=== PATIENT | female | born 1945 | race Caucasian/White ===

== ENCOUNTER 2020-06-12 10:27 | Outpatient (CLI) | payer MEDICARE, SELFPAY ==
--- NOTE | ~2020-06-12 | MM_ITS ---
EXAMINATION: MM screening [facility] w [facility] HISTORY: Screening TECHNIQUE: Craniocaudal and mediolateral oblique 3-D tomosynthesis images were obtained and synthetic 2-D images were generated. CAD analysis was submitted and interpreted. COMPARISON: Comparison to multiple prior studies sequentially, with oldest reviewed study dated 12/18/2014. BREAST PARENCHYMAL COMPOSITION: There are scattered areas of fibroglandular density. FINDINGS: There is no evidence of suspicious mass, calcification, or architectural distortion to sugg est malignancy in either breast. There has been no suspicious interval change. IMPRESSION: 1. No mammographic evidence of malignancy. 2. Recommend routine screening mammography in one year. BI-RADS Category 1: Negative Reviewed, dictated and finalized at location A. [facility]
== END 2020-06-12 10:28 | disposition home or self-care (01) ==
PROVIDERS: PCP Internal Medicine; Visit Provider Obstetrics & Gynecology Gynecology
DX: Z12.31 Encounter for screening mammogram for malignant neoplasm of breast (principal)
CPT/HCPCS: 77063; 77067

== ENCOUNTER → 2020-07-12 05:25 | Outpatient (CLI) | payer MEDICARE, SELFPAY ==
[2020-07-12 19:34] LABS: SARS-CoV-2 RNA PCR Negative
== END ==
PROVIDERS: PCP Internal Medicine; Visit Provider Internal Medicine Gastroenterology
DX: Z01.812 Encounter for preprocedural laboratory examination (principal); Z20.822 Contact with and (suspected) exposure to COVID-19
CPT/HCPCS: C9803; U0003; U0005

== ENCOUNTER 2020-07-15 01:14 | Day surgery (SDC) | payer MEDICARE, SELFPAY ==
[2020-07-01 15:25] VITALS: BMI 24.9
[2020-07-15 09:35] VITALS: BP 138/97; PULSE 84; RESP 16; TEMP 36.7; O2SAT 99; BMI 23.8
[2020-07-15] MEDS: LACTATED RINGERS 1,000 ML 150 ML IV CONT (09:47)
--- NOTE | 2020-07-15 10:26 | WPDANESEPPF ---
Anes - Initial Pre Proc Eval Procedure: Operation Date: 07/15/20 10:45 Proposed Procedures p Screening Colonoscopy - Arturo Morocho MD Date/Time: 07/15/20 10:26 Surgeon: Arturo Morocho MD Pre Op Diagnosis: neoplasm screening Patient Data Age: 75 Gender: F Height: 5 ft 6 in Weight: 66.8 kg Last Vital Signs Temp 98.1 F 07/15/20 09:35 Pulse 84 07/15/20 09:35 Resp 16 07/15/20 09:35 BP 138/97 H 07/15/20 09:35 Pulse Ox 99 07/15/20 09:35 Allergies Allergy/AdvReac Type Severity Reaction Status Date / Time No Known Allergies Allergy Verified 07/15/20 09:34 Home Medications Medication Instructions Recorded Confirmed Type sodium,potassium,mag sulfates 17.5 See Rx Instructions PO .COMPLEX 06/12/20 Rx gram-3.13 gram-1.6 gram oral soln #354 ml amlodipine 5 mg PO DAILY 07/01/20 07/01/20 History hydrochlorothiazide 25 mg PO DAILY 07/01/20 07/01/20 History simvastatin 20 mg PO DAILY 07/01/20 07/01/20 History solifenacin 5 mg PO DAILY 07/01/20 07/01/20 History Patient hx anesthesia problems: none Family hx anesthesia problems: none PMFSH Past Medical History Medical History (Updated 07/15/20 @ 10:18 by Cipriano Gusman MD) Hyperlipidemia Hypertension Family History Family History (Updated 10/31/18 @ 11:06 by DOCTOR UNKNOWN) Other Family history of cardiovascular disease Hypertension Social History Social History Smoking packs per day: 1.5 Smoking cigarettes per day: 30.0 Years smoked: 15 Smoking pack-years: 22.50 Smoking status: Former smoker Tobacco type: cigarettes Alcohol intake: current Drinks per week: 5 Substance use type: does not use Living arrangements: with family Spiritual care concerns: No Anes - Eval Final PreProcedure Day of Procedure 07/15/20 10:26 Patient weight: normal Heart: regular rate and rhythm Lungs: clear to auscultation Airway: Mallampati scale class II Neurological: alert and oriented Last oral intake: >/= 8 hours ASA classification: II Emergent: no Anesthetic plan: proceed Anesthesia type and monitoring: general GIVS and standard monitoring Informed Consent: The patient's anesthetic plan and its attendant risks and benefits were discussed with the patient/family/POA. Questions were solicited and answers provided to the satisfaction of the patient/family/POA.
--- NOTE | 2020-07-15 11:23 | PM.HPGS ---
History of Present Illness History of Present Illness Consent: Risks, benefits, and alternatives have been discussed and questions answered. Patient agrees to proceed with procedure. Chief complaint: neoplasm screening Narrative: Olivia Mo is a 75 year old female here for screening colonoscopy, last one about 5 years ago Review of Systems Constitutional: Constitutional: Denies headache(s) and Denies weakness Eyes: Eyes: Denies blurry vision ENT: Reports Normal hearing present, Denies headache(s) and Denies neck pain Cardiovascular: Cardiovascular: Denies chest pain and Denies dyspnea Respiratory: Respiratory: Denies dyspnea Gastrointestinal: Gastrointestinal: Reports no additional gastrointestinal complaints Genitourinary: Genitourinary: Denies dysuria Musculoskeletal: Musculoskeletal: Denies neck pain Integumentary/Breasts: Skin/Breast: Denies dry skin Neurologic: Reports Normal hearing present, Denies headache(s) and Denies weakness Psychiatric: Psychiatric: Denies anxiety Endocrine: Endocrine: Denies change in body appearance Hematologic/Lymphatic: Hematologic/Lymphatic: Denies easy bleeding Allergic/Immunologic: Allergic/Immunologic: Denies urticaria PMFSH Past Medical History Medical History (Updated 07/15/20 @ 11:24 by Arturo Morocho MD) Colon cancer screening Hyperlipidemia Hypertension Family History Family History (Updated 10/31/18 @ 11:06 by DOCTOR UNKNOWN) Other Family history of cardiovascular disease Hypertension Social History Social History Smoking packs per day: 1.5 Smoking cigarettes per day: 30.0 Years smoked: 15 Smoking pack-years: 22.50 Smoking status: Former smoker Tobacco type: cigarettes Alcohol intake: current Drinks per week: 5 Substance use type: does not use Living arrangements: with family Spiritual care concerns: No Meds Home Medications and Allergies Home Medications Medication Instructions Recorded Confirmed Type sodium,potassium,mag sulfates 17.5 See Rx Instructions PO .COMPLEX 06/12/20 Rx gram-3.13 gram-1.6 gram oral soln #354 ml amlodipine 5 mg PO DAILY 07/01/20 07/01/20 History hydrochlorothiazide 25 mg PO DAILY 07/01/20 07/01/20 History simvastatin 20 mg PO DAILY 07/01/20 07/01/20 History solifenacin 5 mg PO DAILY 07/01/20 07/01/20 History Allergies Allergy/AdvReac Type Severity Reaction Status Date / Time No Known Allergies Allergy Verified 07/15/20 09:34 Vital Signs Vital Signs - 24 hr 07/15/20 09:35 Temperature 98.1 F Pulse Rate 84 Respiratory Rate 16 Blood Pressure 138/97 H Pulse Oximetry 99 Exam Const: General: comfortable and no acute distress HENMT: General nose exam: Normal nares present Eyes: General: appearance normal, both eyes and all related structures Neck: Neck: no JVD Resp: Auscultation: clear to auscultation bilaterally Cardio: Rate: regular rate Rhythm: regular rhythm GI: Inspection: non-distended GI Palp: Yes Soft to palpation Skin: General skin exam: normal color Neuro: General: gait normal Speech: normal speech Extrem: General: normal to inspection Psych: Mental Status: mental status grossly normal Assessment and Plan Assessment and plan (1) Colon cancer screening: Code(s): Z12.11 - Encounter for screening for malignant neoplasm of colon Status: Acute Assessment and Plan: proceed with colonoscopy
[2020-07-15 12:15] VITALS: BP 98/67; PULSE 71; RESP 15; O2SAT 95
[2020-07-15 12:25] VITALS: BP 107/69; PULSE 61; RESP 18; O2SAT 98
[2020-07-15 12:35] VITALS: BP 116/75; PULSE 60; RESP 18; O2SAT 97
== END 2020-07-15 12:46 | disposition home or self-care (01) ==
PROVIDERS: PCP Internal Medicine; Visit Provider Internal Medicine Gastroenterology
PROC: 0DJD8ZZ Inspection of Lower Intestinal Tract, Via Natural or Artificial Opening Endoscopic (ICD-10-PCS; CPT 45378; principal; 2020-07-15 10:45)
DX: Z12.11 Encounter for screening for malignant neoplasm of colon (principal); K63.5 Polyp of colon; K57.30 Diverticulosis of large intestine without perforation or abscess without bleeding; I10 Essential (primary) hypertension; E78.5 Hyperlipidemia, unspecified; Z87.891 Personal history of nicotine dependence
CPT/HCPCS: 45381; 45385; 88305; J2704; J7120

== ENCOUNTER 2021-06-27 04:29 | Emergency (ER) | payer MEDICARE, SELFPAY ==
--- NOTE | ~2021-06-27 | CT_ITS ---
EXAMINATION: CT orbit BI wo con DATE: 06/27/2021 05:15 INDICATION: Right eye injury. Hyphema. TECHNIQUE: Computed tomography (CT) of the orbits was performed without intravenous contrast. The dos e-length product was 165.48 mGy-cm. Automated exposure control and iterative reconstruction technique were employed. COMPARISON: None FINDINGS: There is asymmetrically decreased size of the right globe. The lens appears irregular, poss ibly dislocated. There is multiple foci of increased attenuation in the globe which may represent int raocular hemorrhage. Small periarticular hemorrhage is possible anteriorly, suspicious for rupture. R ecommend ophthalmological examination. No evidence for surrounding orbital fracture. There is minimal mucosal thickening of the left maxillary sinus. IMPRESSION: 1. Atypical appearance to the right globe with possible ocular rupture with intra-articular and extra -articular hemorrhage. Correlation with ophthalmic examination recommended. Reviewed, dictated and finalized at location A. IMPRESSION: 1. Atypical appearance to the right globe with possible ocular rupture with int ra-articular and extra-articular hemorrhage. Correlation with ophthalmic examin ation recommended.
[2021-06-27 04:32] VITALS: BP 146/82; PULSE 71; RESP 16; TEMP 36.4; O2SAT 100
[2021-06-27] MEDS: HYDROcodone/acetaminophen (*CRX) 5-325 MG TABLET 1 TAB PO (04:46)
--- NOTE | 2021-06-27 05:26 | ED.FALL ---
HPI - Fall General Chief Complaint: Fall Stated Complaint: Fall, head injury Time Seen by Provider: 06/27/21 04:30 Source: patient History of Present Illness HPI Narrative: 76-year-old female presented [facility] department for evaluation of an injury to her right eye. Patient states she was getting out of a bed that she was not familiar with and she struck the corner of a nightstand injuring her eye. Patient states that she has significant visual deficit in that eye to begin with. Patient has had mild corneal issues and does follow-up with the retina [facility]. 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 Patient states she can still see light and denies any significant change in her vision to the right eye. Related Data Home Medications Medication Instructions Recorded Confirmed amlodipine 5 mg PO DAILY 07/01/20 05/27/21 hydrochlorothiazide 25 mg PO DAILY 07/01/20 05/27/21 simvastatin 20 mg PO DAILY 07/01/20 05/27/21 oxybutynin chloride 15 mg 15 mg PO DAILY 05/27/21 05/27/21 tablet,extended release 24 hr Allergies Allergy/AdvReac Type Severity Reaction Status Date / Time No Known Allergies Allergy Verified 05/27/21 10:26 Review of Systems Review of Systems: CONSTITUTIONAL: Denies fever, chills, or sweats. EYES: pain and injury to the right eye. some visual change to eey ENT: Denies rhinorrhea, congestion, sore throat, or otalgia. CARDIOVASCULAR: Denies chest pain, palpitations, or edema. RESPIRATORY: Denies cough or dyspnea. GASTROINTESTINAL: Denies abdominal pain, nausea, vomiting, or diarrhea. GENITOURINARY: Denies dysuria or hematuria. SKIN: Denies rash or itching. MUSCULOSKELETAL: Denies back pain, joint pain, or myalgia. NEUROLOGIC: Denies headache, numbness, or weakness. PSYCHIATRIC: Denies anxiety or depression. [facility] Past Medical History Medical History Colon cancer screening Hyperlipidemia Hypertension Family History Family History Grandparent Cervical cancer Mother Hypertension Heart disease Grandparent Cerebrovascular accident Other Family history of cardiovascular disease Social History Social History Smoking packs per day: 1.5 Smoking cigarettes per day: 30.0 Years smoked: 15 Smoking pack-years: 22.50 Smoking status: Former smoker Tobacco type: cigarettes Alcohol intake: current Drinks per week: 5 Substance use type: does not use Spiritual care concerns: No Exam Narrative: APPEARANCE: Well appearing, no pain, no distress, well-nourished. HEAD: normocephalic, atraumatic. EYES: For the right eye patient does have lateral subconjunctival hemorrhage with some hematoma/edema. Patient also has hyphema of 100%. Patient is sensitive to light in that eye. Patient states this is her baseline vision in that eye. NOSE: Normal no drainage EARS:TMS clear with good light reflex. THROAT: Pharynx clear, no exudate. NECK: Supple. No adenopathy, no masses. RESPIRATORY: Airway patent, respirations nonlabored. Clear to auscultation bilaterally, no rales, rhonchi, wheezing. CARDIOVASCULAR: Regular rate and rhythm without murmurs rubs or gallops. ABDOMINAL: Soft, nontender, nondistended, normal bowel sounds MUSCULOSKELETAL: Moves all extremities. Strength/ROM intact, No edema, No calf tenderness. SKIN: Warm, dry. Normal Color Course Course Emergency Course: Case was discussed with [facility]mology at [facility]. Patient was asked for transfer to the emergency department. Patient was updated on the plan for transfer to [facility]. All questions concerns were addressed. Patient was stable at time of transfer. Vital Signs Vital signs: Vital Signs Temperature 97.5 F L 06/27/21 04:32 Pulse Rate 71 06/27/21 04:32 Respiratory Rate 16 06/27/21 04:32 Blood Pressure 146/82 H 06/27/21
[2021-06-27 06:50] VITALS: BP 129/69; PULSE 69; RESP 16; O2SAT 100
[2021-06-27] MEDS: MORPHINE SULFATE (*CRX) 2 MG/ML INJ IV PUSH (07:43)
== END 2021-06-27 08:05 | disposition short-term general hospital (02) ==
PROVIDERS: Emergency Provider Emergency Medicine; PCP Internal Medicine
DX: S05.11XA Contusion of eyeball and orbital tissues, right eye, initial encounter (principal); E78.5 Hyperlipidemia, unspecified; I10 Essential (primary) hypertension; Z87.891 Personal history of nicotine dependence; W22.03XA Walked into furniture, initial encounter
CPT/HCPCS: 70480; 96374; 99285; A9270; J2270

== ENCOUNTER 2021-07-06 08:17 | Outpatient (CLI) | payer MEDICARE, SELFPAY ==
--- NOTE | ~2021-07-06 | MM_ITS ---
EXAMINATION: MM screening [facility] BI w parker HISTORY: Screening mammogram TECHNIQUE: Craniocaudal and mediolateral oblique 3-D tomosynthesis images were obtained and synthetic 2-D images were generated. CAD analysis was submitted and interpreted. COMPARISON: 06/12/2020, 04/09/2019 BREAST PARENCHYMAL COMPOSITION: The breasts are almost entirely fatty. FINDINGS: Again noted is stable architectural distortion in the right breast at the site of prior exc isional biopsy. There is no suspicious mass, calcification, or architectural distortion to suggest ma lignancy in either breast. There has been no suspicious interval change. IMPRESSION: 1. No mammographic evidence of malignancy. 2. Recommend routine screening mammography in one year. BI-RADS Category 2: Benign finding(s). Reviewed, dictated and finalized at location A.
== END 2021-07-06 08:18 | disposition home or self-care (01) ==
LOC: ANHIMG 08:18
PROVIDERS: PCP Internal Medicine; Visit Provider Obstetrics & Gynecology Gynecology
DX: Z12.31 Encounter for screening mammogram for malignant neoplasm of breast (principal)
CPT/HCPCS: 77063; 77067

== ENCOUNTER 2021-09-23 08:37 | Outpatient (CLI) | payer MEDICARE, SELFPAY ==
--- NOTE | ~2021-09-23 | DEXA_ITS ---
Bone Density Report Name: LESLI SHARP Age: 76 Sex: Female Ethnicity: White Date of : 1945 Indication: osteopenia; monitoring treatment; height loss; hysterectomy; Referring Provider: JACKI GARCIA Study: Bone densitometry was performed. Exam Date: September 23, 2021 Accession number: [id number] Bone Density: Region BMD T-score Z-score Classification AP Spine(L1, L2) 0.931 -0.4 2.0 Normal Femoral Neck (Left) 0.702 -1.3 0.9 Osteopenia Total Hip (Left) 0.776 -1.4 0.6 Osteopenia Femoral Neck (Right) 0.650 -1.8 0.4 Osteopenia Total Hip (Right) 0.758 -1.5 0.5 Osteopenia Total Hip Mean 0.767 -1.5 0.6 Osteopenia World Health Organization criteria for BMD impression classify patients as: Normal (T-score at or above -1.0), Osteopenia (T-score between -1.0 and -2.5), or Osteoporosis (T-score at or below -2.5). 10-year Fracture Risk: FRAX not reported because: Treated for osteoporosis Previous Exams: Region Exam Age BMD T-score BMD Change BMD Change Date g/cm2 vs Baseline vs Previous AP Spine (L1-L2) 09/23/2021 76 0.931 -0.4 -0.039 (-4.0%) -0.044 (-4.5%) 02/24/2018 72 0.975 0.0 0.005 (0.5%)# 0.025 (2.7%)* 12/26/2015 70 0.950 -0.3 -0.020 (-2.1%) -0.020 (-2.1%) 11/14/2013 68 0.970 -0.1 Total Hip(Left) 09/23/2021 76 0.776 -1.4 -0.093 (-10.7% -0.131 (-14.4% 02/24/2018 72 0.907 -0.3 0.038 (4.3%)# 0.004 (0.4%) 12/26/2015 70 0.903 -0.3 0.034 (3.9%)# 0.034 (3.9%)# 11/14/2013 68 0.869 -0.6 Total Hip(Right) 09/23/2021 76 0.758 -1.5 -0.036 (-4.5%) -0.036 (-4.5%) 02/24/2018 72 0.794 -1.2 0.000 (0.0%)# 0.008 (1.1%) 12/26/2015 70 0.786 -1.3 -0.008 (-1.0%) -0.008 (-1.0%) 11/14/2013 68 0.794 -1.2 *Denotes significance at 95% confidence level, LSC for AP Spine = 0.022 g/cm2, LSC for Total Hip = 0.027 g/cm2 # Denotes dissimilar scan types or analysis methods Clinical Information Provided by Patient: Is being treated for osteoporosis Has used the following medications: Calcium Has the following medical conditions: Hysterectomy Patient maximum height was 66 Menopause Age: 49 Does not regularly consume dairy products Drinks caffeinated beverages Onset of menses at age 11 Number of children 1 Impression: The patient has low bone mass, based on the Right Femoral Neck T-score. The BMD for the AP Spine (L1-L2) decreased, changing by -4.5% since the last DXA exam. The BMD
== END 2021-09-23 08:38 | disposition home or self-care (01) ==
LOC: ANHIMG 08:38
PROVIDERS: PCP Internal Medicine; Visit Provider Obstetrics & Gynecology Gynecology
DX: Z78.0 Asymptomatic menopausal state (principal); M85.852 Other specified disorders of bone density and structure, left thigh; M85.851 Other specified disorders of bone density and structure, right thigh
CPT/HCPCS: 77080

== ENCOUNTER 2022-10-06 08:50 | Outpatient (CLI) | payer MEDICARE, SELFPAY ==
--- NOTE | ~2022-10-06 | MM_ITS ---
EXAMINATION: MM screening [facility] BI w [facility] HISTORY: Screening mammogram TECHNIQUE: Craniocaudal and mediolateral oblique 3-D tomosynthesis images were obtained and synthetic 2-D images were generated. CAD analysis was submitted and interpreted. COMPARISON: No prior mammogram is available for comparison at this institution. BREAST PARENCHYMAL COMPOSITION: The breasts are almost entirely fatty. FINDINGS: There is no evidence of suspicious mass, calcification, or architectural distortion to sugg est malignancy in either breast. There has been no suspicious interval change. IMPRESSION: 1. No mammographic evidence of malignancy. 2. Recommend routine screening mammography in one year. BI-RADS Category 1: Negative Reviewed, dictated and finalized at location A.
== END 2022-10-06 08:51 | disposition home or self-care (01) ==
LOC: ANHIMG 08:52
PROVIDERS: PCP Internal Medicine; Visit Provider Obstetrics & Gynecology Gynecology
DX: Z12.31 Encounter for screening mammogram for malignant neoplasm of breast (principal)
CPT/HCPCS: 77063; 77067

== ENCOUNTER 2023-10-10 08:55 | Outpatient (CLI) | payer MEDICARE, SELFPAY ==
--- NOTE | ~2023-10-10 | MM_ITS ---
EXAMINATION: MM screening [facility] BI w parker HISTORY: Screening mammogram TECHNIQUE: Craniocaudal and mediolateral oblique 3-D tomosynthesis images were obtained and synthetic 2-D images were generated. CAD analysis was submitted and interpreted. COMPARISON: 10/06/2022, 07/06/2021, 06/12/2020 BREAST PARENCHYMAL COMPOSITION:Not Dense. The breasts are almost entirely fatty FINDINGS: No suspicious mass, calcification, or architectural distortion are identified in either brandon ast to suggest malignancy. There has been no suspicious interval change. IMPRESSION: No mammographic evidence of malignancy. Recommend routine screening mammography in one year. BI-RADS Category 1: Negative Reviewed, dictated and finalized at location .
--- NOTE | ~2023-10-10 | DEXA_ITS ---
Bone Density Report Name: LESLI SHARP Age: 78 Sex: Female Ethnicity: White Date of : 1945 Indication: osteopenia; hysterectomy; Referring Provider: JACKI GARCIA Study: Bone densitometry was performed. Exam Date: October 10, 2023 Accession number: [id number] Bone Density: Region BMD T-score Z-score Classification AP Spine(L1-L4) 1.061 0.1 2.8 Normal Femoral Neck (Left) 0.704 -1.3 1.0 Osteopenia Total Hip (Left) 0.793 -1.2 0.9 Osteopenia Femoral Neck (Right) 0.651 -1.8 0.5 Osteopenia Total Hip (Right) 0.742 -1.6 0.4 Osteopenia Total Hip Mean 0.768 -1.4 0.7 Osteopenia World Health Organization criteria for BMD impression classify patients as: Normal (T-score at or above -1.0), Osteopenia (T-score between -1.0 and -2.5), or Osteoporosis (T-score at or below -2.5). 10-year Fracture Risk(1): Major Osteoporotic Fracture 15% Hip Fracture 3.9% Reported Risk Factors: [place] (), Neck BMD=0.651, BMI=25.0 (1) FRAX(R) Version 3.08. Fracture probability calculated for an untreated patient. Fracture probability may be lower if the patient has received treatment. Previous Exams: Region Exam Age BMD T-score BMD Change BMD Change Date g/cm2 vs Baseline vs Previous AP Spine (L1-L4) 10/10/2023 78 1.061 0.1 0.019 (1.8%)# -0.025 (-2.3%) 02/24/2018 72 1.085 0.3 0.043 (4.2%)# 0.040 (3.8%)* 12/26/2015 70 1.045 0.0 0.003 (0.3%)# 0.003 (0.3%)# 11/14/2013 68 1.042 0.0 Total Hip(Left) 10/10/2023 78 0.793 -1.2 -0.076 (-8.8%) 0.017 (2.2%) 09/23/2021 76 0.776 -1.4 -0.093 (-10.7% -0.131 (-14.4% 02/24/2018 72 0.907 -0.3 0.038 (4.3%)# 0.004 (0.4%) 12/26/2015 70 0.903 -0.3 0.034 (3.9%)# 0.034 (3.9%)# 11/14/2013 68 0.869 -0.6 Total Hip(Right) 10/10/2023 78 0.742 -1.6 -0.051 (-6.5%) -0.016 (-2.1%) 09/23/2021 76 0.758 -1.5 -0.036 (-4.5%) -0.036 (-4.5%) 02/24/2018 72 0.794 -1.2 0.000 (0.0%)# 0.008 (1.1%) 12/26/2015 70 0.786 -1.3 -0.008 (-1.0%) -0.008 (-1.0%) 11/14/2013 68 0.794 -1.2 *Denotes significance at 95% confidence level, LSC for AP Spine = 0.022 g/cm2, LSC for Total Hip = 0.027 g/cm2 # Denotes dissimilar scan types or analysis methods Clinical Information Provided by Patient: Has used the following medications: Vitamin D, Calcium Has the following medical conditions: Hysterectomy Patient maximum height was 65.5 Menopause Age: 49 Drinks caffeinated beverages Onset of menses at
== END 2023-10-10 08:56 | disposition home or self-care (01) ==
LOC: ANHIMG 08:56
PROVIDERS: PCP Internal Medicine; Visit Provider Obstetrics & Gynecology Gynecology
DX: Z12.31 Encounter for screening mammogram for malignant neoplasm of breast (principal); M85.89 Other specified disorders of bone density and structure, multiple sites; Z78.0 Asymptomatic menopausal state
CPT/HCPCS: 77063; 77067; 77080

== ENCOUNTER 2023-11-16 00:10 | Day surgery (SDC) | payer MEDICARE, SELFPAY ==
[2023-10-25 15:34] VITALS: BMI 24.7
[2023-11-16 07:27] VITALS: BP 127/87; PULSE 63; RESP 18; TEMP 36.3; O2SAT 97
[2023-11-16] MEDS: LACTATED RINGERS 1,000 ML 150 ML IV CONT (07:40)
--- NOTE | 2023-11-16 08:12 | WPDANESEPPF ---
Anes - Initial Pre Proc Eval Procedure: Operation Date: 11/16/23 08:30 Proposed Procedures p Colonoscopy - Arturo Morocho MD Date/Time: 11/16/23 08:12 Surgeon: Arturo Morocho MD Pre Op Diagnosis: Personal hx. colon polyps Patient Data Age: 78 Gender: F Height: 1.65 m Weight: 67.1 kg Last Vital Signs Temp 36.3 C L 11/16/23 07:27 Pulse 63 11/16/23 07:27 Resp 18 11/16/23 07:27 BP 127/87 11/16/23 07:27 Pulse Ox 97 11/16/23 07:27 O2 Del Method Room Air 11/16/23 07:27 Allergies Allergy/AdvReac Type Severity Reaction Status Date / Time No Known Allergies Allergy Verified 07/25/23 07:57 Home Medications Medication Instructions Recorded Confirmed Type amlodipine 5 mg tablet 5 mg PO DAILY 07/01/20 10/25/23 History hydrochlorothiazide 25 mg tablet 25 mg PO DAILY 07/01/20 10/25/23 History simvastatin 20 mg tablet 20 mg PO DAILY 07/01/20 10/25/23 History oxybutynin chloride 15 mg 10 mg PO DAILY 05/27/21 10/25/23 History tablet,extended release 24 hr fluticasone propionate 50 2 spray intranasal DAILY #18 mL 06/22/22 10/25/23 Rx mcg/actuation nasal spray,suspension (Flonase Allergy Relief) fluoxetine 10 mg capsule 10 mg PO DAILY 07/25/23 10/25/23 History omeprazole 40 mg capsule,delayed 40 mg PO DAILY #90 caps 07/25/23 10/25/23 Rx release Patient hx anesthesia problems: none Family hx anesthesia problems: none Results Review: All pre-operative results and documents have been reviewed as part of the pre-operative evaluation. [facility] Past Medical History Medical History Colon cancer screening Hyperlipidemia Hypertension Family History Family History Grandparent Cervical cancer Mother Hypertension Heart disease Grandparent Cerebrovascular accident Other Family history of cardiovascular disease Social History Social History Social History: Caffeine-very little Smoking packs per day: 1 Smoking cigarettes per day: 20.0 Years smoked: 15 Smoking pack-years: 15.00 Smoking status: Former smoker Tobacco type: cigarettes Smoking end date: 04/11/79 Alcohol intake: current Drinks per week: 5 Substance use: never Substance use type: does not use Lack of Transportation: No Lack of Food: Never True Current Housing: I Have Housing Concerned About Future Housing: No Difficulty Paying Gas/Electric Bills: No Difficulty Paying for Meds: No Currently Unemployed: No Education: Associate Degree Difficulty w/ Childcare or Family Care: No Living arrangements: with family Spiritual care concerns: No Anes - Eval Final PreProcedure Day of Procedure 11/16/23 08:12 Patient weight: normal Heart: regular rate and rhythm Lungs: clear to auscultation Airway: Mallampati scale class II Neurological: alert and oriented Last oral intake: >/= 8 hours ASA classification: III Emergent: no Anesthetic plan: proceed Anesthesia type and monitoring: general GIVS and standard monitoring Results Review: All pre-operative results and documents have been reviewed as part of the pre-operative evaluation. Informed Consent: The patient's anesthetic plan and its attendant risks and benefits were discussed with the patient/family/POA. Questions were solicited and answers provided to the satisfaction of the patient/family/POA.
--- NOTE | 2023-11-16 08:13 | PM.HPGS ---
History of Present Illness History of Present Illness Consent: Risks, benefits, and alternatives have been discussed and questions answered. Patient agrees to proceed with procedure. Chief complaint: Personal hx. colon polyps Narrative: Olivia Mo is a 78 year old female with colon polyp in 2020 Review of Systems Review of Systems: All systems reviewed & are unremarkable except as noted in HPI and below PMFSH Past Medical History Medical History (Updated 11/16/23 @ 08:13 by Arturo Morocho MD) Adenomatous colon polyp Colon cancer screening Hyperlipidemia Hypertension Family History Family History Grandparent Cervical cancer Mother Hypertension Heart disease Grandparent Cerebrovascular accident Other Family history of cardiovascular disease Social History Social History Social History: Caffeine-very little Smoking packs per day: 1 Smoking cigarettes per day: 20.0 Years smoked: 15 Smoking pack-years: 15.00 Smoking status: Former smoker Tobacco type: cigarettes Smoking end date: 04/11/79 Alcohol intake: current Drinks per week: 5 Substance use: never Substance use type: does not use Lack of Transportation: No Lack of Food: Never True Current Housing: I Have Housing Concerned About Future Housing: No Difficulty Paying Gas/Electric Bills: No Difficulty Paying for Meds: No Currently Unemployed: No Education: Associate Degree Difficulty w/ Childcare or Family Care: No Living arrangements: with family Spiritual care concerns: No Meds Home Medications and Allergies Home Medications Medication Instructions Recorded Confirmed Type amlodipine 5 mg tablet 5 mg PO DAILY 07/01/20 10/25/23 History hydrochlorothiazide 25 mg tablet 25 mg PO DAILY 07/01/20 10/25/23 History simvastatin 20 mg tablet 20 mg PO DAILY 07/01/20 10/25/23 History oxybutynin chloride 15 mg 10 mg PO DAILY 05/27/21 10/25/23 History tablet,extended release 24 hr fluticasone propionate 50 2 spray intranasal DAILY #18 mL 06/22/22 10/25/23 Rx mcg/actuation nasal spray,suspension (Flonase Allergy Relief) fluoxetine 10 mg capsule 10 mg PO DAILY 07/25/23 10/25/23 History omeprazole 40 mg capsule,delayed 40 mg PO DAILY #90 caps 07/25/23 10/25/23 Rx release Allergies Allergy/AdvReac Type Severity Reaction Status Date / Time No Known Allergies Allergy Verified 07/25/23 07:57 Vital Signs Vital Signs - 24 hr 11/16/23 07:27 Temperature 97.4 F L Pulse Rate 63 Respiratory Rate 18 Blood Pressure 127/87 Pulse Oximetry 97 Oxygen Delivery Room Air Exam Const: General: comfortable and no acute distress HENMT: Face/Nose/Sinus: Normal nares present Eyes: General: appearance normal, both eyes and all related structures Neck: Neck: no JVD Resp: Auscultation: clear to auscultation bilaterally Cardio: Rate: regular rate Rhythm: regular rhythm GI: Inspection: non-distended GI Palp: Yes Soft to palpation Skin: General skin exam: normal color Neuro: General: gait normal Speech: normal speech Extrem: General: normal to inspection Psych: Mental Status: mental status grossly normal Assessment and Plan Assessment and plan (1) Adenomatous colon polyp: Code(s): D12.6 - Benign neoplasm of colon, unspecified Status: Acute Assessment and Plan: colonoscopy
[2023-11-16 08:39] VITALS: BP 105/60; PULSE 59; RESP 17; O2SAT 97
[2023-11-16 08:49] VITALS: BP 110/86; PULSE 60; RESP 20; O2SAT 99
[2023-11-16 08:59] VITALS: BP 112/55; PULSE 54; RESP 20; O2SAT 98
== END 2023-11-16 09:13 | disposition home or self-care (01) ==
PROVIDERS: PCP Internal Medicine; Visit Provider Internal Medicine Gastroenterology
PROC: 0DJD8ZZ Inspection of Lower Intestinal Tract, Via Natural or Artificial Opening Endoscopic (ICD-10-PCS; CPT 45378; principal; 2023-11-16 08:30)
DX: Z12.11 Encounter for screening for malignant neoplasm of colon (principal); D12.2 Benign neoplasm of ascending colon; D12.4 Benign neoplasm of descending colon; K57.30 Diverticulosis of large intestine without perforation or abscess without bleeding; K64.8 Other hemorrhoids; I10 Essential (primary) hypertension; E78.5 Hyperlipidemia, unspecified; Z87.891 Personal history of nicotine dependence
CPT/HCPCS: 45385; 88305; J2001; J2704; J7120

== ENCOUNTER 2024-04-27 17:08 | Inpatient (IN) | payer MEDICARE, SELFPAY ==
--- NOTE | ~2024-04-27 | CT_ITS ---
EXAMINATION: CT thoracic lumbar wo con DATE: 04/27/2024 18:34 INDICATION: fall, mid back pain . TECHNIQUE: Computed tomography (CT) of the thoracic and lumbar spine was performed without intravenou s contrast. Automated exposure control and iterative reconstruction technique were employed. The dose -length product was 570.99 mGy-cm. COMPARISON: None FINDINGS: THORACIC SPINE: Ectasia of the ascending aorta measuring up to 4.0 cm. Moderate coronary artery calcifications. Mild scoliosis. Exaggerated kyphosis. Bone island in T2-3. Vertebral body alignment intact. Moderate burst fracture at T12 with 4 mm retropulsion. Multilevel mild degenerative disc disease. Multilevel mild f acet arthropathy. Dependent atelectasis. LUMBAR SPINE: 5 nonrib-bearing lumbar-type vertebral bodies. Pedicles intact. 5 mm anterolisthesis at L4-5. Vertebr al body heights preserved. Multilevel degenerative disc disease, severe at L3-4. Multilevel moderate facet arthropathy with interspinous narrowing. No fracture or dislocation. IMPRESSION: Mild ascending aortic ectasia. Moderate burst fracture at T12 with 4 mm retropulsion. 5 mm anterolisthesis at L4-5, presumably secondary to degenerative changes. No severe central canal or neural foraminal narrowing. Reviewed, dictated and finalized at location [facility]
[2024-04-27 17:09] VITALS: BP 127/75; PULSE 66; RESP 16; TEMP 36.4; O2SAT 100
--- NOTE | 2024-04-27 17:23 | ED.FALL ---
HPI - Fall General Chief Complaint: Fall <Florencio Stokes PA-C - Last Filed: 04/27/24 17:28> Stated Complaint: denny closet fell down 2 step step-stool <Florencio Stokes PA-C - Last Filed: 04/27/24 17:28> Time Seen by Provider: 04/27/24 19:21 <Florencio Stokes PA-C - Last Filed: 04/27/24 17:28> Focused HPI: This is an 78-year-old female who presents to the ED for chief complaint of bilateral lower back pain after a fall today. Patient states that she was on the 2nd step of stepstool when she accidentally fell down to the ground inside. Reports pain across the lower back. Difficulty with getting up after the fall so EMS was called. GENERAL: Well-appearing, well-nourished, and in no acute distress. HEAD: Normocephalic, atraumatic. CHEST: Clear to auscultation. No respiratory distress. HEART: Regular rate and rhythm. NEURO: Alert and oriented x3. Patient screened in triage and initial orders placed. Additional care and disposition to be based upon diagnostic testing and treatment. <TRAV Porter Last Filed: 04/27/24 17:28> Source: patient <Florencio Stokes PA-C - Last Filed: 04/27/24 17:28> Mode of arrival: EMS <TRAV Porter Last Filed: 04/27/24 17:28> Limitations: no limitations <TRAV Porter Last Filed: 04/27/24 17:28> History of Present Illness HPI Narrative: Agree with above HPI. Denies head injury or LOC. Denies numbness or tingling, weakness, saddle anesthesia, bowel or bladder incontinence. <TRAV Connors Last Filed: 04/27/24 23:31> Related Data Home Medications: Home Medications ?Medication ?Instructions ?Recorded ?Confirmed ?Last Taken ?Type amlodipine 5 mg tablet 5 mg PO DAILY 07/01/20 04/27/24 04/27/24 History hydrochlorothiazide 25 mg tablet 25 mg PO DAILY 07/01/20 04/27/2425 History simvastatin 20 mg tablet 20 mg PO DAILY 07/01/20 04/27/24 04/26/24 History oxybutynin chloride 15 mg 10 mg PO DAILY 05/27/21 04/27/24 04/27/24 History tablet,extended release 24 hr fluoxetine 10 mg capsule 10 mg PO DAILY 07/25/23 04/27/24 04/27/24 History <Florencio Stokes PA-C - Last Filed: 04/27/24 17:28> Allergies/Adverse Reactions: Allergies Allergy/AdvReac Type Severity Reaction Status Date / Time No Known Allergies Allergy Verified 04/27/24 17:56 <Florencio Stokes PA-C - Last Filed: 04/27/24 17:28> Review of Systems Review of Systems: All systems reviewed & are unremarkable except as noted in HPI. <Susan Maddox PA-C - Last Filed: 04/27/24 23:31> All systems reviewed & are unremarkable except as noted in HPI and below <Susan Maddox PA-C - Last Filed: 04/27/24 23:31> [facility] Past Medical History Medical History: Medical History (Updated 04/27/24 @ 23:15 by Nimisha Ricci APRN) Anxiety Cataract GERD (gastroesophageal reflux disease) TIA (transient ischemic attack) Chronic nonallergic rhinitis Osteoporosis Adenomatous colon polyp Hyperlipidemia Hypertension <Florencio Stokes PA-C - Last Filed: 04/27/24 17:28> Surgical History Surgical History: Surgical History History of hysterectomy <Florencio Stokes PA-C - Last Filed: 04/27/24 17:28> Family History Family History: Family History Grandparent Cervical cancer Mother Hypertension Heart disease Grandparent Cerebrovascular accident Other Family history of cardiovascular disease <Florencio Stokes PA-C - Last Filed: 04/27/24 17:28> Social History Social History: Social History Social History: Caffeine-very little Smoking packs per day: 1 Smoking cigarettes per day: 20.0 Years smoked: 15 Smoking pack-years: 15.00 Smoking status: Former smoker Tobacco type: cigarettes Smoking end date: 04/11/79 Alcohol intake: current Drinks per week: 5 Substance use: never Substance use type: does not use Lack of Transportation: No Lack of Food: Never True Current Housing: I Have Housing Concerned About Future Housing: No Difficulty Paying Gas/Electric Bills: No Difficulty Paying for Meds: No Currently Unemployed: No Education: Associate Degree Difficulty w/ Childcare or Family Care: No Living arrangements: with family Spiritual care concerns: No <Florencio Stokes PA-C - Last Filed: 04/27/24 17:28> Exam Narrative: GENERAL: Elderly but well appearing, well-nourished, in mild acute distress d/t pain. HEAD: Normocephalic, atraumatic. RESPIRATORY: Airway patent, respirations nonlabored. Clear to auscultation bilaterally, no rales, rhonchi, wheezing. CARDIOVASCULAR: Regular rate and rhythm without murmurs, rubs, or gallops. MUSCULOSKELETAL: No gross deformities. Mild TTP along lower thoracic/upper lumbar midline spine extending into bilateral lumbar paraspinal musculature, most notably in R lumbosacral/SI region. No palpable bony deformities or step offs. Sensation intact. SKIN: Warm, dry, normal color. NEURO: A&O X3. Speech clear. Cranial nerves II-XII grossly intact. No ataxic movements. PSYCHIATRIC: Appropriate mood and affect. Normal interaction. <Susan Maddox PA-C - Last Filed: 04/27/24 23:31> Course Vital Signs Vital signs: Vital Signs Temperature 97.6 F 04/27/24 17:09 Pulse Rate 66 04/27/24 17:09 Respiratory Rate 16 04/27/24 17:09 Blood Pressure 127/75 04/27/24 17:09 Pulse Oximetry 100 04/27/24 17:09 Temperature 98.1 F 04/27/24 17:58 Pulse Rate 70 04/27/24 17:58 Respiratory Rate 18 04/27/24 17:58 Blood Pressure 129/76 04/27/24 17:58 Pulse Oximetry 99 04/27/24 17:58 <Florencio Stokes PA-C - Last Filed: 04/27/24 17:28> Vital Signs Temperature 97.6 F 04/27/24 17:09 Pulse Rate 66 04/27/24 17:09 Respiratory Rate 16 04/27/24 17:09 Blood Pressure 127/75 04/27/24 17:09 Pulse Oximetry 100 04/27/24 17:09 Temperature 98.1 F 04/27/24 17:58 Pulse Rate 70 04/27/24 17:58 Respiratory Rate 18 04/27/24 17:58 Blood Pressure 129/76 04/27/24 17:58 Pulse Oximetry 99 04/27/24 17:58 <Susan Maddox PA-C - Last Filed: 04/27/24 23:31> MDM - Fall MDM Narrative Medical decision making narrative: Patient presented to ED status post fall off ladder, complaining of pain to her mid to lower back. Vital signs are stable upon arrival. Patient is neurovascularly intact. No evidence of cord compression or cauda equina. No red flag symptoms. CT scan of thoracic and lumbar spine showing moderate T12 burst fracture with 4 mm retropulsion. No central canal narrowing. Consistent with exam and injury. Patient feeling slightly improved after [place] given in triage, but still with moderate pain with movement. Discussed case with Dr. Vides, neurosurgery, agreed with plan for TLSO brace, will call [facility]. Pain control, follow-up as outpatient in clinic in the next few weeks. Dr. Vides called back to inform me that [facility] will not be able to fit patient for brace tonight. Can be out to hospital to fit patient first thing in the morning. Can admit to have patient fitted in the morning. Otherwise will have to wait until Tuesday to set up appointment. I did call [facility] myself to confirm this information. Discussed plan/disposition with patient. She was able to ambulate with assistance of her a short distance to the bathroom, but is now having fairly severe pain again. Does not feel comfortable going home without brace. Did confirm with [facility] they will be here tomorrow morning. Will discuss with hospitalist team. Discussed case with Dr. Pruett, hospitalist, accepted patient for admission. Patient in agreement with plan and admission. PRN pain meds ordered. <TRAV Connors Last Filed: 04/27/24 23:31> Medical Records Attestation: I reviewed the patient's medical records. <Susan Maddox PA-C - Last Filed: 04/27/24 23:31> Lab Data Attestation: I reviewed the patient's lab results. <Susan Maddox PA-C - Last Filed: 04/27/24 23:31> Result diagrams: 04/27/24 21:47 04/27/24 21:47 <TRAV Porter Last Filed: 04/27/24 17:28> Labs: Lab Results 04/27/24 Range/Units 21:47 WBC 9.9 (4.5-10.0) K/mm3 RBC 4.23 (4.2-5.4) M/mm3 Hgb 13.4 (12.0-15.0) g/dL Hct 39.8 (37.0-47.0) % MCV 94.1 (80-100) fl MCH 31.7 (26-34) pg MCHC 33.7 (32-36) g/dl RDW 13.6 (11.5-14.5) % Plt Count 167 (150-375) k/mm3 MPV 11.4 H (7.4-10.4) fl Immature Gran % (Auto) 0.4 (0-0.5) % Neut % (Auto) 90.7 H (45.5-73.1) % Lymph % (Auto) 5.1 L (18.3-44.2) % [place] % (Auto) 3.6 (2.6-8.5) % Eos % (Auto) 0.0 (0-4.4) % Baso % (Auto) 0.2 (0.2-1.2) % Lymph # (Auto) 0.51 L (0.9-3.2) K/mm3 [place] # (Auto) 0.4 (0.1-0.6) K/mm3 Eos # (Auto) 0.0 (0-0.3) K/mm3 Baso # (Auto) 0.0 (0.0-0.1) K/mm3 Abs Immat Gran (auto) 0.04 H (0.00-0.031) K/mm3 Absolute Neuts (auto) 9.0 H (1.3-6.7) K/mm3 Absolute Nucleated RBC 0.000 (0.0-0.012) K/mm3 Nucleated RBC % 0.0 (0.0-0.2) % Sodium 134 L (137-145) mmol/L Potassium 3.5 (3.4-5.0) mmol/L Chloride 99 (98-107) mmol/L Carbon Dioxide 25 (22-30) mmol/L Anion Gap 10 (4-12) mmol/L BUN 28 H (7-17) mg/dL Creatinine 0.48 L (0.7-1.0) mg/dL Estim Creat Clear Calc 70 ml/min Estimated GFR > 60 (59 - ) Glucose 123 H (65-110) mg/dL Calcium 9.6 (8.4-10.2) mg/dL Total Bilirubin 0.5 (0.2-1.3) mg/dL AST 38 H (14-36) U/L ALT 29 (6-35) U/L Alkaline Phosphatase 59 (38-126) U/L Total Protein 7.0 (6.3-8.2) g/dL Albumin 4.3 (3.5-5.1) g/dL <Florencio Stokes PA-C - Last Filed: 04/27/24 17:28> Lab Results 04/27/24 Range/Units 21:47 WBC 9.9 (4.5-10.0) K/mm3 RBC 4.23 (4.2-5.4) M/mm3 Hgb 13.4 (12.0-15.0) g/dL Hct 39.8 (37.0-47.0) % MCV 94.1 (80-100) fl MCH 31.7 (26-34) pg MCHC 33.7 (32-36) g/dl RDW 13.6 (11.5-14.5) % Plt Count 167 (150-375) k/mm3 MPV 11.4 H (7.4-10.4) fl Immature Gran % (Auto) 0.4 (0-0.5) % Neut % (Auto) 90.7 H (45.5-73.1) % Lymph % (Auto) 5.1 L (18.3-44.2) % [place] % (Auto) 3.6 (2.6-8.5) % Eos % (Auto) 0.0 (0-4.4) % Baso % (Auto) 0.2 (0.2-1.2) % Lymph # (Auto) 0.51 L (0.9-3.2) K/mm3 [place] # (Auto) 0.4 (0.1-0.6) K/mm3 Eos # (Auto) 0.0 (0-0.3) K/mm3 Baso # (Auto) 0.0 (0.0-0.1) K/mm3 Abs Immat Gran (auto) 0.04 H (0.00-0.031) K/mm3 Absolute Neuts (auto) 9.0 H (1.3-6.7) K/mm3 Absolute Nucleated RBC 0.000 (0.0-0.012) K/mm3 Nucleated RBC % 0.0 (0.0-0.2) % Sodium 134 L (137-145) mmol/L Potassium 3.5 (3.4-5.0) mmol/L Chloride 99 (98-107) mmol/L Carbon Dioxide 25 (22-30) mmol/L Anion Gap 10 (4-12) mmol/L BUN 28 H (7-17) mg/dL Creatinine 0.48 L (0.7-1.0) mg/dL Estim Creat Clear Calc 70 ml/min Estimated GFR > 60 (59 - ) Glucose 123 H (65-110) mg/dL Calcium 9.6 (8.4-10.2) mg/dL Total Bilirubin 0.5 (0.2-1.3) mg/dL AST 38 H (14-36) U/L ALT 29 (6-35) U/L Alkaline Phosphatase 59 (38-126) U/L Total Protein 7.0 (6.3-8.2) g/dL Albumin 4.3 (3.5-5.1) g/dL <Susan Maddox PA-C - Last Filed: 04/27/24 23:31> Imaging Data Attestation: I personally reviewed and interpreted this imaging study as follows: <Susan Maddox PA-C - Last Filed: 04/27/24 23:31> Radiologist's impression: ITS Impressions Thoracic/Lumbar Spine CT 04/27/24 18:40 IMPRESSION: Mild ascending aortic ectasia. Moderate burst fracture at T12 with 4 mm retropulsion. 5 mm anterolisthesis at L4-5, presumably secondary to degenerative changes. No severe central canal or neural foraminal narrowing. <Susan Maddox PA-C - Last Filed: 04/27/24 23:31> Discharge Plan Discharge Clinical Impression: Burst fracture of T12 vertebra Fall from ladder Qualifiers: Encounter type: initial encounter Qualified Code(s): W11.XXXA - Fall on and from ladder, initial encounter <TRAV Porter Last Filed: 04/27/24 17:28> Patient Disposition: Still a Patient <TRAV Porter Last Filed: 04/27/24 17:28> Condition: Stable <TRAV Porter Last Filed: 04/27/24 17:28> Patient Language: Syriac <TRAV Porter Last Filed: 04/27/24 17:28> Prescriptions: No Action oxybutynin chloride 15 mg tablet extended release 24 hr 10 mg PO DAILY fluoxetine 10 mg capsule 10 mg PO DAILY omeprazole 40 mg capsule,delayed release(DR/EC) 40 mg PO DAILY Qty: 90 3RF fluticasone propionate [Flonase Allergy Relief] 50 mcg/actuation spray,suspension 2 spray intranasal DAILY Qty: 18 3RF Rx Instructions: administer into each nostril amlodipine 5 mg tablet 5 mg PO DAILY simvastatin 20 mg tablet 20 mg PO DAILY hydrochlorothiazide 25 mg tablet 25 mg PO DAILY <TRAV Porter Last Filed: 04/27/24 17:28> Follow-up/Referrals: Gabriel,MD Ney [Primary Care Provider] - Antonette Vides MD [Physician] - (NEUROSURGERY) <TRAV Porter Last Filed: 04/27/24 17:28>
[2024-04-27] MEDS: HYDROcodone/acetaminophen (*CRX) 5-325 MG TABLET 1 TAB PO (17:55)
[2024-04-27 17:58] VITALS: BP 129/76; PULSE 70; RESP 18; TEMP 36.7; O2SAT 99
--- NOTE | 2024-04-27 19:11 | PC.NURSE ---
Report received from ZACHERY Melvin. Assumed care of patient at this time.
[2024-04-27] MEDS: LIDOCAINE 5% PATCH 1 PATCH TRANSDERM (21:43)
[2024-04-27] MEDS: KETOROLAC 15 MG/ML VIAL (*BKC) IV PUSH (21:43)
[2024-04-27] MEDS: CYCLOBENZAPRINE HCL 5 MG TABLET PO (21:43)
[2024-04-27 21:52] LABS: Basophils Percent Auto 0.2 % (0.2-1.2); Hematocrit 39.8 % (37.0-47.0); Hemoglobin 13.4 g/dL (12.0-15.0); Immature Granulocyte Absolute 0.04 K/mm3 (0.00-0.031); Immature Granulocyte Percent A 0.4 % (0-0.5); Lymphocytes Absolute Auto 0.51 K/mm3 (0.9-3.2); Lymphocytes Percent Auto 5.1 % (18.3-44.2); Mean Corpuscular HGB Conc 33.7 g/dl (32-36); Mean Corpuscular Hemoglobin 31.7 pg (26-34); Mean Corpuscular Volume 94.1 fl (80-100); Mean Platelet Volume 11.4 fl (7.4-10.4); Monocytes Absolute Auto 0.4 K/mm3 (0.1-0.6); Monocytes Percent Auto 3.6 % (2.6-8.5); Neutrophils Percent Auto 90.7 % (45.5-73.1); Platelet Count Result 167 k/mm3 (150-375); Red Blood Count 4.23 M/mm3 (4.2-5.4); Red Cell Distribution Width 13.6 % (11.5-14.5); White Blood Count 9.9 K/mm3 (4.5-10.0)
[2024-04-27 22:01] LABS: Alanine Aminotransferase 29 U/L (6-35); Albumin Level 4.3 g/dL (3.5-5.1); Alkaline Phosphatase 59 U/L (38-126); Anion Gap 10 mmol/L (4-12); Aspartate Amino Transferase 38 U/L (14-36); Bilirubin,Total 0.5 mg/dL (0.2-1.3); Blood Urea Nitrogen 28 mg/dL (7-17); Calcium 9.6 mg/dL (8.4-10.2); Carbon Dioxide 25 mmol/L (22-30); Chloride 99 mmol/L (98-107); Estimated CRCL calculation 70 ml/min; Estimated Glomerular Filt Rate > 60; Glucose 123 mg/dL (65-110); Potassium 3.5 mmol/L (3.4-5.0); Sodium 134 mmol/L (137-145)
--- NOTE | 2024-04-27 22:46 | PM.IMHP ---
H&P: HPI History of Present Illness Date/Time: 04/27/24 22:46 Chief Complaint: Low Back Pain, Fall Narrative: 78 y/o F presents here with low back pain s/p fall with PMH of hyperlipidemia, anxiety, and hypertension. The patient presents here from home for further evaluation of low back pain s/p fall. She reports she was on a step stool, approximately 2 steps, when she lost her balance and fell straight back. She denies head strike or loss of consciousness. Patient had difficulty getting up post fall which prompted her to call 911. Denies numbness or weakness in her lower extremities. Pain in her low back pain is bilateral, sharp, 9/10, constant, and nonradiating. While in the emergency department, the patient attempted to ambulate to the restroom. However this caused a significant amount of pain. No other complaints at this time. Denies headache, dizziness, nausea, or vomiting. Initial VS at presentation: 97.6? F, HR 66, R 16, 127/75, and 100% on RA. ED workup showed: No leukocytosis, no anemia, sodium 134, creatinine 0.48 and GFR >60, glucose 123. CT lumbar/thoracic spine showed mild ascending aortic ectasia, moderate burst fracture at T12 with 4 mm of retropulsion, 5 mm of anterolisthesis at L4-5 (presumably secondary to degenerative changes), and no severe central canal or neural foraminal narrowing. Review of Systems Review of Systems: All systems reviewed & are unremarkable except as noted in HPI and below PMFSH Past Medical History Medical History (Updated 04/27/24 @ 23:15 by Nimisha Ricci APRN) Anxiety Cataract GERD (gastroesophageal reflux disease) TIA (transient ischemic attack) Chronic nonallergic rhinitis Osteoporosis Adenomatous colon polyp Hyperlipidemia Hypertension Surgical History Surgical History History of hysterectomy Family History Family History Grandparent Cervical cancer Mother Hypertension Heart disease Grandparent Cerebrovascular accident Other Family history of cardiovascular disease Social History Social History Social History: Caffeine-very little Smoking packs per day: 1 Smoking cigarettes per day: 20.0 Years smoked: 15 Smoking pack-years: 15.00 Smoking status: Former smoker Tobacco type: cigarettes Smoking end date: 04/11/79 Alcohol intake: current Drinks per week: 5 Substance use: never Substance use type: does not use Lack of Transportation: No Lack of Food: Never True Current Housing: I Have Housing Concerned About Future Housing: No Difficulty Paying Gas/Electric Bills: No Difficulty Paying for Meds: No Currently Unemployed: No Education: Associate Degree Difficulty w/ Childcare or Family Care: No Living arrangements: with family Spiritual care concerns: No Meds Home Medications and Allergies Home Medications ?Medication ?Instructions ?Recorded ?Confirmed ?Type amlodipine 5 mg tablet 5 mg PO DAILY 07/01/20 04/27/24 History hydrochlorothiazide 25 mg tablet 25 mg PO DAILY 07/01/20 04/27/24 History simvastatin 20 mg tablet 20 mg PO DAILY 07/01/20 04/27/24 History oxybutynin chloride 15 mg 10 mg PO DAILY 05/27/21 04/27/24 History tablet,extended release 24 hr fluticasone propionate 50 2 spray intranasal DAILY #18 mL 06/22/22 04/27/24 Rx mcg/actuation nasal spray,suspension (Flonase Allergy Relief) fluoxetine 10 mg capsule 10 mg PO DAILY 07/25/23 04/27/24 History omeprazole 40 mg capsule,delayed 40 mg PO DAILY #90 caps 07/25/23 04/27/24 Rx release Allergies Allergy/AdvReac Type Severity Reaction Status Date / Time No Known Allergies Allergy Verified 04/27/24 17:56 Vital Signs Vital Signs - 24 hr 04/27/24 17:09 04/27/24 17:58 Temperature 97.6 F 98.1 F Pulse Rate 66 70 Respiratory Rate 16 18 Blood Pressure 127/75 129/76 Pulse Oximetry 100 99 Exam Const: General: no acute distress and uncomfortable Other: , female, nontoxic appearance HENMT: Face/Nose/Sinus: Normal nares present Mouth: Yes moist mucous membranes Eyes: General: appearance normal, both eyes and all related structures Sclera: sclerae normal Pupils: Equal, round and reactive pupils present EOM: EOMs intact bilaterally Resp: Effort & Inspection: normal respiratory effort Auscultation: clear to auscultation bilaterally Cardio: Rate: regular rate Rhythm: regular rhythm Other: S1-S2 present without murmur, rub, ectopy Back/Spine/Pelvis: Thoracic/Lumbar Spine: pain with thoraco-lumbar ROM Skin: General skin exam: normal color and no rashes or lesions noted Wounds: no wounds Neuro: Speech: normal speech Motor exam (neuro): 5/5 motor strength present throughout Sensory Exam: normal sensation Other: A&O x4 Extrem: General: normal to inspection Psych: Mental Status: mental status grossly normal Affect: normal affect Other: Good insight and judgment, pleasant H&P: Results Labs Labs: Short CBC 04/27/24 Range/Units 21:47 WBC 9.9 (4.5-10.0) K/mm3 Hgb 13.4 (12.0-15.0) g/dL Hct 39.8 (37.0-47.0) % Plt Count 167 (150-375) k/mm3 BMP 04/27/24 21:47 Sodium 134 L Potassium 3.5 Chloride 99 Carbon Dioxide 25 BUN 28 H Creatinine 0.48 L Glucose 123 H Calcium 9.6 Liver Function 04/27/24 Range/Units 21:47 Total Bilirubin 0.5 (0.2-1.3) mg/dL AST 38 H (14-36) U/L ALT 29 (6-35) U/L Alkaline Phosphatase 59 (38-126) U/L Albumin 4.3 (3.5-5.1) g/dL Assessment and Plan Assessment and plan (1) Burst fracture of T12 vertebra: Code(s): S22.081A - Stable burst fracture of T11-T12 vertebra, initial encounter for closed fracture Status: Acute Assessment and Plan: - CT thoracic/lumbar spine: Mild ascending aortic ectasia. Moderate burst fracture at T12 with 4 mm retropulsion. 5 mm anterolisthesis at L4-5, presumably secondary to degenerative changes. No severe central canal or neural foraminal narrowing. - plan for LSO placement, call has been made to [facility] - analgesics p.r.n. - PT/OT eval and treat post LSO placement (2) Hypertension: Qualifiers: Hypertension type: primary hypertension Qualified Code(s): I10 - Essential (primary) hypertension Code(s): I10 - Essential (primary) hypertension Status: Acute Assessment and Plan: - chronic, currently 129/76 - continue home medications: Amlodipine 5 mg daily, HCTZ 25 mg daily - monitor Plan Diet: regular GI Prophylaxis: Not currently indicated DVT Prophylaxis: SCDs Lines: Peripheral Code Status: Full code Quality VTE Prophylaxis VTE prophylaxis: mechanical ordered Hospitalist [facility] Advance Care Plan I have confirmed that the patient's Advanced Care Plan is present, code status is documented, or surrogate decision maker is listed in patient medical record.: Yes Medication Reconciliation I have utilized all available resources to obtain, update and review the patients current medications (includes all prescriptions, OTC, herbals, cannabis, and nutritional supplements).: Yes
[2024-04-27 23:46] VITALS: BMI 24.0
[2024-04-28 00:15] VITALS: BP 124/77; PULSE 79; RESP 18; TEMP 36.5; O2SAT 97
--- NOTE | 2024-04-28 00:23 | ADMGEN ---
This patient, Olivia Mo, was admitted to Medical Room 241-01. Patient/family oriented to hospital policies and general routines including ID bracelet, bed and alarms, visiting hours, pain management, procedures, bathroom and other care routines, personal items, smoking policy, room service/diet, and visiting hours. Information on how to activate the Rapid Response Team has been discussed. Patient/Family are encouraged to report perceived risks to care and to ask questions if they do not understand what they are told or what they should do.
[2024-04-28] MEDS: MORPHINE SULFATE (*CRX) 2 MG/ML INJ IV PUSH (01:09)
[2024-04-28 06:00] VITALS: BP 116/69; PULSE 71; RESP 18; TEMP 36.6; O2SAT 95
[2024-04-28] MEDS: HYDROcodone/acetaminophen (*CRX) 5-325 MG TABLET 1 TAB PO ×4 (06:53→22:04)
[2024-04-28] MEDS: hydroCHLOROthiazide 25 MG TABLET PO (08:21)
[2024-04-28] MEDS: FLUoxetine HCL 10 MG CAPSULE PO (08:21)
[2024-04-28] MEDS: oxyBUTYnin CHLORIDE XL 5 MG TAB.ER.24 10 MG PO (08:21)
[2024-04-28] MEDS: PANTOPRAZOLE 40 MG TABLET PO ×2 (08:21→20:12)
[2024-04-28] MEDS: FLUTICASONE PROPIONATE 0.05% NA SPR 16 GM BTL (*BKC) 2 SPRAY NASAL (08:21)
[2024-04-28] MEDS: amLODIPine BESYLATE 5 MG TABLET PO (08:21)
--- NOTE | 2024-04-28 08:42 | PM.IMPN ---
Progress Note: A&P Assessment and Plan (1) Burst fracture of T12 vertebra: Code(s): S22.081A - Stable burst fracture of T11-T12 vertebra, initial encounter for closed fracture Status: Acute Assessment and Plan: CT of the thoracic/lumbar spine showed moderate burst fracture at T12 with 4 mm retropulsion, no severe central canal or neural foraminal narrowing. TLSO brace ordered PT and OT ordered (2) Hypertension: Qualifiers: Hypertension type: primary hypertension Qualified Code(s): I10 - Essential (primary) hypertension Code(s): I10 - Essential (primary) hypertension Status: Acute Assessment and Plan: blood pressure ranging 116/69 to 124/77 continue amlodipine and hydrochlorothiazide Time Spent With Patient Time with patient: 25 - 35 minutes Subjective Date/time seen: 04/28/24 08:42 Interval history: interval history: This is an 78 year old female who presented to the hospital with low back pain after sustaining a fall off a step stool. workup in the hospital included a thoracic/lumbar spine CT which showed moderate burst fracture at T12 with 4 mm retropulsion, 5 mm anterolisthesis at L4-5, no severe central canal or neural foraminal narrowing, mild ascending aortic ectasia. initial labs showed a sodium level 134 otherwise unremarkable. Patient was given a dose of Flexeril, Toradol, [place], and lidocaine patch while in the ED. subjective: Patient denies any new complaints today. Labs reviewed. Review of Systems Review of Systems: All systems reviewed & are unremarkable except as noted in HPI and below Constitutional: Constitutional: Reports as per HPI and Reports no additional constitutional complaints Eyes: Eyes: Reports as per HPI and Reports no additional eye complaints ENT: Reports system reviewed and no additional complaints, except as documented and Reports as per HPI Cardiovascular: Cardiovascular: Reports as per HPI and Reports no additional cardiovascular complaints Respiratory: Respiratory: Reports as per HPI and Reports no additional respiratory complaints Gastrointestinal: Gastrointestinal: Reports as per HPI and Reports no additional gastrointestinal complaints Genitourinary: Genitourinary: Reports no additional female genitourinary complaints and Reports as per HPI Musculoskeletal: Musculoskeletal: Reports no additional musculoskeletal complaints and Reports as per HPI Integumentary/Breasts: Skin/Breast: Reports system reviewed and no additional complaints, except as docu and Reports as per HPI Neurologic: Reports system reviewed and no additional complaints, except as documented and Reports as per HPI Psychiatric: Psychiatric: Reports no additional psychiatric complaints and Reports as per HPI Exam Narrative: General: In no acute distress, well nourished Head: atraumatic, no encephalopathy Eyes: PERRLA, sclera clear ENT: moist mucous membranes, nasal passages clear Neck: supple, no JVD, no adenopathy, trachea midline Cardiac: Normal S1 and S2. No murmur, gallops or friction rubs, peripheral pulses intact. Respiratory: Lungs clear to auscultation, no adventitious lung sounds, currently on room air Gastrointestinal: soft, non-distended, non-tender, normoactive bowel sounds. : voiding without difficulty. Extremities: moves all extremities well, no edema Skin: clean, dry, intact. No wounds or lesions. Neuro: Alert and oriented x4, cranial nerves intact, no neuro deficits. Psych: normal mood, normal affect, interactive Objective Data Vital Signs Vital Signs: Vital Signs - 24 hr 04/27/24 17:09 04/27/24 17:58 04/28/24 00:15 Temperature 97.6 F 98.1 F 97.7 F Pulse Rate 66 70 79 Respiratory Rate 16 18 18 Blood Pressure 127/75 129/76 124/77 Pulse Oximetry 100 99 97 Oxygen Delivery 04/28/24 01:13 04/28/24 06:00 Temperature 97.8 F Pulse Rate 71 Respiratory Rate 18 Blood Pressure 116/69 Pulse Oximetry 95 Oxygen Delivery Room Air Intake/Output Intake/Output: Intake & Output 04/25/24 04/26/24 04/27/24 04/28/24 23:59 23:59 23:59 23:59 Intake Total 50 Output Total 200 Balance -150 Meds/Results Medications: Active Medications Generic Name Dose Route Start Last Admin Trade Name Freq PRN Reason Stop Dose Admin Acetaminophen 650 mg 04/27/24 22:57 Acetaminophen 325 Mg Tablet PO Q6H PRN Mild Pain (1-3) or Fever Hydrocodone Bitart/Acetaminophen 1 tab 04/27/24 22:37 04/28/24 06:53 Hydrocodone/Acetaminophen (*Crx) 5-325 Mg Tablet PO 1 tab Q4H PRN Administration Pain Rated 7-10 Amlodipine Besylate 5 mg 04/28/24 09:00 04/28/24 08:21 Amlodipine Besylate 5 Mg Tablet PO 5 mg DAILY LIUDMILA Administration Cyclobenzaprine HCl 5 mg 04/27/24 22:37 Cyclobenzaprine Hcl 5 Mg Tablet PO Q8H PRN Muscle Spasm Fluoxetine HCl 10 mg 04/28/24 09:00 04/28/24 08:21 Fluoxetine Hcl 10 Mg Capsule PO 10 mg DAILY LIUDMILA Administration Fluticasone Propionate 2 spray 04/28/24 09:00 04/28/24 08:21 Fluticasone Propionate 0.05% Na Spr 16 Gm Btl (*Bkc) NASAL 2 spray DAILY LIUDMILA Administration Hydrochlorothiazide 25 mg 04/28/24 09:00 04/28/24 08:21 Hydrochlorothiazide 25 Mg Tablet PO 25 mg DAILY LIUDMILA Administration Ketorolac Tromethamine 15 mg 04/27/24 22:37 Ketorolac 30 Mg/Ml Vial (*Bkc) IV PUSH 05/02/24 22:36 Q6H PRN Pain Rated 4-6 Morphine Sulfate 2 mg 04/27/24 23:14 04/28/24 01:09 Morphine Sulfate (*Crx) 2 Mg/Ml Inj IV PUSH 2 mg ONCE PRN Administration Pain Oxybutynin Chloride 10 mg 04/28/24 09:00 04/28/24 08:21 Oxybutynin Chloride Xl 5 Mg Tab.Er.24 PO 10 mg DAILY [facility] Administration Pantoprazole Sodium 40 mg 04/28/24 09:00 04/28/24 08:21 Pantoprazole 40 Mg Tablet PO 40 mg Q12HR LIUDMILA Administration Simvastatin 20 mg 04/28/24 09:00 Simvastatin 20 Mg Tablet PO DAILY [facility] Radiology Results: ITS Impressions Thoracic/Lumbar Spine CT 04/27/24 18:40 IMPRESSION: Mild ascending aortic ectasia. Moderate burst fracture at T12 with 4 mm retropulsion. 5 mm anterolisthesis at L4-5, presumably secondary to degenerative changes. No severe central canal or neural foraminal narrowing. Labs Labs: Laboratory Results - last 24 hr 04/27/24 21:47 WBC 9.9 RBC 4.23 Hgb 13.4 Hct 39.8 MCV 94.1 MCH 31.7 MCHC 33.7 RDW 13.6 Plt Count 167 MPV 11.4 H Immature Gran % (Auto) 0.4 Neut % (Auto) 90.7 H Lymph % (Auto) 5.1 L [place] % (Auto) 3.6 Eos % (Auto) 0.0 Baso % (Auto) 0.2 Lymph # (Auto) 0.51 L [place] # (Auto) 0.4 Eos # (Auto) 0.0 Baso # (Auto) 0.0 Abs Immat Gran (auto) 0.04 H Absolute Neuts (auto) 9.0 H Absolute Nucleated RBC 0.000 Nucleated RBC % 0.0 Sodium 134 L Potassium 3.5 Chloride 99 Carbon Dioxide 25 Anion Gap 10 BUN 28 H Creatinine 0.48 L Estim Creat Clear Calc 70 Estimated GFR > 60 Glucose 123 H Calcium 9.6 Total Bilirubin 0.5 AST 38 H ALT 29 Alkaline Phosphatase 59 Total Protein 7.0 Albumin 4.3 Quality VTE Prophylaxis VTE prophylaxis: mechanical ordered
--- NOTE | 2024-04-28 09:16 | PCOTNOTE ---
Attempted to see for OT evaluation. Patient's LSO brace is not here yet. Will continue to attempt.
--- NOTE | 2024-04-28 09:20 | PCPTNOTE ---
attempted PT eval, waiting for LSO brace to arrive before evaluation, will follow
[2024-04-28 14:00] VITALS: BP 102/61; PULSE 72; RESP 16; TEMP 36.7; O2SAT 95
[2024-04-28 20:00] VITALS: PULSE 62; RESP 18; O2SAT 95
[2024-04-28] MEDS: SIMVASTATIN 20 MG TABLET BY MOUTH (20:12)
[2024-04-28 20:48] VITALS: BP 107/68; PULSE 62; RESP 18; TEMP 36.9; O2SAT 95
[2024-04-28] MEDS: CYCLOBENZAPRINE HCL 5 MG TABLET PO (22:04)
[2024-04-29 06:00] VITALS: BP 120/70; PULSE 70; RESP 18; TEMP 36.6; O2SAT 95
[2024-04-29] MEDS: CYCLOBENZAPRINE HCL 5 MG TABLET PO (06:28)
[2024-04-29] MEDS: PANTOPRAZOLE 40 MG TABLET PO (08:08)
[2024-04-29] MEDS: hydroCHLOROthiazide 25 MG TABLET PO (08:08)
[2024-04-29] MEDS: oxyBUTYnin CHLORIDE XL 5 MG TAB.ER.24 10 MG PO (08:08)
[2024-04-29] MEDS: FLUTICASONE PROPIONATE 0.05% NA SPR 16 GM BTL (*BKC) 2 SPRAY NASAL (08:09)
[2024-04-29] MEDS: amLODIPine BESYLATE 5 MG TABLET PO (08:09)
[2024-04-29] MEDS: FLUoxetine HCL 10 MG CAPSULE PO (08:09)
[2024-04-29] MEDS: HYDROcodone/acetaminophen (*CRX) 5-325 MG TABLET 1 TAB PO ×2 (08:13→13:13)
[2024-04-29 09:13] VITALS: TEMP 36.6
--- NOTE | 2024-04-29 10:56 | P.DS_ITS ---
DS: Admitting Diagnosis Discharge Date 04/29/24 Admitting Diagnosis Burst fracture of T12 vertebrae hypertension DS: Discharge Diagnosis Discharge Diagnosis (1) Burst fracture of T12 vertebra: Code(s): S22.081A - Stable burst fracture of T11-T12 vertebra, initial encounter for closed fracture Status: Acute (2) Hypertension: Qualifiers: Hypertension type: primary hypertension Qualified Code(s): I10 - Essential (primary) hypertension Code(s): I10 - Essential (primary) hypertension Status: Acute DS: Summary Hospital Course Reason for hospitalization: burst fracture of T12 vertebrae hypertension Hospital Course: This is an 78 year old female who presented to the hospital with low back pain after sustaining a fall off a step stool. workup in the hospital included a thoracic/lumbar spine CT which showed moderate burst fracture at T12 with 4 mm retropulsion, 5 mm anterolisthesis at L4-5, no severe central canal or neural foraminal narrowing, mild ascending aortic ectasia. initial labs showed a sodium level 134 otherwise unremarkable. Patient was given a dose of Flexeril, Toradol, [place], and lidocaine patch while in the ED. patient was fitted for a TLSO brace and PT and OT seen and evaluated her. Patient was able to get around pretty well on her own and PT and OT signed off. is a [employer] and she feels that she has adequate help at home to get around and to go to follow-up appointments. She is stable for discharge at this time. She will follow up with her primary care doctor in 1 week. Primary care doctor can send her to neurosurgeon as needed for follow-up of her burst fracture. final diagnosis: burst fracture of T12 vertebrae Status at Discharge Cognitive/behavioral status at discharge: alert oriented x4 Functional status at discharge: independent ambulation Overall status at discharge: patient is progressing back to baseline Time Spent with Patient Time attestation: Total time spent providing and/or coordinating discharge services: Time spent: Greater than 30 minutes Exam Narrative: General: In no acute distress, well nourished Cardiac: Normal S1 and S2. No murmur, gallops or friction rubs, peripheral pulses intact. Respiratory: Lungs clear to auscultation, no adventitious lung sounds, currently on room air Gastrointestinal: soft, non-distended, non-tender, normoactive bowel sounds. : voiding without difficulty. Neuro: Alert and oriented x4 DS: Data Data Completed and Pending Completed studies during hospitalization: thoracic/lumbar spine CT Pending studies at discharge: none Procedures/Treatments: none Discharge Plan Discharge Attending physician on discharge: Kiet Ferrer Discharging Clinician: Christa Chavarria Anticipated Discharge Date/Time: 04/29/24 10:51 Patient Disposition: Home, Self-Care Activity: as tolerated Diet: as tolerated Discharge Instructions: * Wear TLSO brace when out of bed. You may take it off to shower Patient Instructions: Vertebral Compression Fracture (DC) Patient Language: Macedonian Stand Alone Forms: General Discharge Information Follow-up/Referrals: Ezequiel,MD Ney [Primary Care Provider] - 1 Week Discharge Medications: New hydrocodone-acetaminophen 5-325 mg Tablet 1 tablet PO Q4H PRN (Reason: Pain Rated 7-10) Qty: 20 0RF cyclobenzaprine 5 mg tablet 5 mg PO TID PRN (Reason: muscle spasm) Qty: 20 0RF Continued oxybutynin chloride 15 mg tablet extended release 24 hr 10 mg PO DAILY fluoxetine 10 mg capsule 10 mg PO DAILY omeprazole 40 mg capsule,delayed release(DR/EC) 40 mg PO DAILY Qty: 90 3RF fluticasone propionate [Flonase Allergy Relief] 50 mcg/actuation spray,suspension 2 spray intranasal DAILY Qty: 18 3RF Rx Instructions: administer into each nostril amlodipine 5 mg tablet 5 mg PO DAILY simvastatin 20 mg tablet 20 mg PO DAILY hydrochlorothiazide 25 mg tablet 25 mg PO DAILY Date of admission: 04/28/24 13:09 Primary Care Provider: EzequielNey Admitting Provider: Indy Pruett Attending physician on admission: Christa Chavarria Condition: Improved Quality VTE Prophylaxis VTE prophylaxis: mechanical ordered Hospitalist MIPS Heart Failure (Exclusion) Patient has history of Heart Transplant or Left Ventricular Assistive Device?: No IF YES, STOP HERE Heart Failure (Qualifier) Patient has current or prior documentation of LVEF less than or equal to 40%, or mod/servere depressed LVSF?: No IF NO, STOP HERE
--- OUTSIDE RECORDS SUMMARY | 2024-05-03 07:23 | XMS_ITS | Data Portability ---
Author Organization [place] - [facility] OFFICE Address [address] [place] [id number] Care Team Providers Care Pulmonary Physical Therapist Name Role Phone JADEN NARANJO Primary Care Provider Assessment No assessment recorded. Plan of Treatment Reminders Order Date Submit Date Provider Last Modified By Organization Details Last Modified Time Details Appointments None recorded. Lab None recorded. Referral None recorded. Procedures None recorded. Surgeries None recorded. Imaging electrocar diogram 2018 019 JEANETTE Not available 9 16:25:33 Medication Orders amlodipine 5 mg tablet 2018 019 INTERFACE [facility] [address] [place], [address], 9 15:46:06 simvastati n 20 mg tablet 2018 019 INTERFACE [facility] [address] [place], [address], 9 15:46:05 Patient TargetsNo targets recorded. Patient Instructions Encounter Date Encounter Id Patient Instructions Last Modified By Organization Details Last Modified Time 09/28/2018 [id number] chest pain: care instructions Not available 09/28/2018 15:45:59 transient ischem ic attack: care instructions Not available 09/28/2018 15:45:59 high blood pressure: care instructions Not available 09/28/2018 15:45:59 learning about high blood pressure Not available 09/28/2018 15:45:59 high cholesterol : care instructions Not available 09/28/2018 15:45:59 Exercise advised Low cholesterol diet advised Low sodium diet advised. Not available 09/28/2018 15:44:43 Patient was seen and evaluated by {{Guillaume Hansen REGIONAL ENGAGEMENT CONSULTANT-C*}}. Plan of care was discussed with collaborating physician. Note cosigned by {{Guillaume Marsh MD*}}. Not available 09/28/2018 15:44:28 Reason for Referral None Reported. Results Created Date Observation Date Name Description Value Unit Range Abnormal Flag Note LastModifiedBy Organization Detail LastModifiedTime 09/19/19 19 09/18/2018 NM, myoca rdial perfu dina scan No observ ation record ed. [facility] [address], [place], [address], 09/19/2018 07:57:00 09/22/19 19 09/18/2018 NM, myoca rdial perfu dina scan, w/ stres s No observ ation record ed. [facility] Not Available 2018 04:26:34 09/22/19 19 09/18/2018 myoca rdial perfu dina study w/ eject ion fract ion (PROC ) No observ ation record ed. [facility] Not Available 2018 05:10:11 09/22/19 19 09/18/2018 XR, chest No observ ation record ed. [email or web address] Not Available 2018 17:08:18 09/29/19 19 09/28/2018 raul short am No observ ation record ed. Not Available 2018 11:55:22 10/18/19 19 09/18/2018 alek can cardi olite stres s test (PROC ) No observ ation record ed. [email or web address] Not Available 2018 10:10:41 10/18/1909/18/2018 alek can cardi olite stres s test (PROC ) No observ ation record ed. Not Available 2018 10:11:49 11/15/19 19 11/14/2018 US, echoc ardio gram No observ ation record ed. [facility] [address], [place], [address], 03/12/2019 12:04:37 11/17/19 19 11/14/2018 , echo ardio gram No observ ation record ed. [email or web address] Not Available 11/16 17:04:55 Result Notes None recorded. Problems Name Problem SNOMED Code Status Onset Date Resolution Date Notes Provider Name and Address Organization Details Recorded Time Hyperlipidemia 00824696 Active 2018 Haleusebia Saenz null, [place] - [facility] 9 14:37:28 Anxiety 74851122 Active 2018 Hala Letty null, [place] - [facility] 9 14:37:35 Transient cerebral ischemia 586791023 Active 2018 Hala Letty null, [place] - [facility] 9 14:39:41 Depressive disorder 36779081 Active 2018 Hala Letty null, [place] - [facility] 9 14:39:55 Chest pain 92618317 Active 2018 Hala Letty null, [place] - [facility] 9 14:41:53 Sinus bradycardia 15118806 Active 2018 Hala Letty null, [place] - [facility] 9 14:42:22 Family history of coronary arterioscleros is 741222918 Active 2018 Kaylie Hasnen null, [place] - [facility] 9 15:40:12 Essential hypertension 73107596 Active 2018 Kaylie Hansen null, [place] - [facility] 9 15:44:56 Problem Notes None recorded. Procedures Surgical History None recorded. Imaging Results Imaging Date Name Status LastModified by Organization Details LastModified Time 09/18/2018 NM, myocardial perfusion scan completed [facility] [address], [place], [address], 09/19/2018 07:57:00 09/18/2018 NM, myocardial perfusion scan, w/ stress completed [facility] Information not available 09/24/2018 04:26:34 09/18/2018 myocardial perfusion study w/ ejection fraction (PROC) completed [email or web address] Information not available 09/24/2018 05:10:11 09/18/2018 XR, chest completed [email or web address] Information no t available 09/25/2018 17:08:18 09/28/2018 electrocardiogram completed [email or web address] Informa tion not available 09/29/2018 11:55:22 09/18/2018 lexiscan cardiolite stress test (PROC) completed [email or web address] Information not available 10/18/2018 10:10:41 09/18/2018 lexiscan cardiolite stress test (PROC) completed [email or web address] Information not available 10/18/2018 10:11:49 11/14/2018 US, echocardiogram completed [facility] [address] [place], [place], [address], 03/12/2019 12:04:37 11/14/2018 US, echocardiogram completed [email or web address] Inform ation not available 11/16/2018 17:04:55 Procedure Notes None recorded. Medical Equipment None Reported. Allergies Allergen ID Allergen Name Allergen Category Reaction Reaction Severity Criticality Documentation Date Start Date Code Code System Note Provider Name and Address Organization Details Recorded Time 8381 ceftriaxo ne medicatio n Not available Not available Not available 09/23/2018 2193 RxNorm Jose Ja Lettykarlene goins, [place] - [facility] 9 14:38:20 8382 Product containin g gadoliniu m and/or gadoliniu m compound (product) medicatio n Not available Not available Not available 09/23/2018 47104 3008 SNOMED Hala Lettykarlene goins, [place] - [facility] 9 14:38:32 8383 iodine medicatio n Not available Not available Not available 09/23/2018 5933 RxNorm Hala Lettykarlene [place]ins, [place] - [facility] 9 14:38:40 Medications Name Sig Start Date Stop Date Status Note LastModified by Organization Details LastModified Time Inderal 10 mg tablet Take 2 tablets 3 times a day by oral route. 09/28 completed Not Available Not Available Not Available Zyrtec 10 mg tablet Take 1 tablet every day by oral route. active Not Available Not Available No t Available amlodipine 5 mg tablet Take 1 tablet every day by oral route. active Not Available Not Available No t Available imiquimod 5 % topical cream packet active Not Available Not Available Not Available simvastatin 20 mg tablet Take 1 tablet every day by oral route. active Not Available Not Available No t Available aspirin 81 mg chewable tablet Chew 1 tablet every day by oral route. active Not Available Not Available No t Available hydrochlorot hiazide 25 mg tablet active Not Available Not Available No t Available oxybutynin chloride 5 mg tablet Take 1 tablet twice a day by oral route. active Not Available Not Available No t Available Vitals Date Recorded Body weight Heart rate Oxygen saturation Oxygen saturation in Arterial blood by Pulse oximetry Provider Name and Address Organization Details Last Updated DateTime 09/28/2018 14511.3 g 72 /min 98 % 98 % Carisa Bird [facility] 09/28/2018 15:23:30 Date Recorded Systolic blood pressure Diastolic blood pressure Provider Name and Address Organization Details Last Updated DateTime 09/28/2018 120 mm[Hg] 82 mm[Hg] Kaylie Hansen [facility] 09/28/2018 15:48:35 Social History Question Answer Notes LastModified by Organizat ion Details LastModified Time Tobacco Smoking Status Former Smoker quit 1 year ago Not Available [facility] 02/12/2020 03:30:41 What Is Your Level Of Alcohol Consumption? Occasional [id number] Information not available 02/12/2020 Which Illicit Or Recreational Drugs Have You Used? Caesar [id number] Information not available 02/12/2020 What Was The Date Of Your Most Recent Tobacco Screening? 09/24/2018 [id number] Information not available 02/12/2020 How Much Tobacco Do You Smoke? 1 PPD [id number] Information not available 02/12/2020 Sex: Unknown Functional Status None recorded. Mental Status None recorded. Family History Relationship Description Onset Age of this Age Resolved Age Notes LastModified by Organization Details LastModified Time Father Hypertensive disorder [email or web address] Not available 2018 15:38:02 Medical History Condition Response TIA Y Gastrointestinal Disease Y Hyperlipidemia Y Arrhythmia Y Depression Y COPD Y Gynecological HistoryNo gynecological history recorded. Obstetrics History GPAL:G 0 P 0 0 0 0 Past Encounters Encounter ID Performer Location Encounter Start Date Encounter Closed Date Diagnosis/Indication Diagnosis SNOMED-CT Code Diagnosis ICD10 Code Diagnosis Note [id number] MD Julianne Rome Office [address] [place] [address] 09/28/2018 14:38:32 09/28/2018 15:52:07 Family history of coronary arteriosclerosis 331688350 Z82.49 Mother had CAD requiring CABG around 80 years old. She has had no recurrence of CP and wishes to only persue medial therapy at this time with considerat ion of outpatient CTA. Transient cerebral ischemia 880153446 G45.9 in 2014. Needs tight BP and LDL control. Hyperlipidemia 73358253 E78.5 Needs to keep LDL less than 70, and HDL more than 40 She is now taking her statin QD vs QOD F/u FLP prior to next visit. Sinus bradycardia 863376 05 R00.1 Resolved while off Propranolo l Anxiety 08347835 F41.9 Chest pain 83429553 R07. 9 She underwent a TMNST on 09/18/18 at [facility] revealing a SMALL, MILD ischemia of the mid inferolate ral segment. She was to continue medical therapy with considerat ion of outpatient CTA if symptoms persisted. She has had no recurrence of CP and wishes to only persue medial therapy at this time with considerat ion of outpatient CTA. Will get echo to look for any structural heart disease Continue maximal medical treatment with ASA and statin along with risk factor modificati on Essential hypertension 81033426 I10 Well controlled . Health Concerns Section Related Observation LastModified by Organization Detai ls LastModified Time None Recorded Concern Status LastModified by Organization Details LastModified Time None Recorded Advance Directives Directive None Recorded Payers Encounter Date Sequence Insurance Name Policy Number Policy Lozano Covered Member ID Lozano Member ID Guarantor Name 09/28/2018 1 [place] Olivia Mo [id number] Olivia Mo 09/28/2018 2 [facility] Olivia Mo [id number] Olivia Mo Notes Date Note Type Note Provider Name and Address Organization Details Recorded Time 09/28/2018 text/html 09/28/18 CC: Chest pain Bethel is a 73 year-old white female with a PMH of hypertension, hyperlipidemia, TIA (2014), anxiety, depression presents today for hospital follow-up with a chief complaint of chest pain. Patient presented to [facility] on 09/18/18 with complaints of intermittent, centralized CP that she described as a pressure with radiation to her mid back and between her shoulder blades. Had no associated SOB, nausea or diaphoreses. No other symptoms were reported. CE negative. EKG showed SB (46-50 bpm) with minimal ST abnormalities. She underwent a TMNST on 09/18/18 revealing a small, mild ischemia of the mid inferolateral segment. She was to continue medical therapy with consideration of outpatient CTA if symptoms persisted. Due to her SB, her propranolol was d/c. She was started on 5 mg of Amlodipine and she was to continue her 25 mg of Hctz. She was originally placed on Propranolol by her PCP for her anxiety but had bradycardia so it was d/c. Home BPs 110-115/60s-70s She reports a distant hx of a having a stress test that was reportedly negative. She never had to follow Has never had a LHC. No known CAD, prior NC, valvular heart disease, arrhythmia, CVA, or diabetes mellitus. No premature myocardial infarction in her family. Mother did however have CAD requiring CABG around 80 years old. She is former smoker. Quit 42 years ago. Since hospital d/c she is feeling much better with no recurrence of chest pain. No shortness of breath at rest. Dyspnea on exertion reported. Mild. Stable. No orthopnea. No PND. No leg swelling. No palpitations. No dizziness. No syncope or pre-syncope. No nausea and vomiting. No major bleeding events. No side effects from medications. Results from this visit, or from the past:Labs: 09/18/18: Tri 67, TC 172, LDL 89, HDL 66 EKG 09/28/18 am Flat T waves, anterior leads XR chest 09/18/2018 No acute cardiopulmonary disease 09/18/18 EXERCISE MYOCARDIAL PERFUSION: No ECG evidence of ischemia at 85% maximum predicted heart rate. Good exercise capacity. Nuclear images pending. 09/18/18 NM STRESS PERFUSION: Equivocal small mild reversible ischemia at the mid inferolateral segmental. Left ventricular ejection fraction measuring>70%. 09/18/18 NM MYOCARDIAL: No ECG evidence of ischemia at 85% maximum predicted heart rate. Good exercise capacity. Nuclear images pending. Buddy Marsh MD [address] [place], [address], [facility] - [facility] 11/04/2018 20:53:39 OBGyn Episode No OBEpisode recorded.
--- OUTSIDE RECORDS SUMMARY | 2024-05-03 07:23 | XMS_ITS | Data Portability ---
Author Organization [place] [employer], Main Office Address [address] [place] [address] Care Team Providers Care Marina Manager Name Role Phone JADEN RIOS Primary Care Provider [phone] JADEN RIOS Referring Provider [phone] Assessment Encounter Date Assessment Date Assessment LastModified by Organization Details LastModified Time 06/10/2022 06/10/[address] sinus Blood work Continue current therapy Follow-up 4 months Not available 07/18/2022 16:57:14 12/16/2022 12/16/2022 Will continue current therapy follow-up in 6 months [email or web address] Not available 01/02/2023 22:34:59 Plan of Treatment Reminders Order Date Submit Date Provider Last Modified By Organization Details Last Modified Time Details Appointments None recorded. Lab vitamin D, 25-hydroxy , total, serum 2022 023 cyahl Not available 3 09:38:43 lipid panel, serum 2022 023 JEANETTE Not available 3 13:47:37 CMP, serum or plasma 2022 023 JEANETTE Not available 3 13:47:51 CBC w/ auto diff 2022 023 JEANETTE Not available 3 13:24:20 Referral None recorded. Procedures None recorded. Surgeries None recorded. Imaging CT, sinuses, w/o contrast 2022 023 cyahl Not available 3 09:45:54 CT, chest, w/o contrast 2022 023 JEANETTE Not available 3 14:26:21 Medication Orders None recorded. Patient TargetsNo targets recorded. Patient InstructionsNo instructions recorded. Reason for Referral None Reported. Results Created Date Observation Date Name Description Value Unit Range Abnormal Flag Note LastModifiedBy Organization Detail LastModifiedTime 12/24/19 21 12/23/2020 FOLAT E, SERUM /PLAS MA folate 7.47 NG/mL 2.76- Not Available [facility] (Lab) [address] [place], [address], 12/23/2020 15:29:22 12/24/19 21 12/23/2020 VITAM IN B12 (ESTHER EDWIN ) vb12 295 pg/mL 239-93 1 Not Available [facility] (Lab) [address] [place], [address], 12/23/2020 15:29:21 12/24/19 21 12/23/2020 SYDNEY TIN ferritin 33 NG/mL 11.1-2 64 Not Available [facility] (Lab) [address] [place], [address], 12/23/2020 14:54:22 12/24/1912/23/2020 TSH thyroid-stim ulating hormone 2.940 uIU/m L 0.465- 4.680 Not Available [facility] (Lab) [address] [place], [address], 12/23/2020 14:44:47 12/24/1912/23/2020 T3 FREE free T3 3.5 pg/mL 2.77-5 .27 Not Available [facility] (Lab) [address] [place], [address], 12/23/2020 14:43:39 12/24/1912/23/2020 T4 FREE free T4 1.23 NG/dL 0.78-2 .19 Not Available [facility] (Lab) [address] [place], [address], 12/23/2020 14:43:37 12/24/19 21 12/23/2020 COMPR EHENS JUANITA METAB OLIC PANEL chloride 105 mmol/ L 98-107 Not Available [facility] (Lab) [address] [place], [address], 12/23/2020 14:43:17 12/24/19 21 12/23/2020 COMPR EHENS JUANITA METAB OLIC PANEL sodium 137 mmol/ L 137-14 5 Not Available [facility] (Lab) [address] [place], [address], 12/23/2020 14:43:17 12/24/19 21 12/23/2020 COMPR EHENS JUANITA METAB OLIC PANEL potassium 4.2 mmol/ L 3.5-5. 1 Not Available [facility] (Lab) [address] [place], [address], 12/23/2020 14:43:17 12/24/19 21 12/23/2020 COMPR EHENS JUANITA METAB OLIC PANEL carbon dioxide 27 mmol/ L 22-30 Not Available [facility] (Lab) [address] [place], [address], 12/23/2020 14:43:17 12/24/19 21 12/23/2020 COMPR EHENS JUANITA METAB OLIC PANEL agap 9.2 mmol/ L 14-22 low Not Available [facility] (Lab) [address] [place], [address], 12/23/2020 14:43:17 12/24/19 21 12/23/2020 COMPR EHENS JUANITA METAB OLIC PANEL glucose 87 mg/dL 70-99 Not Available [facility] (Lab) [address] [place], [address], 12/23/2020 14:43:17 12/24/19 21 12/23/2020 COMPR EHENS JUANITA METAB OLIC PANEL BUN 16 mg/dL 8-19 Not Available [facility] (Lab) [address] [place], [address], 12/23/2020 14:43:17 12/24/19 21 12/23/2020 COMPR EHENS JUANITA METAB OLIC PANEL creatinine 0.58 mg/dL 0.66-1 .25 low Not Available [facility] (Lab) [address] [place], [address], 12/23/2020 14:43:17 12/24/19 21 12/23/2020 COMPR EHENS JUANITA METAB OLIC PANEL GFR >60 Refer ence Range : [place] ge GFR Healt hy Adult : >60 mL/mi n/1.7 3 m2 Chron ic Kidne y Disea se: 15-60 mL/mi n/1.7 3 m2 Kidne y Failu re: <15/m L/min /1.73 m2 www.n iddk. nih.g ov MDRD study equat ion hasn' t been valid ated in child ant <18 yrs of age, pregn ant women , the elder ly >85 yrs of age, or in some racia l or ethni c subgr oups, suc as Hispa nics. Outsi de the valid ated abel eters , estim ated GFR is less accur ate requi ring clini salma judgm ent on a case by case basis . Clini salma inter preta tion for other races and ages must be made by the clini sandhya . Futhe rmore , any of th e limit ation s with the use of serum creat inine relat ed to nutri [place] l statu s o r medic ation usage hasn' t accou nted for the MDRD Study equat ion. For perso ns < 18 yrs of age, a pedia tric GFR calcu lator can be locat ed on the [facility] websi te: [email or web address] :[email or web address] [email or web address] villa/pr bentleyess ional s/kdo qi/gf r_cal culat or Not Available [facility] (Lab) [address] [place], [address], 12/23/2020 14:43:17 12/24/19 21 12/23/2020 COMPR EHENS JUANITA METAB OLIC PANEL alkaline phosphatase 47 U/L 38-126 Not Available [facility] (Lab) [address] [place], [address], 12/23/2020 14:43:17 12/24/19 21 12/23/2020 COMPR EHENS JUANITA METAB OLIC PANEL alanine aminotransfe rase 17 U/L 0-35 Not Available [facility] (Lab) [address] [place], [address], 12/23/2020 14:43:17 12/24/19 21 12/23/2020 COMPR EHENS JUANITA METAB OLIC PANEL aspartate aminotransfe rase 28 U/L 15-37 Not Available [facility] (Lab) [address] [place], [address], 12/23/2020 14:43:17 12/24/19 21 12/23/2020 COMPR EHENS JUANITA METAB OLIC PANEL bilirubin, total 0.50 mg/dL 0.20-1 .30 Not Available [facility] (Lab) [address] [place], [address], 12/23/2020 14:43:17 12/24/19 21 12/23/2020 COMPR EHENS JUANITA METAB OLIC PANEL calcium 9.7 mg/dL 8.4-10 .2 Not Available [facility] (Lab) [address] [place], [address], 12/23/2020 14:43:17 12/24/19 21 12/23/2020 COMPR EHENS JUANITA METAB OLIC PANEL total protein 6.3 g/dL 6.3-8. 2 Not Available [facility] (Lab) [address] [place], [address], 12/23/2020 14:43:17 12/24/19 21 12/23/2020 COMPR EHENS JUANITA METAB OLIC PANEL albumin 4.1 g/dL 3.0-4. 4 Not Available [facility] (Lab) [address] [place], [address], 12/23/2020 14:43:17 12/24/19 21 12/23/2020 COMPR EHENS JUANITA METAB OLIC PANEL globulin 2.2 g/dL 2.6-4. 2 low Not Available [facility] (Lab) [address] [place], [address], 12/23/2020 14:43:17 12/24/19 21 12/23/2020 COMPR EHENS JUANITA METAB OLIC PANEL A/G ratio 1.9 ratio 1.0-2. 0 Not Available [facility] (Lab) [address] [place], [address], 12/23/2020 14:43:17 12/24/19 21 12/23/2020 LIPID PANEL cholesterol 161 mg/dL 140-19 9 NIH GAYATHRI NSUS RECOM MENDA TION FOR MED STERO L: ADULT CHILD LOW RISK: <200 <170 BORDE RLINE : <200- 239 ----- HIGH RISK: >240 >200 Not Available [facility] (Lab) [address] [place], [address], 12/23/2020 14:43:11 12/24/1912/23/2020 LIPID PANEL triglyceride s 57 mg/dL 0-150 NIH GAYATHRI NSUS REPOR T RECOM MENDA TION FOR TRIGL YCERI ASH: ADULT CHILD LOW RISK: <150 ----- BODER LINE: 150-1 99 ----- HIGH RISK: >200 ----- Not Available [facility] (Lab) [address] [place], [address], 12/23/2020 14:43:11 12/24/19 21 12/23/2020 LIPID PANEL HDL cholesterol 74 mg/dL 40- Not Available [facility] (Lab) [address] [place], [address], 12/23/2020 14:43:11 12/24/19 21 12/23/2020 LIPID PANEL LDL cholesterol, calculated 76 mg/dL 0-130 NIH GAYATHRI NSUS REPOR T RECOM MENDA TIONS FOR LDL: ADULT CHILD LOW RISK <130 <110 (OPTI MAL LDL) <100 ----- BORDE RLINE : 130-1 59 ----- HIGH RISK: >160 >130 A TRIGL YCERI DE RESUL T >400 INVAL IDATE S THE CALCU LATIO N FOR LDL FRACT IONAT ION - THE LDL RESUL T WILL NOT BE REPOR TO. Not Available [facility] (Lab) [address] [place], [address], 12/23/2020 14:43:11 12/24/19 21 12/23/2020 VITAM IN D 25-HY DROXY [id number] 42.4 NG/mL 30-100 Vitam in D Statu s: Defic ient: <20 ng/mL Insuf ficie nt: 20-29 ng/mL Suffi cient : 30-10 0 ng/mL Not Available [facility] (Lab) [address] [place], [address], 12/23/2020 14:43:05 12/24/19 21 12/23/2020 IRON/ TIBC PANEL iron 87 mcg/d L 42-175 Not Available [facility] (Lab) [address] [place], [address], 12/23/2020 14:23:24 12/24/19 21 12/23/2020 IRON/ TIBC PANEL total iron binding capacity 263 mcg/d L 265-47 5 low Not Available [facility] (Lab) [address] [place], [address], 12/23/2020 14:23:24 12/24/19 21 12/23/2020 IRON/ TIBC PANEL % transferrin saturation 33 % 20-55 Not Available [facility] (Lab) [address] [place], [address], 12/23/2020 14:23:24 12/24/19 21 12/23/2020 IRON/ TIBC PANEL unsaturated iron bind capacity 176 mcg/d L 126-38 2 Not Available [facility] (Lab) [address] [place], [address], 12/23/2020 14:23:24 12/24/19 21 12/23/2020 CBC/C OMPLE TE BLD COUNT W/DIF F platelets 186 x10'3 /uL 150-40 0 Not Available [facility] (Lab) [address] [place], [address], 12/23/2020 13:56:15 12/24/19 21 12/23/2020 CBC/C OMPLE TE BLD COUNT W/DIF F white blood cells 4.3 x10'3 /uL 4.2-10 .8 Not Available [facility] (Lab) [address] [place], [address], 12/23/2020 13:56:15 12/24/19 21 12/23/2020 CBC/C OMPLE TE BLD COUNT W/DIF F red blood cells 4.23 x10'6 /uL 3.80-5 .20 Not Available [facility] (Lab) [address] [place], [address], 12/23/2020 13:56:15 12/24/19 21 12/23/2020 CBC/C OMPLE TE BLD COUNT W/DIF F hemoglobin 13.5 g/dL 12.0-1 5.6 Not Available [facility] (Lab) [address] [place], [address], 12/23/2020 13:56:15 12/24/19 21 12/23/2020 CBC/C OMPLE TE BLD COUNT W/DIF F hematocrit 40.7 % 35.7-4 5.7 Not Available [facility] (Lab) [address] [place], [address], 12/23/2020 13:56:15 12/24/19 21 12/23/2020 CBC/C OMPLE TE BLD COUNT W/DIF F mean red cell volume 96.2 fL 82.0-9 9.0 Not Available [facility] (Lab) [address] [place], [address], 12/23/2020 13:56:15 12/24/19 21 12/23/2020 CBC/C OMPLE TE BLD COUNT W/DIF F mean red cell hemoglobin 31.9 pg 27.0-3 3.0 Not Available [facility] (Lab) [address] [place], [address], 12/23/2020 13:56:15 12/24/19 21 12/23/2020 CBC/C OMPLE TE BLD COUNT W/DIF F mean RBC HGB concentratio n 33.2 g/dL 31.0-3 6.0 Not Available [facility] (Lab) [address] [place], [address], 12/23/2020 13:56:15 12/24/1912/23/2020 CBC/C OMPLE TE BLD COUNT W/DIF F red cell distribution width 13.7 % 11.8-1 5.5 Not Available [facility] (Lab) [address] [place], [address], 12/23/2020 13:56:15 12/24/1912/23/2020 CBC/C OMPLE TE BLD COUNT W/DIF F mean platelet volume 11.7 fL 9.0-12 .4 Not Available [facility] (Lab) [address] [place], [address], 12/23/2020 13:56:15 12/24/19 21 12/23/2020 CBC/C OMPLE TE BLD COUNT W/DIF F neutrophils 59.6 % 39.0-7 2.0 Not Available [facility] (Lab) [address] [place], [address], 12/23/2020 13:56:15 12/24/1912/23/2020 CBC/C OMPLE TE BLD COUNT W/DIF F lymphocytes 22.7 % 16.0-4 7.0 Not Available [facility] (Lab) [address] [place], [address], 12/23/2020 13:56:15 12/24/1912/23/2020 CBC/C OMPLE TE BLD COUNT W/DIF F monocytes 13.3 % 5.0-12 .0 high Not Available [facility] (Lab) [address] [place], [address], 12/23/2020 13:56:15 12/24/1912/23/2020 CBC/C OMPLE TE BLD COUNT W/DIF F eosinophils 3.3 % 1.0-7. 0 Not Available [facility] (Lab) [address] [place], [address], 12/23/2020 13:56:15 12/24/1912/23/2020 CBC/C OMPLE TE BLD COUNT W/DIF F basophils 0.9 % 0.0-2. 0 Not Available [facility] (Lab) [address] [place], [address], 12/23/2020 13:56:15 12/24/1912/23/2020 CBC/C OMPLE TE BLD COUNT W/DIF F immature granulocytes 0.2 % 0.00-0 .50 Not Available [facility] (Lab) [address] [place], [address], 12/23/2020 13:56:15 12/24/19 21 12/23/2020 CBC/C OMPLE TE BLD COUNT W/DIF F neutrophils, absolute count 2.54 x10'3 /uL 1.5-8. 0 Not Available [facility] (Lab) [address] [place], [address], 12/23/2020 13:56:15 12/24/1912/23/2020 CBC/C OMPLE TE BLD COUNT W/DIF F lymphocytes, absolute count 0.97 x10'3 /uL 1.07-3 .43 low Not Available [facility] (Lab) [address] [place], [address], 12/23/2020 13:56:15 12/24/1912/23/2020 CBC/C OMPLE TE BLD COUNT W/DIF F monocytes, absolute count 0.57 x10'3 /uL 0.29-0 .99 Not Available [facility] (Lab) [address] [place], [address], 12/23/2020 13:56:15 12/24/1912/23/2020 CBC/C OMPLE TE BLD COUNT W/DIF F eosinophils, absolute count 0.14 x10'3 /uL 0.02-0 .53 Not Available [facility] (Lab) [address] [place], [address], 12/23/2020 13:56:15 12/24/1912/23/2020 CBC/C OMPLE TE BLD COUNT W/DIF F basophils, absolute count 0.04 x10'3 /uL 0.01-0 .08 Not Available [facility] (Lab) [address] [place], [address], 12/23/2020 13:56:15 12/24/1912/23/2020 CBC/C OMPLE TE BLD COUNT W/DIF F immature granulocytes ,absolute 0.01 x10'3 /uL 0.00-0 .05 Not Available [facility] (Lab) [address] [place], [address], 12/23/2020 13:56:15 12/24/19 12/23/2020 CBC/C OMPLE TE BLD COUNT W/DIF F nucleated red blood cells 0.0 % -0 Not Available [facility] (Lab) [address] [place], [address], 12/23/2020 13:56:15 12/24/19 21 12/23/2020 CBC/C OMPLE TE BLD COUNT W/DIF F NRBC# 0.00 x10'3 /uL Not Available [facility] (Lab) [address] [place], [address], 12/23/2020 13:56:15 12/11/19 22 12/10/2021 LIPID PANEL LDL cholesterol, calculated 89 mg/dL 0-130 NIH GAYATHRI NSUS REPOR T RECOM MENDA TIONS FOR LDL: ADULT CHILD LOW RISK <130 <110 (OPTI MAL LDL) <100 ----- BORDE RLINE : 130-1 59 ----- HIGH RISK: >160 >130 A TRIGL YCERI DE RESUL T >400 INVAL IDATE S THE CALCU LATIO N FOR LDL FRACT IONAT ION - THE LDL RESUL T WILL NOT BE REPOR TO. Not Available [facility] (Lab) [address] [place], [address], 12/10/2021 14:24:10 12/11/19 22 12/10/2021 LIPID PANEL cholesterol 184 mg/dL 140-19 9 NIH GAYATHRI NSUS RECOM MENDA TION FOR MED STERO L: ADULT CHILD LOW RISK: <200 <170 BORDE RLINE : <200- 239 ----- HIGH RISK: >240 >200 Not Available [facility] (Lab) [address] [place], [address], 12/10/2021 14:24:10 12/11/19 22 12/10/2021 LIPID PANEL triglyceride s 59 mg/dL 0-150 NIH GAYATHRI NSUS REPOR T RECOM MENDA TION FOR TRIGL YCERI ASH: ADULT CHILD LOW RISK: <150 ----- BODER LINE: 150-1 99 ----- HIGH RISK: >200 ----- Not Available [facility] (Lab) [address] [place], [address], 12/10/2021 14:24:10 12/11/19 22 12/10/2021 LIPID PANEL HDL cholesterol 83 mg/dL 40- Not Available [facility] (Lab) [address] [place], [address], 12/10/2021 14:24:10 12/11/19 22 12/10/2021 COMPR EHENS JUANITA METAB OLIC PANEL carbon dioxide 29 mmol/ L 22-30 Not Available [facility] (Lab) [address] [place], [address], 12/10/2021 14:24:07 12/11/19 22 12/10/2021 COMPR EHENS JUANITA METAB OLIC PANEL sodium 135 mmol/ L 137-14 5 low Not Available [facility] (Lab) [address] [place], [address], 12/10/2021 14:24:07 12/11/19 22 12/10/2021 COMPR EHENS JUANITA METAB OLIC PANEL potassium 3.9 mmol/ L 3.5-5. 1 Not Available [facility] (Lab) [address] [place], [address], 12/10/2021 14:24:07 12/11/19 22 12/10/2021 COMPR EHENS JUANITA METAB OLIC PANEL chloride 99 mmol/ L 98-107 Not Available [facility] (Lab) [address] [place], [address], 12/10/2021 14:24:07 12/11/19 22 12/10/2021 COMPR EHENS JUANITA METAB OLIC PANEL anion gap 10.9 mmol/ L 14-22 low Not Available [facility] (Lab) [address] [place], [address], 12/10/2021 14:24:12/11/19 22 12/10/2021 COMPR EHENS JUANITA METAB OLIC PANEL glucose 103 mg/dL 70-99 high Not Available [facility] (Lab) [address] [place], [address], 12/10/2021 14:24:12/11/19 22 12/10/2021 COMPR EHENS JUANITA METAB OLIC PANEL BUN 15 mg/dL 8-19 Not Available [facility] (Lab) [address] [place], [address], 12/10/2021 14:24:12/11/19 22 12/10/2021 COMPR EHENS JUANITA METAB OLIC PANEL creatinine 0.70 mg/dL 0.66-1 .25 Not Available [facility] (Lab) [address] [place], [address], 12/10/2021 14:24:12/11/19 22 12/10/2021 COMPR EHENS JUANITA METAB OLIC PANEL GFR >60 Refer ence Range : [place] ge GFR Healt hy Adult : >60 mL/mi n/1.7 3 m2 Chron ic Kidne y Disea se: 15-60 mL/mi n/1.7 3 m2 Kidne y Failu re: <15/m L/min /1.73 m2 www.n iddk. nih.g ov The MDRD study equat ion has not been valid ated in child ant <18 years of age; pregn ant women ; the elder ly >85 years of age; or in some racia l or ethni c subgr oups, such as Hispa nics. Outsi de the valid ated abel eters , estim ated GFR is less accur ate, requi ring clini salma judgm ent on a case- by-ca se basis . Clini salma inter preta tion for other races and ages must be made by the clini sandhya. The MDRD study equat ion has not been valid ated for the evalu ation of serum creat inine relat ed to nutri [place] l statu s or medic ation usage . For perso ns <18 years of age, a pedia tric GFR calcu lator is avail able on the [facility] websi te: https :[email or web address] [email or web address] villa/celso rodrigez s/kdo qi/gf r_cal culat or Not Available [facility] (Lab) [address] [place], [address], 12/10/2021 14:24:12/11/19 22 12/10/2021 COMPR EHENS JUANITA METAB OLIC PANEL alkaline phosphatase 55 U/L 38-126 Not Available [facility] (Lab) [address] [place], [address], 12/10/2021 14:24:07 12/11/19 22 12/10/2021 COMPR EHENS JUANITA METAB OLIC PANEL alanine aminotransfe rase 19 U/L 0-35 Not Available [facility] (Lab) [address] [place], [address], 12/10/2021 14:24:12/11/19 22 12/10/2021 COMPR EHENS JUANITA METAB OLIC PANEL aspartate aminotransfe rase 27 U/L 15-37 Not Available [facility] (Lab) [address] [place], [address], 12/10/2021 14:24:12/11/19 22 12/10/2021 COMPR EHENS JUANITA METAB OLIC PANEL bilirubin, total 0.60 mg/dL 0.20-1 .30 Not Available [facility] (Lab) [address] [place], [address], 12/10/2021 14:24:12/11/19 22 12/10/2021 COMPR EHENS JUANITA METAB OLIC PANEL calcium 9.9 mg/dL 8.4-10 .2 Not Available [facility] (Lab) [address] [place], [address], 12/10/2021 14:24:07 12/11/19 22 12/10/2021 COMPR EHENS JUANITA METAB OLIC PANEL total protein 6.9 g/dL 6.3-8. 2 Not Available [facility] (Lab) [address] [place], [address], 12/10/2021 14:24:07 12/11/19 22 12/10/2021 COMPR EHENS JUANITA METAB OLIC PANEL albumin 4.6 g/dL 3.0-4. 4 high Not Available [facility] (Lab) [address] [place], [address], 12/10/2021 14:24:07 12/11/19 22 12/10/2021 COMPR EHENS JUANITA METAB OLIC PANEL globulin 2.3 g/dL 2.6-4. 2 low Not Available [facility] (Lab) [address] [place], [address], 12/10/2021 14:24:07 12/11/19 22 12/10/2021 COMPR EHENS JUANITA METAB OLIC PANEL A/G ratio 2.0 ratio 1.0-2. 0 Not Available [facility] (Lab) [address] [place], [address], 12/10/2021 14:24:07 12/11/19 22 12/10/2021 CBC/C OMPLE TE BLD COUNT W/DIF F white blood cells 5.1 x10'3 /uL 4.2-10 .8 Not Available [facility] (Lab) [address] [place], [address], 12/10/2021 13:02:07 12/11/19 22 12/10/2021 CBC/C OMPLE TE BLD COUNT W/DIF F red blood cells 4.45 x10'6 /uL 3.80-5 .20 Not Available [facility] (Lab) [address] [place], [address], 12/10/2021 13:02:07 12/11/19 22 12/10/2021 CBC/C OMPLE TE BLD COUNT W/DIF F hemoglobin 14.1 g/dL 12.0-1 5.6 Not Available [facility] (Lab) [address] [place], [address], 12/10/2021 13:02:07 12/11/19 22 12/10/2021 CBC/C OMPLE TE BLD COUNT W/DIF F hematocrit 42.8 % 35.7-4 5.7 Not Available [facility] (Lab) [address] [place], [address], 12/10/2021 13:02:07 12/11/19 22 12/10/2021 CBC/C OMPLE TE BLD COUNT W/DIF F mean red cell volume 96.2 fL 82.0-9 9.0 Not Available [facility] (Lab) [address] [place], [address], 12/10/2021 13:02:07 12/11/19 22 12/10/2021 CBC/C OMPLE TE BLD COUNT W/DIF F mean red cell hemoglobin 31.7 pg 27.0-3 3.0 Not Available [facility] (Lab) [address] [place], [address], 12/10/2021 13:02:07 12/11/19 22 12/10/2021 CBC/C OMPLE TE BLD COUNT W/DIF F mean RBC HGB concentratio n 32.9 g/dL 31.0-3 6.0 Not Available [facility] (Lab) [address] [place], [address], 12/10/2021 13:02:07 12/11/19 22 12/10/2021 CBC/C OMPLE TE BLD COUNT W/DIF F red cell distribution width 13.5 % 11.8-1 5.5 Not Available [facility] (Lab) [address] [place], [address], 12/10/2021 13:02:07 12/11/19 22 12/10/2021 CBC/C OMPLE TE BLD COUNT W/DIF F platelets 211 x10'3 /uL 150-40 0 Not Available [facility] (Lab) [address] [place], [address], 12/10/2021 13:02:07 12/11/19 22 12/10/2021 CBC/C OMPLE TE BLD COUNT W/DIF F mean platelet volume 11.7 fL 9.0-12 .4 Not Available [facility] (Lab) [address] [place], [address], 12/10/2021 13:02:07 12/11/19 22 12/10/2021 CBC/C OMPLE TE BLD COUNT W/DIF F neutrophils 61.2 % 39.0-7 2.0 Not Available [facility] (Lab) [address] [place], [address], 12/10/2021 13:02:07 12/11/19 22 12/10/2021 CBC/C OMPLE TE BLD COUNT W/DIF F basophils 1.2 % 0.0-2. 0 Not Available [facility] (Lab) [address] [place], [address], 12/10/2021 13:02:07 12/11/19 22 12/10/2021 CBC/C OMPLE TE BLD COUNT W/DIF F lymphocytes 22.5 % 16.0-4 7.0 Not Available [facility] (Lab) [address] [place], [address], 12/10/2021 13:02:07 12/11/19 22 12/10/2021 CBC/C OMPLE TE BLD COUNT W/DIF F monocytes 12.5 % 5.0-12 .0 high Not Available [facility] (Lab) [address] [place], [address], 12/10/2021 13:02:07 12/11/19 22 12/10/2021 CBC/C OMPLE TE BLD COUNT W/DIF F eosinophils 2.2 % 1.0-7. 0 Not Available [facility] (Lab) [address] [place], [address], 12/10/2021 13:02:07 12/11/19 22 12/10/2021 CBC/C OMPLE TE BLD COUNT W/DIF F immature granulocytes 0.4 % 0.00-0 .50 Not Available [facility] (Lab) [address] [place], [address], 12/10/2021 13:02:07 12/11/19 22 12/10/2021 CBC/C OMPLE TE BLD COUNT W/DIF F neutrophils, absolute count 3.12 x10'3 /uL 1.5-8. 0 Not Available [facility] (Lab) [address] [place], [address], 12/10/2021 13:02:07 12/11/19 22 12/10/2021 CBC/C OMPLE TE BLD COUNT W/DIF F lymphocytes, absolute count 1.15 x10'3 /uL 1.07-3 .43 Not Available [facility] (Lab) [address] [place], [address], 12/10/2021 13:02:07 12/11/19 22 12/10/2021 CBC/C OMPLE TE BLD COUNT W/DIF F monocytes, absolute count 0.64 x10'3 /uL 0.29-0 .99 Not Available [facility] (Lab) [address] [place], [address], 12/10/2021 13:02:07 12/11/19 22 12/10/2021 CBC/C OMPLE TE BLD COUNT W/DIF F eosinophils, absolute count 0.11 x10'3 /uL 0.02-0 .53 Not Available [facility] (Lab) [address] [place], [address], 12/10/2021 13:02:07 12/11/19 22 12/10/2021 CBC/C OMPLE TE BLD COUNT W/DIF F NRBC# 0.00 x10'3 /uL Not Available [facility] (Lab) [address] [place], [address], 12/10/2021 13:02:07 12/11/19 22 12/10/2021 CBC/C OMPLE TE BLD COUNT W/DIF F basophils, absolute count 0.06 x10'3 /uL 0.01-0 .08 Not Available [facility] (Lab) [address] [place], [address], 12/10/2021 13:02:07 12/11/19 22 12/10/2021 CBC/C OMPLE TE BLD COUNT W/DIF F immature granulocytes ,absolute 0.02 x10'3 /uL 0.00-0 .05 Not Available [facility] (Lab) [address] [place], [address], 12/10/2021 13:02:07 12/11/19 22 12/10/2021 CBC/C OMPLE TE BLD COUNT W/DIF F nucleated red blood cells 0.0 % -0 Not Available [facility] (Lab) [address] [place], [address], 12/10/2021 13:02:07 06/11/19 23 06/10/2022 CBC/C OMPLE TE BLD COUNT W/DIF F white blood cells 4.3 x10'3 /uL 4.2-10 .8 Not Available [facility] [facility] (Lab) [address] [place], [address], 06/10/2022 13:24:20 06/11/19 23 06/10/2022 CBC/C OMPLE TE BLD COUNT W/DIF F red blood cells 4.40 x10'6 /uL 3.80-5 .20 Not Available [facility] (Lab) [address] [place], [address], 06/10/2022 13:24:20 06/11/19 23 06/10/2022 CBC/C OMPLE TE BLD COUNT W/DIF F hemoglobin 13.6 g/dL 12.0-1 5.6 Not Available [facility] (Lab) [address] [place], [address], 06/10/2022 13:24:20 06/11/19 23 06/10/2022 CBC/C OMPLE TE BLD COUNT W/DIF F hematocrit 41.7 % 35.7-4 5.7 Not Available [facility] (Lab) [address] [place], [address], 06/10/2022 13:24:20 06/11/19 23 06/10/2022 CBC/C OMPLE TE BLD COUNT W/DIF F mean red cell volume 94.8 fL 82.0-9 9.0 Not Available [facility] (Lab) [address] [place], [address], 06/10/2022 13:24:20 06/11/19 23 06/10/2022 CBC/C OMPLE TE BLD COUNT W/DIF F mean red cell hemoglobin 30.9 pg 27.0-3 3.0 Not Available [facility] (Lab) [address] [place], [address], 06/10/2022 13:24:20 06/11/19 23 06/10/2022 CBC/C OMPLE TE BLD COUNT W/DIF F mean RBC HGB concentratio n 32.6 g/dL 31.0-3 6.0 Not Available [facility] (Lab) [address] [place], [address], 06/10/2022 13:24:20 03/02/20 23 06/10/2022 CBC/C OMPLE TE BLD COUNT W/DIF F red cell distribution width 13.6 % 11.8-1 5.5 Not Available [facility] (Lab) [address] [place], [address], 06/10/2022 13:24:20 06/11/19 23 06/10/2022 CBC/C OMPLE TE BLD COUNT W/DIF F platelets 221 x10'3 /uL 150-40 0 Not Available [facility] (Lab) [address] [place], [address], 06/10/2022 13:24:20 06/11/19 23 06/10/2022 CBC/C OMPLE TE BLD COUNT W/DIF F mean platelet volume 11.4 fL 9.0-12 .4 Not Available [facility] (Lab) [address] [place], [address], 06/10/2022 13:24:20 06/11/19 23 06/10/2022 CBC/C OMPLE TE BLD COUNT W/DIF F neutrophils 53.4 % 39.0-7 2.0 Not Available [facility] (Lab) [address] [place], [address], 06/10/2022 13:24:20 06/11/19 23 06/10/2022 CBC/C OMPLE TE BLD COUNT W/DIF F lymphocytes 27.0 % 16.0-4 7.0 Not Available [facility] (Lab) [address] [place], [address], 06/10/2022 13:24:20 06/11/19 23 06/10/2022 CBC/C OMPLE TE BLD COUNT W/DIF F monocytes 14.8 % 5.0-12 .0 high Not Available [facility] (Lab) [address] [place], [address], 06/10/2022 13:24:20 06/11/19 23 06/10/2022 CBC/C OMPLE TE BLD COUNT W/DIF F eosinophils 3.0 % 1.0-7. 0 Not Available [facility] (Lab) [address] [place], [address], 06/10/2022 13:24:20 06/11/19 23 06/10/2022 CBC/C OMPLE TE BLD COUNT W/DIF F basophils 1.6 % 0.0-2. 0 Not Available [facility] (Lab) [address] [place], [address], 06/10/2022 13:24:20 06/11/19 23 06/10/2022 CBC/C OMPLE TE BLD COUNT W/DIF F immature granulocytes 0.2 % 0.00-0 .50 Not Available [facility] (Lab) [address] [place], [address], 06/10/2022 13:24:20 06/11/19 23 06/10/2022 CBC/C OMPLE TE BLD COUNT W/DIF F neutrophils, absolute count 2.31 x10'3 /uL 1.5-8. 0 Not Available [facility] (Lab) [address] [place], [address], 06/10/2022 13:24:20 06/11/19 23 06/10/2022 CBC/C OMPLE TE BLD COUNT W/DIF F lymphocytes, absolute count 1.17 x10'3 /uL 1.07-3 .43 Not Available [facility] (Lab) [address] [place], [address], 06/10/2022 13:24:20 06/11/19 23 06/10/2022 CBC/C OMPLE TE BLD COUNT W/DIF F monocytes, absolute count 0.64 x10'3 /uL 0.29-0 .99 Not Available [facility] (Lab) [address] [place], [address], 06/10/2022 13:24:20 06/11/19 23 06/10/2022 CBC/C OMPLE TE BLD COUNT W/DIF F eosinophils, absolute count 0.13 x10'3 /uL 0.02-0 .53 Not Available [facility] (Lab) [address] [place], [address], 06/10/2022 13:24:20 06/11/19 23 06/10/2022 CBC/C OMPLE TE BLD COUNT W/DIF F basophils, absolute count 0.07 x10'3 /uL 0.01-0 .08 Not Available [facility] (Lab) [address] [place], [address], 06/10/2022 13:24:20 06/11/19 23 06/10/2022 CBC/C OMPLE TE BLD COUNT W/DIF F immature granulocytes ,absolute 0.01 x10'3 /uL 0.00-0 .05 Not Available [facility] (Lab) [address] [place], [address], 06/10/2022 13:24:20 06/11/19 23 06/10/2022 CBC/C OMPLE TE BLD COUNT W/DIF F nucleated red blood cells 0.0 % -0 Not Available [facility] (Lab) [address] [place], [address], 06/10/2022 13:24:20 06/11/19 23 06/10/2022 CBC/C OMPLE TE BLD COUNT W/DIF F NRBC# 0.00 x10'3 /uL Not Available [facility] (Lab) [address] [place], [address], 06/10/2022 13:24:20 06/11/19 23 06/10/2022 LIPID PANEL cholesterol 176 mg/dL 140-19 9 NIH GAYATHRI NSUS RECOM MENDA TION FOR MED STERO L: ADULT CHILD LOW RISK: <200 <170 BORDE RLINE : <200- 239 ----- HIGH RISK: >240 >200 Not Available [facility] (Lab) [address] [place], [address], 06/10/2022 13:47:37 06/11/19 23 06/10/2022 LIPID PANEL triglyceride s 70 mg/dL 0-150 NIH GAYATHRI NSUS REPOR T RECOM MENDA TION FOR TRIGL YCERI ASH: ADULT CHILD LOW RISK: <150 ----- BODER LINE: 150-1 99 ----- HIGH RISK: >200 ----- Not Available [facility] (Lab) [address] [place], [address], 06/10/2022 13:47:37 06/11/19 23 06/10/2022 LIPID PANEL HDL cholesterol 83 mg/dL 40- Not Available [facility] (Lab) [address] [place], [address], 06/10/2022 13:47:37 06/11/19 23 06/10/2022 LIPID PANEL LDL cholesterol, calculated 79 mg/dL 0-130 NIH GAYATHRI NSUS REPOR T RECOM MENDA TIONS FOR LDL: ADULT CHILD LOW RISK <130 <110 (OPTI MAL LDL) <100 ----- BORDE RLINE : 130-1 59 ----- HIGH RISK: >160 >130 A TRIGL YCERI DE RESUL T >400 INVAL IDATE S THE CALCU LATIO N FOR LDL FRACT IONAT ION - THE LDL RESUL T WILL NOT BE REPOR TO. Not Available [facility] (Lab) [address] [place], [address], 06/10/2022 13:47:37 06/11/1906/10/2022 COMPR EHENS JUANITA METAB OLIC PANEL sodium 136 mmol/ L 137-14 5 low Not Available [facility] (Lab) [address] [place], [address], 06/10/2022 13:47:51 06/11/19 23 06/10/2022 COMPR EHENS JUANITA METAB OLIC PANEL potassium 4.1 mmol/ L 3.5-5. 1 Not Available [facility] (Lab) [address] [place], [address], 06/10/2022 13:47:51 06/11/19 23 06/10/2022 COMPR EHENS JUANITA METAB OLIC PANEL chloride 101 mmol/ L 98-107 Not Available [facility] (Lab) [address] [place], [address], 06/10/2022 13:47:51 06/11/19 23 06/10/2022 COMPR EHENS JUANITA METAB OLIC PANEL carbon dioxide 27 mmol/ L 22-30 Not Available [facility] (Lab) [address] [place], [address], 06/10/2022 13:47:51 06/11/19 23 06/10/2022 COMPR EHENS JUANITA METAB OLIC PANEL anion gap 12.1 mmol/ L 14-22 low Not Available [facility] (Lab) [address] [place], [address], 06/10/2022 13:47:51 06/11/19 23 06/10/2022 COMPR EHENS JUANITA METAB OLIC PANEL glucose 100 mg/dL 70-99 high Not Available [facility] (Lab) [address] [place], [address], 06/10/2022 13:47:51 06/11/19 23 06/10/2022 COMPR EHENS JUANITA METAB OLIC PANEL BUN 15 mg/dL 8-19 Not Available [facility] (Lab) [address] [place], [address], 06/10/2022 13:47:51 06/11/19 23 06/10/2022 COMPR EHENS JUANITA METAB OLIC PANEL creatinine 0.63 mg/dL 0.66-1 .25 low Not Available [facility] (Lab) [address] [place], [address], 06/10/2022 13:47:51 06/11/19 23 06/10/2022 COMPR EHENS JUANITA METAB OLIC PANEL GFR >60 Refer ence Range : [place] ge GFR Healt hy Adult : >60 mL/mi n/1.7 3 m2 Chron ic Kidne y Disea se: 15-60 mL/mi n/1.7 3 m2 Kidne y Failu re: <15/m L/min /1.73 m2 www.n iddk. nih.g ov The MDRD study equat ion has not been valid ated in child ant <18 years of age; pregn ant women ; the elder ly >85 years of age; or in some racia l or ethni c subgr oups, such as Hismo nics. Outsi de the valid ated abel eters , estim ated GFR is less accur ate, requi ring clini salma judgm ent on a case- by-ca se basis . Clini salma inter preta tion for other races and ages must be made by the clini sandhya. The MDRD study equat ion has not been valid ated for the evalu ation of serum creat inine relat ed to nutri hyacinth l statu s or medic ation usage . For perso ns <18 years of age, a pedia tric GFR calcu lator is avail able on the [facility] websi te: https :[email or web address] tanner.cassandra melchor.o rg/pr ofess ional s/kdo qi/gf r_cal culat or Not Available [facility] (Lab) [address] [place], [address], 06/10/2022 13:47:51 06/11/19 23 06/10/2022 COMPR EHENS JUANITA METAB OLIC PANEL alkaline phosphatase 58 U/L 38-126 Not Available [facility] (Lab) [address] [place], [address], 06/10/2022 13:47:51 06/11/19 23 06/10/2022 COMPR EHENS JUANITA METAB OLIC PANEL alanine aminotransfe rase 28 U/L 0-35 Not Available [facility] (Lab) [address] [place], [address], 06/10/2022 13:47:51 06/11/19 23 06/10/2022 COMPR EHENS JUANITA METAB OLIC PANEL aspartate aminotransfe rase 36 U/L 15-37 Not Available [facility] (Lab) [address] [place], [address], 06/10/2022 13:47:51 06/11/19 23 06/10/2022 COMPR EHENS JUANITA METAB OLIC PANEL bilirubin, total 0.60 mg/dL 0.20-1 .30 Not Available [facility] (Lab) [address] [place], [address], 06/10/2022 13:47:51 06/11/19 23 06/10/2022 COMPR EHENS JUANITA METAB OLIC PANEL calcium 9.9 mg/dL 8.4-10 .2 Not Available [facility] (Lab) [address] [place], [address], 06/10/2022 13:47:51 06/11/19 23 06/10/2022 COMPR EHENS JUANITA METAB OLIC PANEL total protein 6.9 g/dL 6.3-8. 2 Not Available [facility] (Lab) [address] [place], [address], 06/10/2022 13:47:51 06/11/19 23 06/10/2022 COMPR EHENS JUANITA METAB OLIC PANEL albumin 4.3 g/dL 3.0-4. 4 Not Available [facility] (Lab) [address] [place], [address], 06/10/2022 13:47:51 06/11/19 23 06/10/2022 COMPR EHENS JUANITA METAB OLIC PANEL globulin 2.6 g/dL 2.6-4. 2 Not Available [facility] (Lab) [address] [place], [address], 06/10/2022 13:47:51 06/11/1906/10/2022 COMPR EHENS JUANITA METAB OLIC PANEL A/G ratio 1.7 ratio 1.0-2. 0 Not Available [facility] (Lab) [address] [place], [address], 06/10/2022 13:47:51 06/11/1906/10/2022 VITAM IN D 25-HY DROXY [id number] 37.4 NG/mL 30-100 Vitam in D Statu s: Defic ient: <20 ng/mL Insuf ficie nt: 20-29 ng/mL Suffi cient : 30-10 0 ng/mL Not Available [facility] (Lab) [address] [place], [address], 06/10/2022 13:55:56 01/29/2001/28/2023 LIPID PANEL cholesterol 165 mg/dL 140-19 9 NIH GAYATHRI NSUS RECOM MENDA TION FOR MED STERO L: ADULT CHILD LOW RISK: <200 <170 BORDE RLINE : <200- 239 ----- HIGH RISK: >240 >200 Not Available [facility] (Lab) [address] [place], [address], 01/28/2023 12:51:01 01/29/20 23 01/28/2023 LIPID PANEL triglyceride s 70 mg/dL 0-150 NIH GAYATHRI NSUS REPOR T RECOM MENDA TION FOR TRIGL YCERI ASH: ADULT CHILD LOW RISK: <150 ----- BODER LINE: 150-1 99 ----- HIGH RISK: >200 ----- Not Available [facility] (Lab) [address] [place], [address], 01/28/2023 12:51:01 01/29/20 23 01/28/2023 LIPID PANEL HDL cholesterol 62 mg/dL 40- Not Available [facility] (Lab) [address] [place], [address], 01/28/2023 12:51:01 01/29/2001/28/2023 LIPID PANEL LDL cholesterol, calculated 89 mg/dL 0-130 NIH GAYATHRI NSUS REPOR T RECOM MENDA TIONS FOR LDL: ADULT CHILD LOW RISK <130 <110 (OPTI MAL LDL) <100 ----- BORDE RLINE : 130-1 59 ----- HIGH RISK: >160 >130 A TRIGL YCERI DE RESUL T >400 INVAL IDATE S THE CALCU LATIO N FOR LDL FRACT IONAT ION - THE LDL RESUL T WILL NOT BE REPOR TO. Not Available [facility] (Lab) [address] [place], [address], 01/28/2023 12:51:01 01/29/2001/28/2023 COMPR EHENS JUANITA METAB OLIC PANEL sodium 135 mmol/ L 137-14 5 low Not Available [facility] (Lab) [address] [place], [address], 01/28/2023 12:51:16 01/29/2001/28/2023 COMPR EHENS JUANITA METAB OLIC PANEL potassium 4.1 mmol/ L 3.5-5. 1 Not Available [facility] (Lab) [address] [place], [address], 01/28/2023 12:51:16 01/29/2001/28/2023 COMPR EHENS JUANITA METAB OLIC PANEL chloride 102 mmol/ L 98-107 Not Available [facility] (Lab) [address] [place], [address], 01/28/2023 12:51:16 01/29/2001/28/2023 COMPR EHENS JUANITA METAB OLIC PANEL carbon dioxide 28 mmol/ L 22-30 Not Available [facility] (Lab) [address] [place], [address], 01/28/2023 12:51:16 01/29/20 23 01/28/2023 COMPR EHENS JUANITA METAB OLIC PANEL anion gap 9.1 mmol/ L 14-22 low Not Available [facility] (Lab) [address] [place], [address], 01/28/2023 12:51:16 01/29/2001/28/2023 COMPR EHENS JUANITA METAB OLIC PANEL glucose 98 mg/dL 70-99 Not Available [facility] (Lab) [address] [place], [address], 01/28/2023 12:51:16 01/29/2001/28/2023 COMPR EHENS JUANITA METAB OLIC PANEL BUN 14 mg/dL 8-19 Not Available [facility] (Lab) [address] [place], [address], 01/28/2023 12:51:16 01/29/2001/28/2023 COMPR EHENS JUANITA METAB OLIC PANEL creatinine 0.60 mg/dL 0.66-1 .25 low Not Available [facility] (Lab) [address] [place], [address], 01/28/2023 12:51:16 01/29/20 23 01/28/2023 COMPR EHENS JUANITA METAB OLIC PANEL GFR >60 Refer ence Range : [place] ge GFR Healt hy Adult : >60 mL/mi n/1.7 3 m2 Chron ic Kidne y Disea se: 15-60 mL/mi n/1.7 3 m2 Kidne y Failu re: <15/m L/min /1.73 m2 www.n iddk. nih.g ov The MDRD study equat ion has not been valid ated in child ant <18 years of age; pregn ant women ; the elder ly >85 years of age; or in some racia l or ethni c subgr oups, such as Hispa nics. Outsi de the valid ated abel eters , estim ated GFR is less accur ate, requi ring clini salma judgm ent on a case- by-ca se basis . Clini salma inter preta tion for other races and ages must be made by the clini sandhya. The MDRD study equat ion has not been valid ated for the evalu ation of serum creat inine relat ed to nutri hyacinth l statu s or medic ation usage . For perso ns <18 years of age, a pedia tric GFR calcu lator is avail able on the [facility] websi te: https ://ww w.kid jill.o rg/pr ofess ional s/kdo qi/gf r_cal culat or Not Available [facility] (Lab) [address] [place], [address], 01/28/2023 12:51:16 01/29/2001/28/2023 COMPR EHENS JUANITA METAB OLIC PANEL alkaline phosphatase 60 U/L 38-126 Not Available [facility] (Lab) [address] [place], [address], 01/28/2023 12:51:16 01/29/2001/28/2023 COMPR EHENS JUANITA METAB OLIC PANEL alanine aminotransfe rase 23 U/L 0-35 Not Available [facility] (Lab) [address] [place], [address], 01/28/2023 12:51:16 01/29/2001/28/2023 COMPR EHENS JUANITA METAB OLIC PANEL aspartate aminotransfe rase 31 U/L 15-37 Not Available [facility] (Lab) [address] [place], [address], 01/28/2023 12:51:16 01/29/2001/28/2023 COMPR EHENS JUANITA METAB OLIC PANEL bilirubin, total 0.50 mg/dL 0.20-1 .30 Not Available [facility] (Lab) [address] [place], [address], 01/28/2023 12:51:16 01/29/20 23 01/28/2023 COMPR EHENS JUANITA METAB OLIC PANEL calcium 9.7 mg/dL 8.4-10 .2 Not Available [facility] (Lab) [address] [place], [address], 01/28/2023 12:51:16 01/29/20 23 01/28/2023 COMPR EHENS JUANITA METAB OLIC PANEL total protein 6.4 g/dL 6.3-8. 2 Not Available [facility] (Lab) [address] [place], [address], 01/28/2023 12:51:16 01/29/2001/28/2023 COMPR EHENS JUANITA METAB OLIC PANEL albumin 4.0 g/dL 3.0-4. 4 Not Available [facility] (Lab) [address] [place], [address], 01/28/2023 12:51:16 01/29/20 23 01/28/2023 COMPR EHENS JUANITA METAB OLIC PANEL globulin 2.4 g/dL 2.6-4. 2 low Not Available [facility] (Lab) [address] [place], [address], 01/28/2023 12:51:16 01/29/20 23 01/28/2023 COMPR EHENS JUANITA METAB OLIC PANEL A/G ratio 1.7 ratio 1.0-2. 0 Not Available [facility] (Lab) [address] [place], [address], 01/28/2023 12:51:16 01/29/20 23 01/28/2023 CBC/C OMPLE TE BLD COUNT W/DIF F white blood cells 4.4 x10'3 /uL 4.2-10 .8 Not Available [facility] (Lab) [address] [place], [address], 01/28/2023 12:53:26 01/29/2001/28/2023 CBC/C OMPLE TE BLD COUNT W/DIF F red blood cells 4.11 x10'6 /uL 3.80-5 .20 Not Available [facility] (Lab) [address] [place], [address], 01/28/2023 12:53:26 01/29/2001/28/2023 CBC/C OMPLE TE BLD COUNT W/DIF F hemoglobin 13.1 g/dL 12.0-1 5.6 Not Available [facility] (Lab) [address] [place], [address], 01/28/2023 12:53:26 01/29/2001/28/2023 CBC/C OMPLE TE BLD COUNT W/DIF F hematocrit 40.1 % 35.7-4 5.7 Not Available [facility] (Lab) [address] [place], [address], 01/28/2023 12:53:26 01/29/2001/28/2023 CBC/C OMPLE TE BLD COUNT W/DIF F mean red cell volume 97.6 fL 82.0-9 9.0 Not Available [facility] (Lab) [address] [place], [address], 01/28/2023 12:53:26 01/29/2001/28/2023 CBC/C OMPLE TE BLD COUNT W/DIF F mean red cell hemoglobin 31.9 pg 27.0-3 3.0 Not Available [facility] (Lab) [address] [place], [address], 01/28/2023 12:53:26 01/29/2001/28/2023 CBC/C OMPLE TE BLD COUNT W/DIF F mean RBC HGB concentratio n 32.7 g/dL 31.0-3 6.0 Not Available [facility] (Lab) [address] [place], [address], 01/28/2023 12:53:26 01/29/2001/28/2023 CBC/C OMPLE TE BLD COUNT W/DIF F red cell distribution width 13.6 % 11.8-1 5.5 Not Available [facility] (Lab) [address] [place], [address], 01/28/2023 12:53:26 01/29/2001/28/2023 CBC/C OMPLE TE BLD COUNT W/DIF F platelets 228 x10'3 /uL 150-40 0 Not Available [facility] (Lab) [address] [place], [address], 01/28/2023 12:53:26 01/29/2001/28/2023 CBC/C OMPLE TE BLD COUNT W/DIF F mean platelet volume 11.6 fL 9.0-12 .4 Not Available [facility] (Lab) [address] [place], [address], 01/28/2023 12:53:26 01/29/2001/28/2023 CBC/C OMPLE TE BLD COUNT W/DIF F neutrophils 59.3 % 39.0-7 2.0 Not Available [facility] (Lab) [address] [place], [address], 01/28/2023 12:53:26 01/29/2001/28/2023 CBC/C OMPLE TE BLD COUNT W/DIF F lymphocytes 18.4 % 16.0-4 7.0 Not Available [facility] (Lab) [address] [place], [address], 01/28/2023 12:53:26 01/29/2001/28/2023 CBC/C OMPLE TE BLD COUNT W/DIF F monocytes 16.4 % 5.0-12 .0 high Not Available [facility] (Lab) [address] [place], [address], 01/28/2023 12:53:26 01/29/2001/28/2023 CBC/C OMPLE TE BLD COUNT W/DIF F eosinophils 4.1 % 1.0-7. 0 Not Available [facility] (Lab) [address] [place], [address], 01/28/2023 12:53:26 01/29/2001/28/2023 CBC/C OMPLE TE BLD COUNT W/DIF F basophils 1.6 % 0.0-2. 0 Not Available [facility] (Lab) [address] [place], [address], 01/28/2023 12:53:26 01/29/2001/28/2023 CBC/C OMPLE TE BLD COUNT W/DIF F immature granulocytes 0.2 % 0.00-0 .50 Not Available [facility] (Lab) [address] [place], [address], 01/28/2023 12:53:26 01/29/20 23 01/28/2023 CBC/C OMPLE TE BLD COUNT W/DIF F neutrophils, absolute count 2.61 x10'3 /uL 1.5-8. 0 Not Available [facility] (Lab) [address] [place], [address], 01/28/2023 12:53:26 01/29/2001/28/2023 CBC/C OMPLE TE BLD COUNT W/DIF F lymphocytes, absolute count 0.81 x10'3 /uL 1.07-3 .43 low Not Available [facility] (Lab) [address] [place], [address], 01/28/2023 12:53:26 01/29/20 23 01/28/2023 CBC/C OMPLE TE BLD COUNT W/DIF F monocytes, absolute count 0.72 x10'3 /uL 0.29-0 .99 Not Available [facility] (Lab) [address] [place], [address], 01/28/2023 12:53:26 01/29/2001/28/2023 CBC/C OMPLE TE BLD COUNT W/DIF F eosinophils, absolute count 0.18 x10'3 /uL 0.02-0 .53 Not Available [facility] (Lab) [address] [place], [address], 01/28/2023 12:53:26 01/29/20 23 01/28/2023 CBC/C OMPLE TE BLD COUNT W/DIF F basophils, absolute count 0.07 x10'3 /uL 0.01-0 .08 Not Available [facility] (Lab) [address] [place], [address], 01/28/2023 12:53:26 01/29/2001/28/2023 CBC/C OMPLE TE BLD COUNT W/DIF F immature granulocytes ,absolute 0.01 x10'3 /uL 0.00-0 .05 Not Available [facility] (Lab) [address] [place], [address], 01/28/2023 12:53:26 01/29/20 23 01/28/2023 CBC/C OMPLE TE BLD COUNT W/DIF F nucleated red blood cells 0.0 % -0 Not Available [facility] (Lab) [address] [place], [address], 01/28/2023 12:53:26 01/29/20 23 01/28/2023 CBC/C OMPLE TE BLD COUNT W/DIF F NRBC# 0.00 x10'3 /uL Not Available [facility] (Lab) [address] [place], [address], 01/28/2023 12:53:26 01/29/20 23 01/28/2023 VITAM IN D 25-HY DROXY [id number] 42.1 NG/mL 30-100 Vitam in D Statu s: Defic ient: <20 ng/mL Insuf ficie nt: 20-29 ng/mL Suffi cient : 30-10 0 ng/mL Not Available [facility] (Lab) [address], [place], [address], 01/28/2023 13:03:52 06/28/19 22 06/27/2021 CT, orbit s, w/o contr ast No observ ation record ed. [id number] [facility] (Imaging) [address] [place] [address], [address], 06/09/2022 03:00:57 07/07/19 22 07/06/2021 MAMMO , scree teresa, digit al, bilat eral No observ ation record ed. [id number] [place] [address] (Imaging) [address] [place] [address], [address], 06/09/2022 03:00:57 09/24/19 22 09/23/2021 DEXA No observ ation record ed. [id number] [place] [address], [id number], 06/09/2022 03:00:57 06/16/19 23 CT, chest , w/o contr ast [facility] [address] [place] [address] Patien t Name: OLIVIA SHARP Access ion #: [id number] Sex: F : 1945 6 Locati on: RA2 Attend ing Physic riana: CHRIS RIOS Orderi ng Physic riana: CHRIS RIOS Exam Date: 06/16/19 9:17 AM Exam Name: CT CHEST WO Admitt ing Diagno sis(es ): RADIOL OGY REPORT - FINAL EXAM: CT CHEST WO HISTOR Y: CHRONI C SINUSI TIS cough COMPAR PASCUAL: Chest radiog raph 2020 TECHNI QUE: The chest is evalua to withou t intrav enous contra st. Axial images are recons tructe d in the stevenson l, sagitt al, and axial planes and are review ed with medias tinal lung window s settin gs. This CT exam was perfor med using one or more of the follow ing dose reduct ion techni ques: Automa to exposu re contro l, adjust ment of the mA and/or kV accord ing to patien t size, or use of iterat juanita recons tructi on techni que. FINDIN GS: Heart: Normal size no perica rdial effusi on Page 1 of 3 [facility] Name: OLIVIA SHARP Access ion #: [id number] Sex: F : 1945 8 Exam Date: 06/16/19 9:17 AM Exam Name: CT CHEST WO Admitt ing Diagno sis(es ): Vascul ar struct ures: Stevenson ry artery calcif icatio ns Pleura l space: Unrema rkable Lungs: Scarri ng at both lung bases, no acute proces s. Medias tinum: Unrema rkable Osseou s struct ures: 7 mm sclero tic bone densit y noted within the inferi or right latera l aspect of the T3 verteb ral body Extrat horaci c soft tissue s: Unrema rkable Upper abdome n: Image [id number] demons trates a 9 mm right hepati c lobe simple cyst. IMPRES MARIA DEL CARMEN: 1. There is a sclero tic densit y of the T3 verteb ral body measur ing approx imatel y 7 mm, the appear ance could relate to a metast atic proces s or a bone island . Recomm end MRI if MRI compat ible. 2. Other findin gs descri bed above. Create d and electr onical ly signed by: Guillaume gilbert MD Signed Date: 06/16/19 1:23 PM (CT) Dictat ed by: Guillaume gilbert MD (CT) Page 2 of 3 [facility] Name: OLIVIA SHARP ion #: [id number] Sex: F : 1945 8 Exam Date: 06/16/19 9:17 AM Exam Name: CT CHEST WO Admitt ing Diagno sis(es ): (CT) Page 3 of 3 [facility] (Imaging) [address] [place], [address], 06/30/2022 10:32:13 06/16/19 CT, sinus es, w/o contr ast [facility] [address] [place] [address] [phone] Patichyna t Name: OLIVIA SHARP Access ion #: [id number] Sex: F : 1945 8 Locati on: RA2 Attend ing Physic riana: CHRIS RIOS Orderi Physic riana: CHRIS RIOS Exam Date: 06/16/19 9:15 AM Exam Name: CT MAXILL OFACIA L WO Admitt ing Diagno sis(es ): RADIOL OGY REPORT - FINAL EXAM: CT MAXILL OFACIA L WO HISTOR Y: chroni c sinusi tis COMPAR PASCUAL: None. TECHNI QUE: Noncon trast axial CT images of the facial bones were perfor med. Stevenson l and sagitt al reform atted images were obtain ed. This CT exam was perfor med using one or more of the follow ing dose reduct ion techni ques: Automa to exposu re contro l, adjust ment of the mA and/or kV accord ing to patien t size, or use of iterat juanita recons tructi on techni que. FINDIN GS: Osseou s: No acute proces s, artifa ct from dental amalga m. Page 1 of 2 [facility] Jhony dennis Name: OLIVIA SHARP Access ion #: [id number] Sex: F : 1945 8 Exam Date: 06/16/19 9:15 AM Exam Name: CT MAXILL OFACIA L WO Admitt ing Diagno sis(es ): Soft tissue s: Unrema rkable Sinuse s: There is fluid densit y within the depend ent portio n of the left maxill gordon sinus with a focal area of calcif icatio n or metal measur ing 2 mm lying at the top of this collec tion, nonspe cific. Nasal septum : Unrema rkable Orbits : Unrema rkable Nasal turbin ates: Unrema rkable Tempor al mastoi d air cells: Aerate d bilate rally, symmet ricall y IMPRES MARIA DEL CARMEN: 1. See above. Create d and electr onical ly signed by: Guillaume gilbert MD Signed Date: 06/16/19 2:14 PM (CT) Dictat ed by: Guillaume gilbert MD (CT) (CT) Page 2 of 2 [facility] (Imaging) [address] [place], [address], 06/30/2022 10:32:14 06/29/19 MRI, thora cic spine , w/o contr ast [facility] [address] [place] [address] [phone] Patien t Name: OLIVIA SHARP Access ion #: [id number] Sex: F : 1945 8 Locati on: RA2 Attend ing Physic riana: CHRIS RIOS Orderi ng Physic riana: CHRIS RIOS Exam Date: 023 8:05 AM Exam Name: MRI T SPINE WO Admitt ing Diagno sis(es ): RADIOL OGY REPORT - FINAL EXAM: MRI T SPINE WO HISTOR Y: Evalua te T3 verteb ral body COMPAR PASCUAL: CT chest 2022 TECHNI QUE: Multip lanar multis equenc e non-co ntrast images of thorac ic spine are review ed. FINDIN GS: Verteb ral bodies : The T3 verteb ral body demons trates an area of absent signal intens ity within the mid inferi or aspect of the T3 verteb ral body measur ing 8 mm compat ible with the sclero tic densit y noted on the recent CT, the signal intens ity is compat ible with a benign bone island . Logan ioma format ion of the T1 and T9 verteb ral body noted, no additi onal follow -up is necess gordon. Page 1 of 2 [facility] Patien t Name: OLIVIA SHARP Access ion #: [id number] Sex: F : 1945 8 Exam Date: 8:05 AM Exam Name: MRI T SPINE WO Admitt ing Diagno sis(es ): Spinal cord: Unrema rkable . Conus medull tito: L1 Disc spaces : Multil evel degene rative change s noted throug hout the thorac ic spine no eviden ce of centra l or neural forami nal stenos is. Parave rtebra l soft tissue s: Unrema rkable . IMPRES MARIA DEL CARMEN: See above. Create d and electr onical ly signed by: Guillaume gilbert MD Signed Date: 9:38 AM (CT) Dictat ed by: Guillaume gilbert MD DD: 9:38 AM (CT) DT: 9:38 AM (CT) Page 2 of 2 [facility] (Imaging) [address] [place], [address], 06/30/2022 10:32:14 10/07/19 23 10/06/2022 MAMMO , diagn ostic , bilat eral No observ ation record ed. [email or web address] [address], [address], 12/16/2022 15:35:26 Result Notes None recorded. 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 Active 2021 Not Available [facility] 3 02:44:28 Transient cerebral ischemia 904157051 Active Not Available [facility] 3 02:44:28 Long-term drug therapy Active 2021 Not Available [facility] 3 02:44:28 Adult health examinatio n Active 2021 Not Available [facility] 3 02:44:28 Anemia 920788487 Active 2020 Not Available [facility] 3 02:44:28 Chest pain 01506710 Active Not Available [facility] 3 02:44:28 Enthesopat hy of hip region 22635157 Active Not Available [facility] 3 02:44:28 Screening for disorder Active 2021 Not Available [facility] 3 02:44:28 Osteopenia 012537720 Active Not Available [facility] 3 02:44:28 Vitamin D deficiency 71507351 Active Not Available [facility] 3 02:44:28 Dyslipidem ia 496359804 Active Not Available [facility] 3 02:44:28 Acute urinary tract infection 188380040 Active 2021 Not Available [facility] 3 02:44:28 Anxiety 65984266 Active Not Available [facility] 3 02:44:28 Pain in limb 39158548 Active Not Available [facility] 3 02:44:28 Chronic sinusitis 24553702 Active 2022 Not Available [facility] 3 02:44:28 CT of chest abnormal 4284743704191 9102 Active 2022 Not Available [facility] 3 02:44:28 COVID-19 912351486 Active 2022 Not Available [facility] 3 02:44:28 Problem Notes None recorded. Procedures Surgical History Date Name Laterality Status Provider Name and Address Organization Details Recorded Time 10/20/19 22 Eye Surgery completed Not Available [facility] 06/10/19 02:44:34 06/28/19 22 Eye Surgery completed Not Available [facility] 06/10/19 23 02:44:34 07/17/19 21 Date of Last Colonoscopy completed Not Available [facility] 06/09/2022 02:44:30 07/17/19 21 Colonoscopy completed Not Available [facility] 06/10/19 02:44:34 11/04/19 12 Colonoscopy completed Not Available [facility] 06/10/19 02:44:34 09/18/19 10 Most Recent Bone Density completed Not Available [facility] 06/09/2022 02:44:30 Hysterectomy completed Not Available [facility] 06/09/2022 02:44:34 tonsilectomy/araseli noids completed Not Available [facility] 06/09/2022 02:44:34 Cataract Surgery completed Not Available [facility] 06/09/2022 02:44:34 Imaging Results Imaging Date Name Status LastModified by Organiz [facility] Details LastModified Time 07/06/2021 MAMMO, screening, digital, bilateral completed [id number] [facility] (Imaging) [address] [place] [address], [phone], 06/09/2022 03:00:57 06/27/2021 CT, orbits, w/o contrast completed [id number] [address] [place] [address] (Imaging) [address] [place] [address], [phone], 06/09/2022 03:00:57 09/23/2021 DEXA completed [id number] [place] [address], [id number], 06/09/2022 03:00:57 06/15/2022 CT, chest, w/o contrast completed [facility] (Imaging) [address] [place], [address], 06/30/2022 10:32:13 06/15/2022 CT, sinuses, w/o contrast completed [facility] (Imaging) [address] [place], [address], 06/30/2022 10:32:14 06/28/2022 MRI, thoracic spine, w/o contrast completed [facility] (Imaging) [address] [place], [address], 06/30/2022 10:32:14 10/06/2022 MAMMO, diagnostic, bilateral completed [address] [facility] [address], [place], [address], 12/16/2022 15:35:26 Procedure Notes None recorded. Medical Equipment None Reported. Allergies No known drug allergies Medications Name Sig Start Date Stop Date Status Note LastModified by Organization Details LastModified Time amoxicillin 500 mg capsule 03/01 completed Not Available Not Available Not Available Augmentin 875 mg-125 mg tablet Take 1 tablet twice a day by oral route. 08/26 completed Not Available Not Available Not Available prednisone 10 mg tablet 03/09 completed Not Available Not Available Not Available oxybutynin chloride ER 15 mg tablet,exte nded release 24 hr TAKE 1 TABLET BY MOUTH ONCE DAILY 06/10 completed Not Available Not Available Not Available pilocarpine 1 % eye drops 10/03 completed Not Available Not Available Not Available clindamycin HCl 300 mg capsule TAKE 1 CAPSULE BY MOUTH 4 TIMES DAILY UNTIL GONE 06/10 completed Not Available Not Available Not Available oxybutynin chloride ER 10 mg tablet,exte nded release 24 hr TAKE 1 TABLET BY MOUTH ONCE DAILY active Not Available Not Available No t Available hydrocodone 5 mg-acetamin ophen 325 mg tablet TAKE 1 TABLET BY MOUTH EVERY 4 TO 6 HOURS NEEDED FOR PAIN 06/10 completed Not Available Not Available Not Available phenazopyri dine 200 mg tablet 08/22 completed Not Available Not Available Not Available alendronate 70 mg tablet 12/30 completed Not Available Not Available Not Available fluoxetine 10 mg tablet 08/26 completed Not Available Not Available Not Available simvastatin 10 mg tablet 02/20 completed Not Available Not Available Not Available Zithromax Z-Ronnie 250 mg tablet TAKE 2 TABLETS (500 MG) BY ORAL ROUTE ONCE DAILY FOR 1 DAY THEN 1 TABLET (250 MG) BY ORAL ROUTE ONCE DAILY FOR 4 DAYS 06/19 completed Not Available Not Available Not Available acetaminoph en 300 mg-codeine 30 mg tablet TAKE 1 TABLET BY MOUTH EVERY 6 HOURS NEEDED FOR PAIN 06/10 completed Not Available Not Available Not Available amlodipine 5 mg tablet TAKE 1 TABLET BY MOUTH ONCE DAILY IN THE MORNING active Not Available Not Available No t Available ciprofloxac in 500 mg tablet TAKE 1 TABLET BY MOUTH TWICE DAILY FOR 7 DAYS 12/16 completed Not Available Not Available Not Available omeprazole 40 mg capsule,del ayed release TAKE 1 CAPSULE BY MOUTH ONCE DAILY active Not Available Not Available No t Available propranolol 10 mg tablet Take 2 tablets 3 times a day by oral route. active Not Available Not Available No t Available sodium chloride 5 % eye ointment APPLY OINTMENT INTO RIGHT EYE THREE TIMES DAILY 06/10 completed Not Available Not Available Not Available alprazolam 0.25 mg tablet 1 QHS PRN 08/25 completed Not Available Not Available Not Available prednisolon e acetate 1 % eye drops,suspe nsion INSTILL 1 DROP INTO RIGHT EYE THREE TIMES DAILY 06/10 completed Not Available Not Available Not Available Valium 2 mg tablet 1daily prn anxitey 01/23 completed Not Available Not Available Not Available imiquimod 5 % topical cream packet 03/09 completed Not Available Not Available Not Available simvastatin 20 mg tablet TAKE 1 TABLET BY MOUTH ONCE DAILY . APPOINTME NT REQUIRED FOR FUTURE REFILLS active Not Available Not Available No t Available diclofenac 0.1 % eye drops 02/20 completed Not Available Not Available Not Available brimonidine 0.2 % eye drops INSTILL 1 DROP INTO RIGHT EYE THREE TIMES DAILY 06/10 completed Not Available Not Available Not Available fluoxetine 10 mg capsule TAKE 1 CAPSULE BY MOUTH ONCE DAILY (NEED FOLLOW UP APPOINTME NT BEFORE NEXT REFILL) active Not Available Not Available No t Available omeprazole 20 mg capsule,del ayed release 06/10 completed Not Available Not Available Not Available aspirin 81 mg chewable tablet Chew 1 tablet twice a day by oral route. 10/29 completed Not Available Not Available Not Available montelukast 10 mg tablet TAKE 1 TABLET BY MOUTH ONCE DAILY 06/10 completed Not Available Not Available Not Available hydrochloro thiazide 25 mg tablet TAKE 1 TABLET BY MOUTH ONCE DAILY active Not Available Not Available No t Available ergocalcife rol (vitamin D2) 1,250 mcg (50,000 unit) capsule Take 1 capsule every month by oral route. 09/04 completed Not Available Not Available Not Available azelastine 137 mcg (0.1 %) nasal spray USE 2 SPRAY(S) IN EACH NOSTRIL TWICE DAILY 12/16 completed Not Available Not Available Not Available methylpredn isolone 4 mg tablets in a dose pack Take 1 dose pk by oral route. 03/01 completed Not Available Not Available Not Available timolol maleate 0.5 % eye drops INSTILL 1 DROP INTO RIGHT EYE TWICE DAILY 06/10 completed Not Available Not Available Not Available oxybutynin chloride 5 mg tablet Take 1 tablet twice a day by oral route. 02/22 completed Not Available Not Available Not Available fluoxetine 20 mg capsule TAKE ONE CAPSULE BY MOUTH ONCE DAILY 08/26 completed Not Available Not Available Not Available fluticasone propionate 50 mcg/actuati on nasal spray,suspe nsion USE 2 SPRAY(S) IN EACH NOSTRIL ONCE DAILY active Not Available Not Available No t Available ipratropium bromide 21 mcg (0.03 %) nasal spray 06/10 completed Not Available Not Available Not Available dorzolamide 2 % eye drops INSTILL 1 DROPS INTO RIGHT EYE THREE TIMES DAILY 06/10 completed Not Available Not Available Not Available tobramycin 0.3 %-dexametha sone 0.1 % eye drops,suspe nsion INSTILL 1 DROP INTO EACH EYE 4 TIMES DAILY FOR 3 DAYS active Not Available Not Available No t Available cyclosporin e 0.05 % eye drops in a dropperette INSTILL 1 DROP INTO EACH EYE TWICE DAILY active Not Available Not Available No t Available moxifloxaci n 0.5 % eye drops INSTILL 1 DROP INTO RIGHT EYE 4 TIMES DAILY 06/10 completed Not Available Not Available Not Available Premarin 0.625 mg/gram vaginal cream 09/04 completed Not Available Not Available Not Available TriLyte With Flavor Packets 420 gram oral solution 01/23 completed Not Available Not Available Not Available nitrofurant oin monohydrate /macrocryst als 100 mg capsule TAKE 1 CAPSULE BY MOUTH TWICE DAILY FOR 5 DAYS 12/16 completed Not Available Not Available Not Available solifenacin 5 mg tablet TAKE 1 TABLET BY MOUTH ONCE DAILY 06/11 completed Not Available Not Available Not Available solifenacin 10 mg tablet TAKE 1 TABLET BY MOUTH ONCE DAILY 06/11 completed Not Available Not Available Not Available Zyrtec 10/29 completed Not Available Not Available Not Available Calcium 500 10/29 completed Not Available Not Available Not Available PreserVisio n AREDS 10/29 completed Not Available Not Available Not Available Xyzal 5 mg tablet Take 1 tablet every day by oral route. 12/16 completed Not Available Not Available Not Available Suprep Bowel Prep Kit 17.5 gram-3.13 gram-1.6 gram oral solution USE DIRECTED. SEE INSTRUCTI ONS FROM OFFICE 06/19 completed Not Available Not Available Not Available Fluad 65yr up(PF)45 mcg(15 mcgx3)/0.5 mL intramuscul ar syringe PHARMACIS T ADMINISTE RED IMMUNIZAT ION ADMINISTE RED AT TIME OF DISPENSIN G 02/22 completed Not Available Not Available Not Available Fluad Quad (6 5yr up)(PF) 60 mcg (15 mcg x 4)/0.5mL IM syringe PHARMACIS T ADMINISTE RED IMMUNIZAT ION ADMINISTE RED AT TIME OF DISPENSIN G 06/19 completed Not Available Not Available Not Available Paxlovid 300 mg (150 mg x 2)-100 mg tablets in a dose pack Take 3 tablets twice a day by oral route for 5 days. 12/16 completed Not Available Not Available Not Available Vitals Date Recorded Body height Body mass index (BMI) Body weight Body temperature Heart rate Systolic blood pressure Diastolic blood pressure Provider Name and Address Organization Details Last Updated DateTime 3 167.64 cm 24.4 kg/m2 71263.4 5 g 97.9 [degF] 71 /min 124 mm[Hg] 70 mm[Hg] DIGNA Bhandari [place] [facility] [employer] [facility] 3 10:06:13 Date Recorded Body height Body mass index (BMI) Body weight Body temperature Heart rate Systolic blood pressure Diastolic blood pressure Provider Name and Address Organization Details Last Updated DateTime 3 167.64 cm 24.5 kg/m2 83887.0 4 g 98.2 [degF] 70 /min 118 mm[Hg] 70 mm[Hg] Gertrude orozco RN [facility] [employer] [facility] 3 10:06:56 Date Recorded Body mass index (BMI) Body height Heart rate Body temperature Body weight Systolic blood pressure Diastolic blood pressure Provider Name and Address Organization Details Last Updated DateTime 1 24.4 kg/m2 167.64 cm 78 /min 97.1 [degF] 53528.4 5 g 114 mm[Hg] 68 mm[Hg] Not Available [facility] 3 02:44:46 Date Recorded Body mass index (BMI) Body height Heart rate Body temperature Body weight Systolic blood pressure Diastolic blood pressure Provider Name and Address Organization Details Last Updated DateTime 2 24.2 kg/m2 167.64 cm 78 /min 98 [degF] 58467.8 6 g 110 mm[Hg] 74 mm[Hg] Not Available [facility] 3 02:44:46 Date Recorded Body mass index (BMI) Body height Heart rate Body temperature Body weight Systolic blood pressure Diastolic blood pressure Provider Name and Address Organization Details Last Updated DateTime 2 23.6 kg/m2 167.64 cm 80 /min 97.2 [degF] 45780.4 9 g 132 mm[Hg] 84 mm[Hg] Not Available [facility] 3 02:44:46 Social History Question Answer Notes LastModified by Organizat ion Details LastModified Time Tobacco Smoking Status Former Smoker quit age 30 DIGNA Holguin, [facility] [employer] 06/10/2022 09:54:37 Do You Have An Advance Directive? Yes [id number] Information not available 06/09/2022 What Is Your Level Of Alcohol Consumption? 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 Heavy [id number] Information not available 06/09/2022 How Much Tobacco Do You Chew? None [id number] Information not available 06/09/2022 In The 14 Days Before Symptom Onset, Have You Had Close Contact With A Laboratory-confi rmed COVID-19 While That Case Was Ill? No Information not available 06/10/2022 In The 14 Days Before Symptom Onset, Have You Had Close Contact With A Person Who Is Under Investigation For COVID-19 While That Person Was Ill? No Information not available 06/10/2022 Are You Currently Employed? No Information not available 12/16/2022 Are You Deaf Or Do You Have Serious Difficulty Hearing? No Information not available 06/10/2022 What Type Of Diet Are You Following? REGULAR [id number] Information not available 06/09/2022 Which Illicit Or Recreational Drugs Have You Used? None Information not available 06/10/2022 Do You Or Have You Ever Used E-cigarettes Or Vape? Never Used Electronic Cigarettes Information not available 06/10/2022 What Is The Highest Grade Or Level Of School You Have Completed Or The Highest Degree You Have Received? [id number] Information not available 06/10/2022 What Is Your Occupation? Retired Information not available 06/10/2022 Have There Been Any Changes To Your Family Or Social Situation? No Information not available 06/10/2022 What Is The Fluoride Status Of Your Home? Unknown Information not available 06/10/2022 When Did You Quit Smoking? 16+yearssince lastcigarette Information not available 06/10/2022 Are There Any Guns Present In Your Home? No Information not available 06/10/2022 Do You Use Insect Repellent Routinely? No Information not available 06/10/2022 Where Do You Live? Condo Information not available 06/10/2022 Do You Have A Medical Power Of Bulb Brander? Yes Information not available 06/10/2022 What Was The Date Of Your Most Recent Tobacco Screening? 12/16/2022 Information not available 12/16/2022 Have You Ever Been Counseled For Unhealthy Alcohol Use? No Information not available 06/10/2022 Do You Have Any Pets? Yes Information not available 06/10/2022 What Is Your Relationship Status? [id number] Information not available 06/09/2022 Do You Use Your Seat Belt Or Car Seat Routinely? Yes Information not available 06/10/2022 Do You Have Smoke And Carbon Monoxide Detectors In Your Home? Yes Information not available 06/10/2022 Are You Passively Exposed To Smoke? No Information not available 06/10/2022 Do You Or Have You Ever Used Smokeless Tobacco? Never Used Smokeless Tobacco [id number] Information not available 06/09/2022 Are There Any Smokers In Your House? No Information not available 06/10/2022 How Much Tobacco Do You Smoke? No [id number] Information not available 06/09/2022 What Types Of Sporting Activities Do You Participate In? None Information not available 06/10/2022 Do You Feel Stressed (tense, Restless, Nervous, Or Anxious, Or Unable To Sleep At Night)? [id number] Information not available 06/10/2022 Do You Use Any Illicit Or Recreational Drugs? No Information not available 06/10/2022 Do You Use Sunscreen Routinely? Yes Information not available 06/10/2022 Has Tobacco Cessation Counseling Been Provided? No Information not available 06/10/2022 How Many Years Have You Smoked Tobacco? 12 Information not available 06/10/2022 Have You Recently Traveled Abroad? No Information not available 06/10/2022 Do You Have Any Dietary Restrictions? No Information not available 06/10/2022 Do You Or Have You Ever Used Any Other Forms Of Tobacco Or Nicotine? No Information not available 06/10/2022 Sex: Female Functional Status Question Answer Note LastModified by Organizat ion Details LastModified Time Do you have difficulty walking or climbing stairs? No Information not available 06/10/2022 Do you have transportation difficulties? No Information not available 06/10/2022 Are you able to walk? YESWOREST Information not available 06/10/2022 Do you have difficulty doing errands alone? No Information not available 06/10/2022 Are you able to care for yourself? Yes Information n ot available 06/10/2022 Do you have difficulty dressing or bathing? No Information not available 06/10/2022 What is your exercise level? Moderate [id number] Information not available 06/09/2022 Mental Status Question Answer Note LastModified by Organization D etails LastModified Time Do you have difficulty concentrating, remembering or making decisions? No Information no t available 06/10/2022 Family History Relationship Description Onset Age of this Age Resolved Age Notes LastModified by Organization Details LastModified Time Mother Heart disease 95 [id number] Not available 06/09/2022 02:44:34 Brother Leukemia half-b rother cyahl Not available 06/10/2022 09:54:36 Medical History Condition Response BLINDNESS N NERVE DISEASE N RHEUMATIC FEVER N BLADDER PROBLEMS N KIDNEY STONES N OTHER # 1 Y POLIO N LUNG DISEASE/DISORDER N RADIATION / CHEMOTHERAPY N COPD N Other # 2 N BLOOD DISEASES N SURGERY N EAR OR HEARING PROBLEMS N MUMPS N BOWEL PROBLEMS N DEPRESSION (INCLUDING POST ) N STROKE/TIA Y ULCERS N BENIGN PROSTATIC HYPERPLASIA N MEASLES N MYOCARDIAL INFARCTION N OBESITY N GERD/NAUSEA N ANEURYSM N URINARY/BLADDER/KIDNEY PROBLEMS Y INPATIENT PSYCH CARE N CORONARY ARTERY DISEASE (CAD) N ADDICTION CONCERNS N Impotence N ENDOMETRIOSIS N USE OF BLOOD THINNERS N SKIN PROBLEMS N GASTROINTESTINAL DISORDER N PERIPHERAL VASCULAR DISEASE N MUSCLE,JOINT OR BONE PROBLEMS N GASTROINTESTINAL BLEEDING N BLOOD CLOTS N ASTHMA N CATARACTS N ERECTILE DYSFUNCTION N VARICOSITIES N GI PROBLEMS N Low Testosterone N INFERTILITY N AIDS/HIV N LIVER DISEASE N MALE HYPOGONADISM N HYPERTENSION Y Deficiency Y ANXIETY DISORDER Y BLOOD TRANSFUSION N ANEMIA/BLOOD DISORDER N CHRONIC EAR INFECTIONS N BRONCHITIS N TUBERCULOSIS N GLAUCOMA N FOOT PROBLEM N DIVERTICULITIS N SLEEP APNEA N CHICKENPOX N INFECTIOUS DISEASE N PROSTATE N HEART ARRHYTHMIA N INSOMNIA N HIGH CHOLESTEROL / HYPERLIPIDEMIA Y EYE PROBLEMS Y HYPERTHYROIDISM N NEUROLOGICAL PROBLEMS N EDEMA N CHRONIC PAIN SYNDROME N HYPOTHYROIDISM N CAROTID BLOCKAGE N CONSTIPATION N BACK / NECK PROBLEMS N HAVE YOU BEEN HOSPITALIZED OR SEEN IN [facility] IN THE PAST YEAR ? N ATHEROSCLEROSIS N BREAST PROBLEMS N DIALYSIS N ECZEMA N OSTEOPOROSIS N ARTHRITIS N APPENDICITIS N DIABETES, TYPE N BAD TEETH N ENT N HEARTBURN / REFLUX N AUTISM SPECTRUM DISORDER (ASD) N HEPATITIS / LIVER DISEASE N PULMONARY DISEASE N GOUT N SLEEP DISORDER N ALZHEIMER'S DISEASE N Brain Problems N DEMENTIA N HERPES N SEIZURES/EPILEPSY N HEADACHES/MIGRAINES N VASCULAR DISEASE N PACEMAKER N Blood Disorder N DIZZINESS N HEART DISEASE/HEART PROBLEMS N KIDNEY DISEASE N MULTIPLE SCLEROSIS N CANCER: SPECIFY N CARDIAC ARRHYTHMIA N ANESTHESIA COMPLICATIONS N ATRIAL FIBRILLATION N Gall Stones N PULMONARY EMBOLISM N AUTOIMMUNE DISEASE N Gynecological History Statement/Question Response Date of Last Mammogram 06/12/2020 Date of Last Colonoscopy 07/16/2020 Most Recent Bone Density 09/17/2009 Obstetrics History GPAL:G 0 P 0 0 0 0 Immunizations Vaccine Type Date Status Note Provider Nam e and Address Organization Details Recorded Time zoster, unspecified formulation 3 completed Not Available [facility] 01/31/2023 02:44:28 COVID-19, mRNA, LNP-S, PF, 100 mcg/0.5mL dose or 50 mcg/0.25mL dose 1 completed Not Available [facility] 01/31/2023 02:44:28 Td(adult) unspecified formulation 2 completed Not Available [facility] 01/31/2023 02:44:28 COVID-19, mRNA, LNP-S, PF, 100 mcg/0.5mL dose or 50 mcg/0.25mL dose 1 completed Not Available [facility] 01/31/2023 02:44:28 Influenza, split virus, trivalent, preservative 9 completed Not Available [facility] 01/31/2023 02:44:28 influenza, unspecified formulation 8 completed Not Available [facility] 01/31/2023 02:44:28 Influenza, high-dose, trivalent, PF 7 completed Not Available [facility] 01/31/2023 02:44:28 Influenza, high-dose, trivalent, PF 7 completed Not Available [facility] 01/31/2023 02:44:28 COVID-19, mRNA, LNP-S, PF, 100 mcg/0.5mL dose or 50 mcg/0.25mL dose 2 completed Not Available [facility] 01/31/2023 02:44:28 Influenza, split virus, trivalent, preservative 2 completed Not Available [facility] 01/31/2023 02:44:28 Influenza, split virus, trivalent, preservative 1 completed Not Available [facility] 01/31/2023 02:44:28 COVID-19, mRNA, LNP-S, PF, 100 mcg/0.5mL dose or 50 mcg/0.25mL dose 1 completed Not Available [facility] 01/31/2023 02:44:28 Influenza, high-dose, quadrivalent, PF 0 completed Not Available [facility] 01/31/2023 02:44:28 Influenza, high-dose, trivalent, PF 6 completed Not Available [facility] 01/31/2023 02:44:28 pneumococcal conjugate PCV 7 9 completed Not Available [facility] 01/31/2023 02:44:28 Pneumococcal conjugate PCV 13 6 completed Not Available [facility] 01/31/2023 02:44:28 zoster, unspecified formulation 3 completed Not Available [facility] 01/31/2023 02:44:28 influenza, unspecified formulation 3 completed Not Available [facility] 01/31/2023 02:44:28 COVID-19, mRNA, LNP-S, PF, 30 mcg/0.3 mL dose 3 completed Not Available [facility] 01/31/2023 02:44:28 COVID-19, mRNA, LNP-S, PF, 30 mcg/0.3 mL dose 3 completed Not Available [facility] 01/31/2023 02:44:28 RSV, recombinant, protein subunit RSVpreF, adjuvant reconstituted, 0.5 mL, PF 3 completed DIGNA Holguin, HEATHER - [facility] [employer] 03/14/2023 14:50:20 Past Encounters Encounter ID Performer Location Encounter Start Date Encounter Closed Date Diagnosis/Indication Diagnosis SNOMED-CT Code Diagnosis ICD10 Code Diagnosis Note [id number] [facility] [place] [address] [place] [address] [place] [address] 06/19/2020 00:00:00 06/29/2020 13:37:18 [id number] [facility] [place] [address] [place] [address] [place] [address] 12/18/2020 00:00:00 12/18/2020 21:36:45 [id number] [facility] [place] [address] [place] [address] [place] [address] 06/11/2021 00:00:00 06/27/2021 14:56:43 [id number] [facility] Internal [facility] [place] [address] [place] [address] [place] [address] 12/10/2021 00:00:00 12/10/2021 10:28:04 [id number] Jaden Rios MD [facility] Internal [facility] [place] [address] [place] [address] [place] [address] 06/10/2022 09:52:29 06/10/2022 10:58:12 Dyslipidemia 350117351 E78.5 Long-term drug therapy 676574973 Z79.899 Vitamin D deficiency 347 40059 E55.9 Chronic sinusitis 607727 00 J32.9 [id number] Jaden Rios MD [facility] Internal [facility] [place] [address] [place] [address] [place] [address] 12/16/2022 09:53:38 12/16/2022 10:28:06 Benign hypertension 31764475 I10 Anxiety 82549858 F41.9 Chronic sinusitis 978240 00 J32.9 Dyslipidemia 924037621 E 78.5 Health Concerns Section Related Observation LastModified by Organization Detai ls LastModified Time None Recorded Concern Status LastModified by Organization Details LastModified Time None Recorded Advance Directives Directive Y: Payers Encounter Date Sequence Insurance Name Policy Number Policy Lozano Covered Member ID Lozano Member ID Guarantor Name 06/10/2022 1 [place] Olivia Sharp [id number] Olivia Sharp 06/10/2022 2 [employer] - [employer] (MEDICARE SUPPLEMENT) [place] Olivia Sharp [id number] Olivia Sharp 12/16/2022 1 [place] Sharp [id number] Olivia Sharp 12/16/2022 2 [employer] - [employer] (MEDICARE SUPPLEMENT) PLANG Olivia Sharp [id number] Olivia Sharp Notes Date Note Type Note Provider Name and Address Organization Details Recorded Time 3 text/html still with some chronic sinusitiscough still botheringlow vitamin-D level supplementhypertension no headache no dizziness Jaden Rios MD [address], [place], [address], [employer] [facility] [employer] 07/18/2022 16:58:04 3 text/html still with some chronic sinusitiscough still botheringlow vitamin-D level supplementhypertension no headache no dizziness Jaden Rios MD [address], [place], [address], [employer] 01/02/2023 22:35:18 OBGyn Episode No OBEpisode recorded.
--- OUTSIDE RECORDS SUMMARY | 2024-05-03 07:23 | XMS_ITS | Data Portability ---
Author Organization [facility] JO ANNSylvia Address [address] [facility] [place] [address] Assessment Encounter Date Assessment Date Assessment LastModified by Organization Details LastModified Time 07/28/2023 07/28/2023 Hypertension amlodipine hydrochlorothiazide anxiety fluoxetine rhinitis fluticasone urinary incontinence oxybutynin dyslipidemia simvastatin obtain old records she is not sure about immunizations have to look at the records when they come over see me back in 4 months. [email or web address] Not available 07/30/2023 15:51:39 01/26/2024 01/26/2024 continue current therapy blood work also needs a vitamin-D level we will try Atrovent nasal spray we will follow up in 6 months [email or web address] Not available 02/14/2024 22:08:00 Plan of Treatment Reminders Order Date Submit Date Provider Last Modified By Organization Details Last Modified Time Details Appointments ANY 15 2024 09:15A Lucero Rios MD Not available Not available Not available Lab CBC w/ auto diff 2023 024 JEANETTE LABMANOLO, [facility], [place], [address], 08/13/2023 04:36:19 lipid panel, serum 2023 024 [facility], [place], [address], 08/13/2023 04:36:18 CMP, serum or plasma 2023 024 [facility] [address], [place], [address], 08/13/2023 04:36:19 vitamin D, 25-hydrox y, total, serum 2023 JEANETTE [facility], [address], [address], [place], [address], 02/14/2024 14:32:51 lipid panel, serum 2023 JEANETTE [facility], [address] [facility] [address] [facility] [address], [place], [address], 02/14/2024 11:13:46 CMP, serum or plasma 2023 WILMOT [facility], [address] [facility] [address], [address], [place], [address], 02/14/2024 11:13:48 CBC w/ auto diff 2023 WILMOT [facility], [address] [facility], [address], [place], [address], 02/14/2024 11:13:50 Referral None recorded. Procedures None recorded. Surgeries None recorded. Imaging None recorded. Medication Orders oxybutyni n chloride ER 10 mg tablet,ex tended release 24 hr 2023 [email or web address] [facility] [place], [address], 01/26/2024 18:12:55 Patient TargetsNo targets recorded. Patient InstructionsNo instructions recorded. Reason for Referral None Reported. Results Created Date Observation Date Name Description Value Unit Range Abnormal Flag Note LastModifiedBy Organization Detail LastModifiedTime 08/12/19 24 08/13/2023 LIPID PANEL cholesterol, total 171 mg/dL 100-19 9 Not Available [facility] ([facility]) [address] [facility], [place], [address], 08/13/2023 04:36:18 08/12/19 24 08/13/2023 LIPID PANEL triglyceride s 60 mg/dL 0-149 Not Available [facility] ([facility]) [address] [place], [address], 08/13/2023 04:36:18 08/12/19 24 08/13/2023 LIPID PANEL HDL cholesterol 70 mg/dL >39 Not Available [facility] ([facility]) [address] [place], [address], 08/13/2023 04:36:18 08/12/19 24 08/13/2023 LIPID PANEL VLDL cholesterol salma 12 mg/dL 5-40 Not Available [facility] ([facility]) [address] [place], [address], 08/13/2023 04:36:18 08/12/19 24 08/13/2023 LIPID PANEL LDL chol calc ([facility]) 89 mg/dL 0-99 Not Available [facility] ([facility]) [address] [place], [address], 08/13/2023 04:36:18 08/12/19 24 08/13/2023 COMP. METAB OLIC PANEL (14) glucose 97 mg/dL 70-99 Not Available [facility] ([facility]) [address] [place], [address], 08/13/2023 04:36:19 08/12/19 24 08/13/2023 COMP. METAB OLIC PANEL (14) BUN 18 mg/dL 8-27 Not Available [facility] ([facility]) [address] [place], [address], 08/13/2023 04:36:19 08/12/19 24 08/13/2023 COMP. METAB OLIC PANEL (14) creatinine 0.68 mg/dL 0.57-1 .00 Not Available [facility] ([facility]) [address] [place], [address], 08/13/2023 04:36:19 08/12/19 24 08/13/2023 COMP. METAB OLIC PANEL (14) eGFR 88 mL/mi n/1.7 3 >59 Not Available [facility] ([facility]) [address], [place], [address], 08/13/2023 04:36:19 08/12/19 24 08/13/2023 COMP. METAB OLIC PANEL (14) BUN/creatini ne ratio 26 12-28 Not Available [facility] ([facility]) [address] [facility], [place], [address], 08/13/2023 04:36:19 08/12/19 24 08/13/2023 COMP. METAB OLIC PANEL (14) sodium 139 mmol/ L 134-14 4 Not Available [facility] ([facility]) [address] [facility], [place], [address], 08/13/2023 04:36:19 08/12/19 24 08/13/2023 COMP. METAB OLIC PANEL (14) potassium 4.9 mmol/ L 3.5-5. 2 Not Available [facility] ([facility]) [address] [facility], [place], [address], 08/13/2023 04:36:19 08/12/19 24 08/13/2023 COMP. METAB OLIC PANEL (14) chloride 103 mmol/ L 96-106 Not Available [facility] ([place] [facility]) [address] [facility], [place], [address], 08/13/2023 04:36:19 08/12/19 24 08/13/2023 COMP. METAB OLIC PANEL (14) carbon dioxide, total 26 mmol/ L 20-29 Not Available [facility] ([facility]) [address] [facility], [place], [address], 08/13/2023 04:36:19 08/12/19 24 08/13/2023 COMP. METAB OLIC PANEL (14) calcium 9.9 mg/dL 8.7-10 .3 Not Available [facility] ([facility]) [address] [facility] [place], [address], 08/13/2023 04:36:19 08/12/19 24 08/13/2023 COMP. METAB OLIC PANEL (14) protein, total 6.4 g/dL 6.0-8. 5 Not Available [facility] ([facility]) [address] [facility], [place], [address], 08/13/2023 04:36:19 08/12/19 24 08/13/2023 COMP. METAB OLIC PANEL (14) albumin 4.3 g/dL 3.8-4. 8 Not Available [facility] ([facility]) [address] [facility], [place], [address], 08/13/2023 04:36:19 08/12/19 24 08/13/2023 COMP. METAB OLIC PANEL (14) globulin, total 2.1 g/dL 1.5-4. 5 Not Available [facility] ([facility]) [address] [facility] [place], [address], 08/13/2023 04:36:19 08/12/19 24 08/13/2023 COMP. METAB OLIC PANEL (14) A/G ratio 2.0 1.2-2. 2 Not Available [facility] ([facility]) [address] [facility], [place], [address], 08/13/2023 04:36:19 08/12/19 24 08/13/2023 COMP. METAB OLIC PANEL (14) bilirubin, total 0.5 mg/dL 0.0-1. 2 Not Available [facility] ([facility]) [address] [facility], [place], [address], 08/13/2023 04:36:19 08/12/19 24 08/13/2023 COMP. METAB OLIC PANEL (14) alkaline phosphatase 62 IU/L 44-121 Not Available [facility] ([facility]) [address] [facility], [place], [address], 08/13/2023 04:36:19 08/12/19 24 08/13/2023 COMP. METAB OLIC PANEL (14) AST (SGOT) 24 IU/L 0-40 Not Available [facility] ([facility]) [address] [facility], [place], [address], 08/13/2023 04:36:19 08/12/19 24 08/13/2023 COMP. METAB OLIC PANEL (14) ALT (SGPT) 19 IU/L 0-32 Not Available [facility] ([facility]) [address] [facility], [place], [address], 08/13/2023 04:36:19 08/12/19 24 08/13/2023 CBC WITH DIFFE RENTI AL/PL ATELE T WBC 4.8 x10e3 /uL 3.4-10 .8 Not Available [facility] ([facility]) [address] [facility], [place], [address], 08/13/2023 04:36:19 08/12/19 24 08/13/2023 CBC WITH DIFFE RENTI AL/PL ATELE T RBC 4.43 x10e6 /uL 3.77-5 .28 Not Available [facility] ([facility]) [address] [facility], [place], [address], 08/13/2023 04:36:19 08/12/19 24 08/13/2023 CBC WITH DIFFE RENTI AL/PL ATELE T hemoglobin 14.2 g/dL 11.1-1 5.9 Not Available [facility] ([facility]) [address] [facility], [place], [address], 08/13/2023 04:36:19 08/12/19 24 08/13/2023 CBC WITH DIFFE RENTI AL/PL ATELE T hematocrit 42.6 % 34.0-4 6.6 Not Available [facility] ([facility]) [address] [facility], [place], [address], 08/13/2023 04:36:19 08/12/19 24 08/13/2023 CBC WITH DIFFE RENTI AL/PL ATELE T MCV 96 fL 79-97 Not Available [facility] ([facility]) [address] [facility], [place], [address], 08/13/2023 04:36:19 08/12/19 24 08/13/2023 CBC WITH DIFFE RENTI AL/PL ATELE T MCH 32.1 pg 26.6-3 3.0 Not Available [facility] ([facility]) [address] [facility], [place], [address], 08/13/2023 04:36:19 08/12/19 24 08/13/2023 CBC WITH DIFFE RENTI AL/PL ATELE T MCHC 33.3 g/dL 31.5-3 5.7 Not Available [facility] ([facility]) [address] [facility], [place], [address], 08/13/2023 04:36:19 08/12/19 24 08/13/2023 CBC WITH DIFFE RENTI AL/PL ATELE T RDW 12.5 % 11.7-1 5.4 Not Available [facility] ([facility]) [address] [facility], [place], [address], 08/13/2023 04:36:19 08/12/19 24 08/13/2023 CBC WITH DIFFE RENTI AL/PL ATELE T platelets 192 x10e3 /uL 150-45 0 Not Available [facility] ([facility]) [address] [facility], [place], [address], 08/13/2023 04:36:19 08/12/19 24 08/13/2023 CBC WITH DIFFE RENTI AL/PL ATELE T neutrophils 73 % notest ab. Not Available [facility] ([facility]) [address] [facility], [place], [address], 08/13/2023 04:36:19 08/12/19 24 08/13/2023 CBC WITH DIFFE RENTI AL/PL ATELE T lymphs 13 % notest ab. Not Available [facility] ([facility]) [address] [facility], [place], [address], 08/13/2023 04:36:19 08/12/19 24 08/13/2023 CBC WITH DIFFE RENTI AL/PL ATELE T monocytes 12 % notest ab. Not Available [facility] ([facility]) [address] [facility], [place], [address], 08/13/2023 04:36:19 08/12/19 24 08/13/2023 CBC WITH DIFFE RENTI AL/PL ATELE T eos 1 % notest ab. Not Available [facility] ([facility]) [address] [facility], [place], [address], 08/13/2023 04:36:19 08/12/19 24 08/13/2023 CBC WITH DIFFE RENTI AL/PL ATELE T basos 1 % notest ab. Not Available [facility] ([facility]) [address] [facility], [place], [address], 08/13/2023 04:36:19 08/12/19 24 08/13/2023 CBC WITH DIFFE RENTI AL/PL ATELE T neutrophils (absolute) 3.5 x10e3 /uL 1.4-7. 0 Not Available [facility] ([facility]) [address] [place], [address], 08/13/2023 04:36:19 08/12/19 24 08/13/2023 CBC WITH DIFFE RENTI AL/PL ATELE T lymphs (absolute) 0.6 x10e3 /uL 0.7-3. 1 below low normal Not Available [facility] ([facility]) [address] [facility], [place], [address], 08/13/2023 04:36:19 08/12/19 24 08/13/2023 CBC WITH DIFFE RENTI AL/PL ATELE T monocytes(ab solute) 0.6 x10e3 /uL 0.1-0. 9 Not Available [facility] ([facility]) [address] [facility], [place], [address], 08/13/2023 04:36:19 08/12/19 24 08/13/2023 CBC WITH DIFFE RENTI AL/PL ATELE T eos (absolute) 0.1 x10e3 /uL 0.0-0. 4 Not Available [facility] ([facility]) [address] [facility], [place], [address], 08/13/2023 04:36:19 08/12/19 24 08/13/2023 CBC WITH DIFFE RENTI AL/PL ATELE T baso (absolute) 0.0 x10e3 /uL 0.0-0. 2 Not Available [facility] ([facility]) [address] [facility], [place], [address], 08/13/2023 04:36:19 08/12/19 24 08/13/2023 CBC WITH DIFFE RENTI AL/PL ATELE T immature granulocytes 0 % notest ab. Not Available [facility] ([facility]) [address] [facility], [place], [address], 08/13/2023 04:36:19 08/12/19 24 08/13/2023 CBC WITH DIFFE RENTI AL/PL ATELE T immature grans (abs) 0.0 x10e3 /uL 0.0-0. 1 Not Available [facility] ([facility]) [address] [facility], [place], [address], 08/13/2023 04:36:19 02/13/20 24 02/14/2024 LIPID PANEL cholesterol, total 157 mg/dL 100-19 9 Not Available [facility] ([facility]) [address] [facility], [place], [address], 02/14/2024 11:13:46 02/13/20 24 02/14/2024 LIPID PANEL triglyceride s 57 mg/dL 0-149 Not Available [facility] ([facility]) [address] [place], [address], 02/14/2024 11:13:46 02/13/20 24 02/14/2024 LIPID PANEL HDL cholesterol 69 mg/dL >39 Not Available [facility] ([facility]) [address] [place], [address], 02/14/2024 11:13:46 02/13/20 24 02/14/2024 LIPID PANEL VLDL cholesterol slama 12 mg/dL 5-40 Not Available [facility] ([facility]) [address] [place], [address], 02/14/2024 11:13:46 02/13/20 24 02/14/2024 LIPID PANEL LDL chol calc ([facility]) 76 mg/dL 0-99 Not Available [facility] ([facility]) [address] [place], [address], 02/14/2024 11:13:46 02/13/20 24 02/14/2024 COMP. METAB OLIC PANEL (14) glucose 91 mg/dL 70-99 Not Available [facility] ([facility]) [address] [place], [address], 02/14/2024 11:13:48 02/13/20 24 02/14/2024 COMP. METAB OLIC PANEL (14) BUN 16 mg/dL 8-27 Not Available [facility] ([facility]) [address] [place], [address], 02/14/2024 11:13:48 02/13/20 24 02/14/2024 COMP. METAB OLIC PANEL (14) creatinine 0.67 mg/dL 0.57-1 .00 Not Available [facility] ([facility]) [address] [place], [address], 02/14/2024 11:13:48 02/13/20 24 02/14/2024 COMP. METAB OLIC PANEL (14) eGFR 88 mL/mi n/1.7 3 >59 Not Available [facility] ([facility]) [address] [place], [address], 02/14/2024 11:13:48 02/13/20 24 02/14/2024 COMP. METAB OLIC PANEL (14) BUN/creatini ne ratio 24 12-28 Not Available [facility] ([facility]) [address] [place], [address], 02/14/2024 11:13:48 02/13/20 24 02/14/2024 COMP. METAB OLIC PANEL (14) sodium 136 mmol/ L 134-14 4 Not Available [facility] ([facility]) [address] [place], [address], 02/14/2024 11:13:48 02/13/20 24 02/14/2024 COMP. METAB OLIC PANEL (14) potassium 4.0 mmol/ L 3.5-5. 2 Not Available [facility] ([facility]) [address] [place], [address], 02/14/2024 11:13:48 02/13/20 24 02/14/2024 COMP. METAB OLIC PANEL (14) chloride 102 mmol/ L 96-106 Not Available [facility] ([facility]) [address] [place], [address], 02/14/2024 11:13:48 02/13/20 24 02/14/2024 COMP. METAB OLIC PANEL (14) carbon dioxide, total 23 mmol/ L 20-29 Not Available [facility] ([facility]) [address] [place], [address], 02/14/2024 11:13:48 02/13/20 24 02/14/2024 COMP. METAB OLIC PANEL (14) calcium 9.6 mg/dL 8.7-10 .3 Not Available [facility] ([facility]) [address] [facility], [place], [address], 02/14/2024 11:13:48 02/13/20 24 02/14/2024 COMP. METAB OLIC PANEL (14) protein, total 6.3 g/dL 6.0-8. 5 Not Available [facility] ([facility]) [address] [facility] [place], [address], 02/14/2024 11:13:48 02/13/20 24 02/14/2024 COMP. METAB OLIC PANEL (14) albumin 4.3 g/dL 3.8-4. 8 Not Available [facility] ([facility]) [address] [facility], [place], [address], 02/14/2024 11:13:48 02/13/20 24 02/14/2024 COMP. METAB OLIC PANEL (14) globulin, total 2.0 g/dL 1.5-4. 5 Not Available [facility] ([facility]) [address] [facility], [place], [address], 02/14/2024 11:13:48 02/13/20 24 02/14/2024 COMP. METAB OLIC PANEL (14) bilirubin, total 0.4 mg/dL 0.0-1. 2 Not Available [facility] ([facility]) [address] [facility], [address], 02/14/2024 11:13:48 02/13/20 24 02/14/2024 COMP. METAB OLIC PANEL (14) alkaline phosphatase 66 IU/L 44-121 Not Available [facility] ([facility]) [address] [facility], [address], 02/14/2024 11:13:48 02/13/20 24 02/14/2024 COMP. METAB OLIC PANEL (14) AST (SGOT) 23 IU/L 0-40 Not Available [facility] ([facility]) [address] [facility], [place], [address], 02/14/2024 11:13:48 02/13/20 24 02/14/2024 COMP. METAB OLIC PANEL (14) ALT (SGPT) 19 IU/L 0-32 Not Available [facility] ([facility]) [address] [facility], [place], [address], 02/14/2024 11:13:48 02/13/20 24 02/13/2024 ABN OPTIO N 3 abn option 3 COMMEN T One or more tests were remov ed at the reque st of the patie nt and may not be repre sente d on this repor t. As a resul t, some or all of the tests origi jocelynn reque sted may not have been perfo rmed or may be repor yoel separ ately . Pleas e conta ct your patie nt regar ding any neces vangie follo w-up. Not Available [facility] [address], [address], 02/14/2024 11:13:49 02/13/20 24 02/14/2024 CBC WITH DIFFE RENTI AL/PL ATELE T WBC 3.9 x10e3 /uL 3.4-10 .8 Not Available [facility] ([facility]) [address] [facility], [place], [address], 02/14/2024 11:13:50 02/13/20 24 02/14/2024 CBC WITH DIFFE RENTI AL/PL ATELE T RBC 4.25 x10e6 /uL 3.77-5 .28 Not Available [facility] ([facility]) [address] [place], [address], 02/14/2024 11:13:50 02/13/20 24 02/14/2024 CBC WITH DIFFE RENTI AL/PL ATELE T hemoglobin 13.5 g/dL 11.1-1 5.9 Not Available [facility] ([facility]) [address] [place], [address], 02/14/2024 11:13:50 02/13/20 24 02/14/2024 CBC WITH DIFFE RENTI AL/PL ATELE T hematocrit 40.8 % 34.0-4 6.6 Not Available [facility] ([facility]) [address] [place], [address], 02/14/2024 11:13:50 02/13/20 24 02/14/2024 CBC WITH DIFFE RENTI AL/PL ATELE T MCV 96 fL 79-97 Not Available [facility] ([facility]) [address] [facility], [place], [address], 02/14/2024 11:13:50 02/13/20 24 02/14/2024 CBC WITH DIFFE RENTI AL/PL ATELE T MCH 31.8 pg 26.6-3 3.0 Not Available [facility] ([facility]) [address] [facility], [place], [address], 02/14/2024 11:13:50 02/13/20 24 02/14/2024 CBC WITH DIFFE RENTI AL/PL ATELE T MCHC 33.1 g/dL 31.5-3 5.7 Not Available [facility] ([facility]) [address] [place], [address], 02/14/2024 11:13:50 02/13/20 24 02/14/2024 CBC WITH DIFFE RENTI AL/PL ATELE T RDW 12.8 % 11.7-1 5.4 Not Available [facility] ([facility]) [address] [place], [address], 02/14/2024 11:13:50 02/13/20 24 02/14/2024 CBC WITH DIFFE RENTI AL/PL ATELE T platelets 188 x10e3 /uL 150-45 0 Not Available [facility] ([facility]) [address] [facility], [place], [address], 02/14/2024 11:13:50 02/13/20 24 02/14/2024 CBC WITH DIFFE RENTI AL/PL ATELE T neutrophils 61 % notest ab. Not Available [facility] ([facility]) [address] [facility], [place], [address], 02/14/2024 11:13:50 02/13/20 24 02/14/2024 CBC WITH DIFFE RENTI AL/PL ATELE T lymphs 22 % notest ab. Not Available [facility] ([facility]) [address] [facility], [place], [address], 02/14/2024 11:13:50 02/13/20 24 02/14/2024 CBC WITH DIFFE RENTI AL/PL ATELE T monocytes 14 % notest ab. Not Available [facility] ([facility]) [address] [facility], [place], [address], 02/14/2024 11:13:50 02/13/20 24 02/14/2024 CBC WITH DIFFE RENTI AL/PL ATELE T eos 2 % notest ab. Not Available [facility] ([facility]) [address] [facility], [place], [address], 02/14/2024 11:13:50 02/13/20 24 02/14/2024 CBC WITH DIFFE RENTI AL/PL ATELE T basos 1 % notest ab. Not Available [facility] ([facility]) [address] [facility], [place], [address], 02/14/2024 11:13:50 02/13/20 24 02/14/2024 CBC WITH DIFFE RENTI AL/PL ATELE T neutrophils (absolute) 2.4 x10e3 /uL 1.4-7. 0 Not Available [facility] ([facility]) [address] [facility], [place], [address], 02/14/2024 11:13:50 02/13/20 24 02/14/2024 CBC WITH DIFFE RENTI AL/PL ATELE T lymphs (absolute) 0.9 x10e3 /uL 0.7-3. 1 Not Available [facility] ([facility]) [address] [facility], [place], [address], 02/14/2024 11:13:50 02/13/20 24 02/14/2024 CBC WITH DIFFE RENTI AL/PL ATELE T monocytes(ab solute) 0.5 x10e3 /uL 0.1-0. 9 Not Available [facility] ([facility]) [address] [place], [address], 02/14/2024 11:13:50 02/13/20 24 02/14/2024 CBC WITH DIFFE RENTI AL/PL ATELE T eos (absolute) 0.1 x10e3 /uL 0.0-0. 4 Not Available [facility] ([facility]) [address] [facility], [place], [address], 02/14/2024 11:13:50 02/13/20 24 02/14/2024 CBC WITH DIFFE RENTI AL/PL ATELE T baso (absolute) 0.0 x10e3 /uL 0.0-0. 2 Not Available [facility] ([facility]) [address] [facility], [place], [address], 02/14/2024 11:13:50 02/13/20 24 02/14/2024 CBC WITH DIFFE RENTI AL/PL ATELE T immature granulocytes 0 % notest ab. Not Available [facility] ([facility]) [address] [place], [address], 02/14/2024 11:13:50 11/04/20 24 02/14/2024 CBC WITH DIFFE RENTI AL/PL ATELE T immature grans (abs) 0.0 x10e3 /uL 0.0-0. 1 Not Available [facility] ([facility]) [address] [facility], [place], [address], 02/14/2024 11:13:50 10/10/19 24 10/10/2023 MAMMO , scree teresa, digit al, bilat eral No observ ation record ed. [address] [facility], [place], [address], 10/14/2023 13:49:01 10/10/19 24 10/10/2023 bone densi ty No observ ation record ed. [address] [facility], [place], [address], 10/14/2023 13:49:53 04/27/19 25 04/27/2024 imagi ng/di agnos tic resul t No observ ation record ed. [address] [facility], [place], [address], 04/27/2024 19:51:22 Result Notes None recorded. Problems Name Problem SNOMED Code Status Onset Date Resolution Date Notes Provider Name and Address Organization Details Recorded Time Hyperlipidemia 80790378 Active 2023 Lyndon Redman MA null, [place] - [facility] 4 10:16:14 Chronic rhinitis 54306777 Active 2023 Lyndon Redman [place], [place] [facility] 4 10:16:15 Anxiety 64119430 Active 2023 Lyndon Redman [place], [place] [facility] 4 10:16:16 Essential hypertension 84458570 Active 2023 Ney Rios MD Attn: Brian phoenix,[address] [facility], [place], [address] , [place] - [facility] 4 15:51:39 Long-term drug therapy Active 2023 Ney Rios MD Attn: Brian phoenix,[address], [place], [address], [facility] 15:51:40 Problem Notes None recorded. Procedures Surgical History Date Name Laterality Status Provider Name and Address Organization Details Recorded Time 11/16/19 colonoscopy completed Ashely Hernandez LPN [place] - [facility] 11/16/2023 16:25:54 Eye Surgery completed Phylicia Hutton [facility] - [facility] 01/26/2024 10:31:59 tonsillectomy completed Phylicia Hutton [facility] 01/26/2024 10:32:37 Total hysterectomy completed Phylicia Hutton [facility] 01/26/2024 10:33:10 Dilation and Curettage completed Phylicia Hutton [facility] 01/26/2024 10:33:42 Imaging Results Imaging Date Name Status LastModified by Organiz ation Details LastModified Time 10/10/2023 MAMMO, screening, digital, bilateral completed [address], [address], 10/14/2023 13:49:01 10/10/2023 bone density completed [address], [address], 10/14/2023 13:49:53 04/27/2024 imaging/diagno stic result active [address], [address], 04/27/2024 19:51:22 Procedure Notes None recorded. Medical Equipment None Reported. Medications Name Sig Start Date Stop Date Status Note LastModified by Organization Details LastModified Time status covid-19/fl u a-b antigen tst TEST DIRECTED TODAY active Not Available Not Available No t Available oxybutynin chloride ER 10 mg tablet,exte nded release 24 hr Take 1 tablet every day by oral route. active Not Available Not Available No t Available amlodipine 5 mg tablet Take 1 tablet by mouth once daily 2024 active Not Available Not Available Not Avai lable ciprofloxac in 500 mg tablet TAKE 1 TABLET BY MOUTH TWICE DAILY FOR 7 DAYS 07/27 completed Not Available Not Available Not Available omeprazole 40 mg capsule,del ayed release TAKE 1 CAPSULE BY MOUTH ONCE DAILY active Not Available Not Available No t Available simvastatin 20 mg tablet Take 1 tablet by mouth once daily 2024 active Not Available Not Available Not Avai lable neomycin-po lymyxin-dex ameth 3.5 mg/mL-10,00 0 unit/mL-0.1 % eye drops INSTILL 1 DROP INTO LEFT EYE 4 TIMES DAILY active Not Available Not Available No t Available fluoxetine 10 mg capsule Take 1 capsule by mouth once daily 2024 active Not Available Not Available Not Avai lable hydrochloro thiazide 25 mg tablet Take 1 tablet by mouth once daily 2024 active Not Available Not Available Not Avai lable fluticasone propionate 50 mcg/actuati on nasal spray,suspe nsion USE 2 SPRAY(S) IN EACH NOSTRIL ONCE DAILY active Not Available Not Available No t Available amoxicillin 500 mg-potassiu m clavulanate 125 mg tablet TAKE 1 TABLET BY MOUTH EVERY 12 HOURS active Not Available Not Available No t Available tobramycin 0.3 %-dexametha sone 0.1 % eye drops,suspe nsion INSTILL 1 DROP INTO EACH EYE 4 TIMES DAILY FOR 3 DAYS 07/27 completed Not Available Not Available Not Available cyclosporin e 0.05 % eye drops in a dropperette INSTILL 1 DROP INTO EACH EYE TWICE DAILY active Not Available Not Available No t Available nitrofurant oin monohydrate /macrocryst als 100 mg capsule TAKE 1 CAPSULE BY MOUTH TWICE DAILY FOR 5 DAYS 07/27 completed Not Available Not Available Not Available Paxlovid 300 mg (150 mg x 2)-100 mg tablets in a dose pack 07/27 completed Not Available Not Available Not Available Vitals Date Recorded Body height Provider Name an d Address Organization Details Last Updated DateTime 07/28/2023 167.64 cm Namrata Noble [place] [facility] 07/27 09:51:08 Date Recorded Body mass index (BMI) Body weight Provider Name and Address Organization Details Last Updated DateTime 07/28/2023 24 kg/m2 95993.11 g Namrata Noble MA [facility] 07/28/2023 09:51:11 Date Recorded Heart rate Provider Name an d Address Organization Details Last Updated DateTime 07/28/2023 82 /min Namrata Noble MA [facility] 07/27 09:56:07 Date Recorded Body temperature Provider Name a nd Address Organization Details Last Updated DateTime 07/28/2023 99.3 [degF] Namrata Noble MA [facility] 07/28/2023 09:56:09 Date Recorded Oxygen saturation Oxygen saturation in Arterial blood by Pulse oximetry Provider Name and Address Organization Details Last Updated DateTime 07/28/2023 97 % 97 % Namrata Noble MA [facility] 07/28/2023 09:56:12 Date Recorded Body height Provider Name an d Address Organization Details Last Updated DateTime 01/26/2024 167.64 cm [address]ia Hutton [place] [facility] 10:09:06 Date Recorded Body mass index (BMI) Body weight Provider Name and Address Organization Details Last Updated DateTime 01/26/2024 24.4 kg/m2 91593.27 g Phylicia Hutton [facility] 1 10:11:49 Date Recorded Heart rate Provider Name an d Address Organization Details Last Updated DateTime 01/26/2024 70 /min Phylicia Hutton MA [facility] 10:11:53 Date Recorded Oxygen saturation Oxygen saturation in Arterial blood by Pulse oximetry Provider Name and Address Organization Details Last Updated DateTime 01/26/2024 97 % 97 % Phylicia Hutton [facility] 01/26/2024 10:11:57 Date Recorded Systolic blood pressure Diastolic blood pressure Provider Name and Address Organization Details Last Updated DateTime 07/28/2023 124 mm[Hg] 80 mm[Hg] Namrata Noble MA [facility] 07/28/2023 09:56:04 Date Recorded Systolic blood pressure Diastolic blood pressure Provider Name and Address Organization Details Last Updated DateTime 01/26/2024 118 mm[Hg] 82 mm[Hg] Phylicia Hutton MA [facility] 01/26/2024 10:15:20 Social History Question Answer Notes LastModified by Organizat ion Details LastModified Time Tobacco Smoking Status Former Smoker Namrata Noble MA [facility], [place] - [facility] 07/28/2023 09:51:47 Do You Have An Advance Directive? No Information not available 01/26/2024 What Is Your Level Of Alcohol Consumption? Occasional Information not available 07/28/2023 Are You Blind Or Do You Have Difficulty Seeing? Yes No Vision In Right Eye Information not available 07/28/2023 In The 14 Days Before Symptom Onset, Have You Had Close Contact With A Laboratory-confir med COVID-19 While That Case Was Ill? No Information not available 01/26/2024 In The 14 Days Before Symptom Onset, Have You Had Close Contact With A Person Who Is Under Investigation For COVID-19 While That Person Was Ill? No Information not available 01/26/2024 Have You Been To An Area Known To Be High Risk For COVID-19? No Information not available 01/26/2024 Are You Deaf Or Do You Have Serious Difficulty Hearing? No Information not available 07/28/2023 What Type Of Diet Are You Following? REGULAR Information not available 01/26/2024 Are There Any Guns Present In Your Home? No Information not available 01/26/2024 What Was The Date Of Your Most Recent Tobacco Screening? 01/26/2024 Information not available 01/26/2024 What Is Your Relationship Status? Information not available 07/28/2023 Do You Use Your Seat Belt Or Car Seat Routinely? Yes Information not available 07/28/2023 Do You Have Smoke And Carbon Monoxide Detectors In Your Home? Yes Information not available 01/26/2024 How Much Tobacco Do You Smoke? 1 PPD Information not available 07/28/2023 Do You Feel Stressed (tense, Restless, Nervous, Or Anxious, Or Unable To Sleep At Night)? [id number] Information not available 07/28/2023 Do You Use Sunscreen Routinely? No Information not available 01/26/2024 How Many Years Have You Smoked Tobacco? 12 Information not available 07/28/2023 Sex: Female Functional Status Question Answer Note LastModified by Organizat ion Details LastModified Time Are you able to care for yourself? Yes Information not available 07/28/2023 What is your exercise level? Occasional Information not available 01/26/2024 Mental Status None recorded. Family History Relationship Description Onset Age of this Age Resolved Age Notes LastModified by Organization Details LastModified Time Mother Coronary arterioscler osis crevisma Not available 2023 10:34:54 Mother Heart disease crevisma Not available 2023 10:35:09 Mother Hypertensive disorder crevisma Not available 2023 10:35:20 Mother Myocardial infarction crevisma Not available 01/25 10:35:33 Medical History Condition Response Anxiety Disorder Y High Blood Pressure Y Have you had a colonoscopy in the last 1 0 years? Y High Cholesterol Y Acid Reflux (GERD) Y Osteoporosis Y Gynecological History Statement/Question Response If Post Menopausal, Age at Menopause 48 Obstetrics History GPAL:G 1 P 1 0 0 1 Type Value Full Term 1 Living 1 Total 1 Immunizations Vaccine Type Date Status Note Provider Nam e and Address Organization Details Recorded Time Influenza, adjuvanted, trivalent, PF 8 completed Lyndon Red[place], [place] [facility] 01/25/2024 17:52:46 Influenza, adjuvanted, trivalent, PF 9 completed Lyndon [place] [facility] 01/25/2024 17:52:46 zoster recombinant 3 completed Lyndon [place] [facility] 01/25/2024 17:52:46 zoster recombinant 3 completed Lyndon [place] [facility] 01/25/2024 17:52:46 Influenza, adjuvanted, quadrivalent, PF 1 SANTANA [place] [facility] 01/25/2024 17:52:46 Influenza, adjuvanted, quadrivalent, PF 3 completed SN[place] [facility] 01/25/2024 17:52:46 Influenza, adjuvanted, quadrivalent, PF 2 [place] [facility] 01/25/2024 17:52:46 COVID-19, mRNA, LNP-S, PF, 100 mcg/0.5mL dose or 50 mcg/0.25mL dose 1 [place] S[place] [facility] 01/25/2024 17:52:46 COVID-19, mRNA, LNP-S, PF, 100 mcg/0.5mL dose or 50 mcg/0.25mL dose 1 [place] SANT[place] [facility] 01/25/2024 17:52:46 COVID-19, mRNA, LNP-S, PF, 100 mcg/0.5mL dose or 50 mcg/0.25mL dose 1 [place] SANT[place] [facility] 01/25/2024 17:52:46 COVID-19, mRNA, LNP-S, PF, 100 mcg/0.5mL dose or 50 mcg/0.25mL dose 2 completed [place] [facility] 01/25/2024 17:52:46 COVID-19, mRNA, LNP-S, PF, 100 mcg/0.5mL dose or 50 mcg/0.25mL dose 1 [place] [facility] 01/25/2024 17:52:46 COVID-19, mRNA, LNP-S, bivalent, PF, 50 mcg/0.5 mL or 25mcg/0.25 mL dose 2 [place] [facility] 01/25/2024 17:52:46 pneumococcal conjugate PCV 7 9 [place] [facility] 01/25/2024 17:52:46 RSV, recombinant, protein subunit RSVpreF, adjuvant reconstituted, 0.5 mL, PF 3 completed [place] [facility] 01/25/2024 17:52:46 COVID-19, mRNA, LNP-S, PF, magali-sucrose, 30 mcg/0.3 mL 3 [place] [facility] 01/25/2024 17:52:46 pneumococcal polysaccharide PPV23 9 [place] [facility] 01/25/2024 17:52:46 Td(adult) unspecified formulation 2 completed [place] [facility] 01/25/2024 17:52:46 Tdap 2 [place] [facility] 01/25/2024 17:52:46 Pneumococcal conjugate PCV 13 6 [place] [facility] 01/25/2024 17:52:46 Influenza, high-dose, trivalent, PF 7 [place] [facility] 01/25/2024 17:52:46 Influenza, high-dose, trivalent, PF 6 [place] [facility] 01/25/2024 17:52:46 Influenza, high-dose, trivalent, PF 7 [place] [facility] 01/25/2024 17:52:46 Influenza, split virus, trivalent, preservative 4 completed [place] [facility] 01/25/2024 17:52:46 Influenza, split virus, quadrivalent, PF 0 [place] [facility] 01/25/2024 17:52:46 Past Encounters Encounter ID Performer Location Encounter Start Date Encounter Closed Date Diagnosis/Indication Diagnosis SNOMED-CT Code Diagnosis ICD10 Code Diagnosis Note [id number] Ney Rios MD [facility] - [place] [address] [place] [address] 07/28/2023 09:41:45 07/28/2023 10:21:18 Chronic rhinitis 23211475 J31.0 Hyperlipidemia 42530456 E78.5 Anxiety 84577381 F41.9 Long-term drug therapy 051753172 Z79.899 Essential hypertension 79428695 I10 [id number] Ney Rios MD [facility] [place] [address] [place] [address] 01/26/2024 10:04:53 01/26/2024 11:17:38 Essential hypertension 70123201 I10 Long-term drug therapy 116299318 Z79.899 Renewal of prescription 857480550 Z76.0 Chronic rhinitis 4819960 6 J31.0 Hyperlipidemia 71004730 E78.5 Health Concerns Section Related Observation LastModified by Organization Detai ls LastModified Time None Recorded Concern Status LastModified by Organization Details LastModified Time None Recorded Advance Directives Directive N: Payers Encounter Date Sequence Insurance Name Policy Number Policy Lozano Covered Member ID Lozano Member ID Guarantor Name 07/28/2023 1 [place] Olivia Mo [id number] Olivia Mo 01/26/2024 [place] [facility] Olivia Mo [id number] Olivia Chepe Notes Date Note Type Note Provider Name and Address Organization Details Recorded Time 07/28/2023 text/html 78-year-old hist ory of hypertension GERD chronic rhinitis urinary incontinence and hyperlipidemia Ney Rios MD Attn: [address] [place], [address], [facility] 07/30/2023 15:52:09 01/26/2024 text/html 78-year-old hist ory of hypertension GERD chronic rhinitis urinary incontinence and hyperlipidemia incontinence hyperlipidemia GERD seem to be pretty stable as does hypertension but the rhinitis is still plaguing her and not controlled Ney Rios MD Attn: [address] [place], [address], [facility] 02/14/2024 22:08:20 OBGyn Episode No OBEpisode recorded.
--- OUTSIDE RECORDS SUMMARY | 2024-05-03 07:24 | XMS_ITS | Clinical Summary ---
Author Organization [employer] Address [address] [place] [address] Care Team Providers Care Children'S Service Worker Name Role Phone Ney Rios MD Primary Care Provider [phone] Source Comments [employer],non-owned Affiliates and Associated Physician Practices is amultiple site organization consisting of ambulatory clinics and hospital sitesin [place], [place], [place] and [place]. This disclosure is being madepursuant to the Care Everywhere program and may not contain all information available regarding this patient. Last updated 17.[employer] Allergies No known active allergies Medications * Be aware that medications may not be up to date on this document. Alwaysverify current medications with the patient. Medication Sig Dispensed Refills Start Date End Date Status amLODIPine (NORVASC) 5 MG tablet amlodipine 5 mg tablet Ac tive aspirin (ASPIRIN) 81 MG chew tablet 162 mg every 24 hours 2 tabs Active fluticasone propionate (FLONASE) 50 MCG/ACT nasal spray fluticasone propionate 50 mcg/actuation nasal spray,suspension USE 2 SPRAY(S) IN EACH NOSTRIL TWICE DAILY Active hydroCHLOROthiaz red (HYDRODIURIL) 25 MG tablet hydrochlorothiazide 25 mg tablet Active simvastatin (ZOCOR) 20 MG tablet simvastatin 20 mg tablet TAKE 1 TABLET BY MOUTH ONCE DAILY AT BEDTIME Active Multiple Vitamins-Mineral s (PRESERVISION AREDS 2+MULTI VIT PO) Active calcium citrate TABS tablet Take 400 mg by mouth 2 times daily Active sodium chloride, hypertonic, (MANINDER 128) 5 % Instill 1 (one) Each into right eye 3 times daily 3.5 g 09/11/2021 Active oxybutynin CR 24hr (DITROPAN-XL) 10 MG tablet Take 10 mg by mouth once daily 09/17/2021 Active cetirizine (ZYRTEC) 10 MG tabletIndication s:Seasonal Allergic Rhinitis Take by mouth at bedtime Reasons: Hayfever Active Active Problems Problem Noted Date Diagnosed Date Urinary incontinence 07/03/2021 Vitamin D deficiency 07/03/2021 Pain in limb 07/03/2021 Osteopenia 07/03/2021 Enthesopathy of hip region 07/03/2021 History of eye surgery 06/27/2021 Acute cystitis without hematuria 06/27/2021 Injury of globe of right eye 06/27/2021 Rupture of globe of right eye following blunt tr auma 06/27/2021 Benign essential HTN 06/27/2021 Dyslipidemia 06/27/2021 History of TIA (transient ischemic attack) 06/27 Anemia 12/18/2020 Family history of coronary arteriosclerosis 09/10 Transient ischemic attack 09/23/2018 Sinus bradycardia 09/23/2018 Depressive disorder 09/23/2018 Anxiety 09/23/2018 Hypercholesterolemia 12/17/2015 Chest pain 12/17/2015 Family History Medical History Relation Name Comments None Known Father Killed in war. None Known Mother Relation Name Status Comments Father Mother Social History Tobacco Use Types Packs/Day Years Used Date Smoking Tobacco: Never Smokeless Tobacco: Never Alcohol Use Standard Drinks/Week Comments Yes 0 (1 standard drink = 0.6 oz pur e alcohol) occ Sex and Gender Information Value Date Recorded Sex Assigned at Not on file Gender Identity Not on file Sexual Orientation Not on file Last Filed Vital Signs Vital Sign Reading Time Taken Comments Blood Pressure 98/79 10/19/2021 4:00 PM CDT Pulse 85 10/19/2021 4:00 PM CDT Temperature 36.1 ??C (97 ??F) 10/19/2021 3:35 PM CDT Respiratory Rate 16 10/19/2021 3:55 PM CDT Oxygen Saturation 94% 10/19/2021 4:00 PM CDT Inhaled Oxygen Concentration - - Weight 65.8 kg (145 lb) 10/19/2021 11:29 AM CDT Height 165.1 cm (5' 5 ) 10/19/2021 11:29 AM CDT Body Mass Index 24.13 10/19/2021 11:29 AM CDT Plan of Treatment Health Maintenance Due Date Last Done Comments BONE DENSITY TESTING 1945 MEDICARE AWV ? 12 MONTHS 1945 DTAP/TDAP/TD VACCINES (1 - Tdap) 1962 PNEUMOCOCCAL VACCINE 50+ (1 of 1 - PCV) 1993 ZOSTER VACCINE (1 of 2) 1993 Respiratory Syncytial Virus (RSV) Vaccine Pt: or over 60 yrs (1 - 1-dose 75+ series) 2018 COVID-19 VACCINE (4 - season) 2023 01/30/2021, 06/30/2020, 05/29/2020 INFLUENZA VACCINE (#1) 2023 , 01/11/2020, 01/22/2019, Additional history exists DEPRESSION SCREENING 04/11/2024 HEPATITIS B VACCINE Aged Out No longe r eligible based on patient's age to complete this topic HIB VACCINE Aged Out No longer eligi ble based on patient's age to complete this topic HPV VACCINE Aged Out No longer eligi ble based on patient's age to complete this topic MENINGOCOCCAL (Group B) VACCINE Aged Out No longer eligible based on patient's age to complete this topic MENINGOCOCCAL VACCINE Aged Out No rené epi eligible based on patient's age to complete this topic Procedures Procedure Name Priority Date/Time Associated Diagnosis Comments EYE EXAM 02/01/2024 from Last 3 Months Results * EYE EXAM (02/01/2024) Anatomical Region Laterality Modality Other Narrative 02/01/2024 Ordered by an unspecified provider. Scanned Document SCANNING ONLY from Last 3 Months Advance Directives * Full Code (Latest Code Status on File) Date Activated Date Inactivated Comments 06/27/2021 11:08 AM 06/28/2021 12:17 PM Care Teams Children'S Service Worker Relationship Specialty Start Date End Date Ney Rios MD PCP - General 07/16/20
--- OUTSIDE RECORDS SUMMARY | 2024-05-03 07:24 | XMS_ITS | Referral Summary ---
Author Organization [email or web address] Address [address] [address] Care Team Providers Care Political Researcher Name Role Phone Ney Rios MD Primary Care Provider [phone] Source Comments [email or web address],non-owned Affiliates and Associated Physician Practices is amultiple site organization consisting of ambulatory clinics and hospital sitesin [place], [place], [place] and [place]. This disclosure is being madepursuant to the Care Everywhere program and may not contain all information available regarding this patient. Last updated 17.[email or web address] Allergies No known active allergies Medications * [...] Anxiety 09/23/2018 Hypercholesterolemia 12/17/2015 Chest pain 12/17/2015 Social History Tobacco Use Types Packs/Day Years [...] 10/19/2021 11:29 AM CDT Plan of Treatment Not on file Procedures Procedure Name Priority Date/Time Associated Diagnosis Comments EYE EXAM 02/01/2024 from Last 3 Months Results * EYE EXAM (02/01/2024) Anatomical Region Laterality Modality Other Narrative 02/01/2024 Ordered by an unspecified provider. Scanned Document SCANNING ONLY from Last 3 Months Advance Directives * Full Code (Latest Code Status on File) Date Activated Date Inactivated Comments 06/27/2021 11:08 AM 06/28/2021 12:17 PM Care Teams Political Researcher Relationship Specialty Start Date End Date Ney Rios MD PCP - General 07/16/20
--- OUTSIDE RECORDS SUMMARY | 2024-05-03 07:25 | XMS_ITS | CONTINUITY OF CARE DOCUMENT ---
Author Name gabriela doraadeel Address Unknown Organization [facility] Address [address] [place] [address] Phone [phone] Care Team Providers Care Herbarium Curator Name Role Phone Faith ALLISON, Larry Unavailable [phone] JADEN NARANJO MD Unavailable [phone] JADEN NARANJO MD Unavailable [phone] PROBLEMS Condition Status Date Provider Notes Hypercholesterolemia active Germaine Zendejas Hypertension active Germaine Zendejas Chest pain active Germaine Zendejas INSURANCE PROVIDERS Payer name Policy type / Coverage type Ucon red constitution party ID [employer] [id number] [place] MED[place] Medicare [id number] HISTORY OF PROCEDURES Procedure Date Procedure Name Provider Procedure Notes S tatus Stress EKG Sudarshan Graves MD completed Cardiolite, 2 units Larry Cuevas MD completed SPECT Images Mariana German MD com [email or web address]
--- OUTSIDE RECORDS SUMMARY | 2024-05-03 07:25 | XMS_ITS | Encounter Summary ---
Author Organization [facility] Address [address] [place] [address] Care Team Providers Care Custodial Laborer Name Role Phone Ney Rios MD Primary Care Provider [phone] Encounter Details Date Type Department Care Team (Late st Contact Info) Description 06/27/2021 Ophth Exam [facility] [address] [place] [address] Cuong Salazar IV, DO [address] [place] [address] Social History Tobacco Use Types Packs/Day Years Used Date Smoking Tobacco: Never Smokeless Tobacco: Never Alcohol Use Standard Drinks/Week Comments Yes 0 (1 standard drink = 0.6 oz pur e alcohol) occ Sex and Gender Information Value Date Recorded Sex Assigned at Not on file Gender Identity Not on file Sexual Orientation Not on file documented as of this encounter Plan of Treatment Not on file documented as of this encounter Visit Diagnoses Not on filedocumented in this encounter Care Teams Custodial Laborer Relationship Specialty Start Date End Date Ney Rois MD PCP - General 07/16/20 documented as of this encounter
--- OUTSIDE RECORDS SUMMARY | 2024-05-03 07:25 | XMS_ITS | Encounter Summary ---
Author Organization [facility] Address [address] [place] [address] Care Team Providers Care Paper Machine Back Tender Name Role Phone Ney Rios MD Primary Care Provider [phone] Encounter Details Date Type Department Care Team (Late st Contact Info) Description 06/28/2021 Ophth Exam [facility] [address] [place] [address] Anu Saxena MD No info available Social History Tobacco Use Types Packs/Day Years [...] on filedocumented in this encounter Care Teams Paper Machine Back Tender Relationship Specialty Start Date End Date Ney Rios MD PCP - General 07/16/20 documented as of this encounter
--- OUTSIDE RECORDS SUMMARY | 2024-05-03 07:25 | XMS_ITS | Patient Health Summary ---
Author Organization [facility] Address [address] [place] [address] Care Team Providers Care Director Of Operations For Therapy Name Role Phone Ney Rios MD Primary Care Provider [phone] Note from [facility],non-owned Affiliates and Associated Physician Practices is amultiple site organization consisting of ambulatory clinics and hospital sitesin [place], [place], [place] and [place]. This disclosure is being madepursuant to the Care Everywhere program and may not contain all information available regarding this patient. Last updated 17.[facility] Allergies No known active allergies* Ceftriaxone(Unknown),Inactive * Iodine(Unknown),Inactive Medications * Be aware that medications may not be up to date on this document. Alwaysverify current medications with the patient. * amLODIPine (NORVASC) 5 MG tablet amlodipine 5 mg tablet * aspirin (ASPIRIN) 81 MG chew tablet 162 mg every 24 hours 2 tabs * fluticasone propionate (FLONASE) 50 MCG/ACT nasal spray fluticasone propionate 50 mcg/actuation nasal spray,suspension USE 2 SPRAY(S) IN EACH NOSTRIL TWICE DAILY * hydroCHLOROthiazide (HYDRODIURIL) 25 MG tablet hydrochlorothiazide 25 mg tablet * simvastatin (ZOCOR) 20 MG tablet simvastatin 20 mg tablet TAKE 1 TABLET BY MOUTH ONCE DAILY AT BEDTIME * Multiple Vitamins-Minerals (PRESERVISION AREDS 2+MULTI VIT PO) * calcium citrate TABS tablet Take 400 mg by mouth 2 times daily * sodium chloride, hypertonic, (MANINDER 128) 5 %(Started 09/11/2021) Instill 1 (one) Each into right eye 3 times daily * oxybutynin CR 24hr (DITROPAN-XL) 10 MG tablet(Started 09/17/2021) Take 10 mg by mouth once daily * cetirizine (ZYRTEC) 10 MG tablet Take by mouth at bedtime Reasons: Hayfever Active Problems Problem Noted Date Diagnosed Date [...] Mass Index 24.13 10/19/2021 11:29 AM CDT Procedures * EYE EXAM(Performed 02/01/2024) * EYE EXAM(Performed 01/25/2024) * EYE EXAM(Performed 01/18/2024) * EYE EXAM(Performed 12/21/2021) * ENDOTRACHEAL TUBE NOTE(Performed 10/19/2021) * EXTRACTION CATARACT WITH INSERTION LENS(Performed 10/19/2021) Performed for Rupture of globe of right eye following blunt trauma, subsequent encounter * OPH EYE ULTRASOUND SLU(Performed 09/11/2021) Performed for Rupture of globe of right eye following blunt trauma, subsequent encounter * OPH OCT TEST SLU(Performed 07/27/2021) Performed for Rupture of globe of right eye following blunt trauma, subsequent encounter * OPH OCT TEST SLU(Performed 07/13/2021) Performed for Rupture of globe of right eye following blunt trauma, subsequent encounter * OPH EYE ULTRASOUND SLU(Performed 07/13/2021) Performed for Rupture of globe of right eye following blunt trauma, subsequent encounter * OPH OCT TEST SLU(Performed 07/03/2021) Performed for Rupture of globe of right eye following blunt trauma, subsequent encounter * OPH EYE ULTRASOUND SLU(Performed 07/03/2021) Performed for Rupture of globe of right eye following blunt trauma, subsequent encounter * PHOSPHORUS BLOOD(Performed 06/28/2021) * MAGNESIUM BLOOD(Performed 06/28/2021) * CBC W/O DIFFERENTIAL(Performed 06/28/2021) * BASIC METABOLIC PANEL (CALCIUM TOTAL)(Performed 06/28/2021) * BLOOD TYPE VERIFICATION(Performed 06/27/2021) * ENDOTRACHEAL TUBE NOTE(Performed 06/27/2021) * REPAIR OPEN/RUPTURED GLOBE(Performed 06/27/2021) Performed for Ruptured globe of right eye, initial encounter * TYPE + SCREEN PANEL(Performed 06/27/2021) * CBC W AUTO DIFFERENTIAL(Performed 06/27/2021) * COMPREHENSIVE METABOLIC PANEL(Performed 06/27/2021) * SARS-COV-2 (COVID-19)+INFLU A+B PCR RAPID(Performed 06/27/2021) Results * EYE EXAM (02/01/2024) Anatomical Region Laterality Modality Other Narrative 02/01/2024 Ordered by an unspecified provider. Scanned Document SCANNING ONLY * EYE EXAM (01/25/2024) Anatomical Region Laterality Modality Other Narrative 01/25/2024 Ordered by an unspecified provider. Scanned Document SCANNING ONLY * EYE EXAM (01/18/2024) Anatomical Region Laterality Modality Other Narrative 01/18/2024 Ordered by an unspecified provider. Scanned Document SCANNING ONLY * EYE EXAM (12/21/2021) Anatomical Region Laterality Modality Other Narrative 12/21/2021 Ordered by an unspecified provider. Scanned Document SCANNING ONLY * ETT LINE PERFORMABLE (10/19/2021 1:59 PM CDT) Narrative Ananth Rodriguez Anes Asst - 10/19/2021 1:59 PM CDT Ananth Rodriguez Anes Asst ? 10/19/2021 ??2:02 PM Endotracheal Tube Placement: ? Patient Location: OR. Intubation Event Date/Time: ??10/19/2021 1:41 PM Procedure: intubation ([id number]). Procedure Section: ?? Sedation: under general anesthesia. Indications for Airway Management: ??anesthesia Induction: standard IV Patient Position: ??supine Mask Ventilation: easy. Blade Type: Francois Blade Size: 3 Laryngoscopy View: grade 1 (full cords) Intubation Adjuncts: stylet Tube: endotracheal tube Placement: oral Tube type: cuff - inflated Tube Size (MM): 7 Depth of Insertion (CM): 22 Measured From: teeth Cuff volume (mL): ??5 Cuff Inflated With: air Number of Attempts: 1. Placement Verified By: direct visualization, bilateral breath sounds, chest auscultation and CO2 monitor Tube secured with: ??adhesive tape. Dentition unchanged? ??Yes Difficult Airway: Difficulty placing LMA. Procedure Start Time: 10/19/2021 1:41 PM. Staff Section ? Anesthesia Provider: Ananth Rodriguez Anes Asst, Performed the procedure Additional Comments: LMA 3 unable to be placed successfully. Some bleeding noted and suctioned, LMA 2.5 attempted and also unsuccessful. Easy mask ventilation and easy intubation.. Franc Scott MD GENERAL ANESTHESIA O RDERABLES * Ultrasound (09/11/2021 12:00 AM CDT) Anatomical Region Laterality Modality Other 09/11/2021 Darrel Kate MD OPHTHALMOLOGY SERVIC ES ORDERABLES * OCT (07/27/2021 12:00 AM CDT) Anatomical Region Laterality Modality Other 07/27/2021 Nicolas Leblanc MD OPHTHALMOLO GY SERVICES ORDERABLES * OPH OCT TEST SLU (07/13/2021 10:45 AM CDT) Anatomical Region Laterality Modality Other 07/13/2021 10:4 5 AM CDT Nicolas Leblanc MD OPHTHALMOLO GY SERVICES ORDERABLES * Ultrasound (07/13/2021 12:00 AM CDT) Anatomical Region Laterality Modality Other 07/13/2021 Nicolas Leblanc MD OPHTHALMOLO GY SERVICES ORDERABLES * OCT (07/03/2021 9:49 AM CDT) Anatomical Region Laterality Modality Other 07/03/2021 9:49 AM CDT Nicolas Leblanc MD OPHTHALMOLO GY SERVICES ORDERABLES * OPH EYE ULTRASOUND SLU (07/03/2021 12:00 AM CDT) Anatomical Region Laterality Modality Other 07/03/2021 Nicolas Leblanc MD OPHTHALMOLO GY SERVICES ORDERABLES * (ABNORMAL) CBC W/O DIFFERENTIAL (06/28/2021 1:26 AM CDT) WBC 6.3 3.5 - 10.5 10? 3 /uL 06/28/2021 1:36 AM CDT [facility] RBC 3.79(L) 3.80 - 5.20 10? 6 /uL 06/28/2021 1:36 AM CDT [facility] Hemoglobin 12.0 12.0 - 15.6 g/dL 06/28/2021 1:36 AM [facility] Hematocrit 36.0 35.0 - 45.0 % 06/28/2021 1:36 AM [facility] MCV 95.0 80.7 - 98.3 fL 06/28/2021 1:36 AM [facility] MCH 31.7 26.7 - 34.0 pg 06/28/2021 1:36 AM [facility] MCHC 33.3 30.8 - 35.9 g/dL 06/28/2021 1:36 AM [facility] Platelet Count 166 150 - 400 10? 3 /uL 06/28/2021 1:36 AM [facility] RDW-SD 48.9 36.0 - 50.0 fL 06/28/2021 1:36 AM [facility] RDW-CV 13.9 11.2 - 14.8 % 06/28/2021 1:36 AM [facility] MPV 11.3 9.4 - 12.9 fL 06/28/2021 1:36 AM [facility] nRBC Absolute 0.00 0 10? 3 /uL 06/28/2021 1:36 AM [facility] nRBC Auto 0.0 0 /100 WBC 06/28/2021 1:36 AM [facility] Blood BLOOD SPECIMEN / Unknown Lab Venipuncture / Unknown 06/28/2021 1:26 AM CDT 06/28/2021 1:31 AM T Sal Rainey MD LAB - HEMATOLO GY ORDERABLES [facility] [address] [place] [address], [facility] [phone] * (ABNORMAL) BASIC METABOLIC PANEL (CALCIUM TOTAL) (06/28/2021 1:26 AM CDT) BUN 11 7 - 26 mg/dL 06/28/2021 1:58 AM [facility] Creatinine 0.53(L) 0.56 - 0.96 mg/dL 06/28/2021 1:58 AM [facility] Sodium 141 136 - 145 mmol/L 06/28/2021 1:58 AM [facility] Potassium 4.1 3.5 - 4.5 mmol/L 06/28/2021 1:58 AM [facility] Chloride 107 98 - 107 mmol/L 06/28/2021 1:58 AM [facility] CO2 27 22 - 29 mmol/L 06/28/2021 1:58 AM [facility] Glucose 132(H) 70 - 115 mg/dL 06/28/2021 1:58 AM [facility] Calcium 9.4 8.4 - 10.2 mg/dL 06/28/2021 1:58 AM [facility] Anion Gap 11 8 - 18 06/28/2021 1:58 AM [facility] BUN/Creatinine Ratio 21 7 - 23 06/28/2021 1:58 AM [facility] Osmolality Calculated 293 270 - 300 mOsm/kg 06/28/2021 1:58 AM [facility] eGFR by CKD-EPI >90 >=90 mL/min/1.7 3 m2 06/28/2021 1:58 AM [facility] Blood BLOOD SPECIMEN / Unknown Lab Venipuncture / Unknown 06/28/2021 1:26 AM CDT 06/28/2021 1:31 AM CDT Sal Rainey MD LAB - CHEMISTR Y ORDERABLES Performing Organization Address [facility] Co de Phone Number [address] [address], [facility] [phone] * PHOSPHORUS BLOOD (06/28/2021 1:26 AM CDT) Phosphorus 3.0 2.9 - 5.1 mg/dL 06/28/2021 1:58 AM [facility] Blood BLOOD SPECIMEN / Unknown Lab Venipuncture / Unknown 06/28/2021 1:26 AM CDT 06/28/2021 1:31 AM CDT Sal Rainey MD LAB - CHEMISTR Y ORDERABLES Performing Organization Address [facility]/ZIP Co de Phone Number [address] [address], [facility] [phone] * MAGNESIUM BLOOD (06/28/2021 1:26 AM CDT) Magnesium 2.3 1.6 - 2.6 mg/dL 06/28/2021 1:58 AM CDT [facility] Blood BLOOD SPECIMEN / Unknown Lab Venipuncture / Unknown 06/28/2021 1:26 AM CDT 06/28/2021 1:31 AM CDT Sal Rainey MD LAB - CHEMISTR Y ORDERABLES Performing Organization Address [facility] Co de Phone Number [address] [address], [facility] [phone] * BLOOD TYPE VERIFICATION (06/27/2021 6:08 PM CDT) ABO Rh A NEG 06/27/2021 7:1 2 PM CDT [facility] Blood Bank BLOOD SPECIMEN / Unknown Lab Venipuncture / Unknown 06/27/2021 6:08 PM CDT 06/27/2021 6:28 PM CDT Jose Martin Dutton DO LAB - BLOOD BANK O RDERABLES Performing Organization Address [facility]/ZIP Co de Phone Number [facility] [address] [place] [phone], [facility] [phone] * ETT LINE PERFORMABLE (06/27/2021 12:32 PM CDT) Narrative Pramod Wing Anes Asst - 06/27/2021 12:32 PM CDT Pramod Wing Anes Asst ? 06/27/2021 12:33 PM Endotracheal Tube Placement: ? Patient Location: OR. Intubation Event Date/Time: ??06/27/2021 12:05 PM Procedure: intubation ([id number]). Procedure Section: ?? Sedation: under general anesthesia. Indications for Airway Management: ??anesthesia Induction: standard IV Patient Position: ??sniffing and supine Mask Ventilation: easy. Blade Type: Francois Blade Size: 3 Laryngoscopy View: grade 1 (full cords) Tube: endotracheal tube Placement: oral Tube type: cuff - inflated Tube Size (MM): 6 Depth of Insertion (CM): 20 Measured From: lips Cuff Inflated With: air Number of Attempts: 1. Placement Verified By: direct visualization, bilateral breath sounds, chest auscultation and CO2 monitor Tube secured with: ??adhesive tape and ETT link. Dentition unchanged? ??Yes Difficult Airway? ??No. Procedure Start Time: 06/27/2021 12:05 PM. Procedure End Time: 06/27/2021 12:06 PM. Procedure Total Time: 1 ??minutes. Staff Section ? Anesthesia Provider: Pramod Wing Anes Asst, Performed the procedure Sinan Casey MD GENERAL ANESTHESI A ORDERABLES * TYPE + SCREEN PANEL (06/27/2021 10:55 AM CDT) [facility] Antibody Screen NEG 11:45 AM CDT [facility] ABO Rh A NEG 06/27/2021 11:45 AM CDT [facility] Blood Bank BLOOD SPECIMEN / Unknown Venipuncture / Unknown 06/27/2021 10:55 AM CDT 06/27/2021 10:58 AM CDT Jose Martin Dutton DO LAB - BLOOD BANK O RDERABLES [facility] [address] [place] [address], [facility] [phone] * (ABNORMAL) CBC W AUTO DIFFERENTIAL (06/27/2021 10:55 AM CDT) Pathologist [facility] WBC 5.6 3.5 - 10.5 10? 3 /uL 06/27/2021 11:04 AM CDT [facility] RBC 4.34 3.80 - 5.20 10? 6 /uL 06/27/2021 11:04 AM CDT [facility] Hemoglobin 13.7 12.0 - 15.6 g/dL 06/27/2021 11:04 AM [facility] Hematocrit 41.9 35.0 - 45.0 % 06/27/2021 11:04 AM [facility] MCV 96.5 80.7 - 98.3 fL 06/27/2021 11:04 AM [facility] MCH 31.6 26.7 - 34.0 pg 06/27/2021 11:04 AM [facility] MCHC 32.7 30.8 - 35.9 g/dL 06/27/2021 11:04 AM [facility] Platelet Count 191 150 - 400 10? 3 /uL 06/27/2021 11:04 AM [facility] RDW-SD 48.9 36.0 - 50.0 fL 06/27/2021 11:04 AM [facility] RDW-CV 13.7 11.2 - 14.8 % 06/27/2021 11:04 AM [facility] MPV 12.1 9.4 - 12.9 fL 06/27/2021 11:04 AM [facility] nRBC Absolute 0.00 0 10? 3 /uL 06/27/2021 11:04 AM [facility] nRBC Auto 0.0 0 /100 WBC 06/27/2021 11:04 AM [facility] Neutrophils % 75.0(H) 35.0 - 70.0 % 06/27/2021 11:04 AM [facility] Lymphocytes % 14.6(L) 20.0 - 43.0 % 06/27/2021 11:04 AM [facility] Monocytes % 8.7 5.0 - 13.0 % 06/27/2021 11:04 AM [facility] Eosinophils % 0.4 0.0 - 6.0 % 06/27/2021 11:04 AM [facility] Basophil % 0.9 0.0 - 2.0 % 06/27/2021 11:04 AM [facility] Neutrophils Absolute 4.2 1.6 - 7.0 10? 3 /uL 06/27/2021 11:04 AM [facility] Lymphocyte Absolute 0.8(L) 1.1 - 3.9 10? 3 /uL 06/27/2021 11:04 AM [facility] Monocytes Absolute 0.49 0.26 - 1.07 10? 3 /uL 06/27/2021 11:04 AM [facility] Eosinophils Absolute 0.02 0.00 - 0.47 10? 3 /uL 06/27/2021 11:04 AM [facility] Basophils Absolute 0.05 0.00 - 0.08 10? 3 /uL 06/27/2021 11:04 AM [facility] Immature Granulocytes % 0.4 0.0 - 1.0 % 06/27/2021 11:04 AM [facility] Immature Granulocytes Absolute 0.02 06/27/2021 11:04 AM [facility] Blood BLOOD SPECIMEN / Unknown Venipuncture / Unknown 06/27/2021 10:55 AM CDT 06/27/2021 10:58 AM T Jose Martin Dutton DO LAB - HEMATOLOGY O RDERABLES [facility] [address] [place] [phone], [facility] [phone] * (ABNORMAL) COMPREHENSIVE METABOLIC PANEL (06/27/2021 10:55 AM CDT) BUN 8 7 - 26 mg/dL 06/27/2021 11:24 AM [facility] Creatinine 0.59 0.56 - 0.96 mg/dL 06/27/2021 11:24 AM [facility] Sodium 145 136 - 145 mmol/L 06/27/2021 11:24 AM [facility] Potassium 3.3(L) 3.5 - 4.5 mmol/L 06/27/2021 11:24 AM [facility] Chloride 108(H) 98 - 107 mmol/L 06/27/2021 11:24 AM [facility] CO2 27 22 - 29 mmol/L 06/27/2021 11:24 AM [facility] Glucose 93 70 - 115 mg/dL 06/27/2021 11:24 AM [facility] Calcium 9.7 8.4 - 10.2 mg/dL 06/27/2021 11:24 AM [facility] Protein Total 6.7 6.0 - 8.3 g/dL 06/27/2021 11:24 AM [facility] Albumin 4.0 3.4 - 5.0 g/dL 06/27/2021 11:24 AM [facility] Bilirubin Total 0.4 0.2 - 1.2 mg/dL 06/27/2021 11:24 AM [facility] Alkaline Phosphatase 51 40 - 150 U/L 06/27/2021 11:24 AM [facility] ALT 14 5 - 55 U/L 06/27/2021 11:24 AM [facility] AST 19 5 - 34 U/L 06/27/2021 11:24 AM [facility] Anion Gap 13 8 - 18 06/27/2021 11:24 AM [facility] BUN/Creatinine Ratio 14 7 - 23 06/27/2021 11:24 AM [facility] Osmolality Calculated 298 270 - 300 mOsm/kg 06/27/2021 11:24 AM [facility] Albumin/Globulin Ratio 1.5 1.1 - 2.3 06/27/2021 11:24 AM [facility] eGFR by CKD-EPI >90 >=90 mL/min/1.7 3 m2 06/27/2021 11:24 AM [facility] Blood BLOOD SPECIMEN / Unknown Venipuncture / Unknown 06/27/2021 10:55 AM CDT 06/27/2021 10:58 AM CDT Jose Martin Dutton DO LAB - CHEMISTRY OR DERABLES [address] [address], [facility] [phone] * SARS-COV-2 (COVID-19)+INFLU A+B PCR RAPID (06/27/2021 10:31 AM CDT) COVID-19 PCR Not detected Not detected 06/28/19 11:36 AM CDT [facility] Influenza A Rapid MARCELLA Not Detected Not Detected 06/27/2021 11:36 AM T [facility] Influenza B MARCELLA Rapid Not Detected Not Detected 06/27/2021 11:36 AM T [facility] Microbiology SPECIMEN FROM NASOPHARYNGEAL STRUCTURE / Unknown Collection / Unknown 06/27/2021 10:31 AM CDT 06/27/2021 10:56 AM CDT [facility] - 06/27/2021 11:36 AM CDT Influenza assay performed by Nucleic Acid Amplification. Results do not exclude the possibility of a mixed viral infection. NOTE: ??Detecting and identifying specific viral nucleic acids from individuals exhibiting signs and symptoms of respiratory infection aids in the diagnosis of respiratory infection, if used in conjunction with other clinical and laboratory findings. The results of this test should not be used as the sole basis for diagnosis, treatment, or patient management decisions. This nucleic acid amplification assay performance was validated by [facility]. This test has been authorized by the Food and Drug administration (FDA)under an Emergency??Use Authorization (EUA). This test has been validated in accordance with the FDA's guidance document Policy for Diagnostic Testing in Laboratories Certified to perform High Complexity Testing under CLIA prior to Emergency Use Authorization for Coronavirus Disease-2019 during the Public Health Emergency issued on June 09, 2019. FDA independent review of this validation is pending. This test is only authorized for the duration of time the declaration that circumstances exist justifying the authorization of emergency use of in vitro diagnostic tests for detection of SARS-CoV-2 virus and/or diagnosis of COVID-19 infection under section 564(b)(1) of the Act, 21 U.S.C 360bbb-3 (b)(1), unless the authorization is terminated or revoked sooner. Fact Sheets for this EUA assay are available upon request. Jose Martin Dutton DO LAB - MICROBIOLOGY ORDERABLES [facility] [address] [place] [address], [facility] [phone] Care Teams Director Of Operations For Therapy Relationship Specialty Start Date End Date Ney Rios MD [facility] - General 07/16/20
--- OUTSIDE RECORDS SUMMARY | 2024-05-03 07:27 | XMS_ITS | Continuity of Care Document ---
Author Organization [facility] Address [address] [place] [address] [address] [place] [address] Phone Care Team Providers Care Supervisor Tan Room Name Role Phone Minnie PT, MS Ray Unavailable Unavailable Procedures Procedure Date PT RE-EVALUATION THERAPEUTIC EXERCISES NEUROMUSCULAR RE-ED MANUAL THERAPY FUNC ACTIVITY Carrying, Moving And Handling Objects-Cu rrent Carrying, Moving And Handling Objects-Go al Medications Name Dose Freq Route DOC Apr THERAPEUTIC EXERCISES NEUROMUSCULAR RE-ED MANUAL THERAPY FUNC ACTIVITY Medications Name Dose Freq Route DOC Apr THERAPEUTIC EXERCISES NEUROMUSCULAR RE-ED MANUAL THERAPY FUNC ACTIVITY Medications Name Dose Freq Route DOC Apr THERAPEUTIC EXERCISES NEUROMUSCULAR RE-ED MANUAL THERAPY FUNC ACTIVITY Medications Name Dose Freq Route DOC Apr THERAPEUTIC EXERCISES NEUROMUSCULAR RE-ED MANUAL THERAPY FUNC ACTIVITY Medications Name Dose Freq Route DOC Apr THERAPEUTIC EXERCISES NEUROMUSCULAR RE-ED MANUAL THERAPY PT EVALUATION THERAPEUTIC EXERCISES NEUROMUSCULAR RE-ED MANUAL THERAPY Carrying, Moving And Handling Objects-Cu rrent Carrying, Moving And Handling Objects-Go al Medications Name Dose Freq Route DOC Mar Pain Assess Positive DOC 2013 BMI Normal and DOC 18-64 yo=18.5-25.0 65 + yo=23.0-30.0 No Falls or 1 Fall w/o Injury Screened f or Fall Risk Functional Outcome Assessment documented in the pa Advance Directives Directive Yes / No Effective Date File Name No Information Encounters Encounter Description Practice Location Reason(s) For Visit Diagnoses Date Provider Providers Copied on Encounter [address], [id number], tel:[phone] [place] No Information 5 Minnie Ray. [address] [place] [address], [facility] [address], [place], [facility] [place], . tel:[phone] Referring Provider: Randell Blum, [address] [address], [place], [address]. tel:[phone], [id number], tel:[phone] [place] No Information 5 Minnie Ray. [address] [place] [address], [address], [place], [facility] [place], . tel:[phone] Referring Provider: Randell Blum, [address] [facility] [address], [place], [address]. tel:[phone], [place], [id number], tel:[phone] [place] No Information 5 Minnie Ray. [address] [place] [address], [address], [place], [facility] [place], . tel:[phone] Referring Provider: Randell Blum, [address] [facility] [address], [place], [address]. tel:[phone] [facility] [address] [place] [address], [place], [place], [id number], tel:[phone] [place] No Information 5 Minnie Ray. [address] [place] [address], [address], [place], [facility] [place], . tel: [phone] Referring Provider: Randell Blum, [address] [address], [place], [address]. tel:[phone] [facility] [address] [place] [address], [place], [place], [id number], tel:[phone] [place] No Information 5 Minnie Ray. [address] [place] [address], [address], [place], [facility] [place], . tel: [phone] Referring Provider: Randell Blum, [facility] [address], [place], [address]. tel:[phone] [facility] [address] [place] [address], [place], [place], [id number], tel:[phone] Row[place] No Information 4 Minnie Ray. [address] [place] [address], [address], [place], [facility] [place], . tel: [phone] Referring Provider: Randell Blum, [address] [address], [place], [address]. tel:[phone] [facility] [address] [place] [address], [place], [place], [id number], tel:[phone] [place] Pain in joint involving pelvic region and thigh 3 4 Minnie Ray. [address] [place] [address], [address], [place], [facility] [place], . tel: [phone] Referring Provider: Randell Blum, [address] [facility] [address], [place], [address]. tel:[phone] Family History Family Member Type Diagnosis Age At Onset No Information Payers Payer name Insurance type Covered libertarian ID Roland mansfieldannamarie(s) [place] [id number] POC [id number] [facility] [id number] Social History Type Description Quantity Date Captured Comments Sex Female Smoking Status No Information Chief Complaint And Reason For Visit No Information Reason For Referral Reason For Referral No Information History Of Present Illness Encounter Date Complaint History Of Prese nt Illness No Information Functional Status Date Functional Assessmen t No Information Instructions Date Instruction Additional Infor mation No Information Assessments Type Assessment Date No Information Patient Care Teams Name Effective Dates (start - stop) Status Members No Information
--- OUTSIDE RECORDS SUMMARY | 2024-05-03 07:27 | XMS_ITS | Continuity of Care Document ---
Author Organization [facility] Address [address] [place] [address] [place] [address] Phone Care Team Providers Care Phy Therapist Name Role Phone [facility] Unavailable Unavail able Peng Hale Unavailable Unavailable Advance Directives Directive Yes / No Effective Date File Name No Information Encounters Encounter Description Practice Location Reason(s) For Visit Diagnoses Date Provider Providers Copied on Encounter [facility], [address], [place], [place], [id number], [place] tel:[phone] [facility] No Information [address] [facility] [address] [facility], [address], [place], [place], [id number] , [place]. tel:[phone] Consulting Provider: Peng Hale, [address] [facility], [place], [address]. tel:[phone] Family History Family Member Type Diagnosis Age At Onset No Information Payers Payer name Insurance type Covered green party ID Authoriza tion(s) No Information Social History Type Description Quantity Date Captured [...]
--- OUTSIDE RECORDS SUMMARY | 2024-05-03 07:27 | XMS_ITS | Patient Health Record ---
Author Organization [facility] Address [address] [place] [address] Care Team Providers Care Drosser Name Role Phone Gabriel Ney Primary Care Provider UnavailFlor Isbell Unavailable [phone] [employer], Provider Unavailable Unavailab le Allergies No Known Allergies Reason For Referral No Information Medications Medication SIG (Take, Route, Frequency, Duration) Notes Start Date End Date Status ZyrTEC Allergy 10 MG 1 tab(s) orally once a day Active PreserVision AREDS ANTIOXIDANT MULTIPLE VITAMINS AND MINERALS 1 CAP(S) ORALLY ONCE A DAY for 30 DAY(S) *Please review and pick correct strength-formula tion from Medispan options. If intended option is not shown, discontinue and re-order from Quick Search* Active Azelastine HCl 137 MCG/SPRAY 2 spray(s) intranasally 2 times a day for 30 day(s) 05/19/2021 Active Simvastatin 20 MG 1 tab(s) orally once a day (at bedtime) for 30 day(s) Active Montelukast Sodium 10 MG 1 tab(s) orally once a day for 30 day(s) Active amLODIPine Besylate 5 MG 1 tab(s) orally once a day for 30 day(s) Active oxyBUTYnin Chloride ER 15 MG 1 tab(s) orally once a day for 30 day(s) Active hydroCHLOROthiazide 25 MG 1 tab(s) orall y once a day for 30 day(s) Active PRESERVISION AREDS Antioxidant Multiple Vitamins and Minerals 1 cap(s) orally once a day for 30 day(s) Active HYDROCHLOROTHIAZIDE 25 mg 1 tab(s) orall y once a day for 30 day(s) Active AMLODIPINE 5 mg 1 tab(s) orally once a day for 30 day(s) Active SIMVASTATIN 20 mg 1 tab(s) orally once a day (at bedtime) for 30 day(s) Active OXYBUTYNIN 15 mg/24 hr 1 tab(s) orally once a day for 30 day(s) Active AZELASTINE HYDROCHLORIDE NASAL 137 mcg/inh 2 spray(s) intranasally 2 times a day for 30 day(s) 05/19/2021 Active ZYRTEC 10 mg 1 tab(s) orally once a day Active MONTELUKAST 10 mg 1 tab(s) orally once a day for 30 day(s) Active Immunizations Vaccine Route Administration Date Status Comme nts Fluad Unknown 12/26/2020 Administered COVID-19 (Moderna) Unknown 01/30/2021 Administered Problems Problem Type SNOMED Code ICD Code Onset Dates Problem Status W/U Status Risk Notes Problem Chronic rhinitis (70754284) Chronic rhinitis (J31.0) Active confirmed Problem Disorder of upper respiratory system (disorder) (388672955) Unspecified disorder of nose and nasal sinuses (J34.9) Active confirmed Encounters Encounter [facility] Date [facility] [address] 09/24/[facility]23 Provider Javier Chronic rhinitis J31.0 Assessments Encounter Date Diagnosis (ICD Code) Assessment Notes Treatment Notes Treatment Clinical Notes Section Notes 09/24/2023 Chronic rhinitis (ICD-10 - J31.0) Plan Of Treatment No Information Insurance Providers Payer Name Payer Address Payer Phone Subscriber Number Group Number Insured Name Patient Relationship to Insured Coverage Start Date Coverage End Date [employer] (Medicare) Attention Claims [address] [place] [address] [id number] Olivia Mo Self - patient is the insured [employer] [address] [address] [place] [phone] [id number] Olivia Mo Self - patient is the insured Medical (General) History Medical History History ICD Code Chronic rhinitis J31.0 Surgical History Surgery Date(Month/Year) Hysterectomy 09/09/2002 Cataracts 09/09/1985 Hospitalization History Reason Date(Month/Year) TIA 08/30/2014
--- OUTSIDE RECORDS SUMMARY | 2024-05-03 07:27 | XMS_ITS ---
Author Organization [facility] Address [address] [place] [address] Care Team Providers Care Skull Splitter Name Role Phone Gabriel Ney Primary Care Provider UnavailFlor Isbell Unavailable [phone] [employer], Provider Unavailable Unavailab le REASON FOR VISIT [facility] To [facility] Conversion Encounter Medications Medication SIG (Take, Route, Frequency, Duration) Notes Start Date End Date Status Azelastine HCl 137 MCG/SPRAY 2 spray(s) intranasally 2 times a day for 30 day(s) 05/19/2021 Active Simvastatin 20 MG 1 tab(s) orally once a day (at bedtime) for 30 day(s) Active amLODIPine Besylate 5 MG 1 tab(s) orally once a day for 30 day(s) Active oxyBUTYnin Chloride ER 15 MG 1 tab(s) orally once a day for 30 day(s) Active hydroCHLOROthiazide 25 MG 1 tab(s) orall y once a day for 30 day(s) Active ZyrTEC Allergy 10 MG 1 tab(s) orally once a day Active PreserVision AREDS ANTIOXIDANT MULTIPLE VITAMINS AND MINERALS 1 CAP(S) ORALLY ONCE A DAY for 30 DAY(S) *Please review and pick correct strength-formula [facility]ion [facility] options. If intended option is not shown, discontinue and re-order from Quick Search* Active Montelukast Sodium 10 MG 1 tab(s) orally once a day for 30 day(s) Active Encounters Encounter Location Date Provider Diagnosis [facility] [address] [place] [address] 09/24/2023 Provider Javier Chronic rhinitis J31.0 Assessments Encounter Date Diagnosis (ICD Code) Assessment Notes Treatment Notes Treatment Clinical Notes Section Notes 09/24/2023 Chronic rhinitis (ICD-10 - J31.0) Plan Of Treatment Medication Medication Name Sig Start Date Stop Date Notes Azelastine HCl 137 MCG/SPRAY 2 spray(s) intranasally 2 times a day for 30 day(s) 05/19/2021 Progress Notes * Olivia MODOB:1945 (78 yo F)Acc No.[id number]:09/24/2023 Patient:?Olivia [place] Provider:?Provider Sb :1945???Age:78 Y???Sex:Female D ate:09/24/2023 Address:[address] [place], [place] [address] Pcp:Ney Rios Subjective: * Chief Complaints: * ???1. Multum To Medispan Con version Encounter. * Medical History:? * Medications:?Taking PreserVi dina AREDS ANTIOXIDANT MULTIPLE VITAMINS AND MINERALS CAPSULE 1 CAP(S) ORALLY ONCE A DAY , Notes to Pharmacist: *Please review and pick correct strength-formulation from [employer] options. If intended option is not shown, discontinue and re-order from Quick Search*, Taking ZyrTEC Allergy 10 MG Tablet 1 tab(s) orally once a day , Taking Montelukast Sodium 10 MG Tablet 1 tab(s) orally once a day , Taking Simvastatin 20 MG Tablet 1 tab(s) orally once a day (at bedtime) , Taking oxyBUTYnin Chloride ER 15 MG Tablet Extended Release 24 Hour 1 tab(s) orally once a day , Taking amLODIPine Besylate 5 MG Tablet 1 tab(s) orally once a day , Taking hydroCHLOROthiazide 25 MG Tablet 1 tab(s) orally once a day Objective: * Vitals:? Assessment: * Assessment: 1.?Chronic rhinitis - J31.0 (Primary)??? Plan: * Treatment: * Billing Information: * Visit Code:? * Procedure Codes:? * Electronic signature of Prov chencho Herrera on 05/03/2024 at 07:26 AM [employer] ROUTE [employer]ER Sign off status: Pending * Provider:?Provider Migration Date:?09/23 Generated for Sofie bailey/Marj/[place] on:?05/03/2024 07:[address] R[address]TE [employer]ER
--- OUTSIDE RECORDS SUMMARY | 2024-05-03 07:56 | XMS_ITS | Encounter Summary ---
Author Organization [facility] Address [address] [facility] [place] [address] Care Team Providers Care Staff Development Nurse Name Role Phone Ney Rios MD Primary Care Provider [phone] Encounter Details Date Type Department Care Team (Late st Contact Info) Description 06/27/2021 Ophth Exam [facility] [address] [place] [address] Cuong Salazar IV, DO [address] [place] [address] Social History Tobacco Use Types Packs/Day Years [...] on filedocumented in this encounter Care Teams Staff Development Nurse Relationship Specialty Start Date End Date Ney Rios MD PCP - General 07/16/20 documented as of this encounter
--- OUTSIDE RECORDS SUMMARY | 2024-05-03 07:56 | XMS_ITS | CONTINUITY OF CARE DOCUMENT ---
Author Name gabriela doraadeel Address Unknown Organization [facility] Address [address] [facility] [address] [place] [address] Phone [phone] Care Team Providers Care Allergy Physician Name Role Phone Faith ALLISON, Larry Unavailable JADEN NARANJO MD Unavailable JADEN NARANJO MD Unavailable PROBLEMS Condition Status Date Provider Notes Hypercholesterolemia active Germaine Zendejas Hypertension active Germaine Zendejas Chest pain active Germaine Zendejas INSURANCE PROVIDERS Payer name Policy type / Coverage type [employer] red republican ID [id number] [place] Medicare [id number] HISTORY OF PROCEDURES Procedure Date Procedure Name Provider Procedure Notes S tatus Stress EKG Sudarshan Graves MD completed Cardiolite, 2 units Larry Cuevas MD completed SPECT Images Mariana German MD com [place]
--- OUTSIDE RECORDS SUMMARY | 2024-05-03 07:56 | XMS_ITS | Patient Health Summary ---
Author Organization [facility] [employer] Address [address] [place] [address] Care Team Providers Care Title I Coordinator Name Role Phone Ney Rios MD Primary Care Provider [phone] Note from [facility],non-owned Affiliates and Associated Physician Practices is amultiple site organization consisting of ambulatory clinics and hospital sitesin [place], [place], [place] and [place]. This disclosure is being madepursuant to the Care Everywhere program and may not contain all information available regarding this patient. Last updated 17.[facility] Allergies No known active allergies* Ceftriaxone(Unknown),Inactive * [...] Event Date/Time: ??10/19/2021 1:41 PM Procedure: intubation (99677). Procedure Section: ?? Sedation: under general anesthesia. [...] Other 07/13/2021 10:4 5 AM CDT Nicolas eLblanc MD [facility] ORDERABLES * Ultrasound [...] 10? 3 /uL 06/28/2021 1:36 AM CDT [facility] RBC 3.79(L) 3.80 - 5.20 10? 6 /uL 06/28/2021 1:36 AM CDT [facility] Hemoglobin 12.0 12.0 - 15.6 g/dL 06/28/2021 1:36 AM [facility] Hematocrit 36.0 35.0 - 45.0 % 06/28/2021 1:36 AM [facility] MCV 95.0 80.7 - 98.3 fL 06/28/2021 1:36 AM [facility] MCH 31.7 26.7 - 34.0 pg 06/28/2021 1:36 AM [facility] MCHC 33.3 30.8 - 35.9 g/dL 06/28/2021 1:36 AM [facility] Platelet Count 166 150 - 400 10? 3 /uL 06/28/2021 1:36 AM [facility] RDW-SD 48.9 36.0 - 50.0 fL 06/28/2021 1:36 AM [facility] RDW-CV 13.9 11.2 - 14.8 % 06/28/2021 1:36 AM [facility] MPV 11.3 9.4 - 12.9 fL 06/28/2021 1:36 AM [facility] nRBC Absolute 0.00 0 10? 3 /uL 06/28/2021 1:36 AM [facility] nRBC Auto 0.0 0 /100 WBC 06/28/2021 1:36 AM [facility] Blood BLOOD SPECIMEN / Unknown Lab Venipuncture / Unknown 06/28/2021 1:26 AM CDT 06/28/2021 1:31 AM T Sal Rainey MD LAB - HEMATOLO GY ORDERABLES [facility] [address] [place] [address], [facility] [phone] * (ABNORMAL) BASIC METABOLIC PANEL (CALCIUM TOTAL) (06/28/2021 1:26 AM CDT) BUN 11 7 - 26 mg/dL 06/28/2021 1:58 AM [facility] Creatinine 0.53(L) 0.56 - 0.96 mg/dL 06/28/2021 1:58 AM [facility] Sodium 141 136 - 145 mmol/L 06/28/2021 1:58 AM [facility] Potassium 4.1 3.5 - 4.5 mmol/L 06/28/2021 1:58 AM [facility] Chloride 107 98 - 107 mmol/L 06/28/2021 1:58 AM [facility] CO2 27 22 - 29 mmol/L 06/28/2021 1:58 AM [facility] Glucose 132(H) 70 - 115 mg/dL 06/28/2021 1:58 AM [facility] Calcium 9.4 8.4 - 10.2 mg/dL 06/28/2021 1:58 AM [facility] Anion Gap 11 8 - 18 06/28/2021 1:58 AM [facility] BUN/Creatinine Ratio 21 7 - 23 06/28/2021 1:58 AM [facility] Osmolality Calculated 293 270 - 300 mOsm/kg 06/28/2021 1:58 AM [facility] eGFR by CKD-EPI >90 >=90 mL/min/1.7 3 m2 06/28/2021 1:58 AM [facility] Blood BLOOD SPECIMEN / Unknown Lab Venipuncture / Unknown 06/28/2021 1:26 AM CDT 06/28/2021 1:31 AM CDT Sal Rainey MD LAB - CHEMISTR Y ORDERABLES Performing Organization Address [facility] Co de Phone Number [address] [address], [facility] [phone] * PHOSPHORUS BLOOD (06/28/2021 1:26 AM CDT) Phosphorus 3.0 2.9 - 5.1 mg/dL 06/28/2021 1:58 AM [facility] Blood BLOOD SPECIMEN / Unknown Lab Venipuncture / Unknown 06/28/2021 1:26 AM CDT 06/28/2021 1:31 AM CDT Sal Rainey MD LAB - CHEMISTR Y ORDERABLES Performing Organization Address [facility]/ZIP Co de Phone Number [address] [address], [facility] [phone] * MAGNESIUM BLOOD (06/28/2021 1:26 AM CDT) Magnesium 2.3 1.6 - 2.6 mg/dL 06/28/2021 1:58 AM CDT [facility] Blood BLOOD SPECIMEN / Unknown Lab Venipuncture / Unknown 06/28/2021 1:26 AM CDT 06/28/2021 1:31 AM CDT Sal Rainey MD LAB - CHEMISTR Y ORDERABLES Performing Organization Address [facility] Co de Phone Number [address] [address], [facility] [phone] * BLOOD TYPE VERIFICATION (06/27/2021 6:08 PM CDT) ABO Rh A NEG 06/27/2021 7:1 2 PM CDT [facility] B[facility]OD B[facility] LAB Blood Bank BLOOD SPECIMEN / Unknown Lab Venipuncture / Unknown 06/27/2021 6:08 PM CDT 06/27/2021 6:28 PM CDT Jose Martin Dutton DO LAB - BLOOD BANK O RDERABLES Performing Organization Address [facility]/ZIP Co de Phone Number [facility] B[facility]OD BANK LAB [address] [place] [address], [facility] [phone] * ETT LINE PERFORMABLE (06/27/2021 12:32 PM CDT) Narrative Pramod Wing Anes Asst - 06/27/2021 12:32 PM CDT Pramod Wing Anes Asst ? 06/27/2021 12:33 PM Endotracheal Tube Placement: ? Patient Location: OR. Intubation Event Date/Time: ??06/27/2021 12:05 PM Procedure: intubation ([id number]). Procedure Section: ?? Sedation: under general anesthesia. [...] + SCREEN PANEL (06/27/2021 10:55 AM CDT) [facility] Antibody Screen NEG 11:45 AM CDT [facility] LAB ABO Rh A NEG 06/27/2021 11:45 AM CDT [facility] LAB Blood Bank BLOOD SPECIMEN / Unknown Venipuncture / Unknown 06/27/2021 10:55 AM CDT 06/27/2021 10:58 AM CDT Jose Martin Dutton DO LAB - BLOOD BANK O RDERABLES [facility] [address] [place] [address], [facility] [phone] * (ABNORMAL) CBC W AUTO DIFFERENTIAL (06/27/2021 10:55 AM CDT) Pathologist [facility] WBC 5.6 3.5 - 10.5 10? 3 /uL 06/27/2021 11:04 AM CDT [facility] RBC 4.34 3.80 - 5.20 10? 6 /uL 06/27/2021 11:04 AM CDT [facility] Hemoglobin 13.7 12.0 - 15.6 g/dL 06/27/2021 11:04 AM [facility] Hematocrit 41.9 35.0 - 45.0 % 06/27/2021 11:04 AM [facility] MCV 96.5 80.7 - 98.3 fL 06/27/2021 11:04 AM [facility] MCH 31.6 26.7 - 34.0 pg 06/27/2021 11:04 AM [facility] MCHC 32.7 30.8 - 35.9 g/dL 06/27/2021 11:04 AM [facility] Platelet Count 191 150 - 400 10? 3 /uL 06/27/2021 11:04 AM [facility] RDW-SD 48.9 36.0 - 50.0 fL 06/27/2021 11:04 AM [facility] RDW-CV 13.7 11.2 - 14.8 % 06/27/2021 11:04 AM [facility] MPV 12.1 9.4 - 12.9 fL 06/27/2021 11:04 AM [facility] nRBC Absolute 0.00 0 10? 3 /uL 06/27/2021 11:04 AM [facility] nRBC Auto 0.0 0 /100 WBC 06/27/2021 11:04 AM [facility] Neutrophils % 75.0(H) 35.0 - 70.0 % 06/27/2021 11:04 AM [facility] Lymphocytes % 14.6(L) 20.0 - 43.0 % 06/27/2021 11:04 AM [facility] Monocytes % 8.7 5.0 - 13.0 % 06/27/2021 11:04 AM [facility] Eosinophils % 0.4 0.0 - 6.0 % 06/27/2021 11:04 AM [facility] Basophil % 0.9 0.0 - 2.0 % 06/27/2021 11:04 AM [facility] Neutrophils Absolute 4.2 1.6 - 7.0 10? 3 /uL 06/27/2021 11:04 AM [facility] Lymphocyte Absolute 0.8(L) 1.1 - 3.9 10? 3 /uL 06/27/2021 11:04 AM [facility] Monocytes Absolute 0.49 0.26 - 1.07 10? 3 /uL 06/27/2021 11:04 AM [facility] Eosinophils Absolute 0.02 0.00 - 0.47 10? 3 /uL 06/27/2021 11:04 AM [facility] Basophils Absolute 0.05 0.00 - 0.08 10? 3 /uL 06/27/2021 11:04 AM [facility] Immature Granulocytes % 0.4 0.0 - 1.0 % 06/27/2021 11:04 AM [facility] Immature Granulocytes Absolute 0.02 06/27/2021 11:04 AM [facility] Blood BLOOD SPECIMEN / Unknown Venipuncture / Unknown 06/27/2021 10:55 AM CDT 06/27/2021 10:58 AM T Jose Martin Dutton DO LAB - HEMATOLOGY O RDERABLES [facility] [address] [place] [phone], [facility] [phone] * (ABNORMAL) COMPREHENSIVE METABOLIC PANEL (06/27/2021 10:55 AM CDT) BUN 8 7 - 26 mg/dL 06/27/2021 11:24 AM [facility] Creatinine 0.59 0.56 - 0.96 mg/dL 06/27/2021 11:24 AM [facility] Sodium 145 136 - 145 mmol/L 06/27/2021 11:24 AM [facility] Potassium 3.3(L) 3.5 - 4.5 mmol/L 06/27/2021 11:24 AM [facility] Chloride 108(H) 98 - 107 mmol/L 06/27/2021 11:24 AM [facility] CO2 27 22 - 29 mmol/L 06/27/2021 11:24 AM [facility] Glucose 93 70 - 115 mg/dL 06/27/2021 11:24 AM [facility] Calcium 9.7 8.4 - 10.2 mg/dL 06/27/2021 11:24 AM [facility] Protein Total 6.7 6.0 - 8.3 g/dL 06/27/2021 11:24 AM [facility] Albumin 4.0 3.4 - 5.0 g/dL 06/27/2021 11:24 AM [facility] Bilirubin Total 0.4 0.2 - 1.2 mg/dL 06/27/2021 11:24 AM [facility] Alkaline Phosphatase 51 40 - 150 U/L 06/27/2021 11:24 AM [facility] ALT 14 5 - 55 U/L 06/27/2021 11:24 AM [facility] AST 19 5 - 34 U/L 06/27/2021 11:24 AM [facility] Anion Gap 13 8 - 18 06/27/2021 11:24 AM [facility] BUN/Creatinine Ratio 14 7 - 23 06/27/2021 11:24 AM [facility] Osmolality Calculated 298 270 - 300 mOsm/kg 06/27/2021 11:24 AM [facility] Albumin/Globulin Ratio 1.5 1.1 - 2.3 06/27/2021 11:24 AM [facility] eGFR by CKD-EPI >90 >=90 mL/min/1.7 3 m2 06/27/2021 11:24 AM [facility] Blood BLOOD SPECIMEN / Unknown Venipuncture / Unknown 06/27/2021 10:55 AM CDT 06/27/2021 10:58 AM CDT Jose Martin Dutton DO LAB - CHEMISTRY OR DERABLES [address] [address], [facility] [phone] * SARS-COV-2 (COVID-19)+INFLU A+B PCR RAPID (06/27/2021 10:31 AM CDT) COVID-19 PCR Not detected Not detected 06/28/19 11:36 AM CDT [facility] Influenza A Rapid MARCELLA Not Detected Not Detected 06/27/2021 11:36 AM T [facility] Influenza B MARCELLA Rapid Not Detected Not Detected 06/27/2021 11:36 AM T [facility] Microbiology SPECIMEN FROM NASOPHARYNGEAL STRUCTURE / Unknown Collection / Unknown 06/27/2021 10:31 AM CDT 06/27/2021 10:56 AM CDT [facility] - 06/27/2021 11:36 AM CDT Influenza assay [...] acid amplification assay performance was validated by [facility]. This test has been authorized by the [...] Martin Dutton DO LAB - MICROBIOLOGY ORDERABLES [facility] [address] [place] [address], [facility] [phone] Care Teams Title I Coordinator Relationship Specialty Start Date End Date Ney Rios MD [facility] - General 07/16/20
--- OUTSIDE RECORDS SUMMARY | 2024-05-03 07:56 | XMS_ITS | Encounter Summary ---
Author Organization [facility] Address [address] [place] [address] Care Team Providers Care Therapy Technician Name Role Phone Ney Rios MD Primary Care Provider [phone] Encounter Details Date Type Department Care Team (Late st Contact Info) Description 06/28/2021 Ophth Exam [facility] [address] [place] [address] Anu Saxena MD No info available Social [...] on filedocumented in this encounter Care Teams Therapy Technician Relationship Specialty Start Date End Date Ney Rios MD PCP - General 07/16/20 documented as of this encounter
--- OUTSIDE RECORDS SUMMARY | 2024-05-03 07:56 | XMS_ITS | Referral Summary ---
Author Organization [facility] Address [address] [place] [address] Care Team Providers Care Trouble Operator Name Role Phone Ney Rios MD Primary Care Provider [phone] Source Comments [facility]),non-owned Affiliates and Associated Physician Practices is amultiple site organization consisting of ambulatory clinics and hospital sitesin [place], [place], [place]. This disclosure is being madepursuant to the Care Everywhere program and may not contain all information available regarding this patient. Last updated 17.[facility] Allergies No known active allergies Medications * [...] 11:08 AM 06/28/2021 12:17 PM Care Teams Trouble Operator Relationship Specialty Start Date End Date Ney Rios MD PCP - General 07/16/20
--- OUTSIDE RECORDS SUMMARY | 2024-05-03 07:56 | XMS_ITS | Clinical Summary ---
Author Organization [facility] [facility] Address [address] [place] [address] Care Team Providers Care Powerhouse Oiler Name Role Phone Ney Rios MD Primary Care Provider [phone] Source Comments [facility],non-owned Affiliates and Associated Physician Practices is amultiple site organization consisting of ambulatory clinics and hospital sitesin [place], [place], [place] and [place]. This disclosure is being madepursuant to the Care Everywhere program and may not contain all information available regarding this patient. Last updated 17.[facility] Allergies No known active allergies Medications * [...] 11:08 AM 06/28/2021 12:17 PM Care Teams Powerhouse Oiler Relationship Specialty Start Date End Date Ney Rios MD PCP - General 07/16/20
--- OUTSIDE RECORDS SUMMARY | 2024-05-03 07:56 | XMS_ITS | Continuity of Care Document ---
Author Organization [facility] Address [address] [place] [address] [address] [place] [address] Phone Care Team Providers Care Centrifugal Screen Tender Name Role Phone Minnie PT, MS Ray [...] Diagnoses Date Provider Providers Copied on Encounter [address], [id number], tel:[phone] [place] No Information 5 Minnie Ray. [address] [place] [address], [facility] [address], [place], [facility], . tel:[phone] Referring Provider: Randell Blum, [address] [address], [place], [address]. tel:[phone], [id number], tel:[phone] [place] No Information 5 Minnie Ray. [address] [place] [address], [address], [place], [facility], . tel:[phone] Referring Provider: Randell Blum, [address] [facility] [address], [place], [address]. tel:[phone], [place], [id number], tel:[phone] [place] No Information 5 Minnie Ray. [address] [place] [address], [address], [place], [facility], . tel:[phone] Referring Provider: Randell Blum, [address] [facility] [address], [place], [address]. tel:[phone] [facility] [address] [place], [place] [address], [place], [place], [id number], tel:[phone] [place] No Information 5 Minnie Ray. [address] [place] [address], [address], [place], [facility], . tel: [phone] Referring Provider: Randell Blum, [address] [address], [place], [address]. tel:[phone] [facility] [address] [place] [address], [place], [place], [id number], tel:[phone] [place] No Information 5 Minnie Ray. [address] [place] [address], [address], [place], [facility], . tel: [phone] Referring Provider: Randell Blum, [facility] [address], [place], [address]. tel:[phone] [facility] [address] [place] [address], [place], [place], [id number], tel:[phone] [place] No Information 4 Minnie Ray. [address] [place] [address], [address], [place], [facility], . tel: [phone] Referring Provider: Randell Blum, [address] [address], [place], [address]. tel:[phone] [facility] [address] [place] [address], [place], [place], [id number], tel:[phone] [place] Pain in joint involving pelvic region and thigh 3 4 Minnie Ray. [address] [place] [address], [address], [place], [facility], . tel: [phone] Referring Provider: Randell Blum, [address] [facility] [address], [place], [address]. tel:[phone] Family History Family Member Type Diagnosis Age At Onset No Information Payers Payer name Insurance type Covered democrat ID Roland mansfieldannamarie(s) [place] [id number] POC [id number] [facility] [id number] Social History Type Description Quantity Date Captured [...]
--- OUTSIDE RECORDS SUMMARY | 2024-05-03 07:56 | XMS_ITS | Continuity of Care Document ---
Author Organization [facility] Address [address] [place] [address] [place] [address] Phone Care Team Providers Care Construction Rigger Name Role Phone [facility] Unavailable Unavail able Peng Hale Unavailable Unavailable Advance Directives Directive Yes / No Effective Date File Name No Information Encounters Encounter Description Practice Location Reason(s) For Visit Diagnoses Date Provider Providers Copied on Encounter Merged with [facility], [address], [place], [place], [id number], [place] tel:[phone] [place] No Information [address] [facility]. [address] [facility], [address], [place], [place], [id number] , [place]. tel:[phone] Consulting Provider: Peng Hale, [address] [facility], [place], [address]. tel:[phone] Family History Family Member Type Diagnosis Age At Onset No Information Payers Payer name Insurance type Covered constitution party ID Authoriza tion(s) No Information Social [...]
== END 2024-04-29 14:32 | disposition home or self-care (01) | DRG 552 ==
LOC: ANHED 21:41 → ANH2MED 23:44
PROVIDERS: Admitting Provider Internal Medicine; Emergency Provider Physician Assistant; PCP Internal Medicine; Visit Provider Nurse Practitioner Acute Care
DX: S22.081A Stable burst fracture of T11-T12 vertebra, initial encounter for closed fracture (principal); I10 Essential (primary) hypertension; K21.9 Gastro-esophageal reflux disease without esophagitis; E78.5 Hyperlipidemia, unspecified; M81.0 Age-related osteoporosis without current pathological fracture; F41.9 Anxiety disorder, unspecified; W11.XXXA Fall on and from ladder, initial encounter; Z87.891 Personal history of nicotine dependence; Z86.73 Personal history of transient ischemic attack (TIA), and cerebral infarction without residual deficits; Z86.0101 Personal history of adenomatous and serrated colon polyps
CPT/HCPCS: 36415; 72128; 72131; 80053; 85025; 96374; 96375; 97161; 97165; 97535; 99285; A9270; G0378; J1885; J2270

== ENCOUNTER 2024-05-15 11:04 | Outpatient (CLI) | payer MEDICARE, SELFPAY ==
--- NOTE | ~2024-05-15 | XR_ITS ---
Thoracolumbar Spine: AP and lateral views Clinical History: Burst fracture Findings: Severe compression fracture of T12 present. No other fracture identified in the lower thora cic and lumbar spine. There is multilevel moderate degenerative disc narrowing in the lumbar spine. T here is extensive facet arthropathy the lumbar spine. The sacroiliac joints are normally outlined. Impression: Severe T12 compression fracture. Degenerative spondylosis, as above. Reviewed, dictated and finalized at location . [employer] Impression: Severe T12 compression fracture. Degenerative spondylosis, as above.
--- OUTSIDE RECORDS SUMMARY | 2024-05-15 11:46 | XMS_ITS | Data Portability ---
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 Not available 07/30/2023 15:51:39 01/26/2024 01/26/2024 continue current therapy blood work also needs a vitamin-D level we will try Atrovent nasal spray we will follow up in 6 months [email or web address] Not available 02/14/2024 22:08:00 05/07/2024 05/07/2024 we will have neurosurgical referral refill her cyclobenzaprine and hydrocodone when needed. Her last bone density that I was able to get from 2021 revealed some osteopenia we will try to get a more contemporary DEXA I believe it is ordered by her ic engineer if possible get her started on Prolia she had a vitamin-D ordered in February of 2024 but because of some issues with the labs she opted out of getting that doneplease see the results comments section. we will try to get that done I will see her back in 1 month . Hypertension stable anxiety stable dyslipidemia stable rhinitis stable [email or web address] Not available 05/13/2024 16:59:45 Plan of Treatment Reminders Order Date Submit Date Provider Last Modified By Organization Details Last Modified Time Details Appointments ANY 15 2024 09:15A Lucero Rios MD Not available Not available Not available ANY 15 2024 09:15A Lucero Rios MD Not available Not available Not available Lab CBC w/ auto diff 2023 024 [facility], [address], [address], [place], [address], 08/13/2023 04:36:19 lipid panel, serum 2023 024 [facility], [address], [address], [place], [address], 08/13/2023 04:36:18 CMP, serum or plasma 2023 024 [facility], [address], [address], [place], [address], 08/13/2023 04:36:19 vitamin D, 25-hydrox y, total, serum 2023 024 [facility], [address], [address], [place], [address], 02/14/2024 14:32:51 lipid panel, serum 2023 024 [facility], [address], [address], [place], [address], 02/14/2024 11:13:46 CMP, serum or plasma 2023 024 [facility], [address], [address], [place], [address], 02/14/2024 11:13:48 CBC w/ auto diff 2023 024 [facility], [address], [address], [place], [address], 02/14/2024 11:13:50 Referral neurologi salma surgeon referral - Pt was at [facility] [place]. [facility], [facility] [address], [facility] [place], [address], 05/07/2024 12:11:14 Procedures None recorded. Surgeries None recorded. Imaging None recorded. Medication Orders oxybutyni n chloride ER 10 mg tablet,ex tended release 24 hr [address] [facility] [place], [address], 01/26/2024 18:12:55 cyclobenz aprine 5 mg tablet [address] [facility] [place], [address], 05/07/2024 11:30:53 Prolia 60 mg/mL subcutane ous syringe 2024 [facility], [address], [place], [address], 05/08/2024 14:25:46 Patient TargetsNo targets recorded. Patient InstructionsNo instructions recorded. Reason for Referral Neurological Surgeon Referra l for Closed fracture thoracic vertebra Pt was at [facility] in pt. Referring Physician: Jaden Rios, Internal Medicine, Encounter Date: 05/07/2024 Results Created Date Observation Date Name Description Value Unit Range Abnormal Flag Note LastModifiedBy Organization Detail LastModifiedTime 08/12/1908/13/2023 LIPID PANEL cholesterol, total 171 mg/dL 100-19 9 Not Available [facility] ([facility]) [address] [place], [address], 08/13/2023 04:36:18 08/12/19 24 08/13/2023 LIPID PANEL triglyceride s 60 mg/dL 0-149 Not Available [facility] ([facility]) [address] [facility], [place], [address], 08/13/2023 04:36:18 08/12/19 24 08/13/2023 LIPID PANEL HDL cholesterol 70 mg/dL >39 Not Available [facility]) [address] [place], [address], 08/13/2023 04:36:18 08/12/19 24 08/13/2023 LIPID PANEL VLDL cholesterol salma 12 mg/dL 5-40 Not Available [facility] ([facility]) [address] [place], [address], 08/13/2023 04:36:18 08/12/19 24 08/13/2023 LIPID PANEL LDL chol [facility] 89 mg/dL 0-99 Not Available [facility]) [address] [place], [address], 08/13/2023 04:36:18 08/12/19 24 08/13/2023 COMP. METAB OLIC PANEL (14) glucose 97 mg/dL 70-99 Not Available [facility] ([facility]) [address] [place], [address], 08/13/2023 04:36:19 08/12/19 24 08/13/2023 COMP. METAB OLIC PANEL (14) BUN 18 mg/dL 8-27 Not Available [facility] ([facility]) [address] [place], [address], 08/13/2023 04:36:19 08/12/19 24 08/13/2023 COMP. METAB OLIC PANEL (14) creatinine 0.68 mg/dL 0.57-1 .00 Not Available [facility] ([facility]) [address] [place], [address], 08/13/2023 04:36:19 08/12/19 24 08/13/2023 COMP. METAB OLIC PANEL (14) eGFR 88 mL/mi n/1.7 3 >59 Not Available [facility] ([facility]) [address] [facility], [place], [address], 08/13/2023 04:36:19 08/12/19 24 08/13/2023 COMP. METAB OLIC PANEL (14) BUN/creatini ne ratio 26 12-28 Not Available [facility] ([facility]) [address] [facility], [place], [address], 08/13/2023 04:36:19 08/12/19 24 08/13/2023 COMP. METAB OLIC PANEL (14) sodium 139 mmol/ L 134-14 4 Not Available [facility] ([facility]) [address] [facility], [place], [address], 08/13/2023 04:36:19 08/12/19 24 08/13/2023 COMP. METAB OLIC PANEL (14) potassium 4.9 mmol/ L 3.5-5. 2 Not Available [facility] ([facility]) [address] [facility], [place], [address], 08/13/2023 04:36:19 08/12/19 24 08/13/2023 COMP. METAB OLIC PANEL (14) chloride 103 mmol/ L 96-106 Not Available [facility] ([facility]) [address] [facility], [place], [address], 08/13/2023 04:36:19 08/12/19 24 08/13/2023 COMP. METAB OLIC PANEL (14) carbon dioxide, total 26 mmol/ L 20-29 Not Available [facility] ([facility]) [address] [facility], [place], [address], 08/13/2023 04:36:19 08/12/19 24 08/13/2023 COMP. METAB OLIC PANEL (14) calcium 9.9 mg/dL 8.7-10 .3 Not Available [facility] ([facility]) [address] [facility], [place], [address], 08/13/2023 04:36:19 08/12/19 24 08/13/2023 COMP. METAB OLIC PANEL (14) protein, total 6.4 g/dL 6.0-8. 5 Not Available [facility] ([place] [facility]) [address], [place], [address], 08/13/2023 04:36:19 08/12/19 24 08/13/2023 COMP. METAB OLIC PANEL (14) albumin 4.3 g/dL 3.8-4. 8 Not Available [facility] ([facility]) [address], [place], [address], 08/13/2023 04:36:19 08/12/19 24 08/13/2023 COMP. METAB OLIC PANEL (14) globulin, total 2.1 g/dL 1.5-4. 5 Not Available [facility] ([facility]) [address] [facility], [place], [address], 08/13/2023 04:36:19 08/12/19 24 08/13/2023 COMP. METAB OLIC PANEL (14) A/G ratio 2.0 1.2-2. 2 Not Available [facility] ([facility]) [address] [facility], [place], [address], 08/13/2023 04:36:19 08/12/19 24 08/13/2023 COMP. METAB OLIC PANEL (14) bilirubin, total 0.5 mg/dL 0.0-1. 2 Not Available [facility] ([facility]) [address] [facility], [place], [address], 08/13/2023 04:36:19 08/12/19 24 08/13/2023 COMP. METAB OLIC PANEL (14) alkaline phosphatase 62 IU/L 44-121 Not Available [facility]) [address] [facility], [place], [address], 08/13/2023 04:36:19 08/12/19 24 08/13/2023 COMP. METAB OLIC PANEL (14) AST (SGOT) 24 IU/L 0-40 Not Available [facility] ([facility]) [address] [facility] [place], [address], 08/13/2023 04:36:19 08/12/19 24 08/13/2023 COMP. METAB OLIC PANEL (14) ALT (SGPT) 19 IU/L 0-32 Not Available [facility] ([facility]) [address] [facility], [place], [address], 08/13/2023 04:36:19 08/12/1908/13/2023 CBC WITH DIFFE RENTI AL/PL ATELE T WBC 4.8 x10e3 /uL 3.4-10 .8 Not Available [facility] ([facility]) [address] [facility], [place], [address], 08/13/2023 04:36:19 08/12/19 24 08/13/2023 CBC WITH DIFFE RENTI AL/PL ATELE T RBC 4.43 x10e6 /uL 3.77-5 .28 Not Available [facility] ([facility]) [address] [facility], [place], [address], 08/13/2023 04:36:19 08/12/19 24 08/13/2023 CBC WITH DIFFE RENTI AL/PL ATELE T hemoglobin 14.2 g/dL 11.1-1 5.9 Not Available [facility] ([facility]) [address] [facility] [place], [address], 08/13/2023 04:36:19 08/12/1908/13/2023 CBC WITH DIFFE RENTI AL/PL ATELE T hematocrit 42.6 % 34.0-4 6.6 Not Available [facility] ([facility]) [address] [facility] [place], [address], 08/13/2023 04:36:19 08/12/19 24 08/13/2023 CBC WITH DIFFE RENTI AL/PL ATELE T MCV 96 fL 79-97 Not Available [facility] ([facility]) [address] [facility], [place], [address], 08/13/2023 04:36:19 08/12/19 24 08/13/2023 CBC WITH DIFFE RENTI AL/PL ATELE T MCH 32.1 pg 26.6-3 3.0 Not Available [facility] ([facility]) [address] [facility], [place], [address], 08/13/2023 04:36:19 08/12/19 24 08/13/2023 CBC WITH DIFFE RENTI AL/PL ATELE T MCHC 33.3 g/dL 31.5-3 5.7 Not Available [facility] ([facility]) [address] [facility], [place], [address], 08/13/2023 04:36:19 08/12/19 24 08/13/2023 CBC WITH DIFFE RENTI AL/PL ATELE T RDW 12.5 % 11.7-1 5.4 Not Available [facility] ([facility]) [address] [facility], [place], [address], 08/13/2023 04:36:19 08/12/19 24 08/13/2023 CBC WITH DIFFE RENTI AL/PL ATELE T platelets 192 x10e3 /uL 150-45 0 Not Available [facility] ([facility]) [address] [facility], [place], [address], 08/13/2023 04:36:19 08/12/19 24 08/13/2023 CBC WITH DIFFE RENTI AL/PL ATELE T neutrophils 73 % notest ab. Not Available [facility] ([facility]) [address] [facility], [place], [address], 08/13/2023 04:36:19 08/12/19 24 08/13/2023 CBC WITH DIFFE RENTI AL/PL ATELE T lymphs 13 % notest ab. Not Available [facility] ([facility]) [address] [facility], [place], [address], 08/13/2023 04:36:19 08/12/19 24 08/13/2023 CBC WITH DIFFE RENTI AL/PL ATELE T monocytes 12 % notest ab. Not Available [facility] ([facility]) [address] [facility], [place], [address], 08/13/2023 04:36:19 08/12/19 24 08/13/2023 CBC WITH DIFFE RENTI AL/PL ATELE T eos 1 % notest ab. Not Available [facility] ([facility]) [address] [facility], [place], [address], 08/13/2023 04:36:19 08/12/19 24 08/13/2023 CBC WITH DIFFE RENTI AL/PL ATELE T basos 1 % notest ab. Not Available [facility] ([facility]) [address] [place], [address], 08/13/2023 04:36:19 08/12/19 24 08/13/2023 CBC WITH DIFFE RENTI AL/PL ATELE T neutrophils (absolute) 3.5 x10e3 /uL 1.4-7. 0 Not Available [facility] ([facility]) [address] [place], [address], 08/13/2023 04:36:19 08/12/19 24 08/13/2023 CBC WITH DIFFE RENTI AL/PL ATELE T lymphs (absolute) 0.6 x10e3 /uL 0.7-3. 1 below low normal Not Available [facility] ([facility]) [address] [place], [address], 08/13/2023 04:36:19 08/12/19 24 08/13/2023 CBC WITH DIFFE RENTI AL/PL ATELE T monocytes(ab solute) 0.6 x10e3 /uL 0.1-0. 9 Not Available [facility] ([facility]) [address] [facility], [place], [address], 08/13/2023 04:36:19 08/12/19 24 08/13/2023 CBC WITH DIFFE RENTI AL/PL ATELE T eos (absolute) 0.1 x10e3 /uL 0.0-0. 4 Not Available [facility] ([facility]) [address] [facility], [place], [address], 08/13/2023 04:36:19 08/12/19 24 08/13/2023 CBC WITH DIFFE RENTI AL/PL ATELE T baso (absolute) 0.0 x10e3 /uL 0.0-0. 2 Not Available [facility] ([facility]) [address] [facility], [place], [address], 08/13/2023 04:36:19 08/12/19 24 08/13/2023 CBC WITH DIFFE RENTI AL/PL ATELE T immature granulocytes 0 % notest ab. Not Available [facility] ([facility]) [address] [facility], [place], [address], 08/13/2023 04:36:19 08/12/19 24 08/13/2023 CBC WITH DIFFE RENTI AL/PL ATELE T immature grans (abs) 0.0 x10e3 /uL 0.0-0. 1 Not Available [facility] ([facility]) [address] [facility], [place], [address], 08/13/2023 04:36:19 02/13/20 24 02/14/2024 LIPID PANEL cholesterol, total 157 mg/dL 100-19 9 Not Available [facility] ([facility]) [address] [facility], [place], [address], 02/14/2024 11:13:46 02/13/20 24 02/14/2024 LIPID PANEL triglyceride s 57 mg/dL 0-149 Not Available [facility]) [address] [place], [address], 02/14/2024 11:13:46 02/13/20 24 02/14/2024 LIPID PANEL HDL cholesterol 69 mg/dL >39 Not Available [facility]) [address] [place], [address], 02/14/2024 11:13:46 02/13/20 24 02/14/2024 LIPID PANEL VLDL cholesterol salma 12 mg/dL 5-40 Not Available [facility] ([facility]) [address] [place], [address], 02/14/2024 11:13:46 02/13/20 24 02/14/2024 LIPID PANEL LDL chol calc ([facility]) 76 mg/dL 0-99 Not Available [facility]) [address] [place], [address], 02/14/2024 11:13:46 02/13/20 24 02/14/2024 COMP. METAB OLIC PANEL (14) glucose 91 mg/dL 70-99 Not Available [facility] ([facility]) [address] [place], [address], 02/14/2024 11:13:48 02/13/20 24 02/14/2024 COMP. METAB OLIC PANEL (14) BUN 16 mg/dL 8-27 Not Available [facility] ([facility]) [address] [place], [address], 02/14/2024 11:13:48 02/13/20 24 02/14/2024 COMP. METAB OLIC PANEL (14) creatinine 0.67 mg/dL 0.57-1 .00 Not Available [facility] ([facility]) [address] [place], [address], 02/14/2024 11:13:48 02/13/20 02/14/2024 COMP. METAB OLIC PANEL (14) eGFR 88 mL/mi n/1.7 3 >59 Not Available [facility] ([facility]) [address] [facility], [place], [address], 02/14/2024 11:13:48 02/13/20 24 02/14/2024 COMP. METAB OLIC PANEL (14) BUN/creatini ne ratio 24 12-28 Not Available [facility]) [address] [facility], [place], [address], 02/14/2024 11:13:48 02/13/20 24 02/14/2024 COMP. METAB OLIC PANEL (14) sodium 136 mmol/ L 134-14 4 Not Available [facility] ([facility]) [address] [facility], [place], [address], 02/14/2024 11:13:48 02/13/20 24 02/14/2024 COMP. METAB OLIC PANEL (14) potassium 4.0 mmol/ L 3.5-5. 2 Not Available [facility] ([facility]) [address] [facility], [place], [address], 02/14/2024 11:13:48 02/13/20 24 02/14/2024 COMP. METAB OLIC PANEL (14) chloride 102 mmol/ L 96-106 Not Available [facility] ([facility]) [address] [facility], [place], [address], 02/14/2024 11:13:48 02/13/20 24 02/14/2024 COMP. METAB OLIC PANEL (14) carbon dioxide, total 23 mmol/ L 20-29 Not Available [facility] ([facility]) [address] [facility], [place], [address], 02/14/2024 11:13:48 02/13/20 24 02/14/2024 COMP. METAB OLIC PANEL (14) calcium 9.6 mg/dL 8.7-10 .3 Not Available [facility] ([facility]) [address] [facility], [place], [address], 02/14/2024 11:13:48 02/13/20 24 02/14/2024 COMP. METAB OLIC PANEL (14) protein, total 6.3 g/dL 6.0-8. 5 Not Available [facility] ([facility]) [address] [facility] [place], [address], 02/14/2024 11:13:48 02/13/20 24 02/14/2024 COMP. METAB OLIC PANEL (14) albumin 4.3 g/dL 3.8-4. 8 Not Available [facility] ([facility]) [address] [facility] [place], [address], 02/14/2024 11:13:48 02/13/20 24 02/14/2024 COMP. METAB OLIC PANEL (14) globulin, total 2.0 g/dL 1.5-4. 5 Not Available [facility] ([facility]) [address] [facility] [place], [address], 02/14/2024 11:13:48 02/13/20 24 02/14/2024 COMP. METAB OLIC PANEL (14) bilirubin, total 0.4 mg/dL 0.0-1. 2 Not Available [facility] ([facility]) [address] [facility], [place], [address], 02/14/2024 11:13:48 02/13/20 24 02/14/2024 COMP. METAB OLIC PANEL (14) alkaline phosphatase 66 IU/L 44-121 Not Available [facility] [address] [facility] [place], [address], 02/14/2024 11:13:48 02/13/20 24 02/14/2024 COMP. METAB OLIC PANEL (14) AST (SGOT) 23 IU/L 0-40 Not Available [facility] ([facility]) [address] [facility], [place], [address], 02/14/2024 11:13:48 02/13/20 24 02/14/2024 COMP. METAB OLIC PANEL (14) ALT (SGPT) 19 IU/L 0-32 Not Available [facility] ([facility]) [address] [facility], [place], [address], 02/14/2024 11:13:48 02/13/20 24 02/13/2024 ABN OPTIO [...] vangie follo w-up. Not Available [facility] [address], [address], 02/14/2024 11:13:49 02/13/20 24 02/14/2024 CBC WITH DIFFE RENTI AL/PL ATELE T WBC 3.9 x10e3 /uL 3.4-10 .8 Not Available [facility] ([facility]) [address] [facility], [place], [address], 02/14/2024 11:13:50 02/13/20 24 02/14/2024 CBC WITH DIFFE RENTI AL/PL ATELE T RBC 4.25 x10e6 /uL 3.77-5 .28 Not Available [facility] ([facility]) [address] [place], [address], 02/14/2024 11:13:50 02/13/20 24 02/14/2024 CBC WITH DIFFE RENTI AL/PL ATELE T hemoglobin 13.5 g/dL 11.1-1 5.9 Not Available [facility] ([facility]) [address] [facility], [place], [address], 02/14/2024 11:13:50 02/13/20 24 02/14/2024 CBC WITH DIFFE RENTI AL/PL ATELE T hematocrit 40.8 % 34.0-4 6.6 Not Available [facility] ([facility]) [address] [facility], [place], [address], 02/14/2024 11:13:50 02/13/20 24 02/14/2024 CBC WITH DIFFE RENTI AL/PL ATELE T MCV 96 fL 79-97 Not Available [facility] ([facility]) [address] [place], [address], 02/14/2024 11:13:50 02/13/20 24 02/14/2024 CBC WITH DIFFE RENTI AL/PL ATELE T MCH 31.8 pg 26.6-3 3.0 Not Available [facility] ([facility]) [address] [facility], [place], [address], 02/14/2024 11:13:50 02/13/20 24 02/14/2024 CBC WITH DIFFE RENTI AL/PL ATELE T MCHC 33.1 g/dL 31.5-3 5.7 Not Available [facility] ([facility]) [address] [place], [address], 02/14/2024 11:13:50 02/13/20 24 02/14/2024 CBC WITH DIFFE RENTI AL/PL ATELE T RDW 12.8 % 11.7-1 5.4 Not Available [facility] ([facility]) [address] [place], [address], 02/14/2024 11:13:50 02/13/20 24 02/14/2024 CBC WITH DIFFE RENTI AL/PL ATELE T platelets 188 x10e3 /uL 150-45 0 Not Available [facility] ([facility]) [address] [place], [address], 02/14/2024 11:13:50 02/13/20 24 02/14/2024 CBC WITH DIFFE RENTI AL/PL ATELE T neutrophils 61 % notest ab. Not Available [facility] ([facility]) [address] [facility], [place], [address], 02/14/2024 11:13:50 02/13/20 24 02/14/2024 CBC WITH DIFFE RENTI AL/PL ATELE T lymphs 22 % notest ab. Not Available [facility] ([facility]) [address] [facility], [place], [address], 02/14/2024 11:13:50 02/13/20 24 02/14/2024 CBC WITH DIFFE RENTI AL/PL ATELE T monocytes 14 % notest ab. Not Available [facility] ([facility]) [address] [facility], [place], [address], 02/14/2024 11:13:50 02/13/20 24 02/14/2024 CBC WITH DIFFE RENTI AL/PL ATELE T eos 2 % notest ab. Not Available [facility] ([facility]) [address] [facility], [place], [address], 02/14/2024 11:13:50 02/13/20 24 02/14/2024 CBC WITH DIFFE RENTI AL/PL ATELE T basos 1 % notest ab. Not Available [facility] ([facility]) [address] [facility], [place], [address], 02/14/2024 11:13:50 02/13/20 24 02/14/2024 CBC WITH DIFFE RENTI AL/PL ATELE T neutrophils (absolute) 2.4 x10e3 /uL 1.4-7. 0 Not Available [facility] ([facility]) [address] [facility], [place], [address], 02/14/2024 11:13:50 02/13/20 24 02/14/2024 CBC WITH DIFFE RENTI AL/PL ATELE T lymphs (absolute) 0.9 x10e3 /uL 0.7-3. 1 Not Available [facility] ([facility]) [address] [place], [address], 02/14/2024 11:13:50 02/13/20 24 02/14/2024 CBC WITH DIFFE RENTI AL/PL ATELE T monocytes(ab solute) 0.5 x10e3 /uL 0.1-0. 9 Not Available [facility] ([facility]) [address] [place], [address], 02/14/2024 11:13:50 02/13/20 24 02/14/2024 CBC WITH DIFFE RENTI AL/PL ATELE T eos (absolute) 0.1 x10e3 /uL 0.0-0. 4 Not Available [facility] ([facility]) [address] [place], [address], 02/14/2024 11:13:50 02/13/20 24 02/14/2024 CBC WITH DIFFE RENTI AL/PL ATELE T baso (absolute) 0.0 x10e3 /uL 0.0-0. 2 Not Available [facility] ([facility]) [address] [place], [address], 02/14/2024 11:13:50 02/13/20 24 02/14/2024 CBC WITH DIFFE RENTI AL/PL ATELE T immature granulocytes 0 % notest ab. Not Available [facility] ([facility]) [address] [place], [address], 02/14/2024 11:13:50 02/13/20 24 02/14/2024 CBC WITH DIFFE RENTI AL/PL ATELE T immature grans (abs) 0.0 x10e3 /uL 0.0-0. 1 Not Available [facility] ([facility]) [address] [facility] [place], [address], 02/14/2024 11:13:50 10/10/1910/10/2023 MAMMO , scree teresa, digit al, bilat eral No observ ation record ed. [address] [facility], [place], [address], 10/14/2023 13:49:01 10/10/19 24 10/10/2023 bone densi ty No observ ation record ed. [address] [address], [place], [address], 10/14/2023 13:49:53 04/27/19 25 04/27/2024 CT, thora cic spine , w/o contr ast No observ ation record ed. [address] [address], [place], [address], 05/04/2024 09:08:10 05/04/19 CT, lumba r spine , w/o contr ast No observ ation record ed. [address] [address], [place], [address], 05/04/2024 09:08:10 Result Notes None recorded. Problems Name Problem SNOMED Code Status Onset Date Resolution Date Notes Provider Name and Address Organization Details Recorded Time Hyperlipidemia 67315898 Active 2023 Lynodn Redman [place] null, [place] [facility] 4 10:16:14 Chronic rhinitis 19549203 Active 2023 Lyndon Redman [place], [place] [facility] 4 10:16:15 Anxiety 54844331 Active 2023 Lyndon Redman [place], [place] [facility] 4 10:16:16 Essential hypertension 33392782 Active 2023 Jaden Rios MD Attn: Brian phoenix,[address] [facility] [address] [address], [place], [address] [facility] [place] - [facility] 4 15:51:39 Long-term drug therapy Active 2023 Jaden Rios MD Attn: Brian phoenix,[address], [place], [address], [facility] - SI 15:51:40 Problem Notes None recorded. Procedures Surgical History Date Name Laterality Status Provider Name and Address Organization Details Recorded Time 11/16/19 colonoscopy completed Ashely Hernandez LPN [place] - [place] 11/16/2023 16:25:54 Eye Surgery completed Phylicia Hutton [facility] - [place] 01/26/2024 10:31:59 tonsillectomy completed Phylicia Brennen [facility] - [place] 01/26/2024 10:32:37 Total hysterectomy completed Phylicia Hutton [facility] 01/26/2024 10:33:10 Dilation and Curettage completed [facility] Brennen [facility] 01/26/2024 10:33:42 Imaging Results Imaging Date Name Status LastModified by Organiz ation Details LastModified Time 10/10/2023 MAMMO, screening, digital, bilateral completed [address], [address], 10/14/2023 13:49:01 10/10/2023 bone density completed [address], [address], 10/14/2023 13:49:53 04/27/2024 CT, thoracic spine, w/o contrast completed [address], [address], 05/04/2024 09:08:10 05/04/2024 CT, lumbar spine, w/o contrast completed [address], [address], 05/04/2024 09:08:10 Procedure Notes None recorded. Medical Equipment None Reported. Medications Name Sig Start Date Stop Date Status Note LastModified by Organization Details LastModified Time status covid-19/fl u a-b antigen tst TEST DIRECTED TODAY active Not Available Not Available No t Available oxybutynin chloride ER 10 mg tablet,exte nded release 24 hr Take 1 tablet by mouth once daily 2024 active Not Available Not Available Not Avai lable hydrocodone 5 mg-acetamin ophen 325 mg tablet Take 1 tablet every 4 hours by oral route as needed, for pain. 2024 active Not Available Not Available Not Avai lable amlodipine 5 mg tablet TAKE 1 TABLET [...] No t Available simvastatin 20 mg tablet TAKE 1 TABLET BY MOUTH ONCE DAILY active Not Available Not Available No t Available neomycin-po lymyxin-dex ameth 3.5 mg/mL-10,00 0 unit/mL-0.1 % eye drops INSTILL 1 DROP INTO LEFT EYE 4 TIMES DAILY active Not Available Not Available No t Available fluoxetine 10 mg capsule TAKE 1 CAPSULE BY MOUTH ONCE DAILY active Not Available Not Available No t Available hydrochloro thiazide 25 mg tablet TAKE 1 TABLET BY MOUTH ONCE DAILY active Not Available Not Available No t Available fluticasone propionate 50 mcg/actuati on nasal spray,suspe nsion USE 2 SPRAY(S) IN EACH NOSTRIL ONCE DAILY active Not Available Not Available No t Available amoxicillin 500 mg-potassiu m clavulanate 125 mg tablet TAKE 1 TABLET BY MOUTH EVERY 12 HOURS 05/07 completed Not Available Not Available Not Available tobramycin 0.3 %-dexametha sone 0.1 % eye drops,suspe nsion INSTILL 1 DROP INTO EACH EYE 4 TIMES DAILY FOR 3 DAYS 07/27 completed Not Available Not Available Not Available cyclobenzap rine 5 mg tablet TAKE 1 TABLET BY MOUTH THREE TIMES DAILY NEEDED FOR PAIN active Not Available Not Available No t Available cyclosporin e 0.05 % eye drops in a dropperette INSTILL 1 DROP INTO EACH EYE TWICE DAILY active Not Available Not Available No t Available nitrofurant oin monohydrate /macrocryst als 100 mg capsule TAKE 1 CAPSULE BY MOUTH TWICE DAILY FOR 5 DAYS 07/27 completed Not Available Not Available Not Available Prolia 60 mg/mL subcutaneou s syringe inject 60mg by subcutane ous route every 6mths 2024 active Not Available Not Available Not Avai juliana Paxlovid 300 mg (150 mg x 2)-100 mg tablets in a dose pack 07/27 completed Not Available Not Available Not Available Vitals Date Recorded Body height Body mass index (BMI) Body weight Heart rate Body temperature Oxygen saturation Oxygen saturation in Arterial blood by Pulse oximetry Systolic blood pressure Diastolic blood pressure Provider Name and Address Organization Details Last Updated DateTime 4 167.64 cm 24 kg/m2 22222.1 1 g 82 /min 99.3 [degF] 97 % 97 % 124 mm[Hg] 80 mm[Hg] Namrata Noble MA [facility] 4 09:56:04 Date Recorded Body height Body mass index (BMI) Body weight Heart rate Oxygen saturation Oxygen saturation in Arterial blood by Pulse oximetry Systolic blood pressure Diastolic blood pressure Provider Name and Address Organization Details Last Updated DateTime 4 167.64 cm 24.4 kg/m2 75070.2 7 g 70 /min 97 % 97 % 118 mm[Hg] 82 mm[Hg] Phylicia Hutton MA [facility] 4 10:15:20 Date Recorded Body height Heart rate Oxygen saturation Oxygen saturation in Arterial blood by Pulse oximetry Systolic blood pressure Diastolic blood pressure Provider Name and Address Organization Details Last Updated DateTime 5 167.64 cm 73 /min 97 % 97 % 122 mm[Hg] 70 mm[Hg] Jackie Estes MA [facility] 5 10:13:46 Social History Question Answer Notes LastModified by Organizat ion Details LastModified Time Tobacco Smoking Status Former Smoker Namrata Noble MA [facility], [facility] 07/28/2023 09:51:47 Do You Have An Advance Directive? No Information not available 01/26/2024 What Is Your Level Of Alcohol Consumption? Occasional Information not available 07/28/2023 Are You Blind Or Do You Have Difficulty Seeing? Yes No Vision In Right Eye Information not available 07/28/2023 What Is Your Level Of Caffeine Consumption? None Information not available 05/07/2024 In The 14 Days Before Symptom Onset, [...] Date Of Your Most Recent Tobacco Screening? 05/07/2024 Information not available 05/07/2024 What Is Your Relationship Status? Information not [...] Anxious, Or Unable To Sleep At Night)? [id number] Information not available 07/28/2023 Do You Use Any Illicit Or Recreational Drugs? No Information not available 05/07/2024 Do You Use Sunscreen Routinely? No Information not available 01/26/2024 Has Tobacco Cessation Counseling Been Provided? No Information not available 05/07/2024 How Many Years Have You Smoked Tobacco? 12 Information not available 07/28/2023 Do You Or Have You Ever Used Any Other Forms Of Tobacco Or Nicotine? No Information not available 05/07/2024 Sex: Female Functional Status Question Answer Note [...] in the last 1 0 years? Y Acid Reflux (GERD) Y High Cholesterol Y Osteoporosis Y Gynecological History Statement/Question Response [...] 01/25/2024 17:52:46 Influenza, adjuvanted, quadrivalent, PF 1 completed Lyndon Redman [place] null, [place] - [facility] 01/25/2024 17:52:46 Influenza, adjuvanted, quadrivalent, PF 3 completed Lyndon Redman [place], [place] [...] [facility] 01/25/2024 17:52:46 Influenza, adjuvanted, trivalent, PF 4 completed SANTANA [place] [facility] 05/07/2024 10:08:21 COVID-19, mRNA, LNP-S, PF, magali-sucrose, 30 mcg/0.3 mL 4 completed SANTANA [place], [place] - [facility] 05/07/2024 10:08:46 Past Encounters Encounter ID Performer Location Encounter Start Date Encounter Closed Date Diagnosis/Indication Diagnosis SNOMED-CT Code Diagnosis ICD10 Code Diagnosis Note [id number] Jaden Rios MD [facility] [place] [address] [place] [address] 07/28/2023 09:41:45 07/28/2023 10:21:18 Chronic rhinitis 52792248 J31.0 Hyperlipidemia 41904565 E78.5 Anxiety 06515307 F41.9 Long-term drug therapy 792391688 Z79.899 Essential hypertension 78187303 I10 [id number] Jaden Rios MD [facility] [employer] [facility] [place] [address] [place] [address] 01/26/2024 10:04:53 01/26/2024 11:17:38 Essential hypertension 03204197 I10 Long-term drug therapy 482022357 Z79.899 Renewal of prescription 197008594 Z76.0 Chronic rhinitis 4382759 6 J31.0 Hyperlipidemia 53450687 E78.5 [id number] Jaden Rios MD [facility] [employer] [facility] [place] [address] [place] [address] 05/07/2024 09:39:51 05/07/2024 10:53:41 Closed fracture thoracic vertebra 341440795 S22.009A Anxiety 78006206 F41.9 Chronic rhinitis 6876221 6 J31.0 Essential hypertension 27211630 I10 Hyperlipidemia 39479635 E78.5 Health Concerns Section Related Observation LastModified by Organization Detai ls LastModified Time None Recorded Concern Status LastModified by Organization Details LastModified Time None Recorded Advance Directives Directive N: Payers Encounter Date Sequence Insurance Name Policy Number Policy Lozano Covered Member ID Lozano Member ID Guarantor Name 07/28/2023 1 [place] Olivia Mo [id number] Olivia Chepe 01/26/2024 [place] - [place]QHC Olivia Mo [id number] Olivia Chepe 05/07/2024 1 [place] Mo [id number] Olivia Chepe 05/07/2024 2 [place] [id number] Olivia Mo [id number] Olivia Mo Notes Date Note Type Note Provider Name and Address Organization Details Recorded Time 07/28/2023 text/html 78-year-old hist ory of hypertension GERD chronic rhinitis urinary incontinence and hyperlipidemia Jaden Rios MD Attn: Accounting[address] [facility] [facility], [place], [address], [facility] - [place] 07/30/2023 15:52:09 01/26/2024 text/html 78-year-old hist ory of hypertension GERD chronic rhinitis urinary incontinence and hyperlipidemia incontinence hyperlipidemia GERD seem to be pretty stable as does hypertension but the rhinitis is still plaguing her and not controlled Jaden Rios MD Attn: Accounting[address] [facility], [place], [address], [facility] - [place] 02/14/2024 22:08:20 05/07/2024 text/html fell off a step ladder T12 burst fracture still has pain using hydrocodone and Flexeril no bowel or bladder incontinence. Her rhinitis is about the same hypertension stable dyslipidemia taking her simvastatin without any side effects anxiety is doing well Jaden Rios MD Attn: Accounting[address] [facility], [place], [address], [facility] - [place] 05/13/2024 17:00:12 OBGyn Episode No OBEpisode recorded.
--- OUTSIDE RECORDS SUMMARY | 2024-05-15 11:46 | XMS_ITS | Clinical Summary ---
Author Organization [email or web address] Address [address] [place] [address] Care Team Providers Care Mascara Molder Name Role Phone Ney Rios MD Primary Care Provider [phone] Source Comments [email or web address],non-owned Affiliates and Associated Physician Practices is amultiple site organization consisting of ambulatory clinics and hospital sitesin [place], [place], [place] and [place]. This disclosure is being madepursuant to the Care Everywhere program and may not contain all information available regarding this patient. Last updated [email or web address] Allergies No known active allergies Medications * [...] - 1-dose 75+ series) 2018 COVID-19 VACCINE ( - season) 2023 01/30/2021, 06/30/2020, 05/29/2020 INFLUENZA [...] on patient's age to complete this topic Advance Directives * Full Code (Latest Code Status on File) Date Activated Date Inactivated Comments 06/27/2021 11:08 AM 06/28/2021 12:17 PM Care Teams Mascara Molder Relationship Specialty Start Date End Date Ney Rios MD PCP - General 07/16/20
--- OUTSIDE RECORDS SUMMARY | 2024-05-15 11:46 | XMS_ITS | Referral Summary ---
Author Organization [email or web address] Address [address] [place] [address] Care Team Providers Care Teacher Of The Deaf/Hard Of Hearing Name Role Phone Ney Rios MD Primary Care Provider [phone] Source Comments [email or web address],non-owned Affiliates and Associated Physician Practices is amultiple site organization consisting of ambulatory clinics and hospital sitesin [place], [place], [place] and [place]. This disclosure is being madepursuant to the Care Everywhere program and may not contain all information available regarding this patient. Last updated [email or web address] Allergies No known active allergies Medications * [...] CDT Plan of Treatment Not on file Advance Directives * Full Code (Latest Code Status on File) Date Activated Date Inactivated Comments 06/27/2021 11:08 AM 06/28/2021 12:17 PM Care Teams Teacher Of The Deaf/Hard Of Hearing Relationship Specialty Start Date End Date Ney Rios MD PCP - General 07/16/20
--- OUTSIDE RECORDS SUMMARY | 2024-05-15 11:46 | XMS_ITS | Encounter Summary ---
Author Organization [facility] Address [address] [place] [address] Care Team Providers Care Tool Specialist Name Role Phone Ney Rios MD Primary Care Provider [phone] Encounter Details Date Type Department Care Team (Late st Contact Info) Description 06/27/2021 Ophth Exam [facility] [address] [place] [address] Cuong Salazar IV, DO [address] [place] [address] Social History Tobacco Use Types Packs/Day Years [...] on filedocumented in this encounter Care Teams Tool Specialist Relationship Specialty Start Date End Date Ney Rios MD PCP - General 07/16/20 documented as of this encounter
--- OUTSIDE RECORDS SUMMARY | 2024-05-15 11:46 | XMS_ITS | Data Portability ---
Author Organization [place] - [facility] OFF[facility] Address [address] [place] [address] Care Team Providers Care Special Investigation Unit Investigator Name Role Phone JADEN NARANJO Primary Care [...] amlodipine 5 mg tablet 2018 019 INTERFACE [facility] [address] [place], [address], 9 15:46:06 simvastati n 20 mg tablet 2018 019 INTERFACE [facility] [address] [place], [address], 9 15:46:05 Patient TargetsNo targets recorded. Patient Instructions Encounter Date Encounter Id Patient Instructions Last Modified By Organization Details Last Modified Time 09/28/2018 [id number] chest pain: care instructions Not available 09/28/2018 [...] was seen and evaluated by {{Guillaume Hansen LINKER UP-C*}}. Plan of care was discussed with collaborating physician. Note cosigned by {{Guillaume Marsh MD*}}. Not available 09/28/2018 15:44:28 Reason for Referral None Reported. Results Created Date Observation Date Name Description Value Unit Range Abnormal Flag Note LastModifiedBy Organization Detail LastModifiedTime 09/19/19 19 09/18/2018 NM, myoca rdial perfu dina scan No observ ation record ed. [facility] [address], [place], [address], 09/19/2018 07:57:00 09/22/19 19 09/18/2018 NM, myoca rdial perfu dina scan, w/ stres s No observ ation record ed. [facility] Not Available 2018 04:26:34 09/22/19 19 09/18/2018 myoca rdial perfu dina study w/ eject ion fract ion (PROC ) No observ ation record ed. [facility] Not Available 2018 05:10:11 09/22/19 19 09/18/2018 XR, chest No observ ation record ed. [email or web address] Not Available 2018 17:08:18 09/29/19 19 09/28/2018 raul short am No observ ation record ed. [email or web address] Not Available 2018 11:55:22 10/18/19 19 09/18/2018 alek can cardi olite stres s test (PROC ) No observ ation record ed. [email or web address] Not Available 2018 10:10:41 10/18/1909/18/2018 alek can cardi olite stres s test (PROC ) No observ ation record ed. Not Available 2018 10:11:49 11/15/19 19 11/14/2018 US, echoc ardio gram No observ ation record ed. [facility] [address], [place], [address], 03/12/2019 12:04:37 11/17/19 19 11/14/2018 , echo ardio gram No observ ation record ed. [email or web address] Not Available 11/16 17:04:55 Result Notes None recorded. Problems Name Problem SNOMED Code Status Onset Date Resolution Date Notes Provider Name and Address Organization Details Recorded Time Hyperlipidemia 12916250 Active 2018 Haleusebia Saenz null, [place] - [facility] 9 14:37:28 Anxiety 20981037 Active 2018 Hala Letty [place], [place] - [facility] 9 14:37:35 Transient cerebral ischemia 755406061 Active 2018 Hala Let[place] [facility] 9 14:39:41 Depressive disorder 27032925 Active 2018 Hala Letty null, [place] - [facility] 9 14:39:55 Chest pain 28161416 Active 2018 Hala Letty [place], [place] [facility] 9 14:41:53 Sinus bradycardia 78187964 Active 2018 Hala Letty null, [place] [facility] 9 14:42:22 Family history of coronary arterioscleros is 832527105 Active 2018 Kaylie Hansen null, [place] - [facility] 9 15:40:12 Essential hypertension 44687971 Active 2018 Kaylie Hansen null, [place] - [facility] 9 15:44:56 Problem Notes None recorded. Procedures Surgical History None recorded. Imaging Results Imaging Date Name Status LastModified by Organization Details LastModified Time 09/18/2018 NM, myocardial perfusion scan completed [facility] [address], [place], [address], 09/19/2018 07:57:00 09/18/2018 NM, myocardial perfusion scan, w/ stress completed [facility] Information not available 09/24/2018 04:26:34 09/18/2018 myocardial perfusion study w/ ejection fraction (PROC) completed [email or web address] Information not available 09/24/2018 05:10:11 09/18/2018 XR, chest completed [email or web address] Information no t available 09/25/2018 17:08:18 09/28/2018 electrocardiogram completed [email or web address] Informa tion not available 09/29/2018 11:55:22 09/18/2018 lexiscan cardiolite stress test (PROC) completed Information not available 10/18/2018 10:10:41 09/18/2018 lexiscan cardiolite stress test (PROC) completed [email or web address] Information not available 10/18/2018 10:11:49 11/14/2018 US, echocardiogram completed [facility] [place] [facility] [address], [place], [address], 03/12/2019 12:04:37 11/14/2018 US, echocardiogram completed [email or web address] [...] 09/23/2018 2193 RxNorm Jose Ja Lettykarlene goins, [place] - [facility] 9 14:38:20 8382 Product containin g gadoliniu m and/or gadoliniu m compound (product) medicatio n Not available Not available Not available 09/23/2018 68678 3008 SNOMED Hala Lettykarlene goins, [place] - [facility] 9 14:38:32 8383 [...] Address Organization Details Last Updated DateTime 09/28/2018 60050.3 g 72 /min 98 % 98 % Carisa Bird [facility] 09/28/2018 15:23:30 Date Recorded Systolic blood pressure Diastolic blood pressure Provider Name and Address Organization Details Last Updated DateTime 09/28/2018 120 mm[Hg] 82 mm[Hg] Kaylie Hanesn [facility] 09/28/2018 15:48:35 Social History Question Answer Notes LastModified by Organizat ion Details LastModified Time Tobacco Smoking Status Former Smoker quit 1 year ago Not Available [facility] 02/12/2020 03:30:41 What Is Your Level Of Alcohol Consumption? Occasional [id number] Information not available 02/12/2020 Which Illicit Or Recreational Drugs Have You Used? Caesar [id number] Information not available 02/12/2020 What Was The Date Of Your Most Recent Tobacco Screening? 09/24/2018 [id number] Information not available 02/12/2020 How Much Tobacco Do You Smoke? 1 PPD [id number] Information not available 02/12/2020 Sex: Unknown Functional [...] SNOMED-CT Code Diagnosis ICD10 Code Diagnosis Note [id number] MD Julianne [place] Office [address] [address] 09/28/2018 14:38:32 09/28/2018 15:52:07 Family history of coronary arteriosclerosis 945647237 Z82.49 Mother had CAD requiring CABG around 80 years old. She has had no recurrence of CP and wishes to only persue medial therapy at this time with considerat ion of outpatient CTA. Transient cerebral ischemia 162178957 G45.9 in 2014. Needs tight BP and LDL control. Hyperlipidemia 73718180 E78.5 Needs to keep LDL less than 70, and HDL more than 40 She is now taking her statin QD vs QOD F/u FLP prior to next visit. Sinus bradycardia 855868 05 R00.1 Resolved while off Propranolo l Anxiety 23238737 F41.9 Chest pain 49083636 R07. 9 She underwent a TMNST on 09/18/18 at [facility] revealing a SMALL, MILD ischemia of the [...] with risk factor modificati on Essential hypertension 94315693 I10 Well controlled . Health Concerns Section Related Observation LastModified by Organization Detai ls LastModified Time None Recorded Concern Status LastModified by Organization Details LastModified Time None Recorded Advance Directives Directive None Recorded Payers Encounter Date Sequence Insurance Name Policy Number Policy Lozano Covered Member ID Lozano Member ID Guarantor Name 09/28/2018 1 [place] Olivia Mo [id number] Olivia Mo 09/28/2018 2 [facility] Olivia Mo [id number] Olivia Mo Notes Date Note Type Note Provider Name and Address Organization Details Recorded Time 09/28/2018 text/html 09/28/18 CC: Chest pain Bet[place] is a 73 year-old white female with a PMH of hypertension, hyperlipidemia, TIA (2014), anxiety, depression presents today for hospital follow-up with a chief complaint of chest pain. Patient presented to [facility] on 09/18/18 with complaints of intermittent, centralized [...] had a LHC. No known CAD, prior NM, valvular heart disease, arrhythmia, CVA, or diabetes [...] capacity. Nuclear images pending. Buddy Marsh MD [address] [place], [address], [facility] - [facility] 11/04/2018 20:53:39 OBGyn Episode No OBEpisode recorded.
--- OUTSIDE RECORDS SUMMARY | 2024-05-15 11:47 | XMS_ITS | Data Portability ---
Author Organization [place] [facility], Main Office Address [address] [place] [address] Care Team Providers Care Pear Picker Name Role Phone JADEN RIOS Primary Care Provider [phone] JADEN RIOS Referring Provider Assessment Encounter Date Assessment Date Assessment LastModified by Organization Details LastModified Time 06/10/2022 06/10/[address] sinus Blood work Continue current therapy Follow-up 4 months [email or web address] Not available 07/18/2022 16:57:14 12/16/2022 12/16/2022 Will continue current therapy follow-up in 6 months Not available 01/02/2023 22:34:59 Plan of Treatment [...] 09:45:54 CT, chest, w/o contrast 2022 023 [email or web address] Not available 3 14:26:21 Medication Orders None recorded. Patient TargetsNo targets recorded. Patient InstructionsNo instructions recorded. Reason for Referral None Reported. Results Created Date Observation Date Name Description Value Unit Range Abnormal Flag Note LastModifiedBy Organization Detail LastModifiedTime 12/24/19 21 12/23/2020 FOLAT E, SERUM /PLAS MA folate 7.47 NG/mL 2.76- Not Available [facility] (Lab) [address] [place], [address], 12/23/2020 15:29:22 12/24/19 21 12/23/2020 VITAM IN B12 (ESTHER EDWIN ) vb12 295 pg/mL 239-93 1 Not Available [facility] (Lab) [address] [place], [address], 12/23/2020 15:29:21 12/24/19 21 12/23/2020 SYDNEY TIN ferritin 33 NG/mL 11.1-2 64 Not Available [facility] (Lab) [address] [place], [address], 12/23/2020 14:54:22 12/24/1912/23/2020 TSH thyroid-stim ulating hormone 2.940 uIU/m L 0.465- 4.680 Not Available [facility] (Lab) [address] [place], [address], 12/23/2020 14:44:47 12/24/1912/23/2020 T3 FREE free T3 3.5 pg/mL 2.77-5 .27 Not Available [facility] (Lab) [address] [place], [address], 12/23/2020 14:43:39 12/24/1912/23/2020 T4 FREE free T4 1.23 NG/dL 0.78-2 .19 Not Available [facility] (Lab) [address] [place], [address], 12/23/2020 14:43:37 12/24/19 21 12/23/2020 COMPR EHENS JUANITA METAB OLIC PANEL chloride 105 mmol/ L 98-107 Not Available [facility] (Lab) [address] [place], [address], 12/23/2020 14:43:17 12/24/19 21 12/23/2020 COMPR EHENS JUANITA METAB OLIC PANEL sodium 137 mmol/ L 137-14 5 Not Available [facility] (Lab) [address] [place], [address], 12/23/2020 14:43:17 12/24/19 21 12/23/2020 COMPR EHENS JUANITA METAB OLIC PANEL potassium 4.2 mmol/ L 3.5-5. 1 Not Available [facility] (Lab) [address] [place], [address], 12/23/2020 14:43:17 12/24/19 21 12/23/2020 COMPR EHENS JUANITA METAB OLIC PANEL carbon dioxide 27 mmol/ L 22-30 Not Available [facility] (Lab) [address] [place], [address], 12/23/2020 14:43:17 12/24/19 21 12/23/2020 COMPR EHENS JUANITA METAB OLIC PANEL agap 9.2 mmol/ L 14-22 low Not Available [facility] (Lab) [address] [place], [address], 12/23/2020 14:43:17 12/24/19 21 12/23/2020 COMPR EHENS JUANITA METAB OLIC PANEL glucose 87 mg/dL 70-99 Not Available [facility] (Lab) [address] [place], [address], 12/23/2020 14:43:17 12/24/19 21 12/23/2020 COMPR EHENS JUANITA METAB OLIC PANEL BUN 16 mg/dL 8-19 Not Available [facility] (Lab) [address] [place], [address], 12/23/2020 14:43:17 12/24/19 21 12/23/2020 COMPR EHENS JUANITA METAB OLIC PANEL creatinine 0.58 mg/dL 0.66-1 .25 low Not Available [facility] (Lab) [address] [place], [address], 12/23/2020 14:43:17 12/24/19 21 12/23/2020 COMPR EHENS JUANITA METAB OLIC PANEL GFR >60 Refer ence Range : [place] GFR Healt hy Adult : >60 [...] lator can be locat ed on the [facility] websi te: [email or web address] :[email or web address] qi/gf r_cal culat or Not Available [facility] (Lab) [address] [place], [address], 12/23/2020 14:43:17 12/24/19 21 12/23/2020 COMPR EHENS JUANITA METAB OLIC PANEL alkaline phosphatase 47 U/L 38-126 Not Available [facility] (Lab) [address] [place], [address], 12/23/2020 14:43:17 12/24/19 21 12/23/2020 COMPR EHENS JUANITA METAB OLIC PANEL alanine aminotransfe rase 17 U/L 0-35 Not Available [facility] (Lab) [address] [place], [address], 12/23/2020 14:43:17 12/24/19 21 12/23/2020 COMPR EHENS JUANITA METAB OLIC PANEL aspartate aminotransfe rase 28 U/L 15-37 Not Available [facility] (Lab) [address] [place], [address], 12/23/2020 14:43:17 12/24/19 21 12/23/2020 COMPR EHENS JUANITA METAB OLIC PANEL bilirubin, total 0.50 mg/dL 0.20-1 .30 Not Available [facility] (Lab) [address] [place], [address], 12/23/2020 14:43:17 12/24/19 21 12/23/2020 COMPR EHENS JUANITA METAB OLIC PANEL calcium 9.7 mg/dL 8.4-10 .2 Not Available [facility] (Lab) [address] [place], [address], 12/23/2020 14:43:17 12/24/19 21 12/23/2020 COMPR EHENS JUANITA METAB OLIC PANEL total protein 6.3 g/dL 6.3-8. 2 Not Available [facility] (Lab) [address] [place], [address], 12/23/2020 14:43:17 12/24/19 21 12/23/2020 COMPR EHENS JUANITA METAB OLIC PANEL albumin 4.1 g/dL 3.0-4. 4 Not Available [facility] (Lab) [address] [place], [address], 12/23/2020 14:43:17 12/24/19 21 12/23/2020 COMPR EHENS JUANITA METAB OLIC PANEL globulin 2.2 g/dL 2.6-4. 2 low Not Available [facility] (Lab) [address] [place], [address], 12/23/2020 14:43:17 12/24/19 21 12/23/2020 COMPR EHENS JUANITA METAB OLIC PANEL A/G ratio 1.9 ratio 1.0-2. 0 Not Available [facility] (Lab) [address] [place], [address], 12/23/2020 14:43:17 12/24/19 21 12/23/2020 LIPID PANEL cholesterol 161 mg/dL 140-19 9 NIH GAYATHRI NSUS RECOM MENDA TION FOR MED STERO L: ADULT CHILD LOW RISK: <200 <170 BORDE RLINE : <200- 239 ----- HIGH RISK: >240 >200 Not Available [facility] (Lab) [address] [place], [address], 12/23/2020 14:43:11 12/24/1912/23/2020 LIPID PANEL triglyceride s 57 mg/dL 0-150 NIH GAYATHRI NSUS REPOR T RECOM MENDA TION FOR TRIGL YCERI ASH: ADULT CHILD LOW RISK: <150 ----- BODER LINE: 150-1 99 ----- HIGH RISK: >200 ----- Not Available [facility] (Lab) [address] [place], [address], 12/23/2020 14:43:11 12/24/19 21 12/23/2020 LIPID PANEL HDL cholesterol 74 mg/dL 40- Not Available [facility] (Lab) [address] [place], [address], 12/23/2020 14:43:11 12/24/19 21 12/23/2020 LIPID PANEL [...] WILL NOT BE REPOR TO. Not Available [facility] (Lab) [address] [place], [address], 12/23/2020 14:43:11 12/24/19 21 12/23/2020 VITAM IN D 25-HY DROXY vd25oh 42.4 NG/mL 30-100 Vitam in D Statu s: Defic ient: <20 ng/mL Insuf ficie nt: 20-29 ng/mL Suffi cient : 30-10 0 ng/mL Not Available [facility] (Lab) [address] [place], [address], 12/23/2020 14:43:05 12/24/19 21 12/23/2020 IRON/ TIBC PANEL iron 87 mcg/d L 42-175 Not Available [facility] (Lab) [address] [place], [address], 12/23/2020 14:23:24 12/24/19 21 12/23/2020 IRON/ TIBC PANEL total iron binding capacity 263 mcg/d L 265-47 5 low Not Available [facility] (Lab) [address] [place], [address], 12/23/2020 14:23:24 12/24/19 21 12/23/2020 IRON/ TIBC PANEL % transferrin saturation 33 % 20-55 Not Available [facility] (Lab) [address] [place], [address], 12/23/2020 14:23:24 12/24/19 21 12/23/2020 IRON/ TIBC PANEL unsaturated iron bind capacity 176 mcg/d L 126-38 2 Not Available [facility] (Lab) [address] [place], [address], 12/23/2020 14:23:24 12/24/19 21 12/23/2020 CBC/C OMPLE TE BLD COUNT W/DIF F platelets 186 x10'3 /uL 150-40 0 Not Available [facility] (Lab) [address] [place], [address], 12/23/2020 13:56:15 12/24/19 21 12/23/2020 CBC/C OMPLE TE BLD COUNT W/DIF F white blood cells 4.3 x10'3 /uL 4.2-10 .8 Not Available [facility] (Lab) [address] [place], [address], 12/23/2020 13:56:15 12/24/19 21 12/23/2020 CBC/C OMPLE TE BLD COUNT W/DIF F red blood cells 4.23 x10'6 /uL 3.80-5 .20 Not Available [facility] (Lab) [address] [place], [address], 12/23/2020 13:56:15 12/24/19 21 12/23/2020 CBC/C OMPLE TE BLD COUNT W/DIF F hemoglobin 13.5 g/dL 12.0-1 5.6 Not Available [facility] (Lab) [address] [place], [address], 12/23/2020 13:56:15 12/24/19 21 12/23/2020 CBC/C OMPLE TE BLD COUNT W/DIF F hematocrit 40.7 % 35.7-4 5.7 Not Available [facility] (Lab) [address] [place], [address], 12/23/2020 13:56:15 12/24/19 21 12/23/2020 CBC/C OMPLE TE BLD COUNT W/DIF F mean red cell volume 96.2 fL 82.0-9 9.0 Not Available [facility] (Lab) [address] [place], [address], 12/23/2020 13:56:15 12/24/19 21 12/23/2020 CBC/C OMPLE TE BLD COUNT W/DIF F mean red cell hemoglobin 31.9 pg 27.0-3 3.0 Not Available [facility] (Lab) [address] [place], [address], 12/23/2020 13:56:15 12/24/19 21 12/23/2020 CBC/C OMPLE TE BLD COUNT W/DIF F mean RBC HGB concentratio n 33.2 g/dL 31.0-3 6.0 Not Available [facility] (Lab) [address] [place], [address], 12/23/2020 13:56:15 12/24/1912/23/2020 CBC/C OMPLE TE BLD COUNT W/DIF F red cell distribution width 13.7 % 11.8-1 5.5 Not Available [facility] (Lab) [address] [place], [address], 12/23/2020 13:56:15 12/24/1912/23/2020 CBC/C OMPLE TE BLD COUNT W/DIF F mean platelet volume 11.7 fL 9.0-12 .4 Not Available [facility] (Lab) [address] [place], [address], 12/23/2020 13:56:15 12/24/19 21 12/23/2020 CBC/C OMPLE TE BLD COUNT W/DIF F neutrophils 59.6 % 39.0-7 2.0 Not Available [facility] (Lab) [address] [place], [address], 12/23/2020 13:56:15 12/24/1912/23/2020 CBC/C OMPLE TE BLD COUNT W/DIF F lymphocytes 22.7 % 16.0-4 7.0 Not Available [facility] (Lab) [address] [facility] [place], [address], 12/23/2020 13:56:15 12/24/1912/23/2020 CBC/C OMPLE TE BLD COUNT W/DIF F monocytes 13.3 % 5.0-12 .0 high Not Available [facility] (Lab) [address] [facility] [place], [address], 12/23/2020 13:56:15 12/24/1912/23/2020 CBC/C OMPLE TE BLD COUNT W/DIF F eosinophils 3.3 % 1.0-7. 0 Not Available [facility] (Lab) [address] [place], [address], 12/23/2020 13:56:15 12/24/1912/23/2020 CBC/C OMPLE TE BLD COUNT W/DIF F basophils 0.9 % 0.0-2. 0 Not Available [facility] (Lab) [address] [place], [address], 12/23/2020 13:56:15 12/24/1912/23/2020 CBC/C OMPLE TE BLD COUNT W/DIF F immature granulocytes 0.2 % 0.00-0 .50 Not Available [facility] (Lab) [address] [place], [address], 12/23/2020 13:56:15 12/24/19 21 12/23/2020 CBC/C OMPLE TE BLD COUNT W/DIF F neutrophils, absolute count 2.54 x10'3 /uL 1.5-8. 0 Not Available [facility] (Lab) [address] [place], [address], 12/23/2020 13:56:15 12/24/1912/23/2020 CBC/C OMPLE TE BLD COUNT W/DIF F lymphocytes, absolute count 0.97 x10'3 /uL 1.07-3 .43 low Not Available [facility] (Lab) [address] [place], [address], 12/23/2020 13:56:15 12/24/1912/23/2020 CBC/C OMPLE TE BLD COUNT W/DIF F monocytes, absolute count 0.57 x10'3 /uL 0.29-0 .99 Not Available [facility] (Lab) [address] [place], [address], 12/23/2020 13:56:15 12/24/1912/23/2020 CBC/C OMPLE TE BLD COUNT W/DIF F eosinophils, absolute count 0.14 x10'3 /uL 0.02-0 .53 Not Available [facility] (Lab) [address] [place], [address], 12/23/2020 13:56:15 12/24/1912/23/2020 CBC/C OMPLE TE BLD COUNT W/DIF F basophils, absolute count 0.04 x10'3 /uL 0.01-0 .08 Not Available [facility] (Lab) [address] [place], [address], 12/23/2020 13:56:15 12/24/1912/23/2020 CBC/C OMPLE TE BLD COUNT W/DIF F immature granulocytes ,absolute 0.01 x10'3 /uL 0.00-0 .05 Not Available [facility] (Lab) [address] [place], [address], 12/23/2020 13:56:15 12/24/19 12/23/2020 CBC/C OMPLE TE BLD COUNT W/DIF F nucleated red blood cells 0.0 % -0 Not Available [facility] (Lab) [address] [place], [address], 12/23/2020 13:56:15 12/24/19 21 12/23/2020 CBC/C OMPLE TE BLD COUNT W/DIF F NRBC# 0.00 x10'3 /uL Not Available [facility] (Lab) [address] [place], [address], 12/23/2020 13:56:15 12/11/19 22 12/10/2021 LIPID PANEL [...] WILL NOT BE REPOR TO. Not Available [facility] (Lab) [address] [place], [address], 12/10/2021 14:24:10 12/11/19 22 12/10/2021 LIPID PANEL cholesterol 184 mg/dL 140-19 9 NIH GAYATHRI NSUS RECOM MENDA TION FOR MED STERO L: ADULT CHILD LOW RISK: <200 <170 BORDE RLINE : <200- 239 ----- HIGH RISK: >240 >200 Not Available [facility] (Lab) [address] [place], [address], 12/10/2021 14:24:10 12/11/19 22 12/10/2021 LIPID PANEL triglyceride s 59 mg/dL 0-150 NIH GAYATHRI NSUS REPOR T RECOM MENDA TION FOR TRIGL YCERI ASH: ADULT CHILD LOW RISK: <150 ----- BODER LINE: 150-1 99 ----- HIGH RISK: >200 ----- Not Available [facility] (Lab) [address] [place], [address], 12/10/2021 14:24:10 12/11/19 22 12/10/2021 LIPID PANEL HDL cholesterol 83 mg/dL 40- Not Available [facility] (Lab) [address] [place], [address], 12/10/2021 14:24:10 12/11/19 22 12/10/2021 COMPR EHENS JUANITA METAB OLIC PANEL carbon dioxide 29 mmol/ L 22-30 Not Available [facility] (Lab) [address] [place], [address], 12/10/2021 14:24:07 12/11/19 22 12/10/2021 COMPR EHENS JUANITA METAB OLIC PANEL sodium 135 mmol/ L 137-14 5 low Not Available [facility] (Lab) [address] [place], [address], 12/10/2021 14:24:07 12/11/19 22 12/10/2021 COMPR EHENS JUANITA METAB OLIC PANEL potassium 3.9 mmol/ L 3.5-5. 1 Not Available [facility] (Lab) [address] [place], [address], 12/10/2021 14:24:07 12/11/19 22 12/10/2021 COMPR EHENS JUANITA METAB OLIC PANEL chloride 99 mmol/ L 98-107 Not Available [facility] (Lab) [address] [place], [address], 12/10/2021 14:24:07 12/11/19 22 12/10/2021 COMPR EHENS JUANITA METAB OLIC PANEL anion gap 10.9 mmol/ L 14-22 low Not Available [facility] (Lab) [address] [place], [address], 12/10/2021 14:24:12/11/19 22 12/10/2021 COMPR EHENS JUANITA METAB OLIC PANEL glucose 103 mg/dL 70-99 high Not Available [facility] (Lab) [address] [place], [address], 12/10/2021 14:24:12/11/19 22 12/10/2021 COMPR EHENS JUANITA METAB OLIC PANEL BUN 15 mg/dL 8-19 Not Available [facility] (Lab) [address] [place], [address], 12/10/2021 14:24:12/11/19 22 12/10/2021 COMPR EHENS JUANITA METAB OLIC PANEL creatinine 0.70 mg/dL 0.66-1 .25 Not Available [facility] (Lab) [address] [place], [address], 12/10/2021 14:24:12/11/19 22 12/10/2021 COMPR EHENS JUANITA METAB OLIC PANEL GFR >60 Refer ence Range : [place] GFR Healt hy Adult : >60 [...] calcu lator is avail able on the [facility] websi te: https :[email or web address] qi/gf r_cal culat or Not Available [facility] (Lab) [address] [place], [address], 12/10/2021 14:24:12/11/19 22 12/10/2021 COMPR EHENS JUANITA METAB OLIC PANEL alkaline phosphatase 55 U/L 38-126 Not Available [facility] (Lab) [address] [place], [address], 12/10/2021 14:24:07 12/11/19 22 12/10/2021 COMPR EHENS JUANITA METAB OLIC PANEL alanine aminotransfe rase 19 U/L 0-35 Not Available [facility] (Lab) [address] [place], [address], 12/10/2021 14:24:12/11/19 22 12/10/2021 COMPR EHENS JUANITA METAB OLIC PANEL aspartate aminotransfe rase 27 U/L 15-37 Not Available [facility] (Lab) [address] [place], [address], 12/10/2021 14:24:12/11/19 22 12/10/2021 COMPR EHENS JUANITA METAB OLIC PANEL bilirubin, total 0.60 mg/dL 0.20-1 .30 Not Available [facility] (Lab) [address] [place], [address], 12/10/2021 14:24:12/11/19 22 12/10/2021 COMPR EHENS JUANITA METAB OLIC PANEL calcium 9.9 mg/dL 8.4-10 .2 Not Available [facility] (Lab) [address] [place], [address], 12/10/2021 14:24:07 12/11/19 22 12/10/2021 COMPR EHENS JUANITA METAB OLIC PANEL total protein 6.9 g/dL 6.3-8. 2 Not Available [facility] (Lab) [address] [place], [address], 12/10/2021 14:24:07 12/11/19 22 12/10/2021 COMPR EHENS JUANITA METAB OLIC PANEL albumin 4.6 g/dL 3.0-4. 4 high Not Available [facility] (Lab) [address] [place], [address], 12/10/2021 14:24:07 12/11/19 22 12/10/2021 COMPR EHENS JUANITA METAB OLIC PANEL globulin 2.3 g/dL 2.6-4. 2 low Not Available [facility] (Lab) [address] [place], [address], 12/10/2021 14:24:07 12/11/19 22 12/10/2021 COMPR EHENS JUANITA METAB OLIC PANEL A/G ratio 2.0 ratio 1.0-2. 0 Not Available [facility] (Lab) [address] [place], [address], 12/10/2021 14:24:07 12/11/19 22 12/10/2021 CBC/C OMPLE TE BLD COUNT W/DIF F white blood cells 5.1 x10'3 /uL 4.2-10 .8 Not Available [facility] (Lab) [address] [place], [address], 12/10/2021 13:02:07 12/11/19 22 12/10/2021 CBC/C OMPLE TE BLD COUNT W/DIF F red blood cells 4.45 x10'6 /uL 3.80-5 .20 Not Available [facility] (Lab) [address] [place], [address], 12/10/2021 13:02:07 12/11/19 22 12/10/2021 CBC/C OMPLE TE BLD COUNT W/DIF F hemoglobin 14.1 g/dL 12.0-1 5.6 Not Available [facility] (Lab) [address] [place], [address], 12/10/2021 13:02:07 12/11/19 22 12/10/2021 CBC/C OMPLE TE BLD COUNT W/DIF F hematocrit 42.8 % 35.7-4 5.7 Not Available [facility] (Lab) [address] [place], [address], 12/10/2021 13:02:07 12/11/19 22 12/10/2021 CBC/C OMPLE TE BLD COUNT W/DIF F mean red cell volume 96.2 fL 82.0-9 9.0 Not Available [facility] (Lab) [address] [place], [address], 12/10/2021 13:02:07 12/11/19 22 12/10/2021 CBC/C OMPLE TE BLD COUNT W/DIF F mean red cell hemoglobin 31.7 pg 27.0-3 3.0 Not Available [facility] (Lab) [address] [place], [address], 12/10/2021 13:02:07 12/11/19 22 12/10/2021 CBC/C OMPLE TE BLD COUNT W/DIF F mean RBC HGB concentratio n 32.9 g/dL 31.0-3 6.0 Not Available [facility] (Lab) [address] [place], [address], 12/10/2021 13:02:07 12/11/19 22 12/10/2021 CBC/C OMPLE TE BLD COUNT W/DIF F red cell distribution width 13.5 % 11.8-1 5.5 Not Available [facility] (Lab) [address] [place], [address], 12/10/2021 13:02:07 12/11/19 22 12/10/2021 CBC/C OMPLE TE BLD COUNT W/DIF F platelets 211 x10'3 /uL 150-40 0 Not Available [facility] (Lab) [address] [place], [address], 12/10/2021 13:02:07 12/11/19 22 12/10/2021 CBC/C OMPLE TE BLD COUNT W/DIF F mean platelet volume 11.7 fL 9.0-12 .4 Not Available [facility] (Lab) [address] [place], [address], 12/10/2021 13:02:07 12/11/19 22 12/10/2021 CBC/C OMPLE TE BLD COUNT W/DIF F neutrophils 61.2 % 39.0-7 2.0 Not Available [facility] (Lab) [address] [place], [address], 12/10/2021 13:02:07 12/11/19 22 12/10/2021 CBC/C OMPLE TE BLD COUNT W/DIF F basophils 1.2 % 0.0-2. 0 Not Available [facility] (Lab) [address] [place], [address], 12/10/2021 13:02:07 12/11/19 22 12/10/2021 CBC/C OMPLE TE BLD COUNT W/DIF F lymphocytes 22.5 % 16.0-4 7.0 Not Available [facility] (Lab) [address] [place], [address], 12/10/2021 13:02:07 12/11/19 22 12/10/2021 CBC/C OMPLE TE BLD COUNT W/DIF F monocytes 12.5 % 5.0-12 .0 high Not Available [facility] (Lab) [address] [place], [address], 12/10/2021 13:02:07 12/11/19 22 12/10/2021 CBC/C OMPLE TE BLD COUNT W/DIF F eosinophils 2.2 % 1.0-7. 0 Not Available [facility] (Lab) [address] [place], [address], 12/10/2021 13:02:07 12/11/19 22 12/10/2021 CBC/C OMPLE TE BLD COUNT W/DIF F immature granulocytes 0.4 % 0.00-0 .50 Not Available [facility] (Lab) [address] [place], [address], 12/10/2021 13:02:07 12/11/19 22 12/10/2021 CBC/C OMPLE TE BLD COUNT W/DIF F neutrophils, absolute count 3.12 x10'3 /uL 1.5-8. 0 Not Available [facility] (Lab) [address] [place], [address], 12/10/2021 13:02:07 12/11/19 22 12/10/2021 CBC/C OMPLE TE BLD COUNT W/DIF F lymphocytes, absolute count 1.15 x10'3 /uL 1.07-3 .43 Not Available [facility] (Lab) [address] [place], [address], 12/10/2021 13:02:07 12/11/19 22 12/10/2021 CBC/C OMPLE TE BLD COUNT W/DIF F monocytes, absolute count 0.64 x10'3 /uL 0.29-0 .99 Not Available [facility] (Lab) [address] [place], [address], 12/10/2021 13:02:07 12/11/19 22 12/10/2021 CBC/C OMPLE TE BLD COUNT W/DIF F eosinophils, absolute count 0.11 x10'3 /uL 0.02-0 .53 Not Available [facility] (Lab) [address] [place], [address], 12/10/2021 13:02:07 12/11/19 22 12/10/2021 CBC/C OMPLE TE BLD COUNT W/DIF F NRBC# 0.00 x10'3 /uL Not Available [facility] (Lab) [address] [place], [address], 12/10/2021 13:02:07 12/11/19 22 12/10/2021 CBC/C OMPLE TE BLD COUNT W/DIF F basophils, absolute count 0.06 x10'3 /uL 0.01-0 .08 Not Available [facility] (Lab) [address] [place], [address], 12/10/2021 13:02:07 12/11/19 22 12/10/2021 CBC/C OMPLE TE BLD COUNT W/DIF F immature granulocytes ,absolute 0.02 x10'3 /uL 0.00-0 .05 Not Available [facility] (Lab) [address] [place], [address], 12/10/2021 13:02:07 12/11/19 22 12/10/2021 CBC/C OMPLE TE BLD COUNT W/DIF F nucleated red blood cells 0.0 % -0 Not Available [facility] (Lab) [address] [place], [address], 12/10/2021 13:02:07 06/11/19 23 06/10/2022 CBC/C OMPLE TE BLD COUNT W/DIF F white blood cells 4.3 x10'3 /uL 4.2-10 .8 Not Available [facility] (Lab) [address] [place], [address], 06/10/2022 13:24:20 06/11/19 23 06/10/2022 CBC/C OMPLE TE BLD COUNT W/DIF F red blood cells 4.40 x10'6 /uL 3.80-5 .20 Not Available [facility] (Lab) [address] [place], [address], 06/10/2022 13:24:20 06/11/19 23 06/10/2022 CBC/C OMPLE TE BLD COUNT W/DIF F hemoglobin 13.6 g/dL 12.0-1 5.6 Not Available [facility] (Lab) [address] [place], [address], 06/10/2022 13:24:20 06/11/19 23 06/10/2022 CBC/C OMPLE TE BLD COUNT W/DIF F hematocrit 41.7 % 35.7-4 5.7 Not Available [facility] (Lab) [address] [place], [address], 06/10/2022 13:24:20 06/11/19 23 06/10/2022 CBC/C OMPLE TE BLD COUNT W/DIF F mean red cell volume 94.8 fL 82.0-9 9.0 Not Available [facility] (Lab) [address] [place], [address], 06/10/2022 13:24:20 06/11/19 23 06/10/2022 CBC/C OMPLE TE BLD COUNT W/DIF F mean red cell hemoglobin 30.9 pg 27.0-3 3.0 Not Available [facility] (Lab) [address] [place], [address], 06/10/2022 13:24:20 06/11/19 23 06/10/2022 CBC/C OMPLE TE BLD COUNT W/DIF F mean RBC HGB concentratio n 32.6 g/dL 31.0-3 6.0 Not Available [facility] (Lab) [address] [place], [address], 06/10/2022 13:24:20 03/02/20 23 06/10/2022 CBC/C OMPLE TE BLD COUNT W/DIF F red cell distribution width 13.6 % 11.8-1 5.5 Not Available [facility] (Lab) [address] [place], [address], 06/10/2022 13:24:20 06/11/19 23 06/10/2022 CBC/C OMPLE TE BLD COUNT W/DIF F platelets 221 x10'3 /uL 150-40 0 Not Available [facility] (Lab) [address] [place], [address], 06/10/2022 13:24:20 06/11/19 23 06/10/2022 CBC/C OMPLE TE BLD COUNT W/DIF F mean platelet volume 11.4 fL 9.0-12 .4 Not Available [facility] (Lab) [address] [place], [address], 06/10/2022 13:24:20 06/11/19 23 06/10/2022 CBC/C OMPLE TE BLD COUNT W/DIF F neutrophils 53.4 % 39.0-7 2.0 Not Available [facility] (Lab) [address] [place], [address], 06/10/2022 13:24:20 06/11/19 23 06/10/2022 CBC/C OMPLE TE BLD COUNT W/DIF F lymphocytes 27.0 % 16.0-4 7.0 Not Available [facility] (Lab) [address] [place], [address], 06/10/2022 13:24:20 06/11/19 23 06/10/2022 CBC/C OMPLE TE BLD COUNT W/DIF F monocytes 14.8 % 5.0-12 .0 high Not Available [facility] (Lab) [address] [place], [address], 06/10/2022 13:24:20 06/11/19 23 06/10/2022 CBC/C OMPLE TE BLD COUNT W/DIF F eosinophils 3.0 % 1.0-7. 0 Not Available [facility] (Lab) [address] [place], [address], 06/10/2022 13:24:20 06/11/19 23 06/10/2022 CBC/C OMPLE TE BLD COUNT W/DIF F basophils 1.6 % 0.0-2. 0 Not Available [facility] (Lab) [address] [place], [address], 06/10/2022 13:24:20 06/11/19 23 06/10/2022 CBC/C OMPLE TE BLD COUNT W/DIF F immature granulocytes 0.2 % 0.00-0 .50 Not Available [facility] (Lab) [address] [place], [address], 06/10/2022 13:24:20 06/11/19 23 06/10/2022 CBC/C OMPLE TE BLD COUNT W/DIF F neutrophils, absolute count 2.31 x10'3 /uL 1.5-8. 0 Not Available [facility] (Lab) [address] [place], [address], 06/10/2022 13:24:20 06/11/19 23 06/10/2022 CBC/C OMPLE TE BLD COUNT W/DIF F lymphocytes, absolute count 1.17 x10'3 /uL 1.07-3 .43 Not Available [facility] (Lab) [address] [place], [address], 06/10/2022 13:24:20 06/11/19 23 06/10/2022 CBC/C OMPLE TE BLD COUNT W/DIF F monocytes, absolute count 0.64 x10'3 /uL 0.29-0 .99 Not Available [facility] (Lab) [address] [place], [address], 06/10/2022 13:24:20 06/11/19 23 06/10/2022 CBC/C OMPLE TE BLD COUNT W/DIF F eosinophils, absolute count 0.13 x10'3 /uL 0.02-0 .53 Not Available [facility] (Lab) [address] [place], [address], 06/10/2022 13:24:20 06/11/19 23 06/10/2022 CBC/C OMPLE TE BLD COUNT W/DIF F basophils, absolute count 0.07 x10'3 /uL 0.01-0 .08 Not Available [facility] (Lab) [address] [place], [address], 06/10/2022 13:24:20 06/11/19 23 06/10/2022 CBC/C OMPLE TE BLD COUNT W/DIF F immature granulocytes ,absolute 0.01 x10'3 /uL 0.00-0 .05 Not Available [facility] (Lab) [address] [place], [address], 06/10/2022 13:24:20 06/11/19 23 06/10/2022 CBC/C OMPLE TE BLD COUNT W/DIF F nucleated red blood cells 0.0 % -0 Not Available [facility] (Lab) [address] [place], [address], 06/10/2022 13:24:20 06/11/19 23 06/10/2022 CBC/C OMPLE TE BLD COUNT W/DIF F NRBC# 0.00 x10'3 /uL Not Available [facility] (Lab) [address] [place], [address], 06/10/2022 13:24:20 06/11/19 23 06/10/2022 LIPID PANEL cholesterol 176 mg/dL 140-19 9 NIH GAYATHRI NSUS RECOM MENDA TION FOR MED STERO L: ADULT CHILD LOW RISK: <200 <170 BORDE RLINE : <200- 239 ----- HIGH RISK: >240 >200 Not Available [facility] (Lab) [address] [place], [address], 06/10/2022 13:47:37 06/11/19 23 06/10/2022 LIPID PANEL triglyceride s 70 mg/dL 0-150 NIH GAYATHRI NSUS REPOR T RECOM MENDA TION FOR TRIGL YCERI ASH: ADULT CHILD LOW RISK: <150 ----- BODER LINE: 150-1 99 ----- HIGH RISK: >200 ----- Not Available [facility] (Lab) [address] [place], [address], 06/10/2022 13:47:37 06/11/19 23 06/10/2022 LIPID PANEL HDL cholesterol 83 mg/dL 40- Not Available [facility] (Lab) [address] [place], [address], 06/10/2022 13:47:37 06/11/19 23 06/10/2022 LIPID PANEL [...] WILL NOT BE REPOR TO. Not Available [facility] (Lab) [address] [place], [address], 06/10/2022 13:47:37 06/11/1906/10/2022 COMPR EHENS JUANITA METAB OLIC PANEL sodium 136 mmol/ L 137-14 5 low Not Available [facility] (Lab) [address] [place], [address], 06/10/2022 13:47:51 06/11/19 23 06/10/2022 COMPR EHENS JUANITA METAB OLIC PANEL potassium 4.1 mmol/ L 3.5-5. 1 Not Available [facility] (Lab) [address] [place], [address], 06/10/2022 13:47:51 06/11/19 23 06/10/2022 COMPR EHENS JUANITA METAB OLIC PANEL chloride 101 mmol/ L 98-107 Not Available [facility] (Lab) [address] [place], [address], 06/10/2022 13:47:51 06/11/19 23 06/10/2022 COMPR EHENS JUANITA METAB OLIC PANEL carbon dioxide 27 mmol/ L 22-30 Not Available [facility] (Lab) [address] [place], [address], 06/10/2022 13:47:51 06/11/19 23 06/10/2022 COMPR EHENS JUANITA METAB OLIC PANEL anion gap 12.1 mmol/ L 14-22 low Not Available [facility] (Lab) [address] [place], [address], 06/10/2022 13:47:51 06/11/19 23 06/10/2022 COMPR EHENS JUANITA METAB OLIC PANEL glucose 100 mg/dL 70-99 high Not Available [facility] (Lab) [address] [place], [address], 06/10/2022 13:47:51 06/11/19 23 06/10/2022 COMPR EHENS JUANITA METAB OLIC PANEL BUN 15 mg/dL 8-19 Not Available [facility] (Lab) [address] [place], [address], 06/10/2022 13:47:51 06/11/19 23 06/10/2022 COMPR EHENS JUANITA METAB OLIC PANEL creatinine 0.63 mg/dL 0.66-1 .25 low Not Available [facility] (Lab) [address] [place], [address], 06/10/2022 13:47:51 06/11/19 23 06/10/2022 COMPR EHENS JUANITA METAB OLIC PANEL GFR >60 Refer ence Range : [place] GFR Healt hy Adult : >60 [...] or ethni c subgr oups, such as Hisms nics. Outsi de the valid ated abel [...] calcu lator is avail able on the [facility] websi te: https :[email or web address] rg/pr ofess ional s/kdo qi/gf r_cal culat or Not Available [facility] (Lab) [address] [place], [address], 06/10/2022 13:47:51 06/11/19 23 06/10/2022 COMPR EHENS JUANITA METAB OLIC PANEL alkaline phosphatase 58 U/L 38-126 Not Available [facility] (Lab) [address] [place], [address], 06/10/2022 13:47:51 06/11/19 23 06/10/2022 COMPR EHENS JUANITA METAB OLIC PANEL alanine aminotransfe rase 28 U/L 0-35 Not Available [facility] (Lab) [address] [place], [address], 06/10/2022 13:47:51 06/11/19 23 06/10/2022 COMPR EHENS JUANITA METAB OLIC PANEL aspartate aminotransfe rase 36 U/L 15-37 Not Available [facility] (Lab) [address] [place], [address], 06/10/2022 13:47:51 06/11/19 23 06/10/2022 COMPR EHENS JUAINTA METAB OLIC PANEL bilirubin, total 0.60 mg/dL 0.20-1 .30 Not Available [facility] (Lab) [address] [place], [address], 06/10/2022 13:47:51 06/11/19 23 06/10/2022 COMPR EHENS JUANITA METAB OLIC PANEL calcium 9.9 mg/dL 8.4-10 .2 Not Available [facility] (Lab) [address] [place], [address], 06/10/2022 13:47:51 06/11/19 23 06/10/2022 COMPR EHENS JUANITA METAB OLIC PANEL total protein 6.9 g/dL 6.3-8. 2 Not Available [facility] (Lab) [address] [place], [address], 06/10/2022 13:47:51 06/11/19 23 06/10/2022 COMPR EHENS JUANITA METAB OLIC PANEL albumin 4.3 g/dL 3.0-4. 4 Not Available [facility] (Lab) [address] [place], [address], 06/10/2022 13:47:51 06/11/19 23 06/10/2022 COMPR EHENS JUANITA METAB OLIC PANEL globulin 2.6 g/dL 2.6-4. 2 Not Available [facility] (Lab) [address] [place], [address], 06/10/2022 13:47:51 06/11/1906/10/2022 COMPR EHENS JUANITA METAB OLIC PANEL A/G ratio 1.7 ratio 1.0-2. 0 Not Available [facility] (Lab) [address] [place], [address], 06/10/2022 13:47:51 06/11/1906/10/2022 VITAM IN D 25-HY DROXY [id number] 37.4 NG/mL 30-100 Vitam in D Statu s: Defic ient: <20 ng/mL Insuf ficie nt: 20-29 ng/mL Suffi cient : 30-10 0 ng/mL Not Available [facility] (Lab) [address] [place], [address], 06/10/2022 13:55:56 01/29/2001/28/2023 LIPID PANEL cholesterol 165 mg/dL 140-19 9 NIH GAYATHRI NSUS RECOM MENDA TION FOR MED STERO L: ADULT CHILD LOW RISK: <200 <170 BORDE RLINE : <200- 239 ----- HIGH RISK: >240 >200 Not Available [facility] (Lab) [address] [place], [address], 01/28/2023 12:51:01 01/29/20 23 01/28/2023 LIPID PANEL triglyceride s 70 mg/dL 0-150 NIH GAYATHRI NSUS REPOR T RECOM MENDA TION FOR TRIGL YCERI ASH: ADULT CHILD LOW RISK: <150 ----- BODER LINE: 150-1 99 ----- HIGH RISK: >200 ----- Not Available [facility] (Lab) [address] [place], [address], 01/28/2023 12:51:01 01/29/20 23 01/28/2023 LIPID PANEL HDL cholesterol 62 mg/dL 40- Not Available [facility] (Lab) [address] [place], [address], 01/28/2023 12:51:01 01/29/2001/28/2023 LIPID PANEL LDL cholesterol, [...] WILL NOT BE REPOR TO. Not Available [facility] (Lab) [address] [place], [address], 01/28/2023 12:51:01 01/29/2001/28/2023 COMPR EHENS JUANITA METAB OLIC PANEL sodium 135 mmol/ L 137-14 5 low Not Available [facility] (Lab) [address] [place], [address], 01/28/2023 12:51:16 01/29/2001/28/2023 COMPR EHENS JUANITA METAB OLIC PANEL potassium 4.1 mmol/ L 3.5-5. 1 Not Available [facility] (Lab) [address] [place], [address], 01/28/2023 12:51:16 01/29/2001/28/2023 COMPR EHENS JUANITA METAB OLIC PANEL chloride 102 mmol/ L 98-107 Not Available [facility] (Lab) [address] [place], [address], 01/28/2023 12:51:16 01/29/2001/28/2023 COMPR EHENS JUANITA METAB OLIC PANEL carbon dioxide 28 mmol/ L 22-30 Not Available [facility] (Lab) [address] [place], [address], 01/28/2023 12:51:16 01/29/20 23 01/28/2023 COMPR EHENS JUANITA METAB OLIC PANEL anion gap 9.1 mmol/ L 14-22 low Not Available [facility] (Lab) [address] [place], [address], 01/28/2023 12:51:16 01/29/2001/28/2023 COMPR EHENS JUANITA METAB OLIC PANEL glucose 98 mg/dL 70-99 Not Available [facility] (Lab) [address] [place], [address], 01/28/2023 12:51:16 01/29/2001/28/2023 COMPR EHENS JUANITA METAB OLIC PANEL BUN 14 mg/dL 8-19 Not Available [facility] (Lab) [address] [place], [address], 01/28/2023 12:51:16 01/29/2001/28/2023 COMPR EHENS JUANITA METAB OLIC PANEL creatinine 0.60 mg/dL 0.66-1 .25 low Not Available [facility] (Lab) [address] [place], [address], 01/28/2023 12:51:16 01/29/20 23 01/28/2023 COMPR EHENS JUANITA METAB OLIC PANEL GFR >60 Refer ence Range : [place] GFR Healt hy Adult : >60 [...] calcu lator is avail able on the [facility] websi te: https :[email or web address] [email or web address] [email or web address] rg/pr ofess ional s/kdo qi/gf r_cal culat or Not Available [facility] (Lab) [address] [place], [address], 01/28/2023 12:51:16 01/29/2001/28/2023 COMPR EHENS JUANITA METAB OLIC PANEL alkaline phosphatase 60 U/L 38-126 Not Available [facility] (Lab) [address] [place], [address], 01/28/2023 12:51:16 01/29/2001/28/2023 COMPR EHENS JUANITA METAB OLIC PANEL alanine aminotransfe rase 23 U/L 0-35 Not Available [facility] (Lab) [address] [place], [address], 01/28/2023 12:51:16 01/29/2001/28/2023 COMPR EHENS JUANITA METAB OLIC PANEL aspartate aminotransfe rase 31 U/L 15-37 Not Available [facility] (Lab) [address] [place], [address], 01/28/2023 12:51:16 01/29/2001/28/2023 COMPR EHENS JUANITA METAB OLIC PANEL bilirubin, total 0.50 mg/dL 0.20-1 .30 Not Available [facility] (Lab) [address] [place], [address], 01/28/2023 12:51:16 01/29/20 23 01/28/2023 COMPR EHENS JUANITA METAB OLIC PANEL calcium 9.7 mg/dL 8.4-10 .2 Not Available [facility] (Lab) [address] [place], [address], 01/28/2023 12:51:16 01/29/20 23 01/28/2023 COMPR EHENS JUANITA METAB OLIC PANEL total protein 6.4 g/dL 6.3-8. 2 Not Available [facility] (Lab) [address] [place], [address], 01/28/2023 12:51:16 01/29/2001/28/2023 COMPR EHENS JUANITA METAB OLIC PANEL albumin 4.0 g/dL 3.0-4. 4 Not Available [facility] (Lab) [address] [place], [address], 01/28/2023 12:51:16 01/29/20 23 01/28/2023 COMPR EHENS JUANITA METAB OLIC PANEL globulin 2.4 g/dL 2.6-4. 2 low Not Available [facility] (Lab) [address] [place], [address], 01/28/2023 12:51:16 01/29/20 23 01/28/2023 COMPR EHENS JUANITA METAB OLIC PANEL A/G ratio 1.7 ratio 1.0-2. 0 Not Available [facility] (Lab) [address] [place], [address], 01/28/2023 12:51:16 01/29/20 23 01/28/2023 CBC/C OMPLE TE BLD COUNT W/DIF F white blood cells 4.4 x10'3 /uL 4.2-10 .8 Not Available [facility] (Lab) [address] [place], [address], 01/28/2023 12:53:26 01/29/2001/28/2023 CBC/C OMPLE TE BLD COUNT W/DIF F red blood cells 4.11 x10'6 /uL 3.80-5 .20 Not Available [facility] (Lab) [address] [place], [address], 01/28/2023 12:53:26 01/29/2001/28/2023 CBC/C OMPLE TE BLD COUNT W/DIF F hemoglobin 13.1 g/dL 12.0-1 5.6 Not Available [facility] (Lab) [address] [place], [address], 01/28/2023 12:53:26 01/29/2001/28/2023 CBC/C OMPLE TE BLD COUNT W/DIF F hematocrit 40.1 % 35.7-4 5.7 Not Available [facility] (Lab) [address] [place], [address], 01/28/2023 12:53:26 01/29/2001/28/2023 CBC/C OMPLE TE BLD COUNT W/DIF F mean red cell volume 97.6 fL 82.0-9 9.0 Not Available [facility] (Lab) [address] [place], [address], 01/28/2023 12:53:26 01/29/2001/28/2023 CBC/C OMPLE TE BLD COUNT W/DIF F mean red cell hemoglobin 31.9 pg 27.0-3 3.0 Not Available [facility] (Lab) [address] [place], [address], 01/28/2023 12:53:26 01/29/2001/28/2023 CBC/C OMPLE TE BLD COUNT W/DIF F mean RBC HGB concentratio n 32.7 g/dL 31.0-3 6.0 Not Available [facility] (Lab) [address] [place], [address], 01/28/2023 12:53:26 01/29/2001/28/2023 CBC/C OMPLE TE BLD COUNT W/DIF F red cell distribution width 13.6 % 11.8-1 5.5 Not Available [facility] (Lab) [address] [place], [address], 01/28/2023 12:53:26 01/29/2001/28/2023 CBC/C OMPLE TE BLD COUNT W/DIF F platelets 228 x10'3 /uL 150-40 0 Not Available [facility] (Lab) [address] [place], [address], 01/28/2023 12:53:26 01/29/2001/28/2023 CBC/C OMPLE TE BLD COUNT W/DIF F mean platelet volume 11.6 fL 9.0-12 .4 Not Available [facility] (Lab) [address] [place], [address], 01/28/2023 12:53:26 01/29/2001/28/2023 CBC/C OMPLE TE BLD COUNT W/DIF F neutrophils 59.3 % 39.0-7 2.0 Not Available [facility] (Lab) [address] [place], [address], 01/28/2023 12:53:26 01/29/2001/28/2023 CBC/C OMPLE TE BLD COUNT W/DIF F lymphocytes 18.4 % 16.0-4 7.0 Not Available [facility] (Lab) [address] [place], [address], 01/28/2023 12:53:26 01/29/2001/28/2023 CBC/C OMPLE TE BLD COUNT W/DIF F monocytes 16.4 % 5.0-12 .0 high Not Available [facility] (Lab) [address] [place], [address], 01/28/2023 12:53:26 01/29/2001/28/2023 CBC/C OMPLE TE BLD COUNT W/DIF F eosinophils 4.1 % 1.0-7. 0 Not Available [facility] (Lab) [address] [place], [address], 01/28/2023 12:53:26 01/29/2001/28/2023 CBC/C OMPLE TE BLD COUNT W/DIF F basophils 1.6 % 0.0-2. 0 Not Available [facility] (Lab) [address] [place], [address], 01/28/2023 12:53:26 01/29/2001/28/2023 CBC/C OMPLE TE BLD COUNT W/DIF F immature granulocytes 0.2 % 0.00-0 .50 Not Available [facility] (Lab) [address] [place], [address], 01/28/2023 12:53:26 01/29/20 23 01/28/2023 CBC/C OMPLE TE BLD COUNT W/DIF F neutrophils, absolute count 2.61 x10'3 /uL 1.5-8. 0 Not Available [facility] (Lab) [address] [place], [address], 01/28/2023 12:53:26 01/29/2001/28/2023 CBC/C OMPLE TE BLD COUNT W/DIF F lymphocytes, absolute count 0.81 x10'3 /uL 1.07-3 .43 low Not Available [facility] (Lab) [address] [place], [address], 01/28/2023 12:53:26 01/29/20 23 01/28/2023 CBC/C OMPLE TE BLD COUNT W/DIF F monocytes, absolute count 0.72 x10'3 /uL 0.29-0 .99 Not Available [facility] (Lab) [address] [place], [address], 01/28/2023 12:53:26 01/29/2001/28/2023 CBC/C OMPLE TE BLD COUNT W/DIF F eosinophils, absolute count 0.18 x10'3 /uL 0.02-0 .53 Not Available [facility] (Lab) [address] [place], [address], 01/28/2023 12:53:26 01/29/20 23 01/28/2023 CBC/C OMPLE TE BLD COUNT W/DIF F basophils, absolute count 0.07 x10'3 /uL 0.01-0 .08 Not Available [facility] (Lab) [address] [place], [address], 01/28/2023 12:53:26 01/29/2001/28/2023 CBC/C OMPLE TE BLD COUNT W/DIF F immature granulocytes ,absolute 0.01 x10'3 /uL 0.00-0 .05 Not Available [facility] (Lab) [address] [place], [address], 01/28/2023 12:53:26 01/29/20 23 01/28/2023 CBC/C OMPLE TE BLD COUNT W/DIF F nucleated red blood cells 0.0 % -0 Not Available [facility] (Lab) [address] [place], [address], 01/28/2023 12:53:26 01/29/20 23 01/28/2023 CBC/C OMPLE TE BLD COUNT W/DIF F NRBC# 0.00 x10'3 /uL Not Available [facility] (Lab) [address] [place], [address], 01/28/2023 12:53:26 01/29/20 23 01/28/2023 VITAM IN D 25-HY DROXY [id number] 42.1 NG/mL 30-100 Vitam in D Statu s: Defic ient: <20 ng/mL Insuf ficie nt: 20-29 ng/mL Suffi cient : 30-10 0 ng/mL Not Available [facility] (Lab) [address], [place], [address], 01/28/2023 13:03:52 06/28/19 22 06/27/2021 CT, orbit s, w/o contr ast No observ ation record ed. [id number] [facility] (Imaging) [address] [place] [address], [address], 06/09/2022 03:00:57 07/07/19 22 07/06/2021 MAMMO , scree teresa, digit al, bilat eral No observ ation record ed. [id number] [place] [address] (Imaging) [address] [place] [address], [address], 06/09/2022 03:00:57 09/24/19 22 09/23/2021 DEXA No observ ation record ed. [id number] [place] [address], [address], 06/09/2022 03:00:57 06/16/19 23 CT, chest , w/o contr ast [facility] [address] [place] [address] Patien t Name: OLIVIA SHARP Access ion #: [id number] Sex: F : 1945 8 Locati [...] rdial effusi on Page 1 of 3 [facility] Name: OLIVIA SHARP Access ion #: [id number] Sex: F : 1945 8 Exam [...] gilbert MD (CT) Page 2 of 3 [facility] Name: OLIVIA SHARP ion #: [id number] Sex: F : 1945 8 Exam Date: 06/16/19 9:17 AM Exam Name: CT CHEST WO Admitt ing Diagno sis(es ): (CT) Page 3 of 3 [facility] (Imaging) [address] [place], [address], 06/30/2022 10:32:13 06/16/19 CT, sinus es, w/o contr ast [facility] [address] [place] [address] [phone] Patichyna t Name: OLIVIA SHARP Access ion #: [id number] Sex: F : 1945 8 Locati [...] amalga m. Page 1 of 2 [facility] Jhony dennis Name: OLIVIA SHARP Access ion #: [id number] Sex: F : 1945 8 Exam [...] MD (CT) (CT) Page 2 of 2 [facility] (Imaging) [address] [place], [address], 06/30/2022 10:32:14 06/29/19 MRI, thora cic spine , w/o contr ast [facility] [address] [place] [address] Patien t Name: OLIVIA SHARP Access ion #: [id number] Sex: F : 1945 8 Locati [...] is necess gordon. Page 1 of 2 [facility] Patien t Name: OLIVIA SHARP Access ion #: [id number] Sex: F : 1945 8 Exam [...] 9:38 AM (CT) Page 2 of 2 [facility] (Imaging) [address] [place], [address], 06/30/2022 10:32:14 10/07/19 23 10/06/2022 MAMMO , diagn ostic , bilat eral No observ ation record ed. [email or web address] [address], [place], [address], 12/16/2022 15:35:26 Result Notes None recorded. Problems Name Problem SNOMED Code Status Onset Date Resolution Date Notes Provider Name and Address Organization Details Recorded Time Benign hypertensi on 61617893 Active Not Available [facility] 3 02:44:27 Urinary incontinen ce 616717829 Active Not Available [facility] 3 02:44:27 Generalize d anxiety disorder 67416211 Active 2021 Not Available [facility] 3 02:44:28 Transient cerebral ischemia 923943413 Active Not Available [facility] 3 02:44:28 Long-term drug therapy Active 2021 Not Available [facility] 3 02:44:28 Adult health examinatio n Active 2021 Not Available [facility] 3 02:44:28 Anemia 938541209 Active 2020 Not Available [facility] 3 02:44:28 Chest pain 90664404 Active Not Available [facility] 3 02:44:28 Enthesopat hy of hip region 63931645 Active Not Available [facility] 3 02:44:28 Screening for disorder Active 2021 Not Available [facility] 3 02:44:28 Osteopenia 935102576 Active Not Available [facility] 3 02:44:28 Vitamin D deficiency 55948318 Active Not Available [facility] 3 02:44:28 Dyslipidem ia 154583569 Active Not Available [facility] 3 02:44:28 Acute urinary tract infection 471328949 Active 2021 Not Available [facility] 3 02:44:28 Anxiety 10570320 Active Not Available [facility] 3 02:44:28 Pain in limb 40117317 Active Not Available [facility] 3 02:44:28 Chronic sinusitis 48169697 Active 2022 Not Available [facility] 3 02:44:28 CT of chest abnormal [id number] 9102 Active 2022 Not Available [facility] 3 02:44:28 COVID-19 321722279 Active 2022 Not Available [facility] 3 02:44:28 Problem Notes None recorded. Procedures Surgical History Date Name Laterality Status Provider Name and Address Organization Details Recorded Time 10/20/19 22 Eye Surgery completed Not Available [facility] 06/10/19 02:44:34 06/28/19 22 Eye Surgery completed Not Available [facility] 06/10/19 23 02:44:34 07/17/19 21 Date of Last Colonoscopy completed Not Available [facility] 06/09/2022 02:44:30 07/17/19 21 Colonoscopy completed Not Available [facility] 06/10/19 02:44:34 11/04/19 12 Colonoscopy completed Not Available [facility] 06/10/19 02:44:34 09/18/19 10 Most Recent Bone Density completed Not Available [facility] 06/09/2022 02:44:30 Hysterectomy completed Not Available [facility] 06/09/2022 02:44:34 tonsilectomy/araseli noids completed Not Available [facility] 06/09/2022 02:44:34 Cataract Surgery completed Not Available [facility] 06/09/2022 02:44:34 Imaging Results Imaging Date Name Status LastModified by Organiz [facility] Details LastModified Time 07/06/2021 MAMMO, screening, digital, bilateral completed [id number] 026 [facility] (Imaging) [address] [place] [address], [phone], 06/09/2022 03:00:57 06/27/2021 CT, orbits, w/o contrast completed [id number] [address] [place] [address] (Imaging) [address] [place] [address], [id number], 06/09/2022 03:00:57 09/23/2021 DEXA completed [id number] [place] [address], [address], 06/09/2022 03:00:57 06/15/2022 CT, chest, w/o contrast completed [facility] (Imaging) [address] [place], [address], 06/30/2022 10:32:13 06/15/2022 CT, sinuses, w/o contrast completed [facility] (Imaging) [address] [facility] [address] [place], [address], 06/30/2022 10:32:14 06/28/2022 MRI, thoracic spine, w/o contrast completed [facility] (Imaging) [address] [facility] [address] [place], [place], [address], 06/30/2022 10:32:14 10/06/2022 MAMMO, diagnostic, bilateral completed [address] [facility] [address], [place], [address], 12/16/2022 15:35:26 Procedure Notes None recorded. Medical [...] Updated DateTime 3 167.64 cm 24.4 kg/m2 96738.4 5 g 97.9 [degF] 71 /min 124 mm[Hg] 70 mm[Hg] DIGNA Bhandari [place] - [facility] IN [facility] 3 10:06:13 Date Recorded Body height Body mass index (BMI) Body weight Body temperature Heart rate Systolic blood pressure Diastolic blood pressure Provider Name and Address Organization Details Last Updated DateTime 3 167.64 cm 24.5 kg/m2 82641.0 4 g 98.2 [degF] 70 /min 118 mm[Hg] 70 mm[Hg] Gertrude orozco RN [facility] [employer] [facility] 3 10:06:56 Date Recorded Body mass index (BMI) Body mass index (BMI) Body mass index (BMI) Body height Body height Body height Pain severity - 0-10 verbal numeric rating [Score] - Reported Heart rate Heart rate Heart rate Body temperature Body temperature Body temperature Body weight Body weight Body weight Systolic blood pressure Diastolic blood pressure Systolic blood pressure Diastolic blood pressure Systolic blood pressure Diastolic blood pressure Provider Name and Address Organization Details Last Updated DateTime 3 24.4 kg/m2 24.2 kg/m2 23.6 kg/m2 167.64 cm 167.64 cm 167.64 cm 0 78 /min 78 /min 80 /min 97.1 [degF] 98 [degF] 97.2 [degF] 03722.4 5 g 55425.8 6 g 77197.4 9 g 114 mm[Hg] 68 mm[Hg] 110 mm[Hg] 74 mm[Hg] 132 mm[Hg] 84 mm[Hg] Not Available [employer] 3 02:44:46 Social History Question Answer Notes LastModified by Organizat ion Details LastModified Time Tobacco Smoking Status Former Smoker quit age 30 DIGNA Holguin, [facility] [employer] [facility] 06/10/2022 09:54:37 Do You Have An Advance Directive? Yes [id number] Information not available 06/09/2022 What Is Your Level Of Alcohol Consumption? 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 Heavy [id number] Information not available 06/09/2022 How Much Tobacco Do You Chew? None [id number] Information not available 06/09/2022 In The 14 [...] Type Of Diet Are You Following? REGULAR [id number] Information not available 06/09/2022 Which Illicit Or Recreational Drugs Have You Used? None Information not available 06/10/2022 Do You Or Have You Ever Used E-cigarettes Or Vape? Never Used Electronic Cigarettes Information not available 06/10/2022 What Is The Highest Grade Or Level Of School You Have Completed Or The Highest Degree You Have Received? [id number] Information not available 06/10/2022 What Is Your [...] Do You Have A Medical Power Of Keyboard Action Assembler? Yes Information not available 06/10/2022 What Was The Date Of Your Most Recent Tobacco Screening? 12/16/2022 Information not available 12/16/2022 Have You Ever Been Counseled For Unhealthy Alcohol Use? No Information not available 06/10/2022 Do You Have Any Pets? Yes Information not available 06/10/2022 What Is Your Relationship Status? [id number] Information not available 06/09/2022 Do You Use Your Seat Belt Or Car Seat Routinely? Yes Information not available 06/10/2022 Do You Have Smoke And Carbon Monoxide Detectors In Your Home? Yes Information not available 06/10/2022 Are You Passively Exposed To Smoke? No Information not available 06/10/2022 Do You Or Have You Ever Used Smokeless Tobacco? Never Used Smokeless Tobacco MIGRATION.64265 [id number] Information not available 06/09/2022 Are There Any Smokers In Your House? No Information not available 06/10/2022 How Much Tobacco Do You Smoke? No MIGRATION.24238 [id number] Information not available 06/09/2022 What Types Of Sporting Activities Do You Participate In? None Information not available 06/10/2022 Do You Feel Stressed (tense, Restless, Nervous, Or Anxious, Or Unable To Sleep At Night)? [id number] Information not available 06/10/2022 Do You Use [...] 06/10/2022 What is your exercise level? Moderate [id number] Information not available 06/09/2022 Mental Status Question Answer Note LastModified by Organization D etails LastModified Time Do you have difficulty concentrating, remembering or making decisions? No Information no t available 06/10/2022 Family History Relationship Description Onset Age of this Age Resolved Age Notes LastModified by Organization Details LastModified Time Mother Heart disease 95 [id number] Not available 06/09/2022 02:44:34 Brother Leukemia half-b [...] ARTERY DISEASE (CAD) N ADDICTION CONCERNS N ENDOMETRIOSIS N Impotence N USE OF BLOOD THINNERS N SKIN [...] APNEA N CHICKENPOX N INFECTIOUS DISEASE N HEART ARRHYTHMIA N PROSTATE N INSOMNIA N HIGH CHOLESTEROL / HYPERLIPIDEMIA Y HYPERTHYROIDISM N EYE PROBLEMS Y NEUROLOGICAL PROBLEMS N EDEMA N CHRONIC PAIN SYNDROME N HYPOTHYROIDISM N CAROTID BLOCKAGE N CONSTIPATION N BACK / NECK PROBLEMS N HAVE YOU BEEN HOSPITALIZED OR SEEN IN [facility] IN THE PAST YEAR ? N ATHEROSCLEROSIS N BREAST PROBLEMS N DIALYSIS N ECZEMA N OSTEOPOROSIS N ARTHRITIS N APPENDICITIS N DIABETES, TYPE N BAD TEETH N ENT N HEARTBURN / REFLUX N AUTISM SPECTRUM DISORDER (ASD) N HEPATITIS / LIVER DISEASE N PULMONARY DISEASE N GOUT N SLEEP DISORDER N ALZHEIMER'S DISEASE N Brain Problems N HERPES N DEMENTIA N HEADACHES/MIGRAINES N SEIZURES/EPILEPSY N VASCULAR DISEASE N PACEMAKER N Blood Disorder N DIZZINESS N HEART DISEASE/HEART PROBLEMS N KIDNEY DISEASE N MULTIPLE SCLEROSIS N CARDIAC ARRHYTHMIA N CANCER: SPECIFY N ANESTHESIA COMPLICATIONS N ATRIAL FIBRILLATION N [...] zoster, unspecified formulation 3 completed Not Available [facility] 01/31/2023 02:44:28 COVID-19, mRNA, LNP-S, PF, 100 mcg/0.5mL dose or 50 mcg/0.25mL dose 1 completed Not Available [facility] 01/31/2023 02:44:28 Td(adult) unspecified formulation 2 completed Not Available [facility] 01/31/2023 02:44:28 COVID-19, mRNA, LNP-S, PF, 100 mcg/0.5mL dose or 50 mcg/0.25mL dose 1 completed Not Available [facility] 01/31/2023 02:44:28 Influenza, split virus, trivalent, preservative 9 completed Not Available [facility] 01/31/2023 02:44:28 influenza, unspecified formulation 8 completed Not Available [facility] 01/31/2023 02:44:28 Influenza, high-dose, trivalent, PF 7 completed Not Available [facility] 01/31/2023 02:44:28 Influenza, high-dose, trivalent, PF 7 completed Not Available [facility] 01/31/2023 02:44:28 COVID-19, mRNA, LNP-S, PF, 100 mcg/0.5mL dose or 50 mcg/0.25mL dose 2 completed Not Available [facility] 01/31/2023 02:44:28 Influenza, split virus, trivalent, preservative 2 completed Not Available [facility] 01/31/2023 02:44:28 Influenza, split virus, trivalent, preservative 1 completed Not Available [facility] 01/31/2023 02:44:28 COVID-19, mRNA, LNP-S, PF, 100 mcg/0.5mL dose or 50 mcg/0.25mL dose 1 completed Not Available [facility] 01/31/2023 02:44:28 Influenza, high-dose, quadrivalent, PF 0 completed Not Available [facility] 01/31/2023 02:44:28 Influenza, high-dose, trivalent, PF 6 completed Not Available [facility] 01/31/2023 02:44:28 pneumococcal conjugate PCV 7 9 completed Not Available [facility] 01/31/2023 02:44:28 Pneumococcal conjugate PCV 13 6 completed Not Available [facility] 01/31/2023 02:44:28 zoster, unspecified formulation 3 completed Not Available [facility] 01/31/2023 02:44:28 influenza, unspecified formulation 3 completed Not Available [facility] 01/31/2023 02:44:28 COVID-19, mRNA, LNP-S, PF, 30 mcg/0.3 mL dose 3 completed Not Available [facility] 01/31/2023 02:44:28 COVID-19, mRNA, LNP-S, PF, 30 mcg/0.3 mL dose 3 completed Not Available [facility] 01/31/2023 02:44:28 RSV, recombinant, protein subunit RSVpreF, adjuvant reconstituted, 0.5 mL, PF 3 completed DIGNA Holguin, [place] - S [facility] 03/14/2023 14:50:20 Past Encounters Encounter ID Performer Location Encounter Start Date Encounter Closed Date Diagnosis/Indication Diagnosis SNOMED-CT Code Diagnosis ICD10 Code Diagnosis Note [id number] [facility] Internal Med Riccardo garcia [address] [place] [address] 06/19/2020 00:00:00 06/29/2020 13:37:18 [id number] [facility] Internal [place] [address] [place] [address] [place] [address] 12/18/2020 00:00:00 12/18/2020 21:36:45 [id number] [facility] Internal Med [place] [address] [place] [address] [place] [address] 06/11/2021 00:00:00 06/27/2021 14:56:43 [id number] [facility] Internal Med [place] [address] [place] [address] [place] [address] 12/10/2021 00:00:00 12/10/2021 10:28:04 [id number] Jaden Rios MD [facility] Internal [facility] [place] [address] [place] [address] [place] [address] 06/10/2022 09:52:29 06/10/2022 10:58:12 Dyslipidemia 173220230 E78.5 Long-term drug therapy 514994462 Z79.899 Vitamin D deficiency 347 34934 E55.9 Chronic sinusitis 273765 00 J32.9 [id number] Jaden Rios MD [facility] Internal [facility] [place] [address] [place] [address] [place] [address] 12/16/2022 09:53:38 12/16/2022 10:28:06 Benign hypertension 82385066 I10 Anxiety 18971584 F41.9 Chronic sinusitis 955299 00 J32.9 Dyslipidemia 525497537 E 78.5 Health Concerns Section Related Observation LastModified by Organization Detai ls LastModified Time None Recorded Concern Status LastModified by Organization Details LastModified Time None Recorded Advance Directives Directive Y: Payers Encounter Date Sequence Insurance Name Policy Number Policy Lozano Covered Member ID Lozano Member ID Guarantor Name 06/10/2022 1 [place] Olivia Sharp [id number] Olivia Sharp 06/10/2022 2 [employer] SUPPLEMENTAL - [employer]URANCE (MEDICARE SUPPLEMENT) PLANG Olivia Sharp [id number] Olivia Sharp 12/16/2022 1 [place] Olivia Driscoll Chepe [id number] Olivia Driscoll Sharp 12/16/2022 2 [employer] SUPPLEMENTAL - [employer]URANCE (MEDICARE SUPPLEMENT) PLANG Olivia Driscoll Chepe [id number] Olivia Driscoll Chepe Notes Date Note Type Note Provider Name and Address Organization Details Recorded Time 3 text/html still with some chronic sinusitiscough still botheringlow vitamin-D level supplementhypertension no headache no dizziness Jaden Rios MD [address], [place], [address], [employer] 07/18/2022 16:58:04 3 text/html still with some chronic sinusitiscough still botheringlow vitamin-D level supplementhypertension no headache no dizziness Jaden Rios MD [address], [place], [address], [employer] 01/02/2023 22:35:18 OBGyn Episode No OBEpisode recorded.
--- OUTSIDE RECORDS SUMMARY | 2024-05-15 11:47 | XMS_ITS | Encounter Summary ---
Author Organization [facility] Address [address] [place] [address] Care Team Providers Care Cupola Repairer Name Role Phone Ney Rios MD Primary Care Provider [phone] Encounter Details Date Type Department Care Team (Late st Contact Info) Description 06/28/2021 Ophth Exam [facility] [address] [place] [address] Anu Saxena MD No info available Social [...] on filedocumented in this encounter Care Teams Cupola Repairer Relationship Specialty Start Date End Date Ney Rios MD PCP - General 07/16/20 documented as of this encounter
--- OUTSIDE RECORDS SUMMARY | 2024-05-15 11:47 | XMS_ITS | Patient Health Summary ---
Author Organization [facility] [employer] Address [address] [place] [address] Care Team Providers Care Batch Mixing Truck Driver Name Role Phone Ney Rios MD Primary Care Provider [phone] Note from [facility],non-owned Affiliates and Associated Physician Practices is amultiple site organization consisting of ambulatory clinics and hospital sitesin [place], [place], [place] and [place]. This disclosure is being madepursuant to the Care Everywhere program and may not contain all information available regarding this patient. Last updated 17.[facility] [employer] Allergies No known active allergies* Ceftriaxone(Unknown),Inactive * [...] Event Date/Time: ??10/19/2021 1:41 PM Procedure: intubation (74962). Procedure Section: ?? Sedation: under general anesthesia. [...] 10? 3 /uL 06/28/2021 1:36 AM CDT [facility] RBC 3.79(L) 3.80 - 5.20 10? 6 /uL 06/28/2021 1:36 AM CDT [facility] Hemoglobin 12.0 12.0 - 15.6 g/dL 06/28/2021 1:36 AM [facility] Hematocrit 36.0 35.0 - 45.0 % 06/28/2021 1:36 AM [facility] MCV 95.0 80.7 - 98.3 fL 06/28/2021 1:36 AM [facility] MCH 31.7 26.7 - 34.0 pg 06/28/2021 1:36 AM [facility] MCHC 33.3 30.8 - 35.9 g/dL 06/28/2021 1:36 AM [facility] Platelet Count 166 150 - 400 10? 3 /uL 06/28/2021 1:36 AM [facility] RDW-SD 48.9 36.0 - 50.0 fL 06/28/2021 1:36 AM [facility] RDW-CV 13.9 11.2 - 14.8 % 06/28/2021 1:36 AM [facility] MPV 11.3 9.4 - 12.9 fL 06/28/2021 1:36 AM [facility] nRBC Absolute 0.00 0 10? 3 /uL 06/28/2021 1:36 AM [facility] nRBC Auto 0.0 0 /100 WBC 06/28/2021 1:36 AM [facility] Blood BLOOD SPECIMEN / Unknown Lab Venipuncture / Unknown 06/28/2021 1:26 AM CDT 06/28/2021 1:31 AM T Sal Rainey MD LAB - HEMATOLO GY ORDERABLES [facility] [address] [place] [address], [facility] [phone] * (ABNORMAL) BASIC METABOLIC PANEL (CALCIUM TOTAL) (06/28/2021 1:26 AM CDT) BUN 11 7 - 26 mg/dL 06/28/2021 1:58 AM [facility] Creatinine 0.53(L) 0.56 - 0.96 mg/dL 06/28/2021 1:58 AM [facility] Sodium 141 136 - 145 mmol/L 06/28/2021 1:58 AM [facility] Potassium 4.1 3.5 - 4.5 mmol/L 06/28/2021 1:58 AM [facility] Chloride 107 98 - 107 mmol/L 06/28/2021 1:58 AM [facility] CO2 27 22 - 29 mmol/L 06/28/2021 1:58 AM [facility] Glucose 132(H) 70 - 115 mg/dL 06/28/2021 1:58 AM [facility] Calcium 9.4 8.4 - 10.2 mg/dL 06/28/2021 1:58 AM [facility] Anion Gap 11 8 - 18 06/28/2021 1:58 AM [facility] BUN/Creatinine Ratio 21 7 - 23 06/28/2021 1:58 AM [facility] Osmolality Calculated 293 270 - 300 mOsm/kg 06/28/2021 1:58 AM [facility] eGFR by CKD-EPI >90 >=90 mL/min/1.7 3 m2 06/28/2021 1:58 AM [facility] Blood BLOOD SPECIMEN / Unknown Lab Venipuncture / Unknown 06/28/2021 1:26 AM CDT 06/28/2021 1:31 AM CDT Sal Rainey MD LAB - CHEMISTR Y ORDERABLES Performing Organization Address [facility] Co de Phone Number [address] [address], [facility] [phone] * PHOSPHORUS BLOOD (06/28/2021 1:26 AM CDT) Phosphorus 3.0 2.9 - 5.1 mg/dL 06/28/2021 1:58 AM [facility] Blood BLOOD SPECIMEN / Unknown Lab Venipuncture / Unknown 06/28/2021 1:26 AM CDT 06/28/2021 1:31 AM CDT Sal Rainey MD LAB - CHEMISTR Y ORDERABLES Performing Organization Address [facility]/ZIP Co de Phone Number [address] [address], [facility] [phone] * MAGNESIUM BLOOD (06/28/2021 1:26 AM CDT) Magnesium 2.3 1.6 - 2.6 mg/dL 06/28/2021 1:58 AM CDT [facility] Blood BLOOD SPECIMEN / Unknown Lab Venipuncture / Unknown 06/28/2021 1:26 AM CDT 06/28/2021 1:31 AM CDT Sal Rainey MD LAB - CHEMISTR Y ORDERABLES Performing Organization Address [facility] Co de Phone Number [address] [address], [facility] [phone] * BLOOD TYPE VERIFICATION (06/27/2021 6:08 PM CDT) ABO Rh A NEG 06/27/2021 7:1 2 PM CDT [facility] Blood Bank BLOOD SPECIMEN / Unknown Lab Venipuncture / Unknown 06/27/2021 6:08 PM CDT 06/27/2021 6:28 PM CDT Jose Martin Dutton DO LAB - BLOOD BANK O RDERABLES Performing Organization Address [facility]/ZIP Co de Phone Number [facility] [address] [place] [address], [facility] [phone] * ETT LINE PERFORMABLE (06/27/2021 12:32 PM CDT) Narrative Pramod Wing Anes Asst - 06/27/2021 12:32 PM CDT Pramod Wing Anes Asst ? 06/27/2021 12:33 PM Endotracheal Tube Placement: ? Patient Location: OR. Intubation Event Date/Time: ??06/27/2021 12:05 PM Procedure: intubation ([id number]). Procedure Section: ?? Sedation: under general anesthesia. [...] + SCREEN PANEL (06/27/2021 10:55 AM CDT) [facility] Antibody Screen NEG 11:45 AM CDT [facility] ABO Rh A NEG 06/27/2021 11:45 AM CDT [facility] Blood Bank BLOOD SPECIMEN / Unknown Venipuncture / Unknown 06/27/2021 10:55 AM CDT 06/27/2021 10:58 AM CDT Jose Martin Dutton DO LAB - BLOOD BANK O RDERABLES [facility] [address] [place] [address], [facility] [phone] * (ABNORMAL) CBC W AUTO DIFFERENTIAL (06/27/2021 10:55 AM CDT) Pathologist [facility] WBC 5.6 3.5 - 10.5 10? 3 /uL 06/27/2021 11:04 AM CDT [facility] RBC 4.34 3.80 - 5.20 10? 6 /uL 06/27/2021 11:04 AM CDT [facility] Hemoglobin 13.7 12.0 - 15.6 g/dL 06/27/2021 11:04 AM [facility] Hematocrit 41.9 35.0 - 45.0 % 06/27/2021 11:04 AM [facility] MCV 96.5 80.7 - 98.3 fL 06/27/2021 11:04 AM [facility] MCH 31.6 26.7 - 34.0 pg 06/27/2021 11:04 AM [facility] MCHC 32.7 30.8 - 35.9 g/dL 06/27/2021 11:04 AM [facility] Platelet Count 191 150 - 400 10? 3 /uL 06/27/2021 11:04 AM [facility] RDW-SD 48.9 36.0 - 50.0 fL 06/27/2021 11:04 AM [facility] RDW-CV 13.7 11.2 - 14.8 % 06/27/2021 11:04 AM [facility] MPV 12.1 9.4 - 12.9 fL 06/27/2021 11:04 AM [facility] nRBC Absolute 0.00 0 10? 3 /uL 06/27/2021 11:04 AM [facility] nRBC Auto 0.0 0 /100 WBC 06/27/2021 11:04 AM [facility] Neutrophils % 75.0(H) 35.0 - 70.0 % 06/27/2021 11:04 AM [facility] Lymphocytes % 14.6(L) 20.0 - 43.0 % 06/27/2021 11:04 AM [facility] Monocytes % 8.7 5.0 - 13.0 % 06/27/2021 11:04 AM [facility] Eosinophils % 0.4 0.0 - 6.0 % 06/27/2021 11:04 AM [facility] Basophil % 0.9 0.0 - 2.0 % 06/27/2021 11:04 AM [facility] Neutrophils Absolute 4.2 1.6 - 7.0 10? 3 /uL 06/27/2021 11:04 AM [facility] Lymphocyte Absolute 0.8(L) 1.1 - 3.9 10? 3 /uL 06/27/2021 11:04 AM [facility] Monocytes Absolute 0.49 0.26 - 1.07 10? 3 /uL 06/27/2021 11:04 AM [facility] Eosinophils Absolute 0.02 0.00 - 0.47 10? 3 /uL 06/27/2021 11:04 AM [facility] Basophils Absolute 0.05 0.00 - 0.08 10? 3 /uL 06/27/2021 11:04 AM [facility] Immature Granulocytes % 0.4 0.0 - 1.0 % 06/27/2021 11:04 AM [facility] Immature Granulocytes Absolute 0.02 06/27/2021 11:04 AM [facility] Blood BLOOD SPECIMEN / Unknown Venipuncture / Unknown 06/27/2021 10:55 AM CDT 06/27/2021 10:58 AM T Jose Martin Dutton DO LAB - HEMATOLOGY O RDERABLES [facility] [address] [place] [phone], [facility] [phone] * (ABNORMAL) COMPREHENSIVE METABOLIC PANEL (06/27/2021 10:55 AM CDT) BUN 8 7 - 26 mg/dL 06/27/2021 11:24 AM [facility] Creatinine 0.59 0.56 - 0.96 mg/dL 06/27/2021 11:24 AM [facility] Sodium 145 136 - 145 mmol/L 06/27/2021 11:24 AM [facility] Potassium 3.3(L) 3.5 - 4.5 mmol/L 06/27/2021 11:24 AM [facility] Chloride 108(H) 98 - 107 mmol/L 06/27/2021 11:24 AM [facility] CO2 27 22 - 29 mmol/L 06/27/2021 11:24 AM [facility] Glucose 93 70 - 115 mg/dL 06/27/2021 11:24 AM [facility] Calcium 9.7 8.4 - 10.2 mg/dL 06/27/2021 11:24 AM [facility] Protein Total 6.7 6.0 - 8.3 g/dL 06/27/2021 11:24 AM [facility] Albumin 4.0 3.4 - 5.0 g/dL 06/27/2021 11:24 AM [facility] Bilirubin Total 0.4 0.2 - 1.2 mg/dL 06/27/2021 11:24 AM [facility] Alkaline Phosphatase 51 40 - 150 U/L 06/27/2021 11:24 AM [facility] ALT 14 5 - 55 U/L 06/27/2021 11:24 AM [facility] AST 19 5 - 34 U/L 06/27/2021 11:24 AM [facility] Anion Gap 13 8 - 18 06/27/2021 11:24 AM [facility] BUN/Creatinine Ratio 14 7 - 23 06/27/2021 11:24 AM [facility] Osmolality Calculated 298 270 - 300 mOsm/kg 06/27/2021 11:24 AM [facility] Albumin/Globulin Ratio 1.5 1.1 - 2.3 06/27/2021 11:24 AM [facility] eGFR by CKD-EPI >90 >=90 mL/min/1.7 3 m2 06/27/2021 11:24 AM [facility] Blood BLOOD SPECIMEN / Unknown Venipuncture / Unknown 06/27/2021 10:55 AM CDT 06/27/2021 10:58 AM CDT Jose Martin Dutton DO LAB - CHEMISTRY OR DERABLES [address] [address], [facility] [phone] * SARS-COV-2 (COVID-19)+INFLU A+B PCR RAPID (06/27/2021 10:31 AM CDT) COVID-19 PCR Not detected Not detected 06/28/19 11:36 AM CDT [facility] Influenza A Rapid MARCELLA Not Detected Not Detected 06/27/2021 11:36 AM T [facility] Influenza B MARCELLA Rapid Not Detected Not Detected 06/27/2021 11:36 AM T [facility] Microbiology SPECIMEN FROM NASOPHARYNGEAL STRUCTURE / Unknown Collection / Unknown 06/27/2021 10:31 AM CDT 06/27/2021 10:56 AM CDT [facility] - 06/27/2021 11:36 AM CDT Influenza assay [...] acid amplification assay performance was validated by [facility]. This test has been authorized by [...] Martin Dutton DO LAB - MICROBIOLOGY ORDERABLES [facility] [address] [place] [address], [facility] [phone] Care Teams Batch Mixing Truck Driver Relationship Specialty Start Date End Date Ney Rios MD [facility] - General 07/16/20
--- OUTSIDE RECORDS SUMMARY | 2024-05-15 11:47 | XMS_ITS | CONTINUITY OF CARE DOCUMENT ---
Author Name gabriela doraadeel Address Unknown Organization [facility] Address [address] [place] [address] Phone [phone] Care Team Providers Care Leaf Tinner Name Role Phone Faith ALLISON, Larry Unavailable JADEN NARANJO MD Unavailable JADEN NARANJO MD Unavailable PROBLEMS Condition Status Date Provider Notes Hypercholesterolemia active Germaine Zendejas Hypertension active Germaine Zendejas Chest pain active Germaine Zendejas INSURANCE PROVIDERS Payer name Policy type / Coverage type [employer] red constitution party ID [employer] [id number] [place] [employer] Medicare [id number] HISTORY OF PROCEDURES Procedure Date Procedure Name Provider Procedure Notes S tatus Stress EKG Sudarshan Graves MD completed Cardiolite, 2 units Larry Cuevas MD completed SPECT Images Mariana German MD com [email or web address]
== END 2024-05-15 11:05 | disposition home or self-care (01) ==
PROVIDERS: PCP Internal Medicine; Visit Provider Nurse Practitioner Adult Health
DX: S22.080A Wedge compression fracture of T11-T12 vertebra, initial encounter for closed fracture (principal); X58.XXXA Exposure to other specified factors, initial encounter; M47.816 Spondylosis without myelopathy or radiculopathy, lumbar region; S22.081A Stable burst fracture of T11-T12 vertebra, initial encounter for closed fracture
CPT/HCPCS: 72080

== ENCOUNTER 2024-06-26 11:02 | Outpatient (CLI) | payer MEDICARE, SELFPAY ==
--- NOTE | ~2024-06-26 | XR_ITS ---
AP and lateral views of the thoracolumbar spine Clinical history: Burst fracture COMPARISON: 05/15/2024 FINDINGS: Stable severe T12 compression fracture. No other fracture identified. There is grade 1 ante rolisthesis of L4 over L5. Low grade 1 anterolisthesis of L5 over S1. There is moderate degenerative disc narrowing at L3-L4. There is severe facet arthropathy throughout the lumbar spine. IMPRESSION: Stable severe T12 compression fracture. Moderate to advanced spondylosis of lumbar spine, as above. Reviewed, dictated and finalized at location M.
--- OUTSIDE RECORDS SUMMARY | 2024-06-26 12:44 | XMS_ITS | Continuity of Care Document ---
Author Organization [facility] Address [address] [place] [address] [place] [address] Phone Care Team Providers Care Fermentation Manager Name Role Phone [facility] Unavailable Unavail able Peng Hale Unavailable Unavailable Advance Directives Directive Yes / No Effective Date File Name No Information Encounters Encounter Description Practice Location Reason(s) For Visit Diagnoses Date Provider Providers Copied on Encounter [facility], [address], [place], [place], [id number], [place] tel:[phone] [facility] No Information [address] [facility] [address], [address], [place], [place], [id number] , [place]. tel:[phone] Consulting Provider: Peng Hale, [address], [place], [address]. tel:[phone] Family History Family Member Type Diagnosis Age At Onset No Information Payers Payer name Insurance type Covered republican ID Authoriza tion(s) No Information Social History [...]
--- OUTSIDE RECORDS SUMMARY | 2024-06-26 12:44 | XMS_ITS ---
Author Organization [facility] Address [address] [place] [address] Care Team Providers Care Drama Director Name Role Phone Gabriel Ney Primary Care Provider Unavailabl Flor Hamlin Unavailable [phone] [employer], Provider Unavailable Unavailab le REASON FOR VISIT [facility] Conversion Encounter Medications Medication SIG (Take, Route, [...] review and pick correct strength[facility]formula [facility]. If intended option is not shown, discontinue and re-order from Quick Search* Active Montelukast Sodium 10 MG 1 tab(s) orally once a day for 30 day(s) Active Encounters Encounter Location Date Provider Diagnosis [facility] [address] [place] [address] 09/24/2023 Provider Javier Chronic rhinitis J31.0 Assessments Encounter Date Diagnosis (ICD Code) Assessment Notes Treatment Notes Treatment Clinical Notes Section Notes 09/24/2023 Chronic rhinitis (ICD-10 - J31.0) Plan Of Treatment Medication Medication Name Sig Start Date Stop Date Notes Azelastine HCl 137 MCG/SPRAY 2 spray(s) intranasally 2 times a day for 30 day(s) 05/19/2021 Progress Notes * Olivia MODOB:1945 (79 yo F)Acc No.[id number]:09/24/2023 Patient: Chelsy MADISONith Provider: Jayy Basurto :1945 A ge:78 Y S ex:Female Date:09/24/2023 Address:[address] [facility] [id number] Pcp:Ney Rios Subjective: * Chief Complaints: * 1 . [facility] Conversion Encounter. * Medical History: * Medications: T aking [facility] AREDS ANTIOXIDANT MULTIPLE VITAMINS AND MINERALS CAPSULE 1 CAP(S) ORALLY ONCE A DAY , Notes to Pharmacist: *Please review and pick correct [facility]. If intended option is not [...] tab(s) orally once a day Objective: * Vitals: Assessment: * Assessment: 1. C hronic rhinitis - J31.0 (Primary) Plan: * Treatment: * Billing Information: * Visit Code: * Procedure Codes: * Electronic signature of Cindy Herrera on 06/26/2024 at 12:44 PM CDT Sign off status: Pending * Provider: Jayy Basurto Date: 0 09/24/2023 Generated for Soife bailey/Marj/Brookitting on: 0 06/26/2024 12:44 PM CDT
--- OUTSIDE RECORDS SUMMARY | 2024-06-26 12:45 | XMS_ITS | Data Portability ---
Author Organization [facility] Address [address] [place] [address] Care Team Providers Care Hardware Installer Name Role Phone JADEN RIOS Primary Care Provider Assessment Encounter Date Assessment Date Assessment LastModified by Organization Details LastModified Time 07/28/2023 07/28/2023 Hypertension amlodipine hydrochlorothiazide anxiety fluoxetine rhinitis fluticasone urinary incontinence oxybutynin dyslipidemia simvastatin obtain old records she is not sure about immunizations have to look at the records when they come over see me back in 4 months. [email or web address] Not available 07/30/2023 15:51:39 01/26/2024 01/26/2024 continue current therapy blood work also needs a vitamin-D level we will try Atrovent nasal spray we will follow up in 6 months [email or web address] Not available 02/14/2024 22:08:00 05/07/2024 05/07/2024 we will have neurosurgical referral refill her cyclobenzaprine and hydrocodone when needed. Her last bone density that I was able to get from 2021 revealed some osteopenia we will try to get a more contemporary DEXA I believe it is ordered by her comb tender if possible get her started on Prolia she had a vitamin-D ordered in February of 2024 but because of some issues with the labs she opted out of getting that doneplease see the results comments section. we will try to get that done I will see her back in 1 month . Hypertension stable anxiety stable dyslipidemia stable rhinitis stable [email or web address] Not available 05/13/2024 16:59:45 05/31/2024 05/31/2024 wean narcotics b owel regimen discussed with her blood pressure is good reinforced low-fat diet osteopenia on last bone density has a appointment in July she will keep it [email or web address] Not available 06/11/2024 07:45:29 Plan of Treatment Reminders Order Date Submit Date Provider Last Modified By Organization Details Last Modified Time Details Appointments ANY 15 2024 09:15A Lucero Rios MD Not available Not available Not available Lab vitamin D, 25-hydrox y, total, serum 2023 024 JEANETTEMAXIMILIAN DAS, [address], [address], [place], [address], 02/14/2024 14:32:51 lipid panel, serum 2023 024 JEANETTE DAS, [address], [address], [place], [address], 02/14/2024 11:13:46 CMP, serum or plasma 2023 024 JEANETTE DAS, [address], [address], [place], [address], 02/14/2024 11:13:48 CBC w/ auto diff 2023 024 [facility] DAS, [facility] [address] [address], [address], [place], [address], 02/14/2024 11:13:50 CBC w/ auto diff 2023 024 JEANETTE DAS, [address], [address], [place], [address], 08/13/2023 04:36:19 lipid panel, serum 2023 024 JEANETTE DAS, [address], [address], [place], [address], 08/13/2023 04:36:18 CMP, serum or plasma 2023 024 JEANETTE DAS, [facility], [address], [place], [address], 08/13/2023 04:36:19 Referral neurologi salma surgeon referral - Pt was at [facility] in pt. 2024 025 [facility], [facility] [address], [address], [place], [address], 05/23/2024 08:59:28 Procedures None recorded. Surgeries None recorded. Imaging None recorded. Medication Orders cyclobenz aprine 5 mg tablet [address] [facility] [place], [address], 05/07/2024 11:30:53 Prolia 60 mg/mL subcutane ous syringe 2024 025 [facility] [address] [place], [address], 05/31/2024 10:23:28 oxybutyni n chloride ER 10 mg tablet,ex tended release 24 hr [address] [facility] [address] [place], [address], 01/26/2024 18:12:55 Patient TargetsNo targets recorded. Patient InstructionsNo instructions recorded. Reason for Referral Neurological Surgeon Referra l for Closed fracture thoracic vertebra Pt was at [facility] in pt. Referring Physician: Jaden Rios, Internal Medicine, Encounter Date: 05/07/2024 Results Created Date Observation Date Name Description Value Unit Range Abnormal Flag Note LastModifiedBy Organization Detail LastModifiedTime 08/12/19 24 08/13/2023 LIPID PANEL cholesterol, total 171 mg/dL 100-19 9 Not Available [facility] ([facility]) [address] [facility], [place], [address], 08/13/2023 04:36:18 08/12/19 24 08/13/2023 LIPID PANEL triglyceride s 60 mg/dL 0-149 Not Available [facility]) [address] [facility] [place], [address], 08/13/2023 04:36:18 08/12/19 24 08/13/2023 LIPID PANEL HDL cholesterol 70 mg/dL >39 Not Available [facility]) [address] [place], [address], 08/13/2023 04:36:18 08/12/19 24 08/13/2023 LIPID PANEL VLDL cholesterol salma 12 mg/dL 5-40 Not Available [facility] ([facility]) [address] [place], [address], 08/13/2023 04:36:18 08/12/19 24 08/13/2023 LIPID PANEL LDL chol calc ([facility]) 89 mg/dL 0-99 Not Available [facility]) [address] [place], [address], 08/13/2023 04:36:18 08/12/19 24 08/13/2023 COMP. METAB OLIC PANEL (14) glucose 97 mg/dL 70-99 Not Available [facility] ([facility]) [address] [place], [address], 08/13/2023 04:36:19 08/12/19 24 08/13/2023 COMP. METAB OLIC PANEL (14) BUN 18 mg/dL 8-27 Not Available [facility] ([facility]) [address] [place], [address], 08/13/2023 04:36:19 08/12/19 24 08/13/2023 COMP. METAB OLIC PANEL (14) creatinine 0.68 mg/dL 0.57-1 .00 Not Available [facility] ([facility]) [address] [place], [address], 08/13/2023 04:36:19 08/12/19 24 08/13/2023 COMP. METAB OLIC PANEL (14) eGFR 88 mL/mi n/1.7 3 >59 Not Available [facility] ([facility]) [address] [facility], [place], [address], 08/13/2023 04:36:19 08/12/19 24 08/13/2023 COMP. METAB OLIC PANEL (14) BUN/creatini ne ratio 26 12-28 Not Available [facility] ([facility]) [address] [facility], [place], [address], 08/13/2023 04:36:19 08/12/19 24 08/13/2023 COMP. METAB OLIC PANEL (14) sodium 139 mmol/ L 134-14 4 Not Available [facility] ([facility]) [address] [facility], [place], [address], 08/13/2023 04:36:19 08/12/19 24 08/13/2023 COMP. METAB OLIC PANEL (14) potassium 4.9 mmol/ L 3.5-5. 2 Not Available [facility] ([facility]) [address] [facility], [place], [address], 08/13/2023 04:36:19 08/12/19 24 08/13/2023 COMP. METAB OLIC PANEL (14) chloride 103 mmol/ L 96-106 Not Available [facility] ([facility]) [address] [place], [address], 08/13/2023 04:36:19 08/12/19 24 08/13/2023 COMP. METAB OLIC PANEL (14) carbon dioxide, total 26 mmol/ L 20-29 Not Available [facility] ([facility]) [address] [place], [address], 08/13/2023 04:36:19 08/12/19 24 08/13/2023 COMP. METAB OLIC PANEL (14) calcium 9.9 mg/dL 8.7-10 .3 Not Available [facility] ([facility]) [address], [place], [address], 08/13/2023 04:36:19 08/12/19 24 08/13/2023 COMP. METAB OLIC PANEL (14) protein, total 6.4 g/dL 6.0-8. 5 Not Available [facility] ([facility]) [address] [place], [address], 08/13/2023 04:36:19 08/12/19 24 08/13/2023 COMP. METAB OLIC PANEL (14) albumin 4.3 g/dL 3.8-4. 8 Not Available [facility] ([facility]) [address] [place], [address], 08/13/2023 04:36:19 08/12/19 24 08/13/2023 COMP. METAB OLIC PANEL (14) globulin, total 2.1 g/dL 1.5-4. 5 Not Available [facility] ([facility]) [address] [place], [address], 08/13/2023 04:36:19 08/12/19 24 08/13/2023 COMP. METAB OLIC PANEL (14) A/G ratio 2.0 1.2-2. 2 Not Available [facility] ([facility]) [address] [place], [address], 08/13/2023 04:36:19 08/12/19 24 08/13/2023 COMP. METAB OLIC PANEL (14) bilirubin, total 0.5 mg/dL 0.0-1. 2 Not Available [facility] ([facility]) [address] [place], [address], 08/13/2023 04:36:19 08/12/19 24 08/13/2023 COMP. METAB OLIC PANEL (14) alkaline phosphatase 62 IU/L 44-121 Not Available [facility]) [address] [facility], [place], [address], 08/13/2023 04:36:19 08/12/19 24 08/13/2023 COMP. METAB OLIC PANEL (14) AST (SGOT) 24 IU/L 0-40 Not Available [facility] ([facility]) [address] [facility], [place], [address], 08/13/2023 04:36:19 08/12/19 24 08/13/2023 COMP. METAB OLIC PANEL (14) ALT (SGPT) 19 IU/L 0-32 Not Available [facility] ([facility]) [address] [facility], [place], [address], 08/13/2023 04:36:19 08/12/19 24 08/13/2023 CBC WITH DIFFE RENTI AL/PL ATELE T WBC 4.8 x10e3 /uL 3.4-10 .8 Not Available [facility] ([facility]) [address] [facility], [place], [address], 08/13/2023 04:36:19 08/12/19 24 08/13/2023 CBC WITH DIFFE RENTI AL/PL ATELE T RBC 4.43 x10e6 /uL 3.77-5 .28 Not Available [facility] ([facility]) [address] [facility], [place], [address], 08/13/2023 04:36:19 08/12/19 24 08/13/2023 CBC WITH DIFFE RENTI AL/PL ATELE T hemoglobin 14.2 g/dL 11.1-1 5.9 Not Available [facility] ([facility]) [address] [place], [address], 08/13/2023 04:36:19 08/12/19 24 08/13/2023 CBC WITH DIFFE RENTI AL/PL ATELE T hematocrit 42.6 % 34.0-4 6.6 Not Available [facility] ([facility]) [address] [facility], [place], [address], 08/13/2023 04:36:19 08/12/19 24 08/13/2023 CBC WITH DIFFE RENTI AL/PL ATELE T MCV 96 fL 79-97 Not Available [facility] ([facility]) [address] [facility], [place], [address], 08/13/2023 04:36:19 08/12/19 24 08/13/2023 CBC WITH DIFFE RENTI AL/PL ATELE T MCH 32.1 pg 26.6-3 3.0 Not Available [facility] ([facility]) [address] [facility], [place], [address], 08/13/2023 04:36:19 08/12/19 24 08/13/2023 CBC WITH DIFFE RENTI AL/PL ATELE T MCHC 33.3 g/dL 31.5-3 5.7 Not Available [facility] ([facility]) [address] [facility], [place], [address], 08/13/2023 04:36:19 08/12/19 24 08/13/2023 CBC WITH DIFFE RENTI AL/PL ATELE T RDW 12.5 % 11.7-1 5.4 Not Available [facility] ([facility]) [address] [facility], [place], [address], 08/13/2023 04:36:19 08/12/19 24 08/13/2023 CBC WITH DIFFE RENTI AL/PL ATELE T platelets 192 x10e3 /uL 150-45 0 Not Available [facility] ([facility]) [address] [facility], [place], [address], 08/13/2023 04:36:19 08/12/19 24 08/13/2023 CBC WITH DIFFE RENTI AL/PL ATELE T neutrophils 73 % notest ab. Not Available [facility] ([facility]) [address] [facility], [place], [address], 08/13/2023 04:36:19 08/12/19 24 08/13/2023 CBC WITH DIFFE RENTI AL/PL ATELE T lymphs 13 % notest ab. Not Available [facility] ([facility]) [address] [facility], [place], [address], 08/13/2023 04:36:19 08/12/19 24 08/13/2023 CBC WITH DIFFE RENTI AL/PL ATELE T monocytes 12 % notest ab. Not Available [facility] ([facility]) [address] [place], [address], 08/13/2023 04:36:19 08/12/19 24 08/13/2023 CBC WITH DIFFE RENTI AL/PL ATELE T eos 1 % notest ab. Not Available [facility] ([facility]) [address] [place], [address], 08/13/2023 04:36:19 08/12/19 24 08/13/2023 CBC WITH DIFFE RENTI AL/PL ATELE T basos 1 % notest ab. Not Available [facility] ([facility]) [address] [place], [address], 08/13/2023 04:36:19 08/12/19 24 08/13/2023 CBC WITH DIFFE RENTI AL/PL ATELE T neutrophils (absolute) 3.5 x10e3 /uL 1.4-7. 0 Not Available [facility] ([facility]) [address] [place], [address], 08/13/2023 04:36:19 08/12/19 24 08/13/2023 CBC WITH DIFFE RENTI AL/PL ATELE T lymphs (absolute) 0.6 x10e3 /uL 0.7-3. 1 below low normal Not Available [facility] ([facility]) [address] [place], [address], 08/13/2023 04:36:19 08/12/19 24 08/13/2023 CBC WITH DIFFE RENTI AL/PL ATELE T monocytes(ab solute) 0.6 x10e3 /uL 0.1-0. 9 Not Available [facility] ([facility]) [address] [facility], [place], [address], 08/13/2023 04:36:19 08/12/19 24 08/13/2023 CBC WITH DIFFE RENTI AL/PL ATELE T eos (absolute) 0.1 x10e3 /uL 0.0-0. 4 Not Available [facility] ([facility]) [address] [facility], [place], [address], 08/13/2023 04:36:19 08/12/19 24 08/13/2023 CBC WITH DIFFE RENTI AL/PL ATELE T baso (absolute) 0.0 x10e3 /uL 0.0-0. 2 Not Available [facility] ([facility]) [address] [facility], [place], [address], 08/13/2023 04:36:19 08/12/19 24 08/13/2023 CBC WITH DIFFE RENTI AL/PL ATELE T immature granulocytes 0 % notest ab. Not Available [facility] ([facility]) [address] [facility], [place], [address], 08/13/2023 04:36:19 08/12/19 24 08/13/2023 CBC WITH DIFFE RENTI AL/PL ATELE T immature grans (abs) 0.0 x10e3 /uL 0.0-0. 1 Not Available [facility] ([facility]) [address] [facility], [place], [address], 08/13/2023 04:36:19 02/13/20 24 02/14/2024 LIPID PANEL cholesterol, total 157 mg/dL 100-19 9 Not Available [facility] ([facility]) [address] [place], [address], 02/14/2024 11:13:46 02/13/20 24 02/14/2024 LIPID PANEL triglyceride s 57 mg/dL 0-149 Not Available [facility] ([facility]) [address] [place], [address], 02/14/2024 11:13:46 02/13/20 24 02/14/2024 LIPID PANEL HDL cholesterol 69 mg/dL >39 Not Available [facility] ([facility]) [address] [place], [address], 02/14/2024 11:13:46 02/13/20 24 02/14/2024 LIPID PANEL VLDL cholesterol salma 12 mg/dL 5-40 Not Available [facility] ([facility]) [address] [place], [address], 02/14/2024 11:13:46 02/13/20 24 02/14/2024 LIPID PANEL LDL chol calc ([facility]) 76 mg/dL 0-99 Not Available [facility]) [address] [place], [address], 02/14/2024 11:13:46 02/13/20 24 02/14/2024 COMP. METAB OLIC PANEL (14) glucose 91 mg/dL 70-99 Not Available [facility] ([facility]) [address] [place], [address], 02/14/2024 11:13:48 02/13/20 24 02/14/2024 COMP. METAB OLIC PANEL (14) BUN 16 mg/dL 8-27 Not Available [facility] ([facility]) [address] [place], [address], 02/14/2024 11:13:48 02/13/20 24 02/14/2024 COMP. METAB OLIC PANEL (14) creatinine 0.67 mg/dL 0.57-1 .00 Not Available [facility] ([facility]) [address] [facility], [place], [address], 02/14/2024 11:13:48 02/13/20 24 02/14/2024 COMP. METAB OLIC PANEL (14) eGFR 88 mL/mi n/1.7 3 >59 Not Available [facility] ([facility]) [address], [place], [address], 02/14/2024 11:13:48 02/13/20 24 02/14/2024 COMP. METAB OLIC PANEL (14) BUN/creatini ne ratio 24 12-28 Not Available [facility] ([facility]) [address] [facility], [place], [address], 02/14/2024 11:13:48 02/13/20 24 02/14/2024 COMP. METAB OLIC PANEL (14) sodium 136 mmol/ L 134-14 4 Not Available [facility] ([facility]) [address] [facility], [place], [address], 02/14/2024 11:13:48 02/13/20 24 02/14/2024 COMP. METAB OLIC PANEL (14) potassium 4.0 mmol/ L 3.5-5. 2 Not Available [facility] ([facility]) [address] [facility], [place], [address], 02/14/2024 11:13:48 02/13/20 24 02/14/2024 COMP. METAB OLIC PANEL (14) chloride 102 mmol/ L 96-106 Not Available [facility] ([facility]) [address] [facility], [place], [address], 02/14/2024 11:13:48 02/13/20 24 02/14/2024 COMP. METAB OLIC PANEL (14) carbon dioxide, total 23 mmol/ L 20-29 Not Available [facility] ([facility]) [address] [facility], [place], [address], 02/14/2024 11:13:48 11/04/20 24 02/14/2024 COMP. METAB OLIC PANEL (14) calcium 9.6 mg/dL 8.7-10 .3 Not Available [facility] ([facility]) [address] [facility], [place], [address], 02/14/2024 11:13:48 02/13/20 24 02/14/2024 COMP. METAB OLIC PANEL (14) protein, total 6.3 g/dL 6.0-8. 5 Not Available [facility] ([facility]) [address] [facility], [place], [address], 02/14/2024 11:13:48 02/13/20 24 02/14/2024 COMP. METAB OLIC PANEL (14) albumin 4.3 g/dL 3.8-4. 8 Not Available [facility] ([facility]) [address] [facility], [place], [address], 02/14/2024 11:13:48 02/13/20 24 02/14/2024 COMP. METAB OLIC PANEL (14) globulin, total 2.0 g/dL 1.5-4. 5 Not Available [facility] ([facility]) [address] [facility], [place], [address], 02/14/2024 11:13:48 02/13/20 24 02/14/2024 COMP. METAB OLIC PANEL (14) bilirubin, total 0.4 mg/dL 0.0-1. 2 Not Available [facility] ([facility]) [address] [facility], [place], [address], 02/14/2024 11:13:48 02/13/20 24 02/14/2024 COMP. METAB OLIC PANEL (14) alkaline phosphatase 66 IU/L 44-121 Not Available [facility] ([facility]) [address] [facility], [place], [address], 02/14/2024 11:13:48 02/13/20 24 02/14/2024 COMP. METAB OLIC PANEL (14) AST (SGOT) 23 IU/L 0-40 Not Available [facility] ([facility]) [address] [facility], [place], [address], 02/14/2024 11:13:48 02/13/20 24 02/14/2024 COMP. METAB OLIC PANEL (14) ALT (SGPT) 19 IU/L 0-32 Not Available [facility] ([facility]) [address] [facility], [place], [address], 02/14/2024 11:13:48 02/13/20 24 02/13/2024 ABN OPTIO [...] vangie follo w-up. Not Available [facility] [address] [address], [place], [address], 02/14/2024 11:13:49 02/13/20 24 02/14/2024 CBC WITH DIFFE RENTI AL/PL ATELE T WBC 3.9 x10e3 /uL 3.4-10 .8 Not Available [facility] ([facility]) [address] [facility], [place], [address], 02/14/2024 11:13:50 02/13/20 24 02/14/2024 CBC WITH DIFFE RENTI AL/PL ATELE T RBC 4.25 x10e6 /uL 3.77-5 .28 Not Available [facility] ([facility]) [address] [facility], [place], [address], 02/14/2024 11:13:50 02/13/20 24 02/14/2024 CBC WITH DIFFE RENTI AL/PL ATELE T hemoglobin 13.5 g/dL 11.1-1 5.9 Not Available [facility] ([facility]) [address] [facility], [place], [address], 02/14/2024 11:13:50 02/13/20 24 02/14/2024 CBC WITH DIFFE RENTI AL/PL ATELE T hematocrit 40.8 % 34.0-4 6.6 Not Available [facility] ([facility]) [address] [facility], [place], [address], 02/14/2024 11:13:50 02/13/20 24 02/14/2024 CBC WITH DIFFE RENTI AL/PL ATELE T MCV 96 fL 79-97 Not Available [facility] ([facility]) [address] [place], [address], 02/14/2024 11:13:50 02/13/20 24 02/14/2024 CBC WITH DIFFE RENTI AL/PL ATELE T MCH 31.8 pg 26.6-3 3.0 Not Available [facility] ([facility]) [address] [place], [address], 02/14/2024 11:13:50 02/13/20 24 02/14/2024 CBC WITH DIFFE RENTI AL/PL ATELE T MCHC 33.1 g/dL 31.5-3 5.7 Not Available [facility] ([facility]) [address] [place], [address], 02/14/2024 11:13:50 02/13/20 24 02/14/2024 CBC WITH DIFFE RENTI AL/PL ATELE T RDW 12.8 % 11.7-1 5.4 Not Available [facility] ([facility]) [address] [place], [address], 02/14/2024 11:13:50 02/13/20 24 02/14/2024 CBC WITH DIFFE RENTI AL/PL ATELE T platelets 188 x10e3 /uL 150-45 0 Not Available [facility] ([facility]) [address] [facility], [place], [address], 02/14/2024 11:13:50 02/13/20 24 02/14/2024 CBC WITH DIFFE RENTI AL/PL ATELE T neutrophils 61 % notest ab. Not Available [facility] ([facility]) [address] [facility], [place], [address], 02/14/2024 11:13:50 02/13/20 24 02/14/2024 CBC WITH DIFFE RENTI AL/PL ATELE T lymphs 22 % notest ab. Not Available [facility] ([facility]) [address] [facility], [place], [address], 02/14/2024 11:13:50 02/13/20 24 02/14/2024 CBC WITH DIFFE RENTI AL/PL ATELE T monocytes 14 % notest ab. Not Available [facility] ([facility]) [address] [facility], [place], [address], 02/14/2024 11:13:50 02/13/20 24 02/14/2024 CBC WITH DIFFE RENTI AL/PL ATELE T eos 2 % notest ab. Not Available [facility] ([facility]) [address] [facility], [place], [address], 02/14/2024 11:13:50 02/13/20 24 02/14/2024 CBC WITH DIFFE RENTI AL/PL ATELE T basos 1 % notest ab. Not Available [facility] ([facility]) [address] [facility], [place], [address], 02/14/2024 11:13:50 02/13/20 24 02/14/2024 CBC WITH DIFFE RENTI AL/PL ATELE T neutrophils (absolute) 2.4 x10e3 /uL 1.4-7. 0 Not Available [facility] ([facility]) [address] [facility], [place], [address], 02/14/2024 11:13:50 02/13/20 24 02/14/2024 CBC WITH DIFFE RENTI AL/PL ATELE T lymphs (absolute) 0.9 x10e3 /uL 0.7-3. 1 Not Available [facility] ([facility]) [address] [facility], [place], [address], 02/14/2024 11:13:50 02/13/20 24 02/14/2024 CBC WITH DIFFE RENTI AL/PL ATELE T monocytes(ab solute) 0.5 x10e3 /uL 0.1-0. 9 Not Available [facility] ([facility]) [address] [facility], [place], [address], 02/14/2024 11:13:50 02/13/20 24 02/14/2024 CBC WITH DIFFE RENTI AL/PL ATELE T eos (absolute) 0.1 x10e3 /uL 0.0-0. 4 Not Available [facility] ([facility]) [address] [facility], [place], [address], 02/14/2024 11:13:50 02/13/20 24 02/14/2024 CBC WITH DIFFE RENTI AL/PL ATELE T baso (absolute) 0.0 x10e3 /uL 0.0-0. 2 Not Available [facility] ([facility]) [address] [place], [address], 02/14/2024 11:13:50 02/13/20 24 02/14/2024 CBC WITH DIFFE RENTI AL/PL ATELE T immature granulocytes 0 % notest ab. Not Available [facility] ([facility]) [address] [facility], [place], [address], 02/14/2024 11:13:50 02/13/20 24 02/14/2024 CBC WITH DIFFE RENTI AL/PL ATELE T immature grans (abs) 0.0 x10e3 /uL 0.0-0. 1 Not Available [facility] ([facility]) [address] [facility], [place], [address], 02/14/2024 11:13:50 05/25/19 25 05/26/2024 VITAM IN D, 25-HY DROXY vitamin D, 25-hydroxy 45.1 NG/mL 30.0-1 00.0 Vitam in D defic iency has been defin ed by the Insti tute of Medic ine and an Endoc rine Socie ty pract ice guide line as a level of serum 25-OH vitam in D less than 20 ng/mL (1,2) . The Endoc rine Socie ty went on to furth er defin e vitam in D insuf ficie ncy as a level betwe en 21 and 29 ng/mL (2). 1. IOM (Inst itute of Medic ine). 2009. Rosaura ry refer ence xavier es for calci um and D. Zena cifuentes [place]: The [facility] . 2. Jacob spivey MF, Jason ey [place], Chayito off-F errar i [place], et al. Evalu ation , treat ment, and preve ntion of vitam in D defic iency : an Endoc rine Socie ty clini salma pract ice guide line. JCEM. 2010; 96(7) :1911 -30. Not Available [facility] ([facility]) [address] [facility], [place], [address], 05/26/2024 10:11:44 10/10/19 24 10/10/2023 MAMMO , scree teresa, digit al, bilat eral No observ ation record ed. [address], [address], 10/14/2023 13:49:01 10/10/19 24 10/10/2023 bone densi ty No observ ation record ed. [address], [address], 10/14/2023 13:49:53 04/27/19 25 04/27/2024 CT, thora cic spine , w/o contr ast No observ ation record ed. [address], [place], [address], 05/04/2024 09:08:10 05/04/19 CT, lumba r spine , w/o contr ast No observ ation record ed. [address], [place], [address], 05/04/2024 09:08:10 05/16/1905/15/2024 XR, thora colum bar spine No observ ation record ed. [address], [place], [address], 05/18/2024 10:59:44 Result Notes None recorded. Problems Name Problem SNOMED Code Status Onset Date Resolution Date Notes Provider Name and Address Organization Details Recorded Time Hyperlipidemia 22823609 Active 2023 Lyndon Redman [place] null, [place] - [facility] 4 10:16:14 Chronic rhinitis 03249287 Active 2023 Lyndon Redman [place], [place] [facility] 4 10:16:15 Anxiety 45683578 Active 2023 Lyndon Redman [place], [place] [facility] 4 10:16:16 Essential hypertension 30557687 Active 2023 Jaden Rios MD Attn: Brian phoenix,[address] [facility], [place], [address], [place] - [facility] 4 15:51:39 Long-term drug therapy Active 2023 Jaden Rios MD Attn: Brian phoenix,[address] [facility], [place], [address], [place] - [facility] 4 15:51:40 Problem Notes None recorded. Procedures Surgical History Date Name Laterality Status Provider Name and Address Organization Details Recorded Time 11/16/19 colonoscopy completed Ashely Hernandez LPN [place] - [facility] 11/16/2023 16:25:54 Eye Surgery completed Phylicia Hutton MA [place] - [facility] 01/26/2024 10:31:59 tonsillectomy completed Phylicia Hutton MA [facility] 01/26/2024 10:32:37 Total hysterectomy completed Phylicia [facility] 01/26/2024 10:33:10 Dilation and Curettage completed Phylicia Hutton [facility] 01/26/2024 10:33:42 Imaging Results Imaging Date Name Status LastModified by Organization Details LastModified Time 10/10/2023 MAMMO, screening, digital, bilateral completed [address], [address], 10/14/2023 13:49:01 10/10/2023 bone density completed [address], [address], 10/14/2023 13:49:53 04/27/2024 CT, thoracic spine, w/o contrast completed [address], [address], 05/04/2024 09:08:10 05/04/2024 CT, lumbar spine, w/o contrast completed [address], [address], 05/04/2024 09:08:10 05/15/2024 XR, thoracolumbar spine completed [address], [address], 05/18/2024 10:59:44 Procedure Notes None recorded. Medical Equipment None Reported. Allergies Allergen ID Allergen Name Allergen Category Reaction Reaction Severity Criticality Documentation Date Start Date Code Code System Note Provider Name and Address Organization Details Recorded Time 394971 ceftriaxo ne medicatio n Not available Not available Not available 05/31/2024 2193 RxNorm Not Available Not Available Not Available 806647 Product containin g gadoliniu m and/or gadoliniu m compound (product) medicatio n Not available Not available Not available 05/31/2024 76678 3008 SNOMED Not Available Not Available Not Available 956471 iodine medicatio n Not available Not available Not available 05/31/2024 5933 RxNorm Not Available Not Available Not Available Medications Name Sig Start Date Stop Date Status Note LastModified by Organization Details LastModified Time status covid-19/fl u a-b antigen tst TEST DIRECTED TODAY 05/31 completed Not Available Not Available Not Available [...] Not Available Not Available No t Available Macrobid 100 mg capsule Take 1 capsule every 12 hours by oral route for 5 days. 2024 active Not Available Not Available Not Avai lable simvastatin 20 mg tablet TAKE 1 TABLET BY MOUTH ONCE DAILY active Not Available Not Available No t Available neomycin-po lymyxin-dex ameth 3.5 mg/mL-10,00 0 unit/mL-0.1 % eye drops INSTILL 1 DROP INTO LEFT EYE 4 TIMES DAILY 05/31 completed Not Available Not Available Not Available [...] Not Available cyclobenzap rine 5 mg tablet Take 1 tablet 3 times a day by oral route as needed, for pain. 2024 active Not Available Not Available Not Avai lable cyclosporin e 0.05 % eye drops in a dropperette INSTILL 1 DROP INTO EACH EYE TWICE DAILY active Not Available Not Available No t Available Prolia 60 mg/mL subcutaneou s syringe inject 60mg by subcutane ous route every 6mths 05/31 completed Not Available Not Available Not Available [...] Updated DateTime 4 167.64 cm 24 kg/m2 12963.1 1 g 82 /min 99.3 [degF] 97 % 97 % 124 mm[Hg] 80 mm[Hg] Namrata Noble [place] - [facility] 4 09:56:04 Date Recorded Body height Body mass index (BMI) Body weight Heart rate Oxygen saturation Oxygen saturation in Arterial blood by Pulse oximetry Systolic blood pressure Diastolic blood pressure Provider Name and Address Organization Details Last Updated DateTime 4 167.64 cm 24.4 kg/m2 24628.2 7 g 70 /min 97 % 97 % 118 mm[Hg] 82 mm[Hg] Phylicia Hutton [place] - [facility] 4 10:15:20 Date Recorded Body height Heart rate Oxygen saturation Oxygen saturation in Arterial blood by Pulse oximetry Systolic blood pressure Diastolic blood pressure Provider Name and Address Organization Details Last Updated DateTime 5 167.64 cm 73 /min 97 % 97 % 122 mm[Hg] 70 mm[Hg] Jackie Estes [place] - [facility] 5 10:13:46 Date Recorded Body height Body mass index (BMI) Body weight Heart rate Oxygen saturation Oxygen saturation in Arterial blood by Pulse oximetry Systolic blood pressure Diastolic blood pressure Provider Name and Address Organization Details Last Updated DateTime 167.64 cm 24.2 kg/m2 28631.8 6 g 88 /min 97 % 97 % 118 mm[Hg] 78 mm[Hg] Lida Read MA [facility] 10:21:39 Social History Question Answer Notes LastModified by Organizat ion Details LastModified Time Tobacco Smoking Status Former Smoker Namrata Noble [place], [place] - [facility] 07/28/2023 09:51:47 Do You Have An Advance [...] Date Of Your Most Recent Tobacco Screening? 05/31/2024 [email or web address] Information not available 05/31/2024 What Is Your Relationship Status? Information not [...] Anxious, Or Unable To Sleep At Night)? [id number] Information not available 07/28/2023 Do You Use [...] available 01/25 10:35:33 Medical History Condition Response Coronary Artery Disease N Other N High Blood Pressure Y Atrial Fibrillation N Thyroid Problems N Kidney or Bladder Problems N Depression N COPD N Blood Clots N GI Problems N Have you had a mammogram in the last yea r? Y Skin Problems N Anemia N Heart Attack (NE) N Anxiety Disorder Y Diabetes N Muscle, Joint, or Bone Problems N Seizures/Epilepsy N Have you had a colonoscopy in the last 1 0 years? Y Acid Reflux (GERD) Y Cancer N Stroke N Asthma N Allergies N Have you had a PSA blood test in the las t year? N High Cholesterol Y Hepatitis N Liver Disease N Headaches N Osteoporosis Y Heart Failure N Gynecological History Statement/Question Response If Post Menopausal, [...] 17:52:46 Influenza, adjuvanted, quadrivalent, PF 2 completed Lyndon Redman [place] null, [place] - [facility] 01/25/2024 17:52:46 COVID-19, mRNA, LNP-S, PF, 100 mcg/0.5mL dose or 50 mcg/0.25mL dose 1 completed Lyndon Redman [place], [place] [facility] 01/25/2024 17:52:46 COVID-19, mRNA, LNP-S, PF, 100 mcg/0.5mL dose or 50 mcg/0.25mL dose 1 completed Lyndon Red[place], [place] [facility] 01/25/2024 17:52:46 COVID-19, mRNA, LNP-S, PF, 100 mcg/0.5mL dose or 50 mcg/0.25mL dose 1 completed Lyndon Redman [place], [place] [facility] 01/25/2024 17:52:46 COVID-19, mRNA, [...] SNOMED-CT Code Diagnosis ICD10 Code Diagnosis Note [id number] Jaden Rios MD [facility] [place] [address] [place] [address] 07/28/2023 09:41:45 07/28/2023 10:21:18 Chronic rhinitis 32448881 J31.0 Hyperlipidemia 32055080 E78.5 Anxiety 90128144 F41.9 Long-term drug therapy 070869279 Z79.899 Essential hypertension 92607506 I10 [id number] Jaden Rios MD [facility] [place] [address] [place] [address] 01/26/2024 10:04:53 01/26/2024 11:17:38 Essential hypertension 59375015 I10 Long-term drug therapy 640503482 Z79.899 Renewal of prescription 268060337 Z76.0 Chronic rhinitis 0541614 6 J31.0 Hyperlipidemia 29946881 E78.5 [id number] Jaden Rios MD [facility] [employer] [facility] [place] [address] [place] [address] 05/07/2024 09:39:51 05/07/2024 10:53:41 Closed fracture thoracic vertebra 738131271 S22.009A Anxiety 00667546 F41.9 Chronic rhinitis 0042392 6 J31.0 Essential hypertension 65329261 I10 Hyperlipidemia 95235072 E78.5 [id number] Jaden Rios MD [facility] [employer] [facility] [place] [address] [place] [address] 05/31/2024 10:07:27 05/31/2024 11:09:12 Body mass index 20-24 - normal 990149328 Z68.24 Essential hypertension 66497356 I10 Hyperlipidemia 43082513 E78.5 Compressio n fracture of thoracic vertebra 9234665100 104 M48.54XD Health Concerns Section Related Observation LastModified by Organization Detai ls LastModified Time None Recorded Concern Status LastModified by Organization Details LastModified Time None Recorded Advance Directives Directive N: Payers Encounter Date Sequence Insurance Name Policy Number Policy Lozano Covered Member ID Lozano Member ID Guarantor Name 07/28/2023 1 [place] Olivia Mo [id number] Olivia Mo 01/26/2024 [place] Olivia Mo [id number] Olivia Mo 05/07/2024 1 [place] Mo [id number] Olivia Mo 05/07/2024 2 [place] [id number] Olivia Spivey Chepe [id number] Olivia Mo 05/31/2024 1 [place] Mo [id number] Olivia Mo 05/31/2024 2 [place] [id number] Olivia Spivey Mo [id number] Olivia Mo Notes Date Note Type Note Provider Name and Address Organization Details Recorded Time 07/28/2023 text/html 78-year-old hist ory of hypertension GERD chronic rhinitis urinary incontinence and hyperlipidemia Jaden Rios MD Attn: Accounting[address] [facility], [place], [address], [facility] 07/30/2023 15:52:09 01/26/2024 text/html 78-year-old hist ory of hypertension GERD chronic rhinitis urinary incontinence and hyperlipidemia incontinence hyperlipidemia GERD seem to be pretty stable as does hypertension but the rhinitis is still plaguing her and not controlled Jaden Rios MD Attn: Accounting, [address] [facility], [place], [address], [facility] 02/14/2024 22:08:20 05/07/2024 text/html fell off a step ladder T12 burst fracture still has pain using hydrocodone and Flexeril no bowel or bladder incontinence. Her rhinitis is about the same hypertension stable dyslipidemia taking her simvastatin without any side effects anxiety is doing well Jaden Rios MD Attn: Accounting, [address] [facility], [place], [address], [facility] 05/13/2024 17:00:12 05/31/2024 text/html saw the back arielle geon got a brace we are weaning off the hydrocodone no distal symptoms in legs blood pressure has been good Jaden Rios MD Attn: Accounting[address] [place], [address], [facility] 06/11/2024 07:47:32 OBGyn Episode No OBEpisode recorded.
--- OUTSIDE RECORDS SUMMARY | 2024-06-26 12:45 | XMS_ITS | Data Portability ---
Author Organization [place] [facility] [employer] Main Office Address [address] [place] [address] Care Team Providers Care Court Advocate Name Role Phone JADEN RIOS Primary Care Provider [phone] JADEN RIOS Referring Provider [phone] Assessment Encounter Date Assessment Date Assessment LastModified by Organization Details LastModified Time 06/10/2022 06/10/[address] sinus Blood work Continue current therapy Follow-up 4 months Not available 07/18/2022 16:57:14 12/16/2022 12/16/2022 Will continue current therapy follow-up in 6 months [id number] Not available 01/02/2023 22:34:59 Plan of Treatment [...] MA folate 7.47 NG/mL 2.76- Not Available [facility] (Lab) [address] [place], [address], 12/23/2020 15:29:22 12/24/19 21 12/23/2020 VITAM IN B12 (ESTHER EDWIN ) vb12 295 pg/mL 239-93 1 Not Available [facility] (Lab) [address] [place], [address], 12/23/2020 15:29:21 12/24/19 21 12/23/2020 SYDNEY TIN ferritin 33 NG/mL 11.1-2 64 Not Available [facility] (Lab) [address] [place], [address], 12/23/2020 14:54:22 12/24/1912/23/2020 TSH thyroid-stim ulating hormone 2.940 uIU/m L 0.465- 4.680 Not Available [facility] (Lab) [address] [place], [address], 12/23/2020 14:44:47 12/24/1912/23/2020 T3 FREE free T3 3.5 pg/mL 2.77-5 .27 Not Available [facility] (Lab) [address] [place], [address], 12/23/2020 14:43:39 12/24/1912/23/2020 T4 FREE free T4 1.23 NG/dL 0.78-2 .19 Not Available [facility] (Lab) [address] [place], [address], 12/23/2020 14:43:37 12/24/19 21 12/23/2020 COMPR EHENS JUANITA METAB OLIC PANEL chloride 105 mmol/ L 98-107 Not Available [facility] (Lab) [address] [place], [address], 12/23/2020 14:43:17 12/24/19 21 12/23/2020 COMPR EHENS JUANITA METAB OLIC PANEL sodium 137 mmol/ L 137-14 5 Not Available [facility] (Lab) [address] [place], [address], 12/23/2020 14:43:17 12/24/19 21 12/23/2020 COMPR EHENS JUANITA METAB OLIC PANEL potassium 4.2 mmol/ L 3.5-5. 1 Not Available [facility] (Lab) [address] [place], [address], 12/23/2020 14:43:17 12/24/19 21 12/23/2020 COMPR EHENS JUANITA METAB OLIC PANEL carbon dioxide 27 mmol/ L 22-30 Not Available [facility] (Lab) [address] [place], [address], 12/23/2020 14:43:17 12/24/19 21 12/23/2020 COMPR EHENS JUANITA METAB OLIC PANEL agap 9.2 mmol/ L 14-22 low Not Available [facility] (Lab) [address] [place], [address], 12/23/2020 14:43:17 12/24/19 21 12/23/2020 COMPR EHENS JUANITA METAB OLIC PANEL glucose 87 mg/dL 70-99 Not Available [facility] (Lab) [address] [place], [address], 12/23/2020 14:43:17 12/24/19 21 12/23/2020 COMPR EHENS JUANITA METAB OLIC PANEL BUN 16 mg/dL 8-19 Not Available [facility] (Lab) [address] [place], [address], 12/23/2020 14:43:17 12/24/19 21 12/23/2020 COMPR EHENS JUANITA METAB OLIC PANEL creatinine 0.58 mg/dL 0.66-1 .25 low Not Available [facility] (Lab) [address] [place], [address], 12/23/2020 14:43:17 12/24/19 21 12/23/2020 COMPR EHENS JUANITA METAB OLIC PANEL GFR >60 Refer ence Range : [place] ge GFR Healt hy Adult : >60 [...] lator can be locat ed on the [facility] websi te: https :[email or web address] villa/pr bentleyess ional s/kdo qi/gf r_cal culat or Not Available [facility] (Lab) [address] [place], [address], 12/23/2020 14:43:17 12/24/19 21 12/23/2020 COMPR EHENS JUANITA METAB OLIC PANEL alkaline phosphatase 47 U/L 38-126 Not Available [facility] (Lab) [address] [place], [address], 12/23/2020 14:43:17 12/24/19 21 12/23/2020 COMPR EHENS JUANITA METAB OLIC PANEL alanine aminotransfe rase 17 U/L 0-35 Not Available [facility] (Lab) [address] [place], [address], 12/23/2020 14:43:17 12/24/19 21 12/23/2020 COMPR EHENS JUANITA METAB OLIC PANEL aspartate aminotransfe rase 28 U/L 15-37 Not Available [facility] (Lab) [address] [place], [address], 12/23/2020 14:43:17 12/24/19 21 12/23/2020 COMPR EHENS JUANITA METAB OLIC PANEL bilirubin, total 0.50 mg/dL 0.20-1 .30 Not Available [facility] (Lab) [address] [place], [address], 12/23/2020 14:43:17 12/24/19 21 12/23/2020 COMPR EHENS JUANITA METAB OLIC PANEL calcium 9.7 mg/dL 8.4-10 .2 Not Available [facility] (Lab) [address] [place], [address], 12/23/2020 14:43:17 12/24/19 21 12/23/2020 COMPR EHENS JUANITA METAB OLIC PANEL total protein 6.3 g/dL 6.3-8. 2 Not Available [facility] (Lab) [address] [place], [address], 12/23/2020 14:43:17 12/24/19 21 12/23/2020 COMPR EHENS JUANITA METAB OLIC PANEL albumin 4.1 g/dL 3.0-4. 4 Not Available [facility] (Lab) [address] [place], [address], 12/23/2020 14:43:17 12/24/19 21 12/23/2020 COMPR EHENS JUANITA METAB OLIC PANEL globulin 2.2 g/dL 2.6-4. 2 low Not Available [facility] (Lab) [address] [place], [address], 12/23/2020 14:43:17 12/24/19 21 12/23/2020 COMPR EHENS JUANITA METAB OLIC PANEL A/G ratio 1.9 ratio 1.0-2. 0 Not Available [facility] (Lab) [address] [place], [address], 12/23/2020 14:43:17 12/24/19 21 12/23/2020 LIPID PANEL cholesterol 161 mg/dL 140-19 9 NIH GAYATHRI NSUS RECOM MENDA TION FOR MED STERO L: ADULT CHILD LOW RISK: <200 <170 BORDE RLINE : <200- 239 ----- HIGH RISK: >240 >200 Not Available [facility] (Lab) [address] [place], [address], 12/23/2020 14:43:11 12/24/1912/23/2020 LIPID PANEL triglyceride s 57 mg/dL 0-150 NIH GAYATHRI NSUS REPOR T RECOM MENDA TION FOR TRIGL YCERI ASH: ADULT CHILD LOW RISK: <150 ----- BODER LINE: 150-1 99 ----- HIGH RISK: >200 ----- Not Available [facility] (Lab) [address] [place], [address], 12/23/2020 14:43:11 12/24/19 21 12/23/2020 LIPID PANEL HDL cholesterol 74 mg/dL 40- Not Available [facility] (Lab) [address] [place], [address], 12/23/2020 14:43:11 12/24/19 21 12/23/2020 LIPID PANEL [...] WILL NOT BE REPOR TO. Not Available [facility] (Lab) [address] [place], [address], 12/23/2020 14:43:11 12/24/19 21 12/23/2020 VITAM IN D 25-HY DROXY [id number] 42.4 NG/mL 30-100 Vitam in D Statu s: Defic ient: <20 ng/mL Insuf ficie nt: 20-29 ng/mL Suffi cient : 30-10 0 ng/mL Not Available [facility] (Lab) [address] [place], [address], 12/23/2020 14:43:05 12/24/19 21 12/23/2020 IRON/ TIBC PANEL iron 87 mcg/d L 42-175 Not Available [facility] (Lab) [address] [place], [address], 12/23/2020 14:23:24 12/24/19 21 12/23/2020 IRON/ TIBC PANEL total iron binding capacity 263 mcg/d L 265-47 5 low Not Available [facility] (Lab) [address] [place], [address], 12/23/2020 14:23:24 12/24/19 21 12/23/2020 IRON/ TIBC PANEL % transferrin saturation 33 % 20-55 Not Available [facility] (Lab) [address] [place], [address], 12/23/2020 14:23:24 12/24/19 21 12/23/2020 IRON/ TIBC PANEL unsaturated iron bind capacity 176 mcg/d L 126-38 2 Not Available [facility] (Lab) [address] [place], [address], 12/23/2020 14:23:24 12/24/19 21 12/23/2020 CBC/C OMPLE TE BLD COUNT W/DIF F platelets 186 x10'3 /uL 150-40 0 Not Available [facility] (Lab) [address] [place], [address], 12/23/2020 13:56:15 12/24/19 21 12/23/2020 CBC/C OMPLE TE BLD COUNT W/DIF F white blood cells 4.3 x10'3 /uL 4.2-10 .8 Not Available [facility] (Lab) [address] [place], [address], 12/23/2020 13:56:15 12/24/19 21 12/23/2020 CBC/C OMPLE TE BLD COUNT W/DIF F red blood cells 4.23 x10'6 /uL 3.80-5 .20 Not Available [facility] (Lab) [address] [place], [address], 12/23/2020 13:56:15 12/24/19 21 12/23/2020 CBC/C OMPLE TE BLD COUNT W/DIF F hemoglobin 13.5 g/dL 12.0-1 5.6 Not Available [facility] (Lab) [address] [place], [address], 12/23/2020 13:56:15 12/24/19 21 12/23/2020 CBC/C OMPLE TE BLD COUNT W/DIF F hematocrit 40.7 % 35.7-4 5.7 Not Available [facility] (Lab) [address] [place], [address], 12/23/2020 13:56:15 12/24/19 21 12/23/2020 CBC/C OMPLE TE BLD COUNT W/DIF F mean red cell volume 96.2 fL 82.0-9 9.0 Not Available [facility] (Lab) [address] [place], [address], 12/23/2020 13:56:15 12/24/19 21 12/23/2020 CBC/C OMPLE TE BLD COUNT W/DIF F mean red cell hemoglobin 31.9 pg 27.0-3 3.0 Not Available [facility] (Lab) [address] [place], [address], 12/23/2020 13:56:15 12/24/19 21 12/23/2020 CBC/C OMPLE TE BLD COUNT W/DIF F mean RBC HGB concentratio n 33.2 g/dL 31.0-3 6.0 Not Available [facility] (Lab) [address] [place], [address], 12/23/2020 13:56:15 12/24/1912/23/2020 CBC/C OMPLE TE BLD COUNT W/DIF F red cell distribution width 13.7 % 11.8-1 5.5 Not Available [facility] (Lab) [address] [place], [address], 12/23/2020 13:56:15 12/24/1912/23/2020 CBC/C OMPLE TE BLD COUNT W/DIF F mean platelet volume 11.7 fL 9.0-12 .4 Not Available [facility] (Lab) [address] [place], [address], 12/23/2020 13:56:15 12/24/19 21 12/23/2020 CBC/C OMPLE TE BLD COUNT W/DIF F neutrophils 59.6 % 39.0-7 2.0 Not Available [facility] (Lab) [address] [place], [address], 12/23/2020 13:56:15 12/24/1912/23/2020 CBC/C OMPLE TE BLD COUNT W/DIF F lymphocytes 22.7 % 16.0-4 7.0 Not Available [facility]Lab[facility] [address] [facility] [place], [address], 12/23/2020 13:56:15 12/24/1912/23/2020 CBC/C OMPLE TE BLD COUNT W/DIF F monocytes 13.3 % 5.0-12 .0 high Not Available [facility] (Lab) [address] [facility] [place], [address], 12/23/2020 13:56:15 12/24/1912/23/2020 CBC/C OMPLE TE BLD COUNT W/DIF F eosinophils 3.3 % 1.0-7. 0 Not Available [facility] (Lab) [address] [place], [address], 12/23/2020 13:56:15 12/24/1912/23/2020 CBC/C OMPLE TE BLD COUNT W/DIF F basophils 0.9 % 0.0-2. 0 Not Available [facility] (Lab) [address] [place], [address], 12/23/2020 13:56:15 12/24/1912/23/2020 CBC/C OMPLE TE BLD COUNT W/DIF F immature granulocytes 0.2 % 0.00-0 .50 Not Available [facility] (Lab) [address] [place], [address], 12/23/2020 13:56:15 12/24/19 21 12/23/2020 CBC/C OMPLE TE BLD COUNT W/DIF F neutrophils, absolute count 2.54 x10'3 /uL 1.5-8. 0 Not Available [facility] (Lab) [address] [place], [address], 12/23/2020 13:56:15 12/24/1912/23/2020 CBC/C OMPLE TE BLD COUNT W/DIF F lymphocytes, absolute count 0.97 x10'3 /uL 1.07-3 .43 low Not Available [facility] (Lab) [address] [place], [address], 12/23/2020 13:56:15 12/24/1912/23/2020 CBC/C OMPLE TE BLD COUNT W/DIF F monocytes, absolute count 0.57 x10'3 /uL 0.29-0 .99 Not Available [facility] (Lab) [address] [place], [address], 12/23/2020 13:56:15 12/24/1912/23/2020 CBC/C OMPLE TE BLD COUNT W/DIF F eosinophils, absolute count 0.14 x10'3 /uL 0.02-0 .53 Not Available [facility] (Lab) [address] [place], [address], 12/23/2020 13:56:15 12/24/1912/23/2020 CBC/C OMPLE TE BLD COUNT W/DIF F basophils, absolute count 0.04 x10'3 /uL 0.01-0 .08 Not Available [facility] (Lab) [address] [place], [address], 12/23/2020 13:56:15 12/24/1912/23/2020 CBC/C OMPLE TE BLD COUNT W/DIF F immature granulocytes ,absolute 0.01 x10'3 /uL 0.00-0 .05 Not Available [facility] (Lab) [address] [place], [address], 12/23/2020 13:56:15 12/24/19 12/23/2020 CBC/C OMPLE TE BLD COUNT W/DIF F nucleated red blood cells 0.0 % -0 Not Available [facility] (Lab) [address] [place], [address], 12/23/2020 13:56:15 12/24/19 21 12/23/2020 CBC/C OMPLE TE BLD COUNT W/DIF F NRBC# 0.00 x10'3 /uL Not Available [facility] (Lab) [address] [place], [address], 12/23/2020 13:56:15 12/11/19 22 12/10/2021 LIPID PANEL [...] WILL NOT BE REPOR TO. Not Available [facility] (Lab) [address] [place], [address], 12/10/2021 14:24:10 12/11/19 22 12/10/2021 LIPID PANEL cholesterol 184 mg/dL 140-19 9 NIH GAYATHRI NSUS RECOM MENDA TION FOR MED STERO L: ADULT CHILD LOW RISK: <200 <170 BORDE RLINE : <200- 239 ----- HIGH RISK: >240 >200 Not Available [facility] (Lab) [address] [place], [address], 12/10/2021 14:24:10 12/11/19 22 12/10/2021 LIPID PANEL triglyceride s 59 mg/dL 0-150 NIH GAYATHRI NSUS REPOR T RECOM MENDA TION FOR TRIGL YCERI ASH: ADULT CHILD LOW RISK: <150 ----- BODER LINE: 150-1 99 ----- HIGH RISK: >200 ----- Not Available [facility] (Lab) [address] [place], [address], 12/10/2021 14:24:10 12/11/19 22 12/10/2021 LIPID PANEL HDL cholesterol 83 mg/dL 40- Not Available [facility] (Lab) [address] [place], [address], 12/10/2021 14:24:10 12/11/19 22 12/10/2021 COMPR EHENS JUANITA METAB OLIC PANEL carbon dioxide 29 mmol/ L 22-30 Not Available [facility] (Lab) [address] [place], [address], 12/10/2021 14:24:07 12/11/19 22 12/10/2021 COMPR EHENS JUANIAT METAB OLIC PANEL sodium 135 mmol/ L 137-14 5 low Not Available [facility] (Lab) [address] [place], [address], 12/10/2021 14:24:07 12/11/19 22 12/10/2021 COMPR EHENS JUANITA METAB OLIC PANEL potassium 3.9 mmol/ L 3.5-5. 1 Not Available [facility] (Lab) [address] [place], [address], 12/10/2021 14:24:07 12/11/19 22 12/10/2021 COMPR EHENS JUANITA METAB OLIC PANEL chloride 99 mmol/ L 98-107 Not Available [facility] (Lab) [address] [place], [address], 12/10/2021 14:24:07 12/11/19 22 12/10/2021 COMPR EHENS JUANITA METAB OLIC PANEL anion gap 10.9 mmol/ L 14-22 low Not Available [facility] (Lab) [address] [place], [address], 12/10/2021 14:24:12/11/19 22 12/10/2021 COMPR EHENS JUANITA METAB OLIC PANEL glucose 103 mg/dL 70-99 high Not Available [facility] (Lab) [address] [place], [address], 12/10/2021 14:24:12/11/19 22 12/10/2021 COMPR EHENS JUANITA METAB OLIC PANEL BUN 15 mg/dL 8-19 Not Available [facility] (Lab) [address] [place], [address], 12/10/2021 14:24:12/11/19 22 12/10/2021 COMPR EHENS JUANITA METAB OLIC PANEL creatinine 0.70 mg/dL 0.66-1 .25 Not Available [facility] (Lab) [address] [place], [address], 12/10/2021 14:24:12/11/19 22 12/10/2021 COMPR EHENS JUANITA METAB OLIC PANEL GFR >60 Refer ence Range : [place] ge GFR Healt hy Adult : >60 [...] a case- by-ca se basis . Clini samla inter preta tion for other races and [...] calcu lator is avail able on the [facility] websi te: https :[email or web address] [email or web address] [email or web address] s/kdo qi/gf r_cal culat or Not Available [facility] (Lab) [address] [place], [address], 12/10/2021 14:24:12/11/19 22 12/10/2021 COMPR EHENS JUANITA METAB OLIC PANEL alkaline phosphatase 55 U/L 38-126 Not Available [facility] (Lab) [address] [place], [address], 12/10/2021 14:24:07 12/11/19 22 12/10/2021 COMPR EHENS JUANITA METAB OLIC PANEL alanine aminotransfe rase 19 U/L 0-35 Not Available [facility] (Lab) [address] [place], [address], 12/10/2021 14:24:12/11/19 22 12/10/2021 COMPR EHENS JUANITA METAB OLIC PANEL aspartate aminotransfe rase 27 U/L 15-37 Not Available [facility] (Lab) [address] [place], [address], 12/10/2021 14:24:12/11/19 22 12/10/2021 COMPR EHENS JUANITA METAB OLIC PANEL bilirubin, total 0.60 mg/dL 0.20-1 .30 Not Available [facility] (Lab) [address] [place], [address], 12/10/2021 14:24:12/11/19 22 12/10/2021 COMPR EHENS JUANITA METAB OLIC PANEL calcium 9.9 mg/dL 8.4-10 .2 Not Available [facility] (Lab) [address] [place], [address], 12/10/2021 14:24:07 12/11/19 22 12/10/2021 COMPR EHENS JUANITA METAB OLIC PANEL total protein 6.9 g/dL 6.3-8. 2 Not Available [facility] (Lab) [address] [place], [address], 12/10/2021 14:24:07 12/11/19 22 12/10/2021 COMPR EHENS JUANITA METAB OLIC PANEL albumin 4.6 g/dL 3.0-4. 4 high Not Available [facility] (Lab) [address] [place], [address], 12/10/2021 14:24:07 12/11/19 22 12/10/2021 COMPR EHENS JUANITA METAB OLIC PANEL globulin 2.3 g/dL 2.6-4. 2 low Not Available [facility] (Lab) [address] [place], [address], 12/10/2021 14:24:07 12/11/19 22 12/10/2021 COMPR EHENS JUANITA METAB OLIC PANEL A/G ratio 2.0 ratio 1.0-2. 0 Not Available [facility] (Lab) [address] [place], [address], 12/10/2021 14:24:07 12/11/19 22 12/10/2021 CBC/C OMPLE TE BLD COUNT W/DIF F white blood cells 5.1 x10'3 /uL 4.2-10 .8 Not Available [facility] (Lab) [address] [place], [address], 12/10/2021 13:02:07 12/11/19 22 12/10/2021 CBC/C OMPLE TE BLD COUNT W/DIF F red blood cells 4.45 x10'6 /uL 3.80-5 .20 Not Available [facility] (Lab) [address] [place], [address], 12/10/2021 13:02:07 12/11/19 22 12/10/2021 CBC/C OMPLE TE BLD COUNT W/DIF F hemoglobin 14.1 g/dL 12.0-1 5.6 Not Available [facility] (Lab) [address] [place], [address], 12/10/2021 13:02:07 12/11/19 22 12/10/2021 CBC/C OMPLE TE BLD COUNT W/DIF F hematocrit 42.8 % 35.7-4 5.7 Not Available [facility] (Lab) [address] [place], [address], 12/10/2021 13:02:07 12/11/19 22 12/10/2021 CBC/C OMPLE TE BLD COUNT W/DIF F mean red cell volume 96.2 fL 82.0-9 9.0 Not Available [facility] (Lab) [address] [place], [address], 12/10/2021 13:02:07 12/11/19 22 12/10/2021 CBC/C OMPLE TE BLD COUNT W/DIF F mean red cell hemoglobin 31.7 pg 27.0-3 3.0 Not Available [facility] (Lab) [address] [place], [address], 12/10/2021 13:02:07 12/11/19 22 12/10/2021 CBC/C OMPLE TE BLD COUNT W/DIF F mean RBC HGB concentratio n 32.9 g/dL 31.0-3 6.0 Not Available [facility] (Lab) [address] [place], [address], 12/10/2021 13:02:07 12/11/19 22 12/10/2021 CBC/C OMPLE TE BLD COUNT W/DIF F red cell distribution width 13.5 % 11.8-1 5.5 Not Available [facility] (Lab) [address] [place], [address], 12/10/2021 13:02:07 12/11/19 22 12/10/2021 CBC/C OMPLE TE BLD COUNT W/DIF F platelets 211 x10'3 /uL 150-40 0 Not Available [facility] (Lab) [address] [place], [address], 12/10/2021 13:02:07 12/11/19 22 12/10/2021 CBC/C OMPLE TE BLD COUNT W/DIF F mean platelet volume 11.7 fL 9.0-12 .4 Not Available [facility] (Lab) [address] [place], [address], 12/10/2021 13:02:07 12/11/19 22 12/10/2021 CBC/C OMPLE TE BLD COUNT W/DIF F neutrophils 61.2 % 39.0-7 2.0 Not Available [facility] (Lab) [address] [place], [address], 12/10/2021 13:02:07 12/11/19 22 12/10/2021 CBC/C OMPLE TE BLD COUNT W/DIF F basophils 1.2 % 0.0-2. 0 Not Available [facility] (Lab) [address] [place], [address], 12/10/2021 13:02:07 12/11/19 22 12/10/2021 CBC/C OMPLE TE BLD COUNT W/DIF F lymphocytes 22.5 % 16.0-4 7.0 Not Available [facility] (Lab) [address] [place], [address], 12/10/2021 13:02:07 12/11/19 22 12/10/2021 CBC/C OMPLE TE BLD COUNT W/DIF F monocytes 12.5 % 5.0-12 .0 high Not Available [facility] (Lab) [address] [place], [address], 12/10/2021 13:02:07 12/11/19 22 12/10/2021 CBC/C OMPLE TE BLD COUNT W/DIF F eosinophils 2.2 % 1.0-7. 0 Not Available [facility] (Lab) [address] [place], [address], 12/10/2021 13:02:07 12/11/19 22 12/10/2021 CBC/C OMPLE TE BLD COUNT W/DIF F immature granulocytes 0.4 % 0.00-0 .50 Not Available [facility] (Lab) [address] [place], [address], 12/10/2021 13:02:07 12/11/19 22 12/10/2021 CBC/C OMPLE TE BLD COUNT W/DIF F neutrophils, absolute count 3.12 x10'3 /uL 1.5-8. 0 Not Available [facility] (Lab) [address] [place], [address], 12/10/2021 13:02:07 12/11/19 22 12/10/2021 CBC/C OMPLE TE BLD COUNT W/DIF F lymphocytes, absolute count 1.15 x10'3 /uL 1.07-3 .43 Not Available [facility] (Lab) [address] [place], [address], 12/10/2021 13:02:07 12/11/19 22 12/10/2021 CBC/C OMPLE TE BLD COUNT W/DIF F monocytes, absolute count 0.64 x10'3 /uL 0.29-0 .99 Not Available [facility] (Lab) [address] [place], [address], 12/10/2021 13:02:07 12/11/19 22 12/10/2021 CBC/C OMPLE TE BLD COUNT W/DIF F eosinophils, absolute count 0.11 x10'3 /uL 0.02-0 .53 Not Available [facility] (Lab) [address] [place], [address], 12/10/2021 13:02:07 12/11/19 22 12/10/2021 CBC/C OMPLE TE BLD COUNT W/DIF F NRBC# 0.00 x10'3 /uL Not Available [facility] (Lab) [address] [place], [address], 12/10/2021 13:02:07 12/11/19 22 12/10/2021 CBC/C OMPLE TE BLD COUNT W/DIF F basophils, absolute count 0.06 x10'3 /uL 0.01-0 .08 Not Available [facility] (Lab) [address] [place], [address], 12/10/2021 13:02:07 12/11/19 22 12/10/2021 CBC/C OMPLE TE BLD COUNT W/DIF F immature granulocytes ,absolute 0.02 x10'3 /uL 0.00-0 .05 Not Available [facility] (Lab) [address] [place], [address], 12/10/2021 13:02:07 12/11/19 22 12/10/2021 CBC/C OMPLE TE BLD COUNT W/DIF F nucleated red blood cells 0.0 % -0 Not Available [facility] (Lab) [address] [place], [address], 12/10/2021 13:02:07 06/11/19 23 06/10/2022 CBC/C OMPLE TE BLD COUNT W/DIF F white blood cells 4.3 x10'3 /uL 4.2-10 .8 Not Available [facility] (Lab) [address] [place], [address], 06/10/2022 13:24:20 06/11/19 23 06/10/2022 CBC/C OMPLE TE BLD COUNT W/DIF F red blood cells 4.40 x10'6 /uL 3.80-5 .20 Not Available [facility] (Lab) [address] [place], [address], 06/10/2022 13:24:20 06/11/19 23 06/10/2022 CBC/C OMPLE TE BLD COUNT W/DIF F hemoglobin 13.6 g/dL 12.0-1 5.6 Not Available [facility] (Lab) [address] [place], [address], 06/10/2022 13:24:20 06/11/19 23 06/10/2022 CBC/C OMPLE TE BLD COUNT W/DIF F hematocrit 41.7 % 35.7-4 5.7 Not Available [facility] (Lab) [address] [place], [address], 06/10/2022 13:24:20 06/11/19 23 06/10/2022 CBC/C OMPLE TE BLD COUNT W/DIF F mean red cell volume 94.8 fL 82.0-9 9.0 Not Available [facility] (Lab) [address] [place], [address], 06/10/2022 13:24:20 06/11/19 23 06/10/2022 CBC/C OMPLE TE BLD COUNT W/DIF F mean red cell hemoglobin 30.9 pg 27.0-3 3.0 Not Available [facility] (Lab) [address] [place], [address], 06/10/2022 13:24:20 06/11/19 23 06/10/2022 CBC/C OMPLE TE BLD COUNT W/DIF F mean RBC HGB concentratio n 32.6 g/dL 31.0-3 6.0 Not Available [facility] (Lab) [address] [place], [address], 06/10/2022 13:24:20 03/02/20 23 06/10/2022 CBC/C OMPLE TE BLD COUNT W/DIF F red cell distribution width 13.6 % 11.8-1 5.5 Not Available [facility] (Lab) [address] [place], [address], 06/10/2022 13:24:20 06/11/19 23 06/10/2022 CBC/C OMPLE TE BLD COUNT W/DIF F platelets 221 x10'3 /uL 150-40 0 Not Available [facility] (Lab) [address] [place], [address], 06/10/2022 13:24:20 06/11/19 23 06/10/2022 CBC/C OMPLE TE BLD COUNT W/DIF F mean platelet volume 11.4 fL 9.0-12 .4 Not Available [facility] (Lab) [address] [place], [address], 06/10/2022 13:24:20 06/11/19 23 06/10/2022 CBC/C OMPLE TE BLD COUNT W/DIF F neutrophils 53.4 % 39.0-7 2.0 Not Available [facility] (Lab) [address] [place], [address], 06/10/2022 13:24:20 06/11/19 23 06/10/2022 CBC/C OMPLE TE BLD COUNT W/DIF F lymphocytes 27.0 % 16.0-4 7.0 Not Available [facility] (Lab) [address] [place], [address], 06/10/2022 13:24:20 06/11/19 23 06/10/2022 CBC/C OMPLE TE BLD COUNT W/DIF F monocytes 14.8 % 5.0-12 .0 high Not Available [facility] (Lab) [address] [place], [address], 06/10/2022 13:24:20 06/11/19 23 06/10/2022 CBC/C OMPLE TE BLD COUNT W/DIF F eosinophils 3.0 % 1.0-7. 0 Not Available [facility] (Lab) [address] [place], [address], 06/10/2022 13:24:20 06/11/19 23 06/10/2022 CBC/C OMPLE TE BLD COUNT W/DIF F basophils 1.6 % 0.0-2. 0 Not Available [facility] (Lab) [address] [place], [address], 06/10/2022 13:24:20 06/11/19 23 06/10/2022 CBC/C OMPLE TE BLD COUNT W/DIF F immature granulocytes 0.2 % 0.00-0 .50 Not Available [facility] (Lab) [address] [place], [address], 06/10/2022 13:24:20 06/11/19 23 06/10/2022 CBC/C OMPLE TE BLD COUNT W/DIF F neutrophils, absolute count 2.31 x10'3 /uL 1.5-8. 0 Not Available [facility] (Lab) [address] [place], [address], 06/10/2022 13:24:20 06/11/19 23 06/10/2022 CBC/C OMPLE TE BLD COUNT W/DIF F lymphocytes, absolute count 1.17 x10'3 /uL 1.07-3 .43 Not Available [facility] (Lab) [address] [place], [address], 06/10/2022 13:24:20 06/11/19 23 06/10/2022 CBC/C OMPLE TE BLD COUNT W/DIF F monocytes, absolute count 0.64 x10'3 /uL 0.29-0 .99 Not Available [facility] (Lab) [address] [place], [address], 06/10/2022 13:24:20 06/11/19 23 06/10/2022 CBC/C OMPLE TE BLD COUNT W/DIF F eosinophils, absolute count 0.13 x10'3 /uL 0.02-0 .53 Not Available [facility] (Lab) [address] [place], [address], 06/10/2022 13:24:20 06/11/19 23 06/10/2022 CBC/C OMPLE TE BLD COUNT W/DIF F basophils, absolute count 0.07 x10'3 /uL 0.01-0 .08 Not Available [facility] (Lab) [address] [place], [address], 06/10/2022 13:24:20 06/11/19 23 06/10/2022 CBC/C OMPLE TE BLD COUNT W/DIF F immature granulocytes ,absolute 0.01 x10'3 /uL 0.00-0 .05 Not Available [facility] (Lab) [address] [place], [address], 06/10/2022 13:24:20 06/11/19 23 06/10/2022 CBC/C OMPLE TE BLD COUNT W/DIF F nucleated red blood cells 0.0 % -0 Not Available [facility] (Lab) [address] [place], [address], 06/10/2022 13:24:20 06/11/19 23 06/10/2022 CBC/C OMPLE TE BLD COUNT W/DIF F NRBC# 0.00 x10'3 /uL Not Available [facility] (Lab) [address] [place], [address], 06/10/2022 13:24:20 06/11/19 23 06/10/2022 LIPID PANEL cholesterol 176 mg/dL 140-19 9 NIH GAYATHRI NSUS RECOM MENDA TION FOR MED STERO L: ADULT CHILD LOW RISK: <200 <170 BORDE RLINE : <200- 239 ----- HIGH RISK: >240 >200 Not Available [facility] (Lab) [address] [place], [address], 06/10/2022 13:47:37 06/11/19 23 06/10/2022 LIPID PANEL triglyceride s 70 mg/dL 0-150 NIH GAYATHRI NSUS REPOR T RECOM MENDA TION FOR TRIGL YCERI ASH: ADULT CHILD LOW RISK: <150 ----- BODER LINE: 150-1 99 ----- HIGH RISK: >200 ----- Not Available [facility] (Lab) [address] [place], [address], 06/10/2022 13:47:37 06/11/19 23 06/10/2022 LIPID PANEL HDL cholesterol 83 mg/dL 40- Not Available [facility] (Lab) [address] [place], [address], 06/10/2022 13:47:37 06/11/19 23 06/10/2022 LIPID PANEL [...] WILL NOT BE REPOR TO. Not Available [facility] (Lab) [address] [place], [address], 06/10/2022 13:47:37 06/11/1906/10/2022 COMPR EHENS JUANITA METAB OLIC PANEL sodium 136 mmol/ L 137-14 5 low Not Available [facility] (Lab) [address] [place], [address], 06/10/2022 13:47:51 06/11/19 23 06/10/2022 COMPR EHENS JUANITA METAB OLIC PANEL potassium 4.1 mmol/ L 3.5-5. 1 Not Available [facility] (Lab) [address] [place], [address], 06/10/2022 13:47:51 06/11/19 23 06/10/2022 COMPR EHENS JUANITA METAB OLIC PANEL chloride 101 mmol/ L 98-107 Not Available [facility] (Lab) [address] [place], [address], 06/10/2022 13:47:51 06/11/19 23 06/10/2022 COMPR EHENS JUANITA METAB OLIC PANEL carbon dioxide 27 mmol/ L 22-30 Not Available [facility] (Lab) [address] [place], [address], 06/10/2022 13:47:51 06/11/19 23 06/10/2022 COMPR EHENS JUANITA METAB OLIC PANEL anion gap 12.1 mmol/ L 14-22 low Not Available [facility] (Lab) [address] [place], [address], 06/10/2022 13:47:51 06/11/19 23 06/10/2022 COMPR EHENS JUANITA METAB OLIC PANEL glucose 100 mg/dL 70-99 high Not Available [facility] (Lab) [address] [place], [address], 06/10/2022 13:47:51 06/11/19 23 06/10/2022 COMPR EHENS JUANITA METAB OLIC PANEL BUN 15 mg/dL 8-19 Not Available [facility] (Lab) [address] [place], [address], 06/10/2022 13:47:51 06/11/19 23 06/10/2022 COMPR EHENS JUANITA METAB OLIC PANEL creatinine 0.63 mg/dL 0.66-1 .25 low Not Available [facility] (Lab) [address] [place], [address], 06/10/2022 13:47:51 06/11/19 23 06/10/2022 COMPR EHENS JUANITA METAB OLIC PANEL GFR >60 Refer ence Range : [place] ge GFR Healt hy Adult : >60 [...] or ethni c subgr oups, such as Hisnj nics. Outsi de the valid ated abel [...] calcu lator is avail able on the [facility] websi te: https :[email or web address] [email or web address] [email or web address] rg/pr ofess ional s/kdo qi/gf r_cal culat or Not Available [facility] (Lab) [address] [place], [address], 06/10/2022 13:47:51 06/11/19 23 06/10/2022 COMPR EHENS JUANITA METAB OLIC PANEL alkaline phosphatase 58 U/L 38-126 Not Available [facility] (Lab) [address] [place], [address], 06/10/2022 13:47:51 06/11/19 23 06/10/2022 COMPR EHENS JUANITA METAB OLIC PANEL alanine aminotransfe rase 28 U/L 0-35 Not Available [facility] (Lab) [address] [place], [address], 06/10/2022 13:47:51 06/11/19 23 06/10/2022 COMPR EHENS JUANITA METAB OLIC PANEL aspartate aminotransfe rase 36 U/L 15-37 Not Available [facility] (Lab) [address] [place], [address], 06/10/2022 13:47:51 06/11/19 23 06/10/2022 COMPR EHENS JUANITA METAB OLIC PANEL bilirubin, total 0.60 mg/dL 0.20-1 .30 Not Available [facility] (Lab) [address] [place], [address], 06/10/2022 13:47:51 06/11/19 23 06/10/2022 COMPR EHENS JUANITA METAB OLIC PANEL calcium 9.9 mg/dL 8.4-10 .2 Not Available [facility] (Lab) [address] [place], [address], 06/10/2022 13:47:51 06/11/19 23 06/10/2022 COMPR EHENS JUANITA METAB OLIC PANEL total protein 6.9 g/dL 6.3-8. 2 Not Available [facility] (Lab) [address] [place], [address], 06/10/2022 13:47:51 06/11/19 23 06/10/2022 COMPR EHENS JUANITA METAB OLIC PANEL albumin 4.3 g/dL 3.0-4. 4 Not Available [facility] (Lab) [address] [place], [address], 06/10/2022 13:47:51 06/11/19 23 06/10/2022 COMPR EHENS JUANITA METAB OLIC PANEL globulin 2.6 g/dL 2.6-4. 2 Not Available [facility] (Lab) [address] [place], [address], 06/10/2022 13:47:51 06/11/1906/10/2022 COMPR EHENS JUANITA METAB OLIC PANEL A/G ratio 1.7 ratio 1.0-2. 0 Not Available [facility] (Lab) [address] [place], [address], 06/10/2022 13:47:51 06/11/1906/10/2022 VITAM IN D 25-HY DROXY [id number] 37.4 NG/mL 30-100 Vitam in D Statu s: Defic ient: <20 ng/mL Insuf ficie nt: 20-29 ng/mL Suffi cient : 30-10 0 ng/mL Not Available [facility] (Lab) [address] [place], [address], 06/10/2022 13:55:56 01/29/2001/28/2023 LIPID PANEL cholesterol 165 mg/dL 140-19 9 NIH GAYATHRI NSUS RECOM MENDA TION FOR MED STERO L: ADULT CHILD LOW RISK: <200 <170 BORDE RLINE : <200- 239 ----- HIGH RISK: >240 >200 Not Available [facility] (Lab) [address] [place], [address], 01/28/2023 12:51:01 01/29/20 23 01/28/2023 LIPID PANEL triglyceride s 70 mg/dL 0-150 NIH GAYATHRI NSUS REPOR T RECOM MENDA TION FOR TRIGL YCERI ASH: ADULT CHILD LOW RISK: <150 ----- BODER LINE: 150-1 99 ----- HIGH RISK: >200 ----- Not Available [facility] (Lab) [address] [place], [address], 01/28/2023 12:51:01 01/29/20 23 01/28/2023 LIPID PANEL HDL cholesterol 62 mg/dL 40- Not Available [facility] (Lab) [address] [place], [address], 01/28/2023 12:51:01 01/29/2001/28/2023 LIPID PANEL LDL cholesterol, [...] WILL NOT BE REPOR TO. Not Available [facility] (Lab) [address] [place], [address], 01/28/2023 12:51:01 01/29/2001/28/2023 COMPR EHENS JUANITA METAB OLIC PANEL sodium 135 mmol/ L 137-14 5 low Not Available [facility] (Lab) [address] [place], [address], 01/28/2023 12:51:16 01/29/2001/28/2023 COMPR EHENS JUANITA METAB OLIC PANEL potassium 4.1 mmol/ L 3.5-5. 1 Not Available [facility] (Lab) [address] [place], [address], 01/28/2023 12:51:16 01/29/2001/28/2023 COMPR EHENS JUANITA METAB OLIC PANEL chloride 102 mmol/ L 98-107 Not Available [facility] (Lab) [address] [place], [address], 01/28/2023 12:51:16 01/29/2001/28/2023 COMPR EHENS JUANITA METAB OLIC PANEL carbon dioxide 28 mmol/ L 22-30 Not Available [facility] (Lab) [address] [place], [address], 01/28/2023 12:51:16 01/29/20 23 01/28/2023 COMPR EHENS JUANITA METAB OLIC PANEL anion gap 9.1 mmol/ L 14-22 low Not Available [facility] (Lab) [address] [place], [address], 01/28/2023 12:51:16 01/29/2001/28/2023 COMPR EHENS JUANITA METAB OLIC PANEL glucose 98 mg/dL 70-99 Not Available [facility] (Lab) [address] [place], [address], 01/28/2023 12:51:16 01/29/2001/28/2023 COMPR EHENS JUANITA METAB OLIC PANEL BUN 14 mg/dL 8-19 Not Available [facility] (Lab) [address] [place], [address], 01/28/2023 12:51:16 01/29/2001/28/2023 COMPR EHENS JUANITA METAB OLIC PANEL creatinine 0.60 mg/dL 0.66-1 .25 low Not Available [facility] (Lab) [address] [place], [address], 01/28/2023 12:51:16 01/29/20 23 01/28/2023 COMPR EHENS JUANITA METAB OLIC PANEL GFR >60 Refer ence Range : [place] ge GFR Healt hy Adult : >60 [...] calcu lator is avail able on the [facility] websi te: https ://ww w.kid jill.o rg/pr ofess ional s/kdo qi/gf r_cal culat or Not Available [facility] (Lab) [address] [place], [address], 01/28/2023 12:51:16 01/29/2001/28/2023 COMPR EHENS JUANITA METAB OLIC PANEL alkaline phosphatase 60 U/L 38-126 Not Available [facility] (Lab) [address] [place], [address], 01/28/2023 12:51:16 01/29/2001/28/2023 COMPR EHENS JUANITA METAB OLIC PANEL alanine aminotransfe rase 23 U/L 0-35 Not Available [facility] (Lab) [address] [place], [address], 01/28/2023 12:51:16 01/29/2001/28/2023 COMPR EHENS JUANITA METAB OLIC PANEL aspartate aminotransfe rase 31 U/L 15-37 Not Available [facility] (Lab) [address] [place], [address], 01/28/2023 12:51:16 01/29/2001/28/2023 COMPR EHENS JUANITA METAB OLIC PANEL bilirubin, total 0.50 mg/dL 0.20-1 .30 Not Available [facility] (Lab) [address] [place], [address], 01/28/2023 12:51:16 01/29/20 23 01/28/2023 COMPR EHENS JUANITA METAB OLIC PANEL calcium 9.7 mg/dL 8.4-10 .2 Not Available [facility] (Lab) [address] [place], [address], 01/28/2023 12:51:16 01/29/20 23 01/28/2023 COMPR EHENS JUANITA METAB OLIC PANEL total protein 6.4 g/dL 6.3-8. 2 Not Available [facility] (Lab) [address] [place], [address], 01/28/2023 12:51:16 01/29/2001/28/2023 COMPR EHENS JUANITA METAB OLIC PANEL albumin 4.0 g/dL 3.0-4. 4 Not Available [facility] (Lab) [address] [place], [address], 01/28/2023 12:51:16 01/29/20 23 01/28/2023 COMPR EHENS JUANITA METAB OLIC PANEL globulin 2.4 g/dL 2.6-4. 2 low Not Available [facility] (Lab) [address] [place], [address], 01/28/2023 12:51:16 01/29/20 23 01/28/2023 COMPR EHENS JUANITA METAB OLIC PANEL A/G ratio 1.7 ratio 1.0-2. 0 Not Available [facility] (Lab) [address] [place], [address], 01/28/2023 12:51:16 01/29/20 23 01/28/2023 CBC/C OMPLE TE BLD COUNT W/DIF F white blood cells 4.4 x10'3 /uL 4.2-10 .8 Not Available [facility] (Lab) [address] [place], [address], 01/28/2023 12:53:26 01/29/2001/28/2023 CBC/C OMPLE TE BLD COUNT W/DIF F red blood cells 4.11 x10'6 /uL 3.80-5 .20 Not Available [facility] (Lab) [address] [place], [address], 01/28/2023 12:53:26 01/29/2001/28/2023 CBC/C OMPLE TE BLD COUNT W/DIF F hemoglobin 13.1 g/dL 12.0-1 5.6 Not Available [facility] (Lab) [address] [place], [address], 01/28/2023 12:53:26 01/29/2001/28/2023 CBC/C OMPLE TE BLD COUNT W/DIF F hematocrit 40.1 % 35.7-4 5.7 Not Available [facility] (Lab) [address] [place], [address], 01/28/2023 12:53:26 01/29/2001/28/2023 CBC/C OMPLE TE BLD COUNT W/DIF F mean red cell volume 97.6 fL 82.0-9 9.0 Not Available [facility] (Lab) [address] [place], [address], 01/28/2023 12:53:26 01/29/2001/28/2023 CBC/C OMPLE TE BLD COUNT W/DIF F mean red cell hemoglobin 31.9 pg 27.0-3 3.0 Not Available [facility] (Lab) [address] [place], [address], 01/28/2023 12:53:26 01/29/2001/28/2023 CBC/C OMPLE TE BLD COUNT W/DIF F mean RBC HGB concentratio n 32.7 g/dL 31.0-3 6.0 Not Available [facility] (Lab) [address] [place], [address], 01/28/2023 12:53:26 01/29/2001/28/2023 CBC/C OMPLE TE BLD COUNT W/DIF F red cell distribution width 13.6 % 11.8-1 5.5 Not Available [facility] (Lab) [address] [place], [address], 01/28/2023 12:53:26 01/29/2001/28/2023 CBC/C OMPLE TE BLD COUNT W/DIF F platelets 228 x10'3 /uL 150-40 0 Not Available [facility] (Lab) [address] [place], [address], 01/28/2023 12:53:26 01/29/2001/28/2023 CBC/C OMPLE TE BLD COUNT W/DIF F mean platelet volume 11.6 fL 9.0-12 .4 Not Available [facility] (Lab) [address] [place], [address], 01/28/2023 12:53:26 01/29/2001/28/2023 CBC/C OMPLE TE BLD COUNT W/DIF F neutrophils 59.3 % 39.0-7 2.0 Not Available [facility] (Lab) [address] [place], [address], 01/28/2023 12:53:26 01/29/2001/28/2023 CBC/C OMPLE TE BLD COUNT W/DIF F lymphocytes 18.4 % 16.0-4 7.0 Not Available [facility] (Lab) [address] [place], [address], 01/28/2023 12:53:26 01/29/2001/28/2023 CBC/C OMPLE TE BLD COUNT W/DIF F monocytes 16.4 % 5.0-12 .0 high Not Available [facility] (Lab) [address] [place], [address], 01/28/2023 12:53:26 01/29/2001/28/2023 CBC/C OMPLE TE BLD COUNT W/DIF F eosinophils 4.1 % 1.0-7. 0 Not Available [facility] (Lab) [address] [place], [address], 01/28/2023 12:53:26 01/29/2001/28/2023 CBC/C OMPLE TE BLD COUNT W/DIF F basophils 1.6 % 0.0-2. 0 Not Available [facility] (Lab) [address] [place], [address], 01/28/2023 12:53:26 01/29/2001/28/2023 CBC/C OMPLE TE BLD COUNT W/DIF F immature granulocytes 0.2 % 0.00-0 .50 Not Available [facility] (Lab) [address] [place], [address], 01/28/2023 12:53:26 01/29/20 23 01/28/2023 CBC/C OMPLE TE BLD COUNT W/DIF F neutrophils, absolute count 2.61 x10'3 /uL 1.5-8. 0 Not Available [facility] (Lab) [address] [place], [address], 01/28/2023 12:53:26 01/29/2001/28/2023 CBC/C OMPLE TE BLD COUNT W/DIF F lymphocytes, absolute count 0.81 x10'3 /uL 1.07-3 .43 low Not Available [facility] (Lab) [address] [place], [address], 01/28/2023 12:53:26 01/29/20 23 01/28/2023 CBC/C OMPLE TE BLD COUNT W/DIF F monocytes, absolute count 0.72 x10'3 /uL 0.29-0 .99 Not Available [facility] (Lab) [address] [place], [address], 01/28/2023 12:53:26 01/29/2001/28/2023 CBC/C OMPLE TE BLD COUNT W/DIF F eosinophils, absolute count 0.18 x10'3 /uL 0.02-0 .53 Not Available [facility] (Lab) [address] [place], [address], 01/28/2023 12:53:26 01/29/20 23 01/28/2023 CBC/C OMPLE TE BLD COUNT W/DIF F basophils, absolute count 0.07 x10'3 /uL 0.01-0 .08 Not Available [facility] (Lab) [address] [place], [address], 01/28/2023 12:53:26 01/29/2001/28/2023 CBC/C OMPLE TE BLD COUNT W/DIF F immature granulocytes ,absolute 0.01 x10'3 /uL 0.00-0 .05 Not Available [facility] (Lab) [address] [place], [address], 01/28/2023 12:53:26 01/29/20 23 01/28/2023 CBC/C OMPLE TE BLD COUNT W/DIF F nucleated red blood cells 0.0 % -0 Not Available [facility] (Lab) [address] [place], [address], 01/28/2023 12:53:26 01/29/20 23 01/28/2023 CBC/C OMPLE TE BLD COUNT W/DIF F NRBC# 0.00 x10'3 /uL Not Available [facility] (Lab) [address] [place], [address], 01/28/2023 12:53:26 01/29/20 23 01/28/2023 VITAM IN D 25-HY DROXY [id number] 42.1 NG/mL 30-100 Vitam in D Statu s: Defic ient: <20 ng/mL Insuf ficie nt: 20-29 ng/mL Suffi cient : 30-10 0 ng/mL Not Available [facility] (Lab) [address], [place], [address], 01/28/2023 13:03:52 06/28/19 22 06/27/2021 CT, orbit s, w/o contr ast No observ ation record ed. [id number] [facility] (Imaging) [address] [place] [address], [address], 06/09/2022 03:00:57 07/07/19 22 07/06/2021 MAMMO , scree teresa, digit al, bilat eral No observ ation record ed. [id number] [place] [address] (Imaging) [address] [place] [address], [address], 06/09/2022 03:00:57 09/24/19 22 09/23/2021 DEXA No observ ation record ed. [id number] [place] [address], [address], 06/09/2022 03:00:57 06/16/19 23 CT, chest , w/o contr ast [facility] [address] [place] [address] Patien t Name: OLIVIA SHARP Access ion #: [id number] Sex: F : 1945 8 Locati [...] rdial effusi on Page 1 of 3 [facility] Name: OLIVIA SHARP Access ion #: [id number] Sex: F : 1945 8 Exam [...] gilbert MD (CT) Page 2 of 3 [facility] Name: OLIVIA SHARP ion #: [id number] Sex: F : 1945 8 Exam Date: 06/16/19 9:17 AM Exam Name: CT CHEST WO Admitt ing Diagno sis(es ): (CT) Page 3 of 3 [facility] (Imaging) [address] [place], [address], 06/30/2022 10:32:13 06/16/19 CT, sinus es, w/o contr ast [facility] [address] [place] [address] [phone] Patichyna t Name: OLIVIA SHARP Access ion #: [id number] Sex: F : 1945 8 Locati [...] dental amalga m. Page 1 of 2 [facility] Jhony dennis Name: OLIVIA SHARP Access ion #: [id number] Sex: F : 1945 8 Exam [...] MD (CT) (CT) Page 2 of 2 [facility] (Imaging) [address] [place], [address], 06/30/2022 10:32:14 06/29/19 MRI, thora cic spine , w/o contr ast [facility] [address] [place] [address] Patien t Name: OLIVIA SHARP Access ion #: [id number] Sex: F : 1945 8 Locati [...] is necess gordon. Page 1 of 2 [facility] Patien t Name: OLIVIA SHARP Access ion #: [id number] Sex: F : 1945 8 Exam [...] 9:38 AM (CT) Page 2 of 2 [facility] (Imaging) [address] [place], [address], 06/30/2022 10:32:14 10/07/19 23 10/06/2022 MAMMO , diagn ostic , bilat eral No observ ation record ed. [email or web address] [address], [address], 12/16/2022 15:35:26 Result Notes None recorded. Problems Name Problem SNOMED Code Status Onset Date Resolution Date Notes Provider Name and Address Organization Details Recorded Time Benign hypertensi on 02471484 Active Not Available [facility] 3 02:44:27 Urinary incontinen ce 272847016 Active Not Available [facility] 3 02:44:27 Generalize d anxiety disorder 85160958 Active 2021 Not Available [facility] 3 02:44:28 Transient cerebral ischemia 810487564 Active Not Available [facility] 3 02:44:28 Long-term drug therapy Active 2021 Not Available [facility] 3 02:44:28 Adult health examinatio n Active 2021 Not Available [facility] 3 02:44:28 Anemia 763384388 Active 2020 Not Available [facility] 3 02:44:28 Chest pain 37019065 Active Not Available [facility] 3 02:44:28 Enthesopat hy of hip region 12816278 Active Not Available [facility] 3 02:44:28 Screening for disorder Active 2021 Not Available [facility] 3 02:44:28 Osteopenia 991043707 Active Not Available [facility] 3 02:44:28 Vitamin D deficiency 74549143 Active Not Available [facility] 3 02:44:28 Dyslipidem ia 446427433 Active Not Available [facility] 3 02:44:28 Acute urinary tract infection 123890956 Active 2021 Not Available [facility] 3 02:44:28 Anxiety 71901508 Active Not Available [facility] 3 02:44:28 Pain in limb 01279009 Active Not Available [facility] 3 02:44:28 Chronic sinusitis 26356271 Active 2022 Not Available [facility] 3 02:44:28 CT of chest abnormal 9788423077873 9102 Active 2022 Not Available [facility] 3 02:44:28 COVID-19 062556978 Active 2022 Not Available [facility] 3 02:44:28 Problem Notes None recorded. Procedures Surgical History Date Name Laterality Status Provider Name and Address Organization Details Recorded Time 10/20/19 22 Eye Surgery completed Not Available [facility] 06/10/19 02:44:34 06/28/19 22 Eye Surgery completed Not Available [facility] 06/10/19 23 02:44:34 07/17/19 21 Date of Last Colonoscopy completed Not Available [facility] 06/09/2022 02:44:30 07/17/19 21 Colonoscopy completed Not Available [facility] 06/10/19 02:44:34 11/04/19 12 Colonoscopy completed Not Available [facility] 06/10/19 02:44:34 09/18/19 10 Most Recent Bone Density completed Not Available [facility] 06/09/2022 02:44:30 Hysterectomy completed Not Available [facility] 06/09/2022 02:44:34 tonsilectomy/araseli noids completed Not Available [facility] 06/09/2022 02:44:34 Cataract Surgery completed Not Available Count includes the [facility] 06/09/2022 02:44:34 Imaging Results Imaging Date Name Status LastModified by Organiz [facility] Details LastModified Time 07/06/2021 MAMMO, screening, digital, bilateral completed [id number] 026 [facility] (Imaging) [address] [place] [address], [phone], 06/09/2022 03:00:57 06/27/2021 CT, orbits, w/o contrast completed [id number] [address] [place] [address] (Imaging) [address] [place] [address], [phone], 06/09/2022 03:00:57 09/23/2021 DEXA completed [id number] [place] [address], [address], 06/09/2022 03:00:57 06/15/2022 CT, chest, w/o contrast completed [facility] (Imaging) [address] [place], [address], 06/30/2022 10:32:13 06/15/2022 CT, sinuses, w/o contrast completed [facility] (Imaging) [address] [facility] [place], [address], 06/30/2022 10:32:14 06/28/2022 MRI, thoracic spine, w/o contrast completed [facility] (Imaging) [address] [facility] [place], [address], 06/30/2022 10:32:14 10/06/2022 MAMMO, diagnostic, bilateral completed [address] [facility] [address], [place], [address], 12/16/2022 15:35:26 Procedure Notes None recorded. Medical [...] Updated DateTime 3 167.64 cm 24.4 kg/m2 07391.4 5 g 97.9 [degF] 71 /min 124 mm[Hg] 70 mm[Hg] DIGNA Bhandari [place] - [facility] [employer] [facility] 3 10:06:13 Date Recorded Body height Body mass index (BMI) Body weight Body temperature Heart rate Systolic blood pressure Diastolic blood pressure Provider Name and Address Organization Details Last Updated DateTime 3 167.64 cm 24.5 kg/m2 06585.0 4 g 98.2 [degF] 70 /min 118 mm[Hg] 70 mm[Hg] Gertrude orozco RN [facility] [employer] [facility] 3 10:06:56 Date Recorded Body mass index (BMI) Body height Heart rate Body temperature Body weight Systolic blood pressure Diastolic blood pressure Provider Name and Address Organization Details Last Updated DateTime 1 24.4 kg/m2 167.64 cm 78 /min 97.1 [degF] 30714.4 5 g 114 mm[Hg] 68 mm[Hg] Not Available [facility] 3 02:44:46 Date Recorded Body mass index (BMI) Body height Pain severity - 0-10 verbal numeric rating [Score] - Reported Heart rate Body temperature Body weight Systolic blood pressure Diastolic blood pressure Provider Name and Address Organization Details Last Updated DateTime 2 24.2 kg/m2 167.64 cm 0 78 /min 98 [degF] 32834.8 6 g 110 mm[Hg] 74 mm[Hg] Not Available [facility] 3 02:44:46 Date Recorded Body mass index (BMI) Body height Heart rate Body temperature Body weight Systolic blood pressure Diastolic blood pressure Provider Name and Address Organization Details Last Updated DateTime 2 23.6 kg/m2 167.64 cm 80 /min 97.2 [degF] 05962.4 9 g 132 mm[Hg] 84 mm[Hg] Not Available [facility] 3 02:44:46 Social History Question Answer Notes LastModified by Organizat ion Details LastModified Time Tobacco Smoking Status Former Smoker quit age 30 DIGNA Holguin, [facility] [employer] [facility] 06/10/2022 09:54:37 Do You Have An Advance Directive? Yes [id number] Information not available 06/09/2022 What Is Your Level Of Alcohol Consumption? 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 Heavy [id number] Information not available 06/09/2022 How Much Tobacco Do You Chew? None [id number] Information not available 06/09/2022 In The 12 [...] Type Of Diet Are You Following? REGULAR [id number] Information not available 06/09/2022 Which Illicit Or Recreational Drugs Have You Used? None Information not available 06/10/2022 Do You Or Have You Ever Used E-cigarettes Or Vape? Never Used Electronic Cigarettes Information not available 06/10/2022 What Is The Highest Grade Or Level Of School You Have Completed Or The Highest Degree You Have Received? [id number] Information not available 06/10/2022 What Is Your [...] Do You Have A Medical Power Of [place] Operator? Yes Information not available 06/10/2022 What Was The Date Of Your Most Recent Tobacco Screening? 12/16/2022 Information not available 12/16/2022 Have You Ever Been Counseled For Unhealthy Alcohol Use? No Information not available 06/10/2022 Do You Have Any Pets? Yes Information not available 06/10/2022 What Is Your Relationship Status? [id number] Information not available 06/09/2022 Do You Use Your Seat Belt Or Car Seat Routinely? Yes Information not available 06/10/2022 Do You Have Smoke And Carbon Monoxide Detectors In Your Home? Yes Information not available 06/10/2022 Are You Passively Exposed To Smoke? No Information not available 06/10/2022 Do You Or Have You Ever Used Smokeless Tobacco? Never Used Smokeless Tobacco [id number] Information not available 06/09/2022 Are There Any Smokers In Your House? No Information not available 06/10/2022 How Much Tobacco Do You Smoke? No [id number] Information not available 06/09/2022 What Types Of Sporting Activities Do You Participate In? None Information not available 06/10/2022 Do You Feel Stressed (tense, Restless, Nervous, Or Anxious, Or Unable To Sleep At Night)? [id number] Information not available 06/10/2022 Do You Use [...] 06/10/2022 What is your exercise level? Moderate [id number] Information not available 06/09/2022 Mental Status Question Answer Note LastModified by Organization D etails LastModified Time Do you have difficulty concentrating, remembering or making decisions? No Information no t available 06/10/2022 Family History Relationship Description Onset Age of this Age Resolved Age Notes LastModified by Organization Details LastModified Time Mother Heart disease 95 [id number] Not available 06/09/2022 02:44:34 Brother Leukemia half-b rother cyahl Not available 06/10/2022 09:54:36 Medical History Condition Response NERVE DISEASE N BLINDNESS N RHEUMATIC FEVER N KIDNEY STONES N BLADDER PROBLEMS N OTHER # 1 Y POLIO N [...] HAVE YOU BEEN HOSPITALIZED OR SEEN IN TH E ER IN THE PAST YEAR ? N ATHEROSCLEROSIS [...] zoster, unspecified formulation 3 completed Not Available [facility] 01/31/2023 02:44:28 COVID-19, mRNA, LNP-S, PF, 100 mcg/0.5mL dose or 50 mcg/0.25mL dose 1 completed Not Available [facility] 01/31/2023 02:44:28 Td(adult) unspecified formulation 2 completed Not Available [facility] 01/31/2023 02:44:28 COVID-19, mRNA, LNP-S, PF, 100 mcg/0.5mL dose or 50 mcg/0.25mL dose 1 completed Not Available [facility] 01/31/2023 02:44:28 Influenza, split virus, trivalent, preservative 9 completed Not Available [facility] 01/31/2023 02:44:28 influenza, unspecified formulation 8 completed Not Available [facility] 01/31/2023 02:44:28 Influenza, high-dose, trivalent, PF 7 completed Not Available [facility] 01/31/2023 02:44:28 Influenza, high-dose, trivalent, PF 7 completed Not Available [facility] 01/31/2023 02:44:28 COVID-19, mRNA, LNP-S, PF, 100 mcg/0.5mL dose or 50 mcg/0.25mL dose 2 completed Not Available [facility] 01/31/2023 02:44:28 Influenza, split virus, trivalent, preservative 2 completed Not Available [facility] 01/31/2023 02:44:28 Influenza, split virus, trivalent, preservative 1 completed Not Available [facility] 01/31/2023 02:44:28 COVID-19, mRNA, LNP-S, PF, 100 mcg/0.5mL dose or 50 mcg/0.25mL dose 1 completed Not Available [facility] 01/31/2023 02:44:28 Influenza, high-dose, quadrivalent, PF 0 completed Not Available [facility] 01/31/2023 02:44:28 Influenza, high-dose, trivalent, PF 6 completed Not Available [facility] 01/31/2023 02:44:28 pneumococcal conjugate PCV 7 9 completed Not Available [facility] 01/31/2023 02:44:28 Pneumococcal conjugate PCV 13 6 completed Not Available [facility] 01/31/2023 02:44:28 zoster, unspecified formulation 3 completed Not Available [facility] 01/31/2023 02:44:28 influenza, unspecified formulation 3 completed Not Available [facility] 01/31/2023 02:44:28 COVID-19, mRNA, LNP-S, PF, 30 mcg/0.3 mL dose 3 completed Not Available [facility] 01/31/2023 02:44:28 COVID-19, mRNA, LNP-S, PF, 30 mcg/0.3 mL dose 3 completed Not Available [facility] 01/31/2023 02:44:28 RSV, recombinant, protein subunit RSVpreF, adjuvant reconstituted, 0.5 mL, PF 3 completed [place]IG[place] [facility] 03/14/2023 14:50:20 Past Encounters Encounter ID Performer Location Encounter Start Date Encounter Closed Date Diagnosis/Indication Diagnosis SNOMED-CT Code Diagnosis ICD10 Code Diagnosis Note [id number] [facility] [place] [address] [facility] y , [place] [address] 06/19/2020 00:00:00 06/29/2020 13:37:18 [id number] [facility] [place] [address] [facility] y , [place] [address] 12/18/2020 00:00:00 12/18/2020 21:36:45 [id number] [facility] [place] [address] [place] [address] y , [place] [address] 06/11/2021 00:00:00 06/27/2021 14:56:43 [id number] [facility] [place] [address] [facility] y , [place] [address] 12/10/2021 00:00:00 12/10/2021 10:28:04 [id number] Jaden Rios MD [facility] [place] [address] [place] [address] y , [place] [address] 06/10/2022 09:52:29 06/10/2022 10:58:12 Dyslipidemia 835197841 E78.5 Long-term drug therapy 037983074 Z79.899 Vitamin D deficiency 347 13416 E55.9 Chronic sinusitis 074743 00 J32.9 [id number] Jaden Rios MD [facility] [place] [address] [place] [address] [place] [address] 12/16/2022 09:53:38 12/16/2022 10:28:06 Benign hypertension 66745457 I10 Anxiety 07055639 F41.9 Chronic sinusitis 229357 00 J32.9 Dyslipidemia 792045964 E 78.5 Health Concerns Section Related Observation LastModified by Organization Detai ls LastModified Time None Recorded Concern Status LastModified by Organization Details LastModified Time None Recorded Advance Directives Directive Y: Payers Encounter Date Sequence Insurance Name Policy Number Policy Lozano Covered Member ID Lozano Member ID Guarantor Name 06/10/2022 1 [place] Olivia Sharp [id number] Olivia Sharp 06/10/2022 2 [employer]IG[employer] SUPPLEMENTAL - [employer]URANCE (MEDICARE SUPPLEMENT) PLANG Olivia Sharp [id number] Olivia Sharp 12/16/2022 1 [place] Olivia Sharp [id number] Olivia Sharp 12/16/2022 2 [employer] SUPPLEMENTAL - [employer] LIFE INSURANCE (MEDICARE SUPPLEMENT) PLANG Olivia Sharp [id number] Olivia Sharp Notes Date Note Type Note Provider Name and Address Organization Details Recorded Time 3 text/html still with some chronic sinusitiscough still botheringlow vitamin-D level supplementhypertension no headache no dizziness Jaden Rios MD [address], [place], [address], [employer] [employer] 07/18/2022 16:58:04 3 text/html still with some chronic sinusitiscough still botheringlow vitamin-D level supplementhypertension no headache no dizziness Jaden Rios MD [address], [place], [address], [place] 01/02/2023 22:35:18 OBGyn Episode No OBEpisode recorded.
--- OUTSIDE RECORDS SUMMARY | 2024-06-26 12:47 | XMS_ITS | Encounter Summary ---
Author Organization [facility] Address [address] [facility] [place] [address] Care Team Providers Care Broker In Charge Name Role Phone Ney Rios MD Primary Care Provider [phone] Encounter Details Date Type Department Care Team (Late st Contact Info) Description 06/27/2021 Ophth Exam [facility] [address] [place] [address] Cuong Salazar IV, DO [address] [place] [address] Social History Tobacco Use Types Packs/Day Years [...] on filedocumented in this encounter Care Teams Broker In Charge Relationship Specialty Start Date End Date Ney Rios MD PCP - General 07/16/20 documented as of this encounter
--- OUTSIDE RECORDS SUMMARY | 2024-06-26 12:47 | XMS_ITS | Patient Health Record ---
Author Organization [facility] Address [address] [place] [address] Care Team Providers Care Mainframe Programmer Analyst Name Role Phone Gabriel Ney Primary Care Provider UnavailFlor Isbell Unavailable [phone] [employer], Provider Unavailable Unavailab le Allergies No [...] W/U Status Risk Notes Problem Chronic rhinitis (22812806) Chronic rhinitis (J31.0) Active confirmed Problem Disorder of upper respiratory system (disorder) (229799219) Unspecified disorder of nose and nasal sinuses (J34.9) Active confirmed Encounters Encounter [facility] Date [facility] [address] 09/24/[facility]23 Provider Javier Chronic rhinitis J31.0 Assessments Encounter Date Diagnosis (ICD Code) Assessment Notes Treatment Notes Treatment Clinical Notes Section Notes 09/24/2023 Chronic rhinitis (ICD-10 - J31.0) Plan Of Treatment No Information Insurance Providers Payer Name Payer Address Payer Phone Subscriber Number Group Number Insured Name Patient Relationship to Insured Coverage Start Date Coverage End Date [employer] (Medicare) Attention Claims [address] [place] [address] [id number] Olivia Mo Self - patient is the insured [employer] [address] [address] [place] [phone] [id number] Olivia Mo Self - patient is the insured Medical (General) History Medical History History ICD Code Chronic rhinitis J31.0 Surgical History Surgery Date(Month/Year) Hysterectomy 09/09/2002 Cataracts 09/09/1985 Hospitalization History Reason Date(Month/Year) TIA 08/30/2014
--- OUTSIDE RECORDS SUMMARY | 2024-06-26 12:48 | XMS_ITS | Clinical Summary ---
Author Organization [facility] Address [address] [place] [address] Care Team Providers Care Autoglazier Name Role Phone Ney Rios MD Primary Care Provider [phone] Source Comments [facility],non-owned Affiliates and Associated Physician Practices is amultiple site organization consisting of ambulatory clinics and hospital sitesin [place], [place], [place] and [place]. This disclosure is being madepursuant to the Care Everywhere program and may not contain all information available regarding this patient. Last updated 17.[facility] Allergies No known active allergies Medications * [...] 85 10/19/2021 4:00 PM CDT Temperature 36.1 C (97 F) 10/19/2021 3:35 PM CDT Respiratory Rate 16 [...] Comments BONE DENSITY TESTING 1945 MEDICARE AWV 12 MONTHS 1945 DTAP/TDAP/TD VACCINES (1 - [...] complete this topic MENINGOCOCCAL (Group B) VACCINE SHARED DECISION-MAKING Aged Out No longer eligible based on patient's age to complete this topic MENINGOCOCCAL GROUPS A/C/Y/W VACCINE Aged Out No longer eligible based on patient's age to complete this topic Advance Directives * Full Code (Latest Code Status on File) Date Activated Date Inactivated Comments 06/27/2021 11:08 AM 06/28/2021 12:17 PM Care Teams Autoglazier Relationship Specialty Start Date End Date Ney Rios MD PCP - General 07/16/20
--- OUTSIDE RECORDS SUMMARY | 2024-06-26 12:48 | XMS_ITS | CONTINUITY OF CARE DOCUMENT ---
Author Name gabriela doraadeel Address Unknown Organization [facility] Address [address] [place] [address] Phone [phone] Care Team Providers Care Vp Research Name Role Phone Faith ALLISON, Larry Unavailable JADEN NARANJO MD Unavailable [phone] JADEN NARANJO MD Unavailable PROBLEMS Condition Status Date Provider Notes Hypercholesterolemia active Germaine Zendejas Hypertension active Germaine Zendejas Chest pain active Germaine Zendejas INSURANCE PROVIDERS Payer name Policy type / Coverage type Archer red constitution party ID [employer] [id number] [place] MED[place] Medicare [id number] HISTORY OF PROCEDURES Procedure Date Procedure Name Provider Procedure Notes S tatus Stress EKG Sudarshan Graves MD completed Cardiolite, 2 units Larry Cuevas MD completed SPECT Images Mariana German MD com [facility]
--- OUTSIDE RECORDS SUMMARY | 2024-06-26 12:48 | XMS_ITS | Encounter Summary ---
Author Organization [facility] Address [address] [facility] [place] [address] Care Team Providers Care Buck Presser Name Role Phone Ney Rios MD Primary Care Provider [phone] Encounter Details Date Type Department Care Team (Late st Contact Info) Description 06/28/2021 Ophth Exam [facility] [address] [place] [address] Anu Saxena MD No info available Social [...] on filedocumented in this encounter Care Teams Buck Presser Relationship Specialty Start Date End Date Ney Rios MD PCP - General 07/16/20 documented as of this encounter
== END 2024-06-26 11:03 | disposition home or self-care (01) ==
PROVIDERS: PCP Internal Medicine; Visit Provider Nurse Practitioner Adult Health
DX: S22.080A Wedge compression fracture of T11-T12 vertebra, initial encounter for closed fracture (principal); X58.XXXA Exposure to other specified factors, initial encounter; M47.816 Spondylosis without myelopathy or radiculopathy, lumbar region
CPT/HCPCS: 72080

== ENCOUNTER 2024-08-07 10:40 | Outpatient (CLI) | payer MEDICARE, SELFPAY ==
--- NOTE | ~2024-08-07 | XR_ITS ---
3 VIEWS [facility] Ordering provider: Saritha Mckeon APRN History: . S22.081A - Stable burst fracture of T11-T12 vertebra, ini... . Comparison: June 26, 2024 FINDINGS: VERTEBRAL BODIES: Compression fracture of T12 is noted unchanged. Otherwise, No visible fracture or s ubluxation. Degenerative changes of the spine. Kyphosis. Mild dextroscoliosis. DISK SPACES: Multilevel degenerative disc disease. SOFT TISSUES: Normal. IMPRESSION: Compression fracture of T12 unchanged from previous examination. Reviewed, dictated and finalized at location A.
--- OUTSIDE RECORDS SUMMARY | 2024-08-07 12:00 | XMS_ITS | Patient Health Record ---
Author Organization [facility] [place] ([address]) Address [address] [facility] [address] [place] [address] Care Team Providers Care Hosiery Mender Name Role Phone Ney Rios Primary Care Provider UnavailFlor Isbell Unavailable [phone] [employer], Provider Unavailable Unavailab le Allergies No [...] Vaccine Route Administration Date Status Comme nts COVID-19 (Moderna) Unknown 01/30/2021 Administered Fluad Unknown 12/26/2020 Administered Problems Problem Type SNOMED Code ICD Code Onset Dates Problem Status W/U Status Risk Notes Problem Chronic rhinitis (98266019) Chronic rhinitis (J31.0) Active confirmed Problem Disorder of upper respiratory system (disorder) (281281602) Unspecified disorder of nose and nasal sinuses (J34.9) Active confirmed Encounters Encounter [facility] Date [facility] [address] 09/24/2023 Provider Javier Chronic rhinitis J31.0 Assessments Encounter Date Diagnosis (ICD Code) Assessment Notes Treatment Notes Treatment Clinical Notes Section Notes 09/24/2023 Chronic rhinitis (ICD-10 - J31.0) Plan Of Treatment No Information Insurance Providers Payer Name Payer Address Payer Phone Subscriber Number Group Number Insured Name Patient Relationship to Insured Coverage Start Date Coverage End Date [employer] (Medicare) Attention Claims [address] [place] [address] [id number] Olivia Mo Self - patient is the insured [employer] [address] [address] [place] [address] [id number] Olivia Mo Self - patient is the insured Medical (General) History Medical History History ICD Code Chronic rhinitis J31.0 Surgical History Surgery Date(Month/Year) Hysterectomy 09/09/2002 Cataracts 09/09/1985 Hospitalization History Reason Date(Month/Year) TIA 08/30/2014
--- OUTSIDE RECORDS SUMMARY | 2024-08-07 12:00 | XMS_ITS | Data Portability ---
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 [email or web address] Not available 07/30/2023 15:51:39 01/26/2024 01/26/2024 continue current therapy blood work also needs a vitamin-D level we will try Atrovent nasal spray we will follow up in 6 months [email or web address] Not available 02/14/2024 22:08:00 05/07/2024 05/07/2024 we will have neurosurgical referral refill her cyclobenzaprine and hydrocodone when needed. 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 we will try to get that done I will see her back in 1 month . Hypertension stable anxiety stable dyslipidemia stable rhinitis stable [email or web address] Not available 05/13/2024 16:59:45 05/31/2024 05/31/2024 wean narcotics b owel regimen discussed with her blood pressure is good reinforced low-fat diet osteopenia on last bone density has a appointment in July she will keep it Not available 06/11/2024 07:45:29 Plan of Treatment Reminders Order Date Submit Date Provider Last Modified By Organization Details Last Modified Time Details Appointments ANY 15 2024 01:00P Lucero Rios MD Not available Not available Not available Lab vitamin D, 25-hydrox y, total, serum 2023 024 JE[facility] DAS[facility] [address], [place], [address], 02/14/2024 14:32:51 lipid panel, serum 2023 024 JEANETTE DAS, [facility] [address], [address], [place], [address], 02/14/2024 11:13:46 CMP, serum or plasma 2023 024 JEANETTE DAS, [facility] [address], [address], [place], [address], 02/14/2024 11:13:48 CBC w/ auto diff 2023 024 JEANETTEMAXIMILIAN DAS, [facility], [address], [place], [address], 02/14/2024 11:13:50 CBC w/ auto diff 2023 024 JEANETTEMAXIMILIAN DAS, [facility] [address], [address], [place], [address], 08/13/2023 04:36:19 lipid panel, serum 2023 024 JEANETTE DAS, [facility] [address], [address], [place], [address], 08/13/2023 04:36:18 CMP, serum or plasma 2023 024 JEANETTE DAS, [facility], [address], [place], [address], 08/13/2023 04:36:19 Referral neurologi salma surgeon referral - Pt was at [facility] in [place]. 2024 025 [facility], [facility] [address], [place], [address], 05/23/2024 08:59:28 Procedures None recorded. Surgeries None recorded. Imaging None recorded. Medication Orders cyclobenz aprine 5 mg tablet [address] [facility] [address] [place], [address], 05/07/2024 11:30:53 Prolia 60 mg/mL subcutane ous syringe 2024 025 [facility] [address] [place], [address], 05/31/2024 10:23:28 oxybutyni n chloride ER 10 mg tablet,ex tended release 24 hr [address] [facility] [address] [place], [address], 01/26/2024 18:12:55 Patient TargetsNo targets recorded. Patient InstructionsNo instructions recorded. Reason for Referral Neurological Surgeon Referra l for Closed fracture thoracic vertebra Pt was at [facility] in pt. Referring Physician: Jaden Rios, Internal Medicine, Encounter Date: 05/07/2024 Results Created Date Observation Date Name Description Value Unit Range Abnormal Flag Note LastModifiedBy Organization Detail LastModifiedTime 08/12/19 24 08/13/2023 LIPID PANEL cholesterol, total 171 mg/dL 100-19 9 Not Available [facility] [address] [facility], [place], [address], 08/13/2023 04:36:18 08/12/19 24 08/13/2023 LIPID PANEL triglyceride s 60 mg/dL 0-149 Not Available [facility] [address] [facility] [place], [address], 08/13/2023 04:36:18 08/12/19 24 08/13/2023 LIPID PANEL HDL cholesterol 70 mg/dL >39 Not Available [facility] [address] [facility] [place], [address], 08/13/2023 04:36:18 08/12/19 24 08/13/2023 LIPID PANEL VLDL cholesterol salma 12 mg/dL 5-40 Not Available [facility] [address] [facility] [place], [address], 08/13/2023 04:36:18 08/12/19 24 08/13/2023 LIPID PANEL LDL chol calc ([facility]) 89 mg/dL 0-99 Not Available [facility] [address] [place], [address], 08/13/2023 04:36:18 08/12/19 24 08/13/2023 COMP. METAB OLIC PANEL (14) glucose 97 mg/dL 70-99 Not Available [facility] [address] [facility] [place], [address], 08/13/2023 04:36:19 08/12/19 24 08/13/2023 COMP. METAB OLIC PANEL (14) BUN 18 mg/dL 8-27 Not Available [facility] [address] [facility] [place], [address], 08/13/2023 04:36:19 08/12/19 24 08/13/2023 COMP. METAB OLIC PANEL (14) creatinine 0.68 mg/dL 0.57-1 .00 Not Available [facility] [address] [place], [address], 08/13/2023 04:36:19 08/12/19 24 08/13/2023 COMP. METAB OLIC PANEL (14) eGFR 88 mL/mi n/1.7 3 >59 Not Available [facility] [address] [facility], [place], [address], 08/13/2023 04:36:19 08/12/19 24 08/13/2023 COMP. METAB OLIC PANEL (14) BUN/creatini ne ratio 26 12-28 Not Available [facility] [address] [facility], [place], [address], 08/13/2023 04:36:19 08/12/19 24 08/13/2023 COMP. METAB OLIC PANEL (14) sodium 139 mmol/ L 134-14 4 Not Available [facility] [address] [facility], [place], [address], 08/13/2023 04:36:19 08/12/19 24 08/13/2023 COMP. METAB OLIC PANEL (14) potassium 4.9 mmol/ L 3.5-5. 2 Not Available [facility] [address] [facility], [place], [address], 08/13/2023 04:36:19 08/12/19 24 08/13/2023 COMP. METAB OLIC PANEL (14) chloride 103 mmol/ L 96-106 Not Available [facility] [address] [facility], [place], [address], 08/13/2023 04:36:19 08/12/19 24 08/13/2023 COMP. METAB OLIC PANEL (14) carbon dioxide, total 26 mmol/ L 20-29 Not Available [facility] [address] [facility], [place], [address], 08/13/2023 04:36:19 08/12/19 24 08/13/2023 COMP. METAB OLIC PANEL (14) calcium 9.9 mg/dL 8.7-10 .3 Not Available [facility] [address], [place], [address], 08/13/2023 04:36:19 08/12/19 24 08/13/2023 COMP. METAB OLIC PANEL (14) protein, total 6.4 g/dL 6.0-8. 5 Not Available [facility] [address] [place], [address], 08/13/2023 04:36:19 08/12/19 24 08/13/2023 COMP. METAB OLIC PANEL (14) albumin 4.3 g/dL 3.8-4. 8 Not Available [facility] [address], [place], [address], 08/13/2023 04:36:19 08/12/19 24 08/13/2023 COMP. METAB OLIC PANEL (14) globulin, total 2.1 g/dL 1.5-4. 5 Not Available [facility] [address] [place], [address], 08/13/2023 04:36:19 08/12/19 24 08/13/2023 COMP. METAB OLIC PANEL (14) A/G ratio 2.0 1.2-2. 2 Not Available [facility] [address] [facility] [place], [address], 08/13/2023 04:36:19 08/12/19 24 08/13/2023 COMP. METAB OLIC PANEL (14) bilirubin, total 0.5 mg/dL 0.0-1. 2 Not Available [facility] [address] [place], [address], 08/13/2023 04:36:19 08/12/19 24 08/13/2023 COMP. METAB OLIC PANEL (14) alkaline phosphatase 62 IU/L 44-121 Not Available [facility] [address] [facility], [place], [address], 08/13/2023 04:36:19 08/12/19 24 08/13/2023 COMP. METAB OLIC PANEL (14) AST (SGOT) 24 IU/L 0-40 Not Available [facility] [address] [facility], [place], [address], 08/13/2023 04:36:19 08/12/19 24 08/13/2023 COMP. METAB OLIC PANEL (14) ALT (SGPT) 19 IU/L 0-32 Not Available [facility] [address] [facility], [place], [address], 08/13/2023 04:36:19 08/12/19 24 08/13/2023 CBC WITH DIFFE RENTI AL/PL ATELE T WBC 4.8 x10e3 /uL 3.4-10 .8 Not Available [facility] [address] [facility], [place], [address], 08/13/2023 04:36:19 08/12/19 24 08/13/2023 CBC WITH DIFFE RENTI AL/PL ATELE T RBC 4.43 x10e6 /uL 3.77-5 .28 Not Available [facility] [address] [facility], [place], [address], 08/13/2023 04:36:19 08/12/19 24 08/13/2023 CBC WITH DIFFE RENTI AL/PL ATELE T hemoglobin 14.2 g/dL 11.1-1 5.9 Not Available [facility] [address] [facility], [place], [address], 08/13/2023 04:36:19 08/12/19 24 08/13/2023 CBC WITH DIFFE RENTI AL/PL ATELE T hematocrit 42.6 % 34.0-4 6.6 Not Available [facility] [address] [facility], [place], [address], 08/13/2023 04:36:19 08/12/19 24 08/13/2023 CBC WITH DIFFE RENTI AL/PL ATELE T MCV 96 fL 79-97 Not Available [facility] [address] [facility], [place], [address], 08/13/2023 04:36:19 08/12/19 24 08/13/2023 CBC WITH DIFFE RENTI AL/PL ATELE T MCH 32.1 pg 26.6-3 3.0 Not Available [facility] [address] [facility], [place], [address], 08/13/2023 04:36:19 08/12/19 24 08/13/2023 CBC WITH DIFFE RENTI AL/PL ATELE T MCHC 33.3 g/dL 31.5-3 5.7 Not Available [facility] [address] [facility], [place], [address], 08/13/2023 04:36:19 08/12/19 24 08/13/2023 CBC WITH DIFFE RENTI AL/PL ATELE T RDW 12.5 % 11.7-1 5.4 Not Available [facility] [address] [facility], [place], [address], 08/13/2023 04:36:19 08/12/19 24 08/13/2023 CBC WITH DIFFE RENTI AL/PL ATELE T platelets 192 x10e3 /uL 150-45 0 Not Available [facility] [address] [facility], [place], [address], 08/13/2023 04:36:19 08/12/19 24 08/13/2023 CBC WITH DIFFE RENTI AL/PL ATELE T neutrophils 73 % notest ab. Not Available [facility] [address] [facility], [place], [address], 08/13/2023 04:36:19 08/12/19 24 08/13/2023 CBC WITH DIFFE RENTI AL/PL ATELE T lymphs 13 % notest ab. Not Available [facility] [address] [facility], [place], [address], 08/13/2023 04:36:19 08/12/19 24 08/13/2023 CBC WITH DIFFE RENTI AL/PL ATELE T monocytes 12 % notest ab. Not Available [facility] [address] [place], [address], 08/13/2023 04:36:19 08/12/19 24 08/13/2023 CBC WITH DIFFE RENTI AL/PL ATELE T eos 1 % notest ab. Not Available [facility] [address] [place], [address], 08/13/2023 04:36:19 08/12/19 24 08/13/2023 CBC WITH DIFFE RENTI AL/PL ATELE T basos 1 % notest ab. Not Available [facility] [address] [place], [address], 08/13/2023 04:36:19 08/12/19 24 08/13/2023 CBC WITH DIFFE RENTI AL/PL ATELE T neutrophils (absolute) 3.5 x10e3 /uL 1.4-7. 0 Not Available [facility] [address] [place], [address], 08/13/2023 04:36:19 08/12/19 24 08/13/2023 CBC WITH DIFFE RENTI AL/PL ATELE T lymphs (absolute) 0.6 x10e3 /uL 0.7-3. 1 below low normal Not Available [facility] [address] [place], [address], 08/13/2023 04:36:19 08/12/19 24 08/13/2023 CBC WITH DIFFE RENTI AL/PL ATELE T monocytes(ab solute) 0.6 x10e3 /uL 0.1-0. 9 Not Available [facility] [address] [facility], [place], [address], 08/13/2023 04:36:19 08/12/19 24 08/13/2023 CBC WITH DIFFE RENTI AL/PL ATELE T eos (absolute) 0.1 x10e3 /uL 0.0-0. 4 Not Available [facility] [address] [facility], [place], [address], 08/13/2023 04:36:19 08/12/19 24 08/13/2023 CBC WITH DIFFE RENTI AL/PL ATELE T baso (absolute) 0.0 x10e3 /uL 0.0-0. 2 Not Available [facility] [address] [facility], [place], [address], 08/13/2023 04:36:19 08/12/19 24 08/13/2023 CBC WITH DIFFE RENTI AL/PL ATELE T immature granulocytes 0 % notest ab. Not Available [facility] [address] [facility], [place], [address], 08/13/2023 04:36:19 08/12/19 24 08/13/2023 CBC WITH DIFFE RENTI AL/PL ATELE T immature grans (abs) 0.0 x10e3 /uL 0.0-0. 1 Not Available [facility] [address] [place], [address], 08/13/2023 04:36:19 02/13/20 24 02/14/2024 LIPID PANEL cholesterol, total 157 mg/dL 100-19 9 Not Available [facility] [address] [place], [address], 02/14/2024 11:13:46 02/13/20 24 02/14/2024 LIPID PANEL triglyceride s 57 mg/dL 0-149 Not Available [facility] [address] [place], [address], 02/14/2024 11:13:46 02/13/20 24 02/14/2024 LIPID PANEL HDL cholesterol 69 mg/dL >39 Not Available [facility] [address] [place], [address], 02/14/2024 11:13:46 02/13/20 24 02/14/2024 LIPID PANEL VLDL cholesterol salma 12 mg/dL 5-40 Not Available [facility] [address] [place], [address], 02/14/2024 11:13:46 02/13/20 24 02/14/2024 LIPID PANEL LDL chol calc ([facility]) 76 mg/dL 0-99 Not Available [facility] [address] [place], [address], 02/14/2024 11:13:46 02/13/20 24 02/14/2024 COMP. METAB OLIC PANEL (14) glucose 91 mg/dL 70-99 Not Available [facility] [address] [place], [address], 02/14/2024 11:13:48 02/13/20 24 02/14/2024 COMP. METAB OLIC PANEL (14) BUN 16 mg/dL 8-27 Not Available [facility] [address] [place], [address], 02/14/2024 11:13:48 02/13/20 24 02/14/2024 COMP. METAB OLIC PANEL (14) creatinine 0.67 mg/dL 0.57-1 .00 Not Available [facility] [address] [facility], [place], [address], 02/14/2024 11:13:48 02/13/20 24 02/14/2024 COMP. METAB OLIC PANEL (14) eGFR 88 mL/mi n/1.7 3 >59 Not Available [facility] [address] [facility], [place], [address], 02/14/2024 11:13:48 02/13/20 24 02/14/2024 COMP. METAB OLIC PANEL (14) BUN/creatini ne ratio 24 12-28 Not Available [facility] [address] [facility], [place], [address], 02/14/2024 11:13:48 02/13/20 24 02/14/2024 COMP. METAB OLIC PANEL (14) sodium 136 mmol/ L 134-14 4 Not Available [facility] [address] [facility], [place], [address], 02/14/2024 11:13:48 02/13/20 24 02/14/2024 COMP. METAB OLIC PANEL (14) potassium 4.0 mmol/ L 3.5-5. 2 Not Available [facility] [address] [facility], [place], [address], 02/14/2024 11:13:48 02/13/20 24 02/14/2024 COMP. METAB OLIC PANEL (14) chloride 102 mmol/ L 96-106 Not Available [facility] ([facility]) [address] [facility], [place], [address], 02/14/2024 11:13:48 02/13/20 24 02/14/2024 COMP. METAB OLIC PANEL (14) carbon dioxide, total 23 mmol/ L 20-29 Not Available [facility] [address] [facility], [place], [address], 02/14/2024 11:13:48 02/13/20 24 02/14/2024 COMP. METAB OLIC PANEL (14) calcium 9.6 mg/dL 8.7-10 .3 Not Available [facility] [address] [facility], [place], [address], 02/14/2024 11:13:48 02/13/20 24 02/14/2024 COMP. METAB OLIC PANEL (14) protein, total 6.3 g/dL 6.0-8. 5 Not Available [facility] [address] [facility], [place], [address], 02/14/2024 11:13:48 02/13/20 24 02/14/2024 COMP. METAB OLIC PANEL (14) albumin 4.3 g/dL 3.8-4. 8 Not Available [facility] [address] [facility], [place], [address], 02/14/2024 11:13:48 02/13/20 24 02/14/2024 COMP. METAB OLIC PANEL (14) globulin, total 2.0 g/dL 1.5-4. 5 Not Available [facility] [address] [facility], [place], [address], 02/14/2024 11:13:48 02/13/20 24 02/14/2024 COMP. METAB OLIC PANEL (14) bilirubin, total 0.4 mg/dL 0.0-1. 2 Not Available [facility] [address] [facility] [place], [address], 02/14/2024 11:13:48 02/13/20 24 02/14/2024 COMP. METAB OLIC PANEL (14) alkaline phosphatase 66 IU/L 44-121 Not Available [facility] [address] [facility], [place], [address], 02/14/2024 11:13:48 02/13/20 24 02/14/2024 COMP. METAB OLIC PANEL (14) AST (SGOT) 23 IU/L 0-40 Not Available [facility] [address] [facility], [place], [address], 02/14/2024 11:13:48 02/13/20 24 02/14/2024 COMP. METAB OLIC PANEL (14) ALT (SGPT) 19 IU/L 0-32 Not Available [facility] [address] [facility], [place], [address], 02/14/2024 11:13:48 02/13/20 24 02/13/2024 ABN OPTIO [...] vangie follo w-up. Not Available [facility] [address] [address], [place], [address], 02/14/2024 11:13:49 02/13/20 24 02/14/2024 CBC WITH DIFFE RENTI AL/PL ATELE T WBC 3.9 x10e3 /uL 3.4-10 .8 Not Available [facility] [address] [facility], [place], [address], 02/14/2024 11:13:50 02/13/20 24 02/14/2024 CBC WITH DIFFE RENTI AL/PL ATELE T RBC 4.25 x10e6 /uL 3.77-5 .28 Not Available [facility] [address] [facility], [place], [address], 02/14/2024 11:13:50 02/13/20 24 02/14/2024 CBC WITH DIFFE RENTI AL/PL ATELE T hemoglobin 13.5 g/dL 11.1-1 5.9 Not Available [facility] [address] [place], [address], 02/14/2024 11:13:50 02/13/20 24 02/14/2024 CBC WITH DIFFE RENTI AL/PL ATELE T hematocrit 40.8 % 34.0-4 6.6 Not Available [facility] [address] [facility], [place], [address], 02/14/2024 11:13:50 02/13/2002/14/2024 CBC WITH DIFFE RENTI AL/PL ATELE T MCV 96 fL 79-97 Not Available [facility] [address] [place], [address], 02/14/2024 11:13:50 02/13/20 24 02/14/2024 CBC WITH DIFFE RENTI AL/PL ATELE T MCH 31.8 pg 26.6-3 3.0 Not Available [facility] [address] [place], [address], 02/14/2024 11:13:50 02/13/20 24 02/14/2024 CBC WITH DIFFE RENTI AL/PL ATELE T MCHC 33.1 g/dL 31.5-3 5.7 Not Available [facility] [address] [place], [address], 02/14/2024 11:13:50 02/13/20 24 02/14/2024 CBC WITH DIFFE RENTI AL/PL ATELE T RDW 12.8 % 11.7-1 5.4 Not Available [facility] [address] [place], [address], 02/14/2024 11:13:50 02/13/20 24 02/14/2024 CBC WITH DIFFE RENTI AL/PL ATELE T platelets 188 x10e3 /uL 150-45 0 Not Available [facility] [address] [facility], [place], [address], 02/14/2024 11:13:50 02/13/20 24 02/14/2024 CBC WITH DIFFE RENTI AL/PL ATELE T neutrophils 61 % notest ab. Not Available [facility] [address] [facility], [place], [address], 02/14/2024 11:13:50 02/13/20 24 02/14/2024 CBC WITH DIFFE RENTI AL/PL ATELE T lymphs 22 % notest ab. Not Available [facility] [address] [facility], [place], [address], 02/14/2024 11:13:50 02/13/20 24 02/14/2024 CBC WITH DIFFE RENTI AL/PL ATELE T monocytes 14 % notest ab. Not Available [facility] [address] [facility], [place], [address], 02/14/2024 11:13:50 02/13/20 24 02/14/2024 CBC WITH DIFFE RENTI AL/PL ATELE T eos 2 % notest ab. Not Available [facility] [address] [facility], [place], [address], 02/14/2024 11:13:50 02/13/20 24 02/14/2024 CBC WITH DIFFE RENTI AL/PL ATELE T basos 1 % notest ab. Not Available [facility] [address] [facility], [place], [address], 02/14/2024 11:13:50 02/13/20 24 02/14/2024 CBC WITH DIFFE RENTI AL/PL ATELE T neutrophils (absolute) 2.4 x10e3 /uL 1.4-7. 0 Not Available [facility] [address] [facility], [place], [address], 02/14/2024 11:13:50 02/13/20 24 02/14/2024 CBC WITH DIFFE RENTI AL/PL ATELE T lymphs (absolute) 0.9 x10e3 /uL 0.7-3. 1 Not Available [facility] [address] [facility], [place], [address], 02/14/2024 11:13:50 02/13/20 24 02/14/2024 CBC WITH DIFFE RENTI AL/PL ATELE T monocytes(ab solute) 0.5 x10e3 /uL 0.1-0. 9 Not Available [facility] [address] [facility], [place], [address], 02/14/2024 11:13:50 02/13/20 24 02/14/2024 CBC WITH DIFFE RENTI AL/PL ATELE T eos (absolute) 0.1 x10e3 /uL 0.0-0. 4 Not Available [facility] [address] [facility], [place], [address], 02/14/2024 11:13:50 02/13/20 24 02/14/2024 CBC WITH DIFFE RENTI AL/PL ATELE T baso (absolute) 0.0 x10e3 /uL 0.0-0. 2 Not Available [facility] [address] [facility], [place], [address], 02/14/2024 11:13:50 02/13/20 24 02/14/2024 CBC WITH DIFFE RENTI AL/PL ATELE T immature granulocytes 0 % notest ab. Not Available [facility] [address] [facility], [place], [address], 02/14/2024 11:13:50 02/13/20 24 02/14/2024 CBC WITH DIFFE RENTI AL/PL ATELE T immature grans (abs) 0.0 x10e3 /uL 0.0-0. 1 Not Available [facility] [address] [facility], [place], [address], 02/14/2024 11:13:50 05/25/19 25 05/26/2024 VITAM IN [...] Endoc rine Socie ty went on to fur er defin e vitam in D insuf ficie ncy as a level betwe en 21 and 29 ng/mL (2). 1. IOM (Inst itute of Medic ine). 2009. Rosaura ry refer ence xavier es for calci um and D. Zena cifuentes [place]: [facility] . 2. Jacob spivey [place], Jason dumont [place], Chayito off-F errar i [place], et al. Evalu ation , treat ment, and preve ntion of vitam in D defic iency : an Endoc rine Socie ty clini salma pract ice guide line. JCEM. 2010; 96(7) :1911 -30. Not Available [facility] [address] [facility], [place], [address], 05/26/2024 10:11:44 10/10/19 24 10/10/2023 MAMMO , scree teresa, digit al, bilat eral No observ ation record ed. [address], [address], 10/14/2023 13:49:01 10/10/19 24 10/10/2023 bone densi ty No observ ation record ed. [address], [address], 10/14/2023 13:49:53 04/27/19 25 04/27/2024 CT, thora cic spine , w/o contr ast No observ ation record ed. [address], [place], [address], 05/04/2024 09:08:10 05/04/19 CT, lumba r spine , w/o contr ast No observ ation record ed. [address], [place], [address], 05/04/2024 09:08:10 05/16/1905/15/2024 XR, thora colum bar spine No observ ation record ed. [address], [place], [address], 05/18/2024 10:59:44 06/27/19 25 06/26/2024 XR, thora colum bar spine No observ ation record ed. [address], [place], [address], 06/27/2024 16:44:21 Result Notes None recorded. Problems Name Problem SNOMED Code Status Onset Date Resolution Date Notes Provider Name and Address Organization Details Recorded Time Hyperlipidemia 37807408 Active 2023 Lyndon Redman [place] null, [place] - [facility] 4 10:16:14 Chronic rhinitis 45139626 Active 2023 Lyndon Redman [place], [place] [facility] 4 10:16:15 Anxiety 83220220 Active 2023 Lyndon Redman [place], [place] [facility] 4 10:16:16 Essential hypertension 06378386 Active 2023 Jaden Rios MD Attn: Brian phoenix,[address] [facility], [place], [address], [place] - [facility] 4 15:51:39 Long-term drug therapy Active 2023 Jaden Rios MD Attn: Brian phoenix,[address], [place], [address], [facility] - [facility] 15:51:40 Problem Notes None recorded. Procedures Surgical History Date Name Laterality Status Provider Name and Address Organization Details Recorded Time 11/16/19 colonoscopy completed Ashely Hernandez LPN [place] - [facility] 11/16/2023 16:25:54 Eye Surgery completed Phylicia Hutton [facility] - [facility] 01/26/2024 10:31:59 tonsillectomy completed Phylicia Hutton [facility] 01/26/2024 10:32:37 Total hysterectomy completed Phylicia Hutton [facility] 01/26/2024 10:33:10 Dilation and Curettage completed Phylicia Hutton [facility] 01/26/2024 10:33:42 Imaging Results Imaging Date Name Status LastModified by Organization Details LastModified Time 10/10/2023 MAMMO, screening, digital, bilateral completed [address], [address], 10/14/2023 13:49:01 10/10/2023 bone density completed [address], [address], 10/14/2023 13:49:53 04/27/2024 CT, thoracic spine, w/o contrast completed [address], [address], 05/04/2024 09:08:10 05/04/2024 CT, lumbar spine, w/o contrast completed [address], [address], 05/04/2024 09:08:10 05/15/2024 XR, thoracolumbar spine completed [address], [address], 05/18/2024 10:59:44 06/26/2024 XR, thoracolumbar spine completed [email or web address] [address], [place], [address], 06/27/2024 16:44:21 Procedure Notes None recorded. Medical Equipment None Reported. Allergies Allergen ID Allergen Name Allergen Category Reaction Reaction Severity Criticality Documentation Date Start Date Code Code System Note Provider Name and Address Organization Details Recorded Time 18350916 ceftriaxo ne medicatio n Not available Not available Not available 05/31/2024 2193 RxNorm Not Available Not Available Not Available 18350917 Product containin g gadoliniu m and/or gadoliniu m compound (product) medicatio n Not available Not available Not available 05/31/2024 75678 3008 SNOMED Not Available Not Available Not Available 18350918 iodine medicatio n Not available Not available [...] by oral route as needed, for pain. 07/23 completed Not Available Not Available Not Available amlodipine 5 mg tablet Take 1 tablet by mouth once daily 2024 active Not Available Not Available Not Avai lable ciprofloxac in 500 mg tablet TAKE 1 TABLET BY MOUTH TWICE DAILY FOR 7 DAYS 07/27 completed Not Available Not Available Not Available omeprazole 40 mg capsule,del ayed release TAKE 1 CAPSULE BY MOUTH ONCE DAILY 07/23 completed Not Available Not Available Not Available simvastatin 20 mg tablet TAKE 1 TABLET BY MOUTH ONCE DAILY active Not Available Not Available No t Available neomycin-po lymyxin-dex ameth 3.5 mg/mL-10,00 0 unit/mL-0.1 % eye drops INSTILL 1 DROP INTO LEFT EYE 4 TIMES DAILY 05/31 completed Not Available Not Available Not Available fluoxetine 10 mg capsule Take 1 [...] mg capsule TAKE 1 CAPSULE BY MOUTH EVERY 12 HOURS FOR 5 DAYS 07/23 completed Not Available Not Available Not Available [...] Updated DateTime 4 167.64 cm 24 kg/m2 23646.1 1 g 82 /min 99.3 [degF] 97 [...] Updated DateTime 4 167.64 cm 24.4 kg/m2 57871.2 7 g 70 /min 97 % 97 % 118 mm[Hg] 82 mm[Hg] Phylicia Hutton MA [facility] 4 10:15:20 Date Recorded Body height Heart rate Oxygen saturation Oxygen saturation in Arterial blood by Pulse oximetry Systolic blood pressure Diastolic blood pressure Provider Name and Address Organization Details Last Updated DateTime 5 167.64 cm 73 /min 97 % 97 % 122 mm[Hg] 70 mm[Hg] Jackie Estes MA [facility] 5 10:13:46 Date Recorded Body height Body mass index (BMI) Body weight Heart rate Oxygen saturation Oxygen saturation in Arterial blood by Pulse oximetry Systolic blood pressure Diastolic blood pressure Provider Name and Address Organization Details Last Updated DateTime 5 167.64 cm 24.2 kg/m2 72795.8 6 g 88 /min 97 % 97 % 118 mm[Hg] 78 mm[Hg] Lida Read MA [facility] 5 10:21:39 Date Recorded Body height Provider Name an d Address Organization Details Last Updated DateTime 07/23/2024 167.64 cm Jackie Estes MA [facility] 5 10:11:46 Date Recorded Body mass index (BMI) Body weight Heart rate Oxygen saturation Oxygen saturation in Arterial blood by Pulse oximetry Systolic blood pressure Diastolic blood pressure Provider Name and Address Organization Details Last Updated DateTime 5 24 kg/m2 58279.9 g 80 /min 95 % 95 % 120 mm[Hg] 82 mm[Hg] Lida Read MA [facility] 5 10:20:02 Social History Question Answer Notes LastModified by Organizat ion Details LastModified Time Tobacco Smoking Status Former Smoker Namrata oNble MA [facility] 07/28/2023 09:51:47 Do You Have An Advance [...] Date Of Your Most Recent Tobacco Screening? 07/23/2024 [email or web address] Information not available 07/23/2024 What Is Your Relationship Status? Information not [...] Anxious, Or Unable To Sleep At Night)? [id number] Information not available 07/28/2023 Do You Use [...] High Blood Pressure Y Atrial Fibrillation N Kidney or Bladder Problems N Thyroid Problems N GI Problems N Depression N COPD N Blood Clots N Have you had a mammogram in the last yea r? Y Skin Problems N Anemia N Heart Attack ([place]) N Anxiety Disorder Y Diabetes N Muscle, Joint, or Bone Problems N Seizures/Epilepsy N Have you had a colonoscopy in the last 1 0 years? Y Acid Reflux (GERD) Y Cancer N Stroke N Asthma N Allergies N Have you had a PSA blood test in the las t year? N High Cholesterol Y Hepatitis N Liver Disease N Headaches N Heart Failure N Osteoporosis Y Gynecological History Statement/Question Response If Post Menopausal, Age at Menopause 48 Obstetrics History GPAL:G 1 P 1 0 0 1 Type Value Full Term 1 Living 1 Total 1 Immunizations Vaccine Type Date Status Note Provider Nam e and Address Organization Details Recorded Time Influenza, adjuvanted, trivalent, PF 8 completed SANTANA [place], [place] - [facility] 01/25/2024 17:52:46 Influenza, adjuvanted, trivalent, PF 9 completed S[place] [facility] 01/25/2024 17:52:46 zoster recombinant 3 completed S[place] [facility] 01/25/2024 17:52:46 zoster recombinant 3 completed S[place] [facility] [...] adjuvanted, trivalent, PF 4 completed SANTANA Nash, [facility] 05/07/2024 10:08:21 COVID-19, mRNA, LNP-S, PF, magali-sucrose, 30 mcg/0.3 mL 4 completed Jackie Estes MA [place], [place] - [facility] 05/07/2024 10:08:46 Past Encounters Encounter ID Performer Location Encounter Start Date Encounter Closed Date Diagnosis/Indication Diagnosis SNOMED-CT Code Diagnosis ICD10 Code Diagnosis Note [id number] Jaden Rios MD [email or web address] [place] [address] [place] [address] 07/28/2023 09:41:45 07/28/2023 10:21:18 Chronic rhinitis 98760657 J31.0 Hyperlipidemia 21329736 E78.5 Anxiety 85851634 F41.9 Long-term drug therapy 953980553 Z79.899 Essential hypertension 72962509 I10 [id number] Jaden Rios MD [email or web address] [place] [address] [place] [address] 01/26/2024 10:04:53 01/26/2024 11:17:38 Essential hypertension 31196769 I10 Long-term drug therapy 693934695 Z79.899 Renewal of prescription 944719801 Z76.0 Chronic rhinitis 4163281 6 J31.0 Hyperlipidemia 72180486 E78.5 [id number] Jaden Rios MD [email or web address] [place] [address] [place] [address] 05/07/2024 09:39:51 05/07/2024 10:53:41 Closed fracture thoracic vertebra 129324863 S22.009A Anxiety 41521420 F41.9 Chronic rhinitis 3644837 6 J31.0 Essential hypertension 99565954 I10 Hyperlipidemia 82724110 E78.5 [id number] Jaden Rios MD [email or web address] [place] [address] [place] [address] 05/31/2024 10:07:27 05/31/2024 11:09:12 Body mass index 20-24 - normal 957229601 Z68.24 Essential hypertension 46954852 I10 Hyperlipidemia 64925833 E78.5 Compressio n fracture of thoracic vertebra 0803610534 104 M48.54XD [id number] Lyndon Redman MA [facility] [address] [place] [address] 07/23/2024 10:02:02 07/23/2024 11:09:21 Body mass index 20-24 - normal 499463516 Z68.24 Overweight 815523105 E66 .3 Essential hypertension 63467197 I10 Hyperlipidemia 72757901 E78.5 Health Concerns Section Related Observation LastModified by Organization Detai ls LastModified Time None Recorded Concern Status LastModified by Organization Details LastModified Time None Recorded Advance Directives Directive N: Payers Encounter Date Sequence Insurance Name Policy Number Policy Lozano Covered Member ID Lozano Member ID Guarantor Name 07/28/2023 1 [place] Olivia Mo [id number] Olivia Mo 01/26/2024 [place] [facility] Olivia Mo [id number] Olivia Mo 05/07/2024 1 [place] Olivia Mo [id number] Olivia Mo 05/07/2024 2 [place] [id number] Olivia Mo [id number] Olivia Mo 05/31/2024 1 [place] Olivia Mo [id number] Olivia Mo 05/31/2024 2 [place] [id number] Olivia Mo [id number] Olivia Mo Notes Date Note Type Note Provider Name and Address Organization Details Recorded Time 07/28/2023 text/html 78-year-old hist ory of hypertension GERD chronic rhinitis urinary incontinence and hyperlipidemia Jaden Rios MD Attn: [address] [place], [address], [facility] 07/30/2023 15:52:09 01/26/2024 text/html 78-year-old hist ory of hypertension GERD chronic rhinitis urinary incontinence and hyperlipidemia incontinence hyperlipidemia GERD seem to be pretty stable as does hypertension but the rhinitis is still plaguing her and not controlled Jaden Rios MD Attn: Accounting[address] [facility], [place], [address], [facility] 02/14/2024 22:08:20 05/07/2024 text/html fell off a step ladder T12 burst fracture still has pain using hydrocodone and Flexeril no bowel or bladder incontinence. Her rhinitis is about the same hypertension stable dyslipidemia taking her simvastatin without any side effects anxiety is doing well aJden Rios MD Attn: [address] [facility], [place], [address], [facility] 05/13/2024 17:00:12 05/31/2024 text/html saw the back arielle geon got a brace we are weaning off the hydrocodone no distal symptoms in legs blood pressure has been good Jaden Rios MD Attn: Accounting[address] [facility], [place], [address], [facility] 06/11/2024 07:47:32 OBGyn Episode No OBEpisode recorded.
--- OUTSIDE RECORDS SUMMARY | 2024-08-07 12:00 | XMS_ITS | Data Portability ---
Author Organization [facility], Main Office Address [address] [place] [address] Care Team Providers Care Experimental Box Tester Name Role Phone JADEN RIOS Primary Care Provider [phone] JADEN RIOS Referring Provider Assessment Encounter Date Assessment Date Assessment LastModified by Organization Details LastModified Time 06/10/2022 06/10/[address] sinus Blood work Continue current therapy Follow-up 4 months [email or web address] Not available 07/18/2022 16:57:14 12/16/2022 12/16/2022 Will continue current therapy follow-up in 6 months [email or web address] Not available 01/02/2023 22:34:59 Plan of Treatment [...] MA folate 7.47 NG/mL 2.76- Not Available [facility] (Lab) [address] [place], [address], 12/23/2020 15:29:22 12/24/19 21 12/23/2020 VITAM IN B12 (ESTHER EDWIN ) [id number] 295 pg/mL 239-93 1 Not Available [facility] (Lab) [address] [place], [address], 12/23/2020 15:29:21 12/24/19 21 12/23/2020 SYDNEY TIN ferritin 33 NG/mL 11.1-2 64 Not Available [facility] (Lab) [address] [place], [address], 12/23/2020 14:54:22 12/24/1912/23/2020 TSH thyroid-stim ulating hormone 2.940 uIU/m L 0.465- 4.680 Not Available [facility] (Lab) [address] [place], [address], 12/23/2020 14:44:47 12/24/1912/23/2020 T3 FREE free T3 3.5 pg/mL 2.77-5 .27 Not Available [facility] (Lab) [address] [place], [address], 12/23/2020 14:43:39 12/24/1912/23/2020 T4 FREE free T4 1.23 NG/dL 0.78-2 .19 Not Available [facility] (Lab) [address] [place], [address], 12/23/2020 14:43:37 12/24/19 21 12/23/2020 COMPR EHENS JUANITA METAB OLIC PANEL chloride 105 mmol/ L 98-107 Not Available [facility] (Lab) [address] [place], [address], 12/23/2020 14:43:17 12/24/19 21 12/23/2020 COMPR EHENS JUANITA METAB OLIC PANEL sodium 137 mmol/ L 137-14 5 Not Available [facility] (Lab) [address] [place], [address], 12/23/2020 14:43:17 12/24/19 21 12/23/2020 COMPR EHENS JUANITA METAB OLIC PANEL potassium 4.2 mmol/ L 3.5-5. 1 Not Available [facility] (Lab) [address] [place], [address], 12/23/2020 14:43:17 12/24/19 21 12/23/2020 COMPR EHENS JUANITA METAB OLIC PANEL carbon dioxide 27 mmol/ L 22-30 Not Available [facility] (Lab) [address] [place], [address], 12/23/2020 14:43:17 12/24/19 21 12/23/2020 COMPR EHENS JUANITA METAB OLIC PANEL agap 9.2 mmol/ L 14-22 low Not Available [facility] (Lab) [address] [place], [address], 12/23/2020 14:43:17 12/24/19 21 12/23/2020 COMPR EHENS JUANITA METAB OLIC PANEL glucose 87 mg/dL 70-99 Not Available [facility] (Lab) [address] [place], [address], 12/23/2020 14:43:17 12/24/19 21 12/23/2020 COMPR EHENS JUANITA METAB OLIC PANEL BUN 16 mg/dL 8-19 Not Available [facility] (Lab) [address] [place], [address], 12/23/2020 14:43:17 12/24/19 21 12/23/2020 COMPR EHENS JUANITA METAB OLIC PANEL creatinine 0.58 mg/dL 0.66-1 .25 low Not Available [facility] (Lab) [address] [place], [address], 12/23/2020 14:43:17 12/24/19 21 12/23/2020 COMPR EHENS JUANITA METAB OLIC PANEL GFR >60 Refer ence Range : [place] ge GFR Healt hy Adult : >60 [...] lator can be locat ed on the [facility] websi te: https :[email or web address] [email or web address] villa/pr bentleyess ional s/kdo qi/gf r_cal culat or Not Available [facility] (Lab) [address] [place], [address], 12/23/2020 14:43:17 12/24/19 21 12/23/2020 COMPR EHENS JUANITA METAB OLIC PANEL alkaline phosphatase 47 U/L 38-126 Not Available [facility] (Lab) [address] [place], [address], 12/23/2020 14:43:17 12/24/19 21 12/23/2020 COMPR EHENS JUANITA METAB OLIC PANEL alanine aminotransfe rase 17 U/L 0-35 Not Available [facility] (Lab) [address] [place], [address], 12/23/2020 14:43:17 12/24/19 21 12/23/2020 COMPR EHENS JUANITA METAB OLIC PANEL aspartate aminotransfe rase 28 U/L 15-37 Not Available [facility] (Lab) [address] [place], [address], 12/23/2020 14:43:17 12/24/19 21 12/23/2020 COMPR EHENS JUANITA METAB OLIC PANEL bilirubin, total 0.50 mg/dL 0.20-1 .30 Not Available [facility] (Lab) [address] [place], [address], 12/23/2020 14:43:17 12/24/19 21 12/23/2020 COMPR EHENS JUANITA METAB OLIC PANEL calcium 9.7 mg/dL 8.4-10 .2 Not Available [facility] (Lab) [address] [place], [address], 12/23/2020 14:43:17 12/24/19 21 12/23/2020 COMPR EHENS JUANITA METAB OLIC PANEL total protein 6.3 g/dL 6.3-8. 2 Not Available [facility] (Lab) [address] [place], [address], 12/23/2020 14:43:17 12/24/19 21 12/23/2020 COMPR EHENS JUANITA METAB OLIC PANEL albumin 4.1 g/dL 3.0-4. 4 Not Available [facility] (Lab) [address] [place], [address], 12/23/2020 14:43:17 12/24/19 21 12/23/2020 COMPR EHENS JUANITA METAB OLIC PANEL globulin 2.2 g/dL 2.6-4. 2 low Not Available [facility] (Lab) [address] [place], [address], 12/23/2020 14:43:17 12/24/19 21 12/23/2020 COMPR EHENS JUANITA METAB OLIC PANEL A/G ratio 1.9 ratio 1.0-2. 0 Not Available [facility] (Lab) [address] [place], [address], 12/23/2020 14:43:17 12/24/19 21 12/23/2020 LIPID PANEL cholesterol 161 mg/dL 140-19 9 NIH GAYATHRI NSUS RECOM MENDA TION FOR MED STERO L: ADULT CHILD LOW RISK: <200 <170 BORDE RLINE : <200- 239 ----- HIGH RISK: >240 >200 Not Available [facility] (Lab) [address] [place], [address], 12/23/2020 14:43:11 12/24/1912/23/2020 LIPID PANEL triglyceride s 57 mg/dL 0-150 NIH GAYATHRI NSUS REPOR T RECOM MENDA TION FOR TRIGL YCERI ASH: ADULT CHILD LOW RISK: <150 ----- BODER LINE: 150-1 99 ----- HIGH RISK: >200 ----- Not Available [facility] (Lab) [address] [place], [address], 12/23/2020 14:43:11 12/24/19 21 12/23/2020 LIPID PANEL HDL cholesterol 74 mg/dL 40- Not Available [facility] (Lab) [address] [place], [address], 12/23/2020 14:43:11 12/24/19 21 12/23/2020 LIPID PANEL [...] WILL NOT BE REPOR TO. Not Available [facility] (Lab) [address] [place], [address], 12/23/2020 14:43:11 12/24/19 21 12/23/2020 VITAM IN D 25-HY DROXY [id number] 42.4 NG/mL 30-100 Vitam in D Statu s: Defic ient: <20 ng/mL Insuf ficie nt: 20-29 ng/mL Suffi cient : 30-10 0 ng/mL Not Available [facility] (Lab) [address] [place], [address], 12/23/2020 14:43:05 12/24/19 21 12/23/2020 IRON/ TIBC PANEL iron 87 mcg/d L 42-175 Not Available [facility] (Lab) [address] [place], [address], 12/23/2020 14:23:24 12/24/19 21 12/23/2020 IRON/ TIBC PANEL total iron binding capacity 263 mcg/d L 265-47 5 low Not Available [facility] (Lab) [address] [place], [address], 12/23/2020 14:23:24 12/24/19 21 12/23/2020 IRON/ TIBC PANEL % transferrin saturation 33 % 20-55 Not Available [facility] (Lab) [address] [place], [address], 12/23/2020 14:23:24 12/24/19 21 12/23/2020 IRON/ TIBC PANEL unsaturated iron bind capacity 176 mcg/d L 126-38 2 Not Available [facility] (Lab) [address] [place], [address], 12/23/2020 14:23:24 12/24/19 21 12/23/2020 CBC/C OMPLE TE BLD COUNT W/DIF F platelets 186 x10'3 /uL 150-40 0 Not Available [facility] (Lab) [address] [place], [address], 12/23/2020 13:56:15 12/24/19 21 12/23/2020 CBC/C OMPLE TE BLD COUNT W/DIF F white blood cells 4.3 x10'3 /uL 4.2-10 .8 Not Available [facility] (Lab) [address] [place], [address], 12/23/2020 13:56:15 12/24/19 21 12/23/2020 CBC/C OMPLE TE BLD COUNT W/DIF F red blood cells 4.23 x10'6 /uL 3.80-5 .20 Not Available [facility] (Lab) [address] [place], [address], 12/23/2020 13:56:15 12/24/19 21 12/23/2020 CBC/C OMPLE TE BLD COUNT W/DIF F hemoglobin 13.5 g/dL 12.0-1 5.6 Not Available [facility] (Lab) [address] [place], [address], 12/23/2020 13:56:15 12/24/19 21 12/23/2020 CBC/C OMPLE TE BLD COUNT W/DIF F hematocrit 40.7 % 35.7-4 5.7 Not Available [facility] (Lab) [address] [place], [address], 12/23/2020 13:56:15 12/24/19 21 12/23/2020 CBC/C OMPLE TE BLD COUNT W/DIF F mean red cell volume 96.2 fL 82.0-9 9.0 Not Available [facility] (Lab) [address] [place], [address], 12/23/2020 13:56:15 12/24/19 21 12/23/2020 CBC/C OMPLE TE BLD COUNT W/DIF F mean red cell hemoglobin 31.9 pg 27.0-3 3.0 Not Available [facility] (Lab) [address] [place], [address], 12/23/2020 13:56:15 12/24/19 21 12/23/2020 CBC/C OMPLE TE BLD COUNT W/DIF F mean RBC HGB concentratio n 33.2 g/dL 31.0-3 6.0 Not Available [facility] (Lab) [address] [place], [address], 12/23/2020 13:56:15 12/24/1912/23/2020 CBC/C OMPLE TE BLD COUNT W/DIF F red cell distribution width 13.7 % 11.8-1 5.5 Not Available [facility] (Lab) [address] [place], [address], 12/23/2020 13:56:15 12/24/1912/23/2020 CBC/C OMPLE TE BLD COUNT W/DIF F mean platelet volume 11.7 fL 9.0-12 .4 Not Available [facility] (Lab) [address] [place], [address], 12/23/2020 13:56:15 12/24/19 21 12/23/2020 CBC/C OMPLE TE BLD COUNT W/DIF F neutrophils 59.6 % 39.0-7 2.0 Not Available [facility] (Lab) [address] [place], [address], 12/23/2020 13:56:15 12/24/1912/23/2020 CBC/C OMPLE TE BLD COUNT W/DIF F lymphocytes 22.7 % 16.0-4 7.0 Not Available [facility] [address] [facility] [place], [address], 12/23/2020 13:56:15 12/24/1912/23/2020 CBC/C OMPLE TE BLD COUNT W/DIF F monocytes 13.3 % 5.0-12 .0 high Not Available [facility] (Lab) [address] [facility] [place], [address], 12/23/2020 13:56:15 12/24/1912/23/2020 CBC/C OMPLE TE BLD COUNT W/DIF F eosinophils 3.3 % 1.0-7. 0 Not Available [facility] (Lab) [address] [place], [address], 12/23/2020 13:56:15 12/24/1912/23/2020 CBC/C OMPLE TE BLD COUNT W/DIF F basophils 0.9 % 0.0-2. 0 Not Available [facility] (Lab) [address] [place], [address], 12/23/2020 13:56:15 12/24/1912/23/2020 CBC/C OMPLE TE BLD COUNT W/DIF F immature granulocytes 0.2 % 0.00-0 .50 Not Available [facility] (Lab) [address] [place], [address], 12/23/2020 13:56:15 12/24/19 21 12/23/2020 CBC/C OMPLE TE BLD COUNT W/DIF F neutrophils, absolute count 2.54 x10'3 /uL 1.5-8. 0 Not Available [facility] (Lab) [address] [place], [address], 12/23/2020 13:56:15 12/24/1912/23/2020 CBC/C OMPLE TE BLD COUNT W/DIF F lymphocytes, absolute count 0.97 x10'3 /uL 1.07-3 .43 low Not Available [facility] (Lab) [address] [place], [address], 12/23/2020 13:56:15 12/24/1912/23/2020 CBC/C OMPLE TE BLD COUNT W/DIF F monocytes, absolute count 0.57 x10'3 /uL 0.29-0 .99 Not Available [facility] (Lab) [address] [place], [address], 12/23/2020 13:56:15 12/24/1912/23/2020 CBC/C OMPLE TE BLD COUNT W/DIF F eosinophils, absolute count 0.14 x10'3 /uL 0.02-0 .53 Not Available [facility] (Lab) [address] [place], [address], 12/23/2020 13:56:15 12/24/1912/23/2020 CBC/C OMPLE TE BLD COUNT W/DIF F basophils, absolute count 0.04 x10'3 /uL 0.01-0 .08 Not Available [facility] (Lab) [address] [place], [address], 12/23/2020 13:56:15 12/24/1912/23/2020 CBC/C OMPLE TE BLD COUNT W/DIF F immature granulocytes ,absolute 0.01 x10'3 /uL 0.00-0 .05 Not Available [facility] (Lab) [address] [place], [address], 12/23/2020 13:56:15 12/24/19 12/23/2020 CBC/C OMPLE TE BLD COUNT W/DIF F nucleated red blood cells 0.0 % -0 Not Available [facility] (Lab) [address] [place], [address], 12/23/2020 13:56:15 12/24/19 21 12/23/2020 CBC/C OMPLE TE BLD COUNT W/DIF F NRBC# 0.00 x10'3 /uL Not Available [facility] (Lab) [address] [place], [address], 12/23/2020 13:56:15 12/11/19 22 12/10/2021 LIPID PANEL [...] WILL NOT BE REPOR TO. Not Available [facility] (Lab) [address] [place], [address], 12/10/2021 14:24:10 12/11/19 22 12/10/2021 LIPID PANEL cholesterol 184 mg/dL 140-19 9 NIH GAYATHRI NSUS RECOM MENDA TION FOR MED STERO L: ADULT CHILD LOW RISK: <200 <170 BORDE RLINE : <200- 239 ----- HIGH RISK: >240 >200 Not Available [facility] (Lab) [address] [place], [address], 12/10/2021 14:24:10 12/11/19 22 12/10/2021 LIPID PANEL triglyceride s 59 mg/dL 0-150 NIH GAYATHRI NSUS REPOR T RECOM MENDA TION FOR TRIGL YCERI ASH: ADULT CHILD LOW RISK: <150 ----- BODER LINE: 150-1 99 ----- HIGH RISK: >200 ----- Not Available [facility] (Lab) [address] [place], [address], 12/10/2021 14:24:10 12/11/19 22 12/10/2021 LIPID PANEL HDL cholesterol 83 mg/dL 40- Not Available [facility] (Lab) [address] [place], [address], 12/10/2021 14:24:10 12/11/19 22 12/10/2021 COMPR EHENS JUANITA METAB OLIC PANEL carbon dioxide 29 mmol/ L 22-30 Not Available [facility] (Lab) [address] [place], [address], 12/10/2021 14:24:07 12/11/19 22 12/10/2021 COMPR EHENS JUANITA METAB OLIC PANEL sodium 135 mmol/ L 137-14 5 low Not Available [facility] (Lab) [address] [place], [address], 12/10/2021 14:24:07 12/11/19 22 12/10/2021 COMPR EHENS JUANITA METAB OLIC PANEL potassium 3.9 mmol/ L 3.5-5. 1 Not Available [facility] (Lab) [address] [place], [address], 12/10/2021 14:24:07 12/11/19 22 12/10/2021 COMPR EHENS JUANITA METAB OLIC PANEL chloride 99 mmol/ L 98-107 Not Available [facility] (Lab) [address] [place], [address], 12/10/2021 14:24:07 12/11/19 22 12/10/2021 COMPR EHENS JUANITA METAB OLIC PANEL anion gap 10.9 mmol/ L 14-22 low Not Available [facility] (Lab) [address] [place], [address], 12/10/2021 14:24:12/11/19 22 12/10/2021 COMPR EHENS JUANITA METAB OLIC PANEL glucose 103 mg/dL 70-99 high Not Available [facility] (Lab) [address] [place], [address], 12/10/2021 14:24:12/11/19 22 12/10/2021 COMPR EHENS JUANITA METAB OLIC PANEL BUN 15 mg/dL 8-19 Not Available [facility] (Lab) [address] [place], [address], 12/10/2021 14:24:12/11/19 22 12/10/2021 COMPR EHENS JUANITA METAB OLIC PANEL creatinine 0.70 mg/dL 0.66-1 .25 Not Available [facility] (Lab) [address] [place], [address], 12/10/2021 14:24:12/11/19 22 12/10/2021 COMPR EHENS JUANITA METAB OLIC PANEL GFR >60 Refer ence Range : [place] ge GFR Healt hy Adult : >60 [...] calcu lator is avail able on the [facility] websi te: https ://elver [email or web address] villa/celso rodrigez s/kdo qi/gf r_cal culat or Not Available [facility] (Lab) [address] [place], [address], 12/10/2021 14:24:12/11/19 22 12/10/2021 COMPR EHENS JUANITA METAB OLIC PANEL alkaline phosphatase 55 U/L 38-126 Not Available [facility] (Lab) [address] [place], [address], 12/10/2021 14:24:07 12/11/19 22 12/10/2021 COMPR EHENS JUANITA METAB OLIC PANEL alanine aminotransfe rase 19 U/L 0-35 Not Available [facility] (Lab) [address] [place], [address], 12/10/2021 14:24:12/11/19 22 12/10/2021 COMPR EHENS JUANITA METAB OLIC PANEL aspartate aminotransfe rase 27 U/L 15-37 Not Available [facility] (Lab) [address] [place], [address], 12/10/2021 14:24:12/11/19 22 12/10/2021 COMPR EHENS JUANITA METAB OLIC PANEL bilirubin, total 0.60 mg/dL 0.20-1 .30 Not Available [facility] (Lab) [address] [place], [address], 12/10/2021 14:24:12/11/19 22 12/10/2021 COMPR EHENS JUANITA METAB OLIC PANEL calcium 9.9 mg/dL 8.4-10 .2 Not Available [facility] (Lab) [address] [place], [address], 12/10/2021 14:24:07 12/11/19 22 12/10/2021 COMPR EHENS JUANITA METAB OLIC PANEL total protein 6.9 g/dL 6.3-8. 2 Not Available [facility] (Lab) [address] [place], [address], 12/10/2021 14:24:07 12/11/19 22 12/10/2021 COMPR EHENS JUANITA METAB OLIC PANEL albumin 4.6 g/dL 3.0-4. 4 high Not Available [facility] (Lab) [address] [place], [address], 12/10/2021 14:24:07 12/11/19 22 12/10/2021 COMPR EHENS JUANITA METAB OLIC PANEL globulin 2.3 g/dL 2.6-4. 2 low Not Available [facility] (Lab) [address] [place], [address], 12/10/2021 14:24:07 12/11/19 22 12/10/2021 COMPR EHENS JUANITA METAB OLIC PANEL A/G ratio 2.0 ratio 1.0-2. 0 Not Available [facility] (Lab) [address] [place], [address], 12/10/2021 14:24:07 12/11/19 22 12/10/2021 CBC/C OMPLE TE BLD COUNT W/DIF F white blood cells 5.1 x10'3 /uL 4.2-10 .8 Not Available [facility] (Lab) [address] [place], [address], 12/10/2021 13:02:07 12/11/19 22 12/10/2021 CBC/C OMPLE TE BLD COUNT W/DIF F red blood cells 4.45 x10'6 /uL 3.80-5 .20 Not Available [facility] (Lab) [address] [place], [address], 12/10/2021 13:02:07 12/11/19 22 12/10/2021 CBC/C OMPLE TE BLD COUNT W/DIF F hemoglobin 14.1 g/dL 12.0-1 5.6 Not Available [facility] (Lab) [address] [place], [address], 12/10/2021 13:02:07 12/11/19 22 12/10/2021 CBC/C OMPLE TE BLD COUNT W/DIF F hematocrit 42.8 % 35.7-4 5.7 Not Available [facility] (Lab) [address] [place], [address], 12/10/2021 13:02:07 12/11/19 22 12/10/2021 CBC/C OMPLE TE BLD COUNT W/DIF F mean red cell volume 96.2 fL 82.0-9 9.0 Not Available [facility] (Lab) [address] [place], [address], 12/10/2021 13:02:07 12/11/19 22 12/10/2021 CBC/C OMPLE TE BLD COUNT W/DIF F mean red cell hemoglobin 31.7 pg 27.0-3 3.0 Not Available [facility] (Lab) [address] [place], [address], 12/10/2021 13:02:07 12/11/19 22 12/10/2021 CBC/C OMPLE TE BLD COUNT W/DIF F mean RBC HGB concentratio n 32.9 g/dL 31.0-3 6.0 Not Available [facility] (Lab) [address] [place], [address], 12/10/2021 13:02:07 12/11/19 22 12/10/2021 CBC/C OMPLE TE BLD COUNT W/DIF F red cell distribution width 13.5 % 11.8-1 5.5 Not Available [facility] (Lab) [address] [place], [address], 12/10/2021 13:02:07 12/11/19 22 12/10/2021 CBC/C OMPLE TE BLD COUNT W/DIF F platelets 211 x10'3 /uL 150-40 0 Not Available [facility] (Lab) [address] [place], [address], 12/10/2021 13:02:07 12/11/19 22 12/10/2021 CBC/C OMPLE TE BLD COUNT W/DIF F mean platelet volume 11.7 fL 9.0-12 .4 Not Available [facility] (Lab) [address] [place], [address], 12/10/2021 13:02:07 12/11/19 22 12/10/2021 CBC/C OMPLE TE BLD COUNT W/DIF F neutrophils 61.2 % 39.0-7 2.0 Not Available [facility] (Lab) [address] [place], [address], 12/10/2021 13:02:07 12/11/19 22 12/10/2021 CBC/C OMPLE TE BLD COUNT W/DIF F basophils 1.2 % 0.0-2. 0 Not Available [facility] (Lab) [address] [place], [address], 12/10/2021 13:02:07 12/11/19 22 12/10/2021 CBC/C OMPLE TE BLD COUNT W/DIF F lymphocytes 22.5 % 16.0-4 7.0 Not Available [facility] (Lab) [address] [place], [address], 12/10/2021 13:02:07 12/11/19 22 12/10/2021 CBC/C OMPLE TE BLD COUNT W/DIF F monocytes 12.5 % 5.0-12 .0 high Not Available [facility] (Lab) [address] [place], [address], 12/10/2021 13:02:07 12/11/19 22 12/10/2021 CBC/C OMPLE TE BLD COUNT W/DIF F eosinophils 2.2 % 1.0-7. 0 Not Available [facility] (Lab) [address] [place], [address], 12/10/2021 13:02:07 12/11/19 22 12/10/2021 CBC/C OMPLE TE BLD COUNT W/DIF F immature granulocytes 0.4 % 0.00-0 .50 Not Available [facility] (Lab) [address] [place], [address], 12/10/2021 13:02:07 12/11/19 22 12/10/2021 CBC/C OMPLE TE BLD COUNT W/DIF F neutrophils, absolute count 3.12 x10'3 /uL 1.5-8. 0 Not Available [facility] (Lab) [address] [place], [address], 12/10/2021 13:02:07 12/11/19 22 12/10/2021 CBC/C OMPLE TE BLD COUNT W/DIF F lymphocytes, absolute count 1.15 x10'3 /uL 1.07-3 .43 Not Available [facility] (Lab) [address] [place], [address], 12/10/2021 13:02:07 12/11/19 22 12/10/2021 CBC/C OMPLE TE BLD COUNT W/DIF F monocytes, absolute count 0.64 x10'3 /uL 0.29-0 .99 Not Available [facility] (Lab) [address] [place], [address], 12/10/2021 13:02:07 12/11/19 22 12/10/2021 CBC/C OMPLE TE BLD COUNT W/DIF F eosinophils, absolute count 0.11 x10'3 /uL 0.02-0 .53 Not Available [facility] (Lab) [address] [place], [address], 12/10/2021 13:02:07 12/11/19 22 12/10/2021 CBC/C OMPLE TE BLD COUNT W/DIF F NRBC# 0.00 x10'3 /uL Not Available [facility] (Lab) [address] [place], [address], 12/10/2021 13:02:07 12/11/19 22 12/10/2021 CBC/C OMPLE TE BLD COUNT W/DIF F basophils, absolute count 0.06 x10'3 /uL 0.01-0 .08 Not Available [facility] (Lab) [address] [place], [address], 12/10/2021 13:02:07 12/11/19 22 12/10/2021 CBC/C OMPLE TE BLD COUNT W/DIF F immature granulocytes ,absolute 0.02 x10'3 /uL 0.00-0 .05 Not Available [facility] (Lab) [address] [place], [address], 12/10/2021 13:02:07 12/11/19 22 12/10/2021 CBC/C OMPLE TE BLD COUNT W/DIF F nucleated red blood cells 0.0 % -0 Not Available [facility] (Lab) [address] [place], [address], 12/10/2021 13:02:07 06/11/19 23 06/10/2022 CBC/C OMPLE TE BLD COUNT W/DIF F white blood cells 4.3 x10'3 /uL 4.2-10 .8 Not Available [facility] (Lab) [address] [place], [address], 06/10/2022 13:24:20 06/11/19 23 06/10/2022 CBC/C OMPLE TE BLD COUNT W/DIF F red blood cells 4.40 x10'6 /uL 3.80-5 .20 Not Available [facility] (Lab) [address] [place], [address], 06/10/2022 13:24:20 06/11/19 23 06/10/2022 CBC/C OMPLE TE BLD COUNT W/DIF F hemoglobin 13.6 g/dL 12.0-1 5.6 Not Available [facility] (Lab) [address] [place], [address], 06/10/2022 13:24:20 06/11/19 23 06/10/2022 CBC/C OMPLE TE BLD COUNT W/DIF F hematocrit 41.7 % 35.7-4 5.7 Not Available [facility] (Lab) [address] [place], [address], 06/10/2022 13:24:20 06/11/19 23 06/10/2022 CBC/C OMPLE TE BLD COUNT W/DIF F mean red cell volume 94.8 fL 82.0-9 9.0 Not Available [facility] (Lab) [address] [place], [address], 06/10/2022 13:24:20 06/11/19 23 06/10/2022 CBC/C OMPLE TE BLD COUNT W/DIF F mean red cell hemoglobin 30.9 pg 27.0-3 3.0 Not Available [facility] (Lab) [address] [place], [address], 06/10/2022 13:24:20 06/11/19 23 06/10/2022 CBC/C OMPLE TE BLD COUNT W/DIF F mean RBC HGB concentratio n 32.6 g/dL 31.0-3 6.0 Not Available [facility] (Lab) [address] [place], [address], 06/10/2022 13:24:20 03/02/20 23 06/10/2022 CBC/C OMPLE TE BLD COUNT W/DIF F red cell distribution width 13.6 % 11.8-1 5.5 Not Available [facility] (Lab) [address] [place], [address], 06/10/2022 13:24:20 06/11/19 23 06/10/2022 CBC/C OMPLE TE BLD COUNT W/DIF F platelets 221 x10'3 /uL 150-40 0 Not Available [facility] (Lab) [address] [place], [address], 06/10/2022 13:24:20 06/11/19 23 06/10/2022 CBC/C OMPLE TE BLD COUNT W/DIF F mean platelet volume 11.4 fL 9.0-12 .4 Not Available [facility] (Lab) [address] [place], [address], 06/10/2022 13:24:20 06/11/19 23 06/10/2022 CBC/C OMPLE TE BLD COUNT W/DIF F neutrophils 53.4 % 39.0-7 2.0 Not Available [facility] (Lab) [address] [place], [address], 06/10/2022 13:24:20 06/11/19 23 06/10/2022 CBC/C OMPLE TE BLD COUNT W/DIF F lymphocytes 27.0 % 16.0-4 7.0 Not Available [facility] (Lab) [address] [place], [address], 06/10/2022 13:24:20 06/11/19 23 06/10/2022 CBC/C OMPLE TE BLD COUNT W/DIF F monocytes 14.8 % 5.0-12 .0 high Not Available [facility] (Lab) [address] [place], [address], 06/10/2022 13:24:20 06/11/19 23 06/10/2022 CBC/C OMPLE TE BLD COUNT W/DIF F eosinophils 3.0 % 1.0-7. 0 Not Available [facility] (Lab) [address] [place], [address], 06/10/2022 13:24:20 06/11/19 23 06/10/2022 CBC/C OMPLE TE BLD COUNT W/DIF F basophils 1.6 % 0.0-2. 0 Not Available [facility] (Lab) [address] [place], [address], 06/10/2022 13:24:20 06/11/19 23 06/10/2022 CBC/C OMPLE TE BLD COUNT W/DIF F immature granulocytes 0.2 % 0.00-0 .50 Not Available [facility] (Lab) [address] [place], [address], 06/10/2022 13:24:20 06/11/19 23 06/10/2022 CBC/C OMPLE TE BLD COUNT W/DIF F neutrophils, absolute count 2.31 x10'3 /uL 1.5-8. 0 Not Available [facility] (Lab) [address] [place], [address], 06/10/2022 13:24:20 06/11/19 23 06/10/2022 CBC/C OMPLE TE BLD COUNT W/DIF F lymphocytes, absolute count 1.17 x10'3 /uL 1.07-3 .43 Not Available [facility] (Lab) [address] [place], [address], 06/10/2022 13:24:20 06/11/19 23 06/10/2022 CBC/C OMPLE TE BLD COUNT W/DIF F monocytes, absolute count 0.64 x10'3 /uL 0.29-0 .99 Not Available [facility] (Lab) [address] [place], [address], 06/10/2022 13:24:20 06/11/19 23 06/10/2022 CBC/C OMPLE TE BLD COUNT W/DIF F eosinophils, absolute count 0.13 x10'3 /uL 0.02-0 .53 Not Available [facility] (Lab) [address] [place], [address], 06/10/2022 13:24:20 06/11/19 23 06/10/2022 CBC/C OMPLE TE BLD COUNT W/DIF F basophils, absolute count 0.07 x10'3 /uL 0.01-0 .08 Not Available [facility] (Lab) [address] [place], [address], 06/10/2022 13:24:20 06/11/19 23 06/10/2022 CBC/C OMPLE TE BLD COUNT W/DIF F immature granulocytes ,absolute 0.01 x10'3 /uL 0.00-0 .05 Not Available [facility] (Lab) [address] [place], [address], 06/10/2022 13:24:20 06/11/19 23 06/10/2022 CBC/C OMPLE TE BLD COUNT W/DIF F nucleated red blood cells 0.0 % -0 Not Available [facility] (Lab) [address] [place], [address], 06/10/2022 13:24:20 06/11/19 23 06/10/2022 CBC/C OMPLE TE BLD COUNT W/DIF F NRBC# 0.00 x10'3 /uL Not Available [facility] (Lab) [address] [place], [address], 06/10/2022 13:24:20 06/11/19 23 06/10/2022 LIPID PANEL cholesterol 176 mg/dL 140-19 9 NIH GAYATHRI NSUS RECOM MENDA TION FOR MED STERO L: ADULT CHILD LOW RISK: <200 <170 BORDE RLINE : <200- 239 ----- HIGH RISK: >240 >200 Not Available [facility] (Lab) [address] [place], [address], 06/10/2022 13:47:37 06/11/19 23 06/10/2022 LIPID PANEL triglyceride s 70 mg/dL 0-150 NIH GAYATHRI NSUS REPOR T RECOM MENDA TION FOR TRIGL YCERI ASH: ADULT CHILD LOW RISK: <150 ----- BODER LINE: 150-1 99 ----- HIGH RISK: >200 ----- Not Available [facility] (Lab) [address] [place], [address], 06/10/2022 13:47:37 06/11/19 23 06/10/2022 LIPID PANEL HDL cholesterol 83 mg/dL 40- Not Available [facility] (Lab) [address] [place], [address], 06/10/2022 13:47:37 06/11/19 23 06/10/2022 LIPID PANEL [...] WILL NOT BE REPOR TO. Not Available [facility] (Lab) [address] [place], [address], 06/10/2022 13:47:37 06/11/1906/10/2022 COMPR EHENS JUANITA METAB OLIC PANEL sodium 136 mmol/ L 137-14 5 low Not Available [facility] (Lab) [address] [place], [address], 06/10/2022 13:47:51 06/11/19 23 06/10/2022 COMPR EHENS JUANITA METAB OLIC PANEL potassium 4.1 mmol/ L 3.5-5. 1 Not Available [facility] (Lab) [address] [place], [address], 06/10/2022 13:47:51 06/11/19 23 06/10/2022 COMPR EHENS JUANITA METAB OLIC PANEL chloride 101 mmol/ L 98-107 Not Available [facility] (Lab) [address] [place], [address], 06/10/2022 13:47:51 06/11/19 23 06/10/2022 COMPR EHENS JUANITA METAB OLIC PANEL carbon dioxide 27 mmol/ L 22-30 Not Available [facility] (Lab) [address] [place], [address], 06/10/2022 13:47:51 06/11/19 23 06/10/2022 COMPR EHENS JUANITA METAB OLIC PANEL anion gap 12.1 mmol/ L 14-22 low Not Available [facility] (Lab) [address] [place], [address], 06/10/2022 13:47:51 06/11/19 23 06/10/2022 COMPR EHENS JUANITA METAB OLIC PANEL glucose 100 mg/dL 70-99 high Not Available [facility] (Lab) [address] [place], [address], 06/10/2022 13:47:51 06/11/19 23 06/10/2022 COMPR EHENS JUANITA METAB OLIC PANEL BUN 15 mg/dL 8-19 Not Available [facility] (Lab) [address] [place], [address], 06/10/2022 13:47:51 06/11/19 23 06/10/2022 COMPR EHENS JUANITA METAB OLIC PANEL creatinine 0.63 mg/dL 0.66-1 .25 low Not Available [facility] (Lab) [address] [place], [address], 06/10/2022 13:47:51 06/11/19 23 06/10/2022 COMPR EHENS JUANITA METAB OLIC PANEL GFR >60 Refer ence Range : [place] ge GFR Healt hy Adult : >60 [...] or ethni c subgr oups, such as Hisnc nics. Outsi de the valid ated abel [...] calcu lator is avail able on the [facility] websi te: https ://elver [email or web address].cassandra melchor.o rg/pr ofess ional s/kdo qi/gf r_cal culat or Not Available [facility] (Lab) [address] [place], [address], 06/10/2022 13:47:51 06/11/19 23 06/10/2022 COMPR EHENS JUANITA METAB OLIC PANEL alkaline phosphatase 58 U/L 38-126 Not Available [facility] (Lab) [address] [place], [address], 06/10/2022 13:47:51 06/11/19 23 06/10/2022 COMPR EHENS JUANITA METAB OLIC PANEL alanine aminotransfe rase 28 U/L 0-35 Not Available [facility] (Lab) [address] [place], [address], 06/10/2022 13:47:51 06/11/19 23 06/10/2022 COMPR EHENS JUANITA METAB OLIC PANEL aspartate aminotransfe rase 36 U/L 15-37 Not Available [facility] (Lab) [address] [place], [address], 06/10/2022 13:47:51 06/11/19 23 06/10/2022 COMPR EHENS JUANITA METAB OLIC PANEL bilirubin, total 0.60 mg/dL 0.20-1 .30 Not Available [facility] (Lab) [address] [place], [address], 06/10/2022 13:47:51 06/11/19 23 06/10/2022 COMPR EHENS JUANITA METAB OLIC PANEL calcium 9.9 mg/dL 8.4-10 .2 Not Available [facility] (Lab) [address] [place], [address], 06/10/2022 13:47:51 06/11/19 23 06/10/2022 COMPR EHENS JUANITA METAB OLIC PANEL total protein 6.9 g/dL 6.3-8. 2 Not Available [facility] (Lab) [address] [place], [address], 06/10/2022 13:47:51 06/11/19 23 06/10/2022 COMPR EHENS JUANITA METAB OLIC PANEL albumin 4.3 g/dL 3.0-4. 4 Not Available [facility] (Lab) [address] [place], [address], 06/10/2022 13:47:51 06/11/19 23 06/10/2022 COMPR EHENS JUANITA METAB OLIC PANEL globulin 2.6 g/dL 2.6-4. 2 Not Available [facility] (Lab) [address] [place], [address], 06/10/2022 13:47:51 06/11/1906/10/2022 COMPR EHENS JUANITA METAB OLIC PANEL A/G ratio 1.7 ratio 1.0-2. 0 Not Available [facility] (Lab) [address] [place], [address], 06/10/2022 13:47:51 06/11/1906/10/2022 VITAM IN D 25-HY DROXY [id number] 37.4 NG/mL 30-100 Vitam in D Statu s: Defic ient: <20 ng/mL Insuf ficie nt: 20-29 ng/mL Suffi cient : 30-10 0 ng/mL Not Available [facility] (Lab) [address] [place], [address], 06/10/2022 13:55:56 01/29/2001/28/2023 LIPID PANEL cholesterol 165 mg/dL 140-19 9 NIH GAYATHRI NSUS RECOM MENDA TION FOR MED STERO L: ADULT CHILD LOW RISK: <200 <170 BORDE RLINE : <200- 239 ----- HIGH RISK: >240 >200 Not Available [facility] (Lab) [address] [place], [address], 01/28/2023 12:51:01 01/29/20 23 01/28/2023 LIPID PANEL triglyceride s 70 mg/dL 0-150 NIH GAYATHRI NSUS REPOR T RECOM MENDA TION FOR TRIGL YCERI ASH: ADULT CHILD LOW RISK: <150 ----- BODER LINE: 150-1 99 ----- HIGH RISK: >200 ----- Not Available [facility] (Lab) [address] [place], [address], 01/28/2023 12:51:01 01/29/20 23 01/28/2023 LIPID PANEL HDL cholesterol 62 mg/dL 40- Not Available [facility] (Lab) [address] [place], [address], 01/28/2023 12:51:01 01/29/2001/28/2023 LIPID PANEL LDL cholesterol, [...] WILL NOT BE REPOR TO. Not Available [facility] (Lab) [address] [place], [address], 01/28/2023 12:51:01 01/29/2001/28/2023 COMPR EHENS JUANITA METAB OLIC PANEL sodium 135 mmol/ L 137-14 5 low Not Available [facility] (Lab) [address] [place], [address], 01/28/2023 12:51:16 01/29/2001/28/2023 COMPR EHENS JUANITA METAB OLIC PANEL potassium 4.1 mmol/ L 3.5-5. 1 Not Available [facility] (Lab) [address] [place], [address], 01/28/2023 12:51:16 01/29/2001/28/2023 COMPR EHENS JUANITA METAB OLIC PANEL chloride 102 mmol/ L 98-107 Not Available [facility] (Lab) [address] [place], [address], 01/28/2023 12:51:16 01/29/2001/28/2023 COMPR EHENS JUANITA METAB OLIC PANEL carbon dioxide 28 mmol/ L 22-30 Not Available [facility] (Lab) [address] [place], [address], 01/28/2023 12:51:16 01/29/20 23 01/28/2023 COMPR EHENS JUANITA METAB OLIC PANEL anion gap 9.1 mmol/ L 14-22 low Not Available [facility] (Lab) [address] [place], [address], 01/28/2023 12:51:16 01/29/2001/28/2023 COMPR EHENS JUANITA METAB OLIC PANEL glucose 98 mg/dL 70-99 Not Available [facility] (Lab) [address] [place], [address], 01/28/2023 12:51:16 01/29/2001/28/2023 COMPR EHENS JUANITA METAB OLIC PANEL BUN 14 mg/dL 8-19 Not Available [facility] (Lab) [address] [place], [address], 01/28/2023 12:51:16 01/29/2001/28/2023 COMPR EHENS JUAINTA METAB OLIC PANEL creatinine 0.60 mg/dL 0.66-1 .25 low Not Available [facility] (Lab) [address] [place], [address], 01/28/2023 12:51:16 01/29/20 23 01/28/2023 COMPR EHENS JUANITA METAB OLIC PANEL GFR >60 Refer ence Range : [place] ge GFR Healt hy Adult : >60 [...] calcu lator is avail able on the [facility] websi te: https ://ww w.kid jill.o rg/pr ofess ional s/kdo qi/gf r_cal culat or Not Available [facility] (Lab) [address] [place], [address], 01/28/2023 12:51:16 01/29/2001/28/2023 COMPR EHENS JUANITA METAB OLIC PANEL alkaline phosphatase 60 U/L 38-126 Not Available [facility] (Lab) [address] [place], [address], 01/28/2023 12:51:16 01/29/2001/28/2023 COMPR EHENS JUANITA METAB OLIC PANEL alanine aminotransfe rase 23 U/L 0-35 Not Available [facility] (Lab) [address] [place], [address], 01/28/2023 12:51:16 01/29/2001/28/2023 COMPR EHENS JUANITA METAB OLIC PANEL aspartate aminotransfe rase 31 U/L 15-37 Not Available [facility] (Lab) [address] [place], [address], 01/28/2023 12:51:16 01/29/2001/28/2023 COMPR EHENS JUANITA METAB OLIC PANEL bilirubin, total 0.50 mg/dL 0.20-1 .30 Not Available [facility] (Lab) [address] [place], [address], 01/28/2023 12:51:16 01/29/20 23 01/28/2023 COMPR EHENS JUANITA METAB OLIC PANEL calcium 9.7 mg/dL 8.4-10 .2 Not Available [facility] (Lab) [address] [place], [address], 01/28/2023 12:51:16 01/29/20 23 01/28/2023 COMPR EHENS JUANITA METAB OLIC PANEL total protein 6.4 g/dL 6.3-8. 2 Not Available [facility] (Lab) [address] [place], [address], 01/28/2023 12:51:16 01/29/2001/28/2023 COMPR EHENS JUANITA METAB OLIC PANEL albumin 4.0 g/dL 3.0-4. 4 Not Available [facility] (Lab) [address] [place], [address], 01/28/2023 12:51:16 01/29/20 23 01/28/2023 COMPR EHENS JUANITA METAB OLIC PANEL globulin 2.4 g/dL 2.6-4. 2 low Not Available [facility] (Lab) [address] [place], [address], 01/28/2023 12:51:16 01/29/20 23 01/28/2023 COMPR EHENS JUANITA METAB OLIC PANEL A/G ratio 1.7 ratio 1.0-2. 0 Not Available [facility] (Lab) [address] [place], [address], 01/28/2023 12:51:16 01/29/20 23 01/28/2023 CBC/C OMPLE TE BLD COUNT W/DIF F white blood cells 4.4 x10'3 /uL 4.2-10 .8 Not Available [facility] (Lab) [address] [place], [address], 01/28/2023 12:53:26 01/29/2001/28/2023 CBC/C OMPLE TE BLD COUNT W/DIF F red blood cells 4.11 x10'6 /uL 3.80-5 .20 Not Available [facility] (Lab) [address] [place], [address], 01/28/2023 12:53:26 01/29/2001/28/2023 CBC/C OMPLE TE BLD COUNT W/DIF F hemoglobin 13.1 g/dL 12.0-1 5.6 Not Available [facility] (Lab) [address] [place], [address], 01/28/2023 12:53:26 01/29/2001/28/2023 CBC/C OMPLE TE BLD COUNT W/DIF F hematocrit 40.1 % 35.7-4 5.7 Not Available [facility] (Lab) [address] [place], [address], 01/28/2023 12:53:26 01/29/2001/28/2023 CBC/C OMPLE TE BLD COUNT W/DIF F mean red cell volume 97.6 fL 82.0-9 9.0 Not Available [facility] (Lab) [address] [place], [address], 01/28/2023 12:53:26 01/29/2001/28/2023 CBC/C OMPLE TE BLD COUNT W/DIF F mean red cell hemoglobin 31.9 pg 27.0-3 3.0 Not Available [facility] (Lab) [address] [place], [address], 01/28/2023 12:53:26 01/29/2001/28/2023 CBC/C OMPLE TE BLD COUNT W/DIF F mean RBC HGB concentratio n 32.7 g/dL 31.0-3 6.0 Not Available [facility] (Lab) [address] [place], [address], 01/28/2023 12:53:26 01/29/2001/28/2023 CBC/C OMPLE TE BLD COUNT W/DIF F red cell distribution width 13.6 % 11.8-1 5.5 Not Available [facility] (Lab) [address] [place], [address], 01/28/2023 12:53:26 01/29/2001/28/2023 CBC/C OMPLE TE BLD COUNT W/DIF F platelets 228 x10'3 /uL 150-40 0 Not Available [facility] (Lab) [address] [place], [address], 01/28/2023 12:53:26 01/29/2001/28/2023 CBC/C OMPLE TE BLD COUNT W/DIF F mean platelet volume 11.6 fL 9.0-12 .4 Not Available [facility] (Lab) [address] [place], [address], 01/28/2023 12:53:26 01/29/2001/28/2023 CBC/C OMPLE TE BLD COUNT W/DIF F neutrophils 59.3 % 39.0-7 2.0 Not Available [facility] (Lab) [address] [place], [address], 01/28/2023 12:53:26 01/29/2001/28/2023 CBC/C OMPLE TE BLD COUNT W/DIF F lymphocytes 18.4 % 16.0-4 7.0 Not Available [facility] (Lab) [address] [place], [address], 01/28/2023 12:53:26 01/29/2001/28/2023 CBC/C OMPLE TE BLD COUNT W/DIF F monocytes 16.4 % 5.0-12 .0 high Not Available [facility] (Lab) [address] [place], [address], 01/28/2023 12:53:26 01/29/2001/28/2023 CBC/C OMPLE TE BLD COUNT W/DIF F eosinophils 4.1 % 1.0-7. 0 Not Available [facility] (Lab) [address] [place], [address], 01/28/2023 12:53:26 01/29/2001/28/2023 CBC/C OMPLE TE BLD COUNT W/DIF F basophils 1.6 % 0.0-2. 0 Not Available [facility] (Lab) [address] [place], [address], 01/28/2023 12:53:26 01/29/2001/28/2023 CBC/C OMPLE TE BLD COUNT W/DIF F immature granulocytes 0.2 % 0.00-0 .50 Not Available [facility] (Lab) [address] [place], [address], 01/28/2023 12:53:26 01/29/20 23 01/28/2023 CBC/C OMPLE TE BLD COUNT W/DIF F neutrophils, absolute count 2.61 x10'3 /uL 1.5-8. 0 Not Available [facility] (Lab) [address] [place], [address], 01/28/2023 12:53:26 01/29/2001/28/2023 CBC/C OMPLE TE BLD COUNT W/DIF F lymphocytes, absolute count 0.81 x10'3 /uL 1.07-3 .43 low Not Available [facility] (Lab) [address] [place], [address], 01/28/2023 12:53:26 01/29/20 23 01/28/2023 CBC/C OMPLE TE BLD COUNT W/DIF F monocytes, absolute count 0.72 x10'3 /uL 0.29-0 .99 Not Available [facility] (Lab) [address] [place], [address], 01/28/2023 12:53:26 01/29/2001/28/2023 CBC/C OMPLE TE BLD COUNT W/DIF F eosinophils, absolute count 0.18 x10'3 /uL 0.02-0 .53 Not Available [facility] (Lab) [address] [place], [address], 01/28/2023 12:53:26 01/29/20 23 01/28/2023 CBC/C OMPLE TE BLD COUNT W/DIF F basophils, absolute count 0.07 x10'3 /uL 0.01-0 .08 Not Available [facility] (Lab) [address] [place], [address], 01/28/2023 12:53:26 01/29/2001/28/2023 CBC/C OMPLE TE BLD COUNT W/DIF F immature granulocytes ,absolute 0.01 x10'3 /uL 0.00-0 .05 Not Available [facility] (Lab) [address] [place], [address], 01/28/2023 12:53:26 01/29/20 23 01/28/2023 CBC/C OMPLE TE BLD COUNT W/DIF F nucleated red blood cells 0.0 % -0 Not Available [facility] (Lab) [address] [place], [address], 01/28/2023 12:53:26 01/29/20 23 01/28/2023 CBC/C OMPLE TE BLD COUNT W/DIF F NRBC# 0.00 x10'3 /uL Not Available [facility] (Lab) [address] [place], [address], 01/28/2023 12:53:26 01/29/20 23 01/28/2023 VITAM IN D 25-HY DROXY [id number] 42.1 NG/mL 30-100 Vitam in D Statu s: Defic ient: <20 ng/mL Insuf ficie nt: 20-29 ng/mL Suffi cient : 30-10 0 ng/mL Not Available [facility] (Lab) [address], [place], [address], 01/28/2023 13:03:52 06/28/19 22 06/27/2021 CT, orbit s, w/o contr ast No observ ation record ed. [id number] [facility] (Imaging) [address] [place] [address], [address], 06/09/2022 03:00:57 07/07/19 22 07/06/2021 MAMMO , scree teresa, digit al, bilat eral No observ ation record ed. [id number] [place] [address] (Imaging) [address] [place] [address], [address], 06/09/2022 03:00:57 09/24/19 22 09/23/2021 DEXA No observ ation record ed. [id number] [place] [address], [address], 06/09/2022 03:00:57 06/16/19 23 CT, chest , w/o contr ast [facility] [address] [place] [address] Patien t Name: OLIVIA SHARP Access ion #: [id number] Sex: F : 1945 8 Locati [...] of 3 [facility] Name: OLIVIA SHARP Access ion #: [id number] Sex: F : 1945 8 Exam [...] of 3 [facility] Name: OLIVIA SHARP ion #: [id number] Sex: F : 1945 8 Exam Date: 06/16/19 9:17 AM Exam Name: CT CHEST WO Admitt ing Diagno sis(es ): (CT) Page 3 of 3 [facility] (Imaging) [address] [place], [address], 06/30/2022 10:32:13 06/16/19 CT, sinus es, w/o contr ast [facility] [address] [place] [address] [phone] Patichyna t Name: OLIVIA SHARP Access ion #: [id number] Sex: F : 1945 8 Locati [...] dental amalga m. Page 1 of 2 [facility] Jhony dennis Name: OLIVIA SHARP Access ion #: [id number] Sex: F : 1945 8 Exam [...] d bilate rally, symmet ricall y IMPRES MARIAD EL CARMEN: 1. See above. Create d and electr onical ly signed by: Guillaume gilbret MD Signed Date: 06/16/19 2:14 PM (CT) Dictat ed by: Guillaume gilbert MD (CT) (CT) Page 2 of 2 [facility] (Imaging) [address] [place], [address], 06/30/2022 10:32:14 06/29/19 MRI, thora cic spine , w/o contr ast [facility] [address] [place] [address] Patien t Name: OLIVIA SHARP Access ion #: [id number] Sex: F : 1945 8 Locati [...] is necess gordon. Page 1 of 2 [facility] Patien t Name: OLIVIA SHARP Access ion #: [id number] Sex: F : 1945 8 Exam [...] 9:38 AM (CT) Page 2 of 2 [facility] (Imaging) [address] [place], [address], 06/30/2022 10:32:14 10/07/19 23 10/06/2022 MAMMO , diagn ostic , bilat eral No observ ation record ed. [email or web address] [address], [address], 12/16/2022 15:35:26 Result Notes None recorded. Problems Name Problem SNOMED Code Status Onset Date Resolution Date Notes Provider Name and Address Organization Details Recorded Time Benign hypertensi on 52810271 Active Not Available [facility] 3 02:44:27 Urinary incontinen ce 264602933 Active Not Available [facility] 3 02:44:27 Generalize d anxiety disorder 40419035 Active 2021 Not Available [facility] 3 02:44:28 Transient cerebral ischemia 896375997 Active Not Available [facility] 3 02:44:28 Long-term drug therapy Active 2021 Not Available [facility] 3 02:44:28 Adult health examinatio n Active 2021 Not Available [facility] 3 02:44:28 Anemia 186353550 Active 2020 Not Available [facility] 3 02:44:28 Chest pain 82501548 Active Not Available [facility] 3 02:44:28 Enthesopat hy of hip region 05598054 Active Not Available [facility] 3 02:44:28 Screening for disorder Active 2021 Not Available [facility] 3 02:44:28 Osteopenia 085416560 Active Not Available [facility] 3 02:44:28 Vitamin D deficiency 91329871 Active Not Available [facility] 3 02:44:28 Dyslipidem ia 309460423 Active Not Available [facility] 3 02:44:28 Acute urinary tract infection 875207381 Active 2021 Not Available [facility] 3 02:44:28 Anxiety 05217911 Active Not Available [facility] 3 02:44:28 Pain in limb 68775927 Active Not Available [facility] 3 02:44:28 Chronic sinusitis 96031723 Active 2022 Not Available [facility] 3 02:44:28 CT of chest abnormal 2005576395299 9102 Active 2022 Not Available [facility] 3 02:44:28 COVID-19 798291515 Active 2022 Not Available [facility] 3 02:44:28 Problem Notes None recorded. Procedures Surgical History Date Name Laterality Status Provider Name and Address Organization Details Recorded Time 10/20/19 22 Eye Surgery completed Not Available [facility] 06/10/19 02:44:34 06/28/19 22 Eye Surgery completed Not Available [facility] 06/10/19 23 02:44:34 07/17/19 21 Date of Last Colonoscopy completed Not Available [facility] 06/09/2022 02:44:30 07/17/19 21 Colonoscopy completed Not Available [facility] 06/10/19 02:44:34 11/04/19 12 Colonoscopy completed Not Available [facility] 06/10/19 02:44:34 09/18/19 10 Most Recent Bone Density completed Not Available [facility] 06/09/2022 02:44:30 Hysterectomy completed Not Available [facility] 06/09/2022 02:44:34 tonsilectomy/araseli noids completed Not Available [facility] 06/09/2022 02:44:34 Cataract Surgery completed Not Available [facility] 06/09/2022 02:44:34 Imaging Results Imaging Date Name Status LastModified by Organiz [facility] Details LastModified Time 07/06/2021 MAMMO, screening, digital, bilateral completed [id number] [facility] (Imaging) [address] [place] [address], [address], 06/09/2022 03:00:57 06/27/2021 CT, orbits, w/o contrast completed [id number] [address] [place] [address] (Imaging) [address] [place] [address], [address], 06/09/2022 03:00:57 09/23/2021 DEXA completed [id number] [place] [address], [address], 06/09/2022 03:00:57 06/15/2022 CT, chest, w/o contrast completed [facility] (Imaging) [address] [place], [address], 06/30/2022 10:32:13 06/15/2022 CT, sinuses, w/o contrast completed [facility] (Imaging) [address] [facility] [place], [address], 06/30/2022 10:32:14 06/28/2022 MRI, thoracic spine, w/o contrast completed [facility] (Imaging) [address] [facility] [place], [address], 06/30/2022 10:32:14 10/06/2022 MAMMO, diagnostic, bilateral completed [address] [facility] [address], [place], [address], 12/16/2022 15:35:26 Procedure Notes None recorded. Medical [...] Updated DateTime 3 167.64 cm 24.4 kg/m2 52763.4 5 g 97.9 [degF] 71 /min 124 mm[Hg] 70 mm[Hg] DIGNA Bhandari [place] - [facility] [place] [employer] [facility] 3 10:06:13 Date Recorded Body height Body mass index (BMI) Body weight Body temperature Heart rate Systolic blood pressure Diastolic blood pressure Provider Name and Address Organization Details Last Updated DateTime 3 167.64 cm 24.5 kg/m2 54801.0 4 g 98.2 [degF] 70 /min 118 mm[Hg] 70 mm[Hg] Gertrude orozco RN [facility] [employer] [facility] 3 10:06:56 Date Recorded Body mass index (BMI) Body height Heart rate Body temperature Body weight Systolic blood pressure Diastolic blood pressure Provider Name and Address Organization Details Last Updated DateTime 1 24.4 kg/m2 167.64 cm 78 /min 97.1 [degF] 79635.4 5 g 114 mm[Hg] 68 mm[Hg] Not Available [facility] 3 02:44:46 Date Recorded Body mass index (BMI) Body height Pain severity - 0-10 verbal numeric rating [Score] - Reported Heart rate Body temperature Body weight Systolic blood pressure Diastolic blood pressure Provider Name and Address Organization Details Last Updated DateTime 2 24.2 kg/m2 167.64 cm 0 78 /min 98 [degF] 89650.8 6 g 110 mm[Hg] 74 mm[Hg] Not Available [facility] 3 02:44:46 Date Recorded Body mass index (BMI) Body height Heart rate Body temperature Body weight Systolic blood pressure Diastolic blood pressure Provider Name and Address Organization Details Last Updated DateTime 2 23.6 kg/m2 167.64 cm 80 /min 97.2 [degF] 33298.4 9 g 132 mm[Hg] 84 mm[Hg] Not Available [facility] 3 02:44:46 Social History Question Answer Notes LastModified by Organizat ion Details LastModified Time Tobacco Smoking Status Former Smoker quit age 30 DIGNA Holguin, [facility] [employer] [facility] 06/10/2022 09:54:37 Do You Have An Advance Directive? Yes [id number] Information not available 06/09/2022 What Is Your Level Of Alcohol Consumption? 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 Heavy [id number] Information not available 06/09/2022 How Much Tobacco Do You Chew? None [id number] Information not available 06/09/2022 In The 14 [...] Type Of Diet Are You Following? REGULAR [id number] Information not available 06/09/2022 Which Illicit Or Recreational Drugs Have You Used? None Information not available 06/10/2022 Do You Or Have You Ever Used E-cigarettes Or Vape? Never Used Electronic Cigarettes Information not available 06/10/2022 What Is The Highest Grade Or Level Of School You Have Completed Or The Highest Degree You Have Received? [id number] Information not available 06/10/2022 What Is Your [...] Do You Have A Medical Power Of Supervisor Paper Products? Yes Information not available 06/10/2022 What Was The Date Of Your Most Recent Tobacco Screening? 12/16/2022 Information not available 12/16/2022 Have You Ever Been Counseled For Unhealthy Alcohol Use? No Information not available 06/10/2022 Do You Have Any Pets? Yes Information not available 06/10/2022 What Is Your Relationship Status? [id number] Information not available 06/09/2022 Do You Use Your Seat Belt Or Car Seat Routinely? Yes Information not available 06/10/2022 Do You Have Smoke And Carbon Monoxide Detectors In Your Home? Yes Information not available 06/10/2022 Are You Passively Exposed To Smoke? No Information not available 06/10/2022 Do You Or Have You Ever Used Smokeless Tobacco? Never Used Smokeless Tobacco [id number] Information not available 06/09/2022 Are There Any Smokers In Your House? No Information not available 06/10/2022 How Much Tobacco Do You Smoke? No [id number] Information not available 06/09/2022 What Types Of Sporting Activities Do You Participate In? None Information not available 06/10/2022 Do You Feel Stressed (tense, Restless, Nervous, Or Anxious, Or Unable To Sleep At Night)? [id number] Information not available 06/10/2022 Do You Use [...] 06/10/2022 What is your exercise level? Moderate [id number] Information not available 06/09/2022 Mental Status Question Answer Note LastModified by Organization D etails LastModified Time Do you have difficulty concentrating, remembering or making decisions? No Information no t available 06/10/2022 Family History Relationship Description Onset Age of this Age Resolved Age Notes LastModified by Organization Details LastModified Time Mother Heart disease 95 [id number] Not available 06/09/2022 02:44:34 Brother Leukemia half-b [...] N CHRONIC PAIN SYNDROME N HYPOTHYROIDISM N CONSTIPATION N CAROTID BLOCKAGE N BACK / NECK PROBLEMS N HAVE [...] zoster, unspecified formulation 3 completed Not Available [facility] 01/31/2023 02:44:28 COVID-19, mRNA, LNP-S, PF, 100 mcg/0.5mL dose or 50 mcg/0.25mL dose 1 completed Not Available [facility] 01/31/2023 02:44:28 Td(adult) unspecified formulation 2 completed Not Available [facility] 01/31/2023 02:44:28 COVID-19, mRNA, LNP-S, PF, 100 mcg/0.5mL dose or 50 mcg/0.25mL dose 1 completed Not Available [facility] 01/31/2023 02:44:28 Influenza, split virus, trivalent, preservative 9 completed Not Available [facility] 01/31/2023 02:44:28 influenza, unspecified formulation 8 completed Not Available [facility] 01/31/2023 02:44:28 Influenza, high-dose, trivalent, PF 7 completed Not Available [facility] 01/31/2023 02:44:28 Influenza, high-dose, trivalent, PF 7 completed Not Available [facility] 01/31/2023 02:44:28 COVID-19, mRNA, LNP-S, PF, 100 mcg/0.5mL dose or 50 mcg/0.25mL dose 2 completed Not Available [facility] 01/31/2023 02:44:28 Influenza, split virus, trivalent, preservative 2 completed Not Available [facility] 01/31/2023 02:44:28 Influenza, split virus, trivalent, preservative 1 completed Not Available [facility] 01/31/2023 02:44:28 COVID-19, mRNA, LNP-S, PF, 100 mcg/0.5mL dose or 50 mcg/0.25mL dose 1 completed Not Available [facility] 01/31/2023 02:44:28 Influenza, high-dose, quadrivalent, PF 0 completed Not Available [facility] 01/31/2023 02:44:28 Influenza, high-dose, trivalent, PF 6 completed Not Available [facility] 01/31/2023 02:44:28 pneumococcal conjugate PCV 7 9 completed Not Available [facility] 01/31/2023 02:44:28 Pneumococcal conjugate PCV 13 6 completed Not Available [facility] 01/31/2023 02:44:28 zoster, unspecified formulation 3 completed Not Available [facility] 01/31/2023 02:44:28 influenza, unspecified formulation 3 completed Not Available [facility] 01/31/2023 02:44:28 COVID-19, mRNA, LNP-S, PF, 30 mcg/0.3 mL dose 3 completed Not Available [facility] 01/31/2023 02:44:28 COVID-19, mRNA, LNP-S, PF, 30 mcg/0.3 mL dose 3 completed Not Available [facility] 01/31/2023 02:44:28 RSV, recombinant, protein subunit RSVpreF, adjuvant reconstituted, 0.5 mL, PF 3 completed DIGNA [place], [place] - [facility] 03/14/2023 14:50:20 Past Encounters Encounter ID Performer Location Encounter Start Date Encounter Closed Date Diagnosis/Indication Diagnosis SNOMED-CT Code Diagnosis ICD10 Code Diagnosis Note [id number] [facility] [place] [address] [facility] [address] , [place] [address] 06/19/2020 00:00:00 06/29/2020 13:37:18 [id number] [facility] [place] [address] [facility] [address] , [place] [address] 12/18/2020 00:00:00 12/18/2020 21:36:45 [id number] [facility] [place] [address] [place] [address] y , [place] [address] 06/11/2021 00:00:00 06/27/2021 14:56:43 [id number] [facility] [place] [address] [facility] [address] , [place] [address] 12/10/2021 00:00:00 12/10/2021 10:28:04 [id number] Jaden Rios MD [facility] [place] [address] [place] [address] y , [place] [address] 06/10/2022 09:52:29 06/10/2022 10:58:12 Dyslipidemia 113754638 E78.5 Long-term drug therapy [id number] Z79.899 Vitamin D deficiency 347 29050 E55.9 Chronic sinusitis 869837 00 J32.9 [id number] Jaden Rios MD [facility] [place] [address] [place] [address] [place] [address] 12/16/2022 09:53:38 12/16/2022 10:28:06 Benign hypertension 87638620 I10 Anxiety 77068026 F41.9 Chronic sinusitis 496137 00 J32.9 Dyslipidemia 387204699 E 78.5 Health Concerns Section Related Observation LastModified by Organization Detai ls LastModified Time None Recorded Concern Status LastModified by Organization Details LastModified Time None Recorded Advance Directives Directive Y: Payers Encounter Date Sequence Insurance Name Policy Number Policy Lozano Covered Member ID Lozano Member ID Guarantor Name 06/10/2022 1 [place] Olivia Sharp [id number] Olivia Sharp 06/10/2022 2 [employer] SU[employer]LE[employer]AL - [employer] (MEDICARE SUPPLEMENT) [place]ANG Olivia Sharp [id number] Olivia Sharp 12/16/2022 1 [place] Olivia Sharp [id number] Olivia Sharp 12/16/2022 2 [employer] - [employer] (MEDICARE SUPPLEMENT) PLANG Olivia Sharp [id number] Olivia Sharp Notes Date Note Type Note Provider Name and Address Organization Details Recorded Time 3 text/html still with some chronic sinusitiscough still botheringlow vitamin-D level supplementhypertension no headache no dizziness Jaden Rios MD [address], [place], [address], [place] 07/18/2022 16:58:04 3 text/html still with some chronic sinusitiscough still botheringlow vitamin-D level supplementhypertension no headache no dizziness Jaden Rios MD [address], [place], [address], [place] 01/02/2023 22:35:18 OBGyn Episode No OBEpisode recorded.
--- OUTSIDE RECORDS SUMMARY | 2024-08-07 12:00 | XMS_ITS | Encounter Summary ---
Author Organization [facility] Address [address] [place] [address] Care Team Providers Care Substance Abuse Technician Name Role Phone Ney Rios MD Primary Care Provider [phone] Encounter Details Date Type Department Care Team (Late st Contact Info) Description 06/27/2021 Ophth Exam [facility] [address] [place] [address] Cuong Salazar IV, DO [address] [place] [address] Social History Tobacco Use Types Packs/Day Years Used Date Smoking Tobacco: Never Smokeless Tobacco: Never Alcohol Use Standard Drinks/Week Comments Yes 0 (1 standard drink = 0.6 oz pur e alcohol) occ Comments No Sex and Gender Information Value Date Recorded Sex Assigned at Not on file Legal Sex Female 12:47 PM CDT Gender Identity Not on file Sexual Orientation Not on file documented as of this encounter Plan of Treatment Not on file documented as of this encounter Visit Diagnoses Not on filedocumented in this encounter Care Teams Substance Abuse Technician Relationship Specialty Start Date End Date Ney Rios MD PCP - General 07/16/20 documented as of this encounter
--- OUTSIDE RECORDS SUMMARY | 2024-08-07 12:00 | XMS_ITS ---
Author Organization [facility] ([address]) Address [address] [facility] [address] [place] [address] Care Team Providers Care Apprentice/Lineman Name Role Phone Rios Ney Primary Care Provider Unavailabl Flor Hamlin Unavailable [phone] [facility], Provider Unavailable Unavailab le [facility] Encounter Medications Medication SIG (Take, Route, [...] Active Encounters Encounter Location Date Provider Diagnosis [facility] [address] [place] [address] 09/24/2023 Provider Javier Chronic rhinitis J31.0 Assessments Encounter Date Diagnosis (ICD Code) Assessment Notes Treatment Notes Treatment Clinical Notes Section Notes 09/24/2023 Chronic rhinitis (ICD-10 - J31.0) Plan Of Treatment Medication Medication Name Sig Start Date Stop Date Notes Azelastine HCl 137 MCG/SPRAY 2 spray(s) intranasally 2 times a day for 30 day(s) 05/19/2021 Progress Notes * Olivia MODOB:1945 (79 yo F)Acc No.[id number]:09/24/2023 Patient: Olivia MADISON Provider: Jayy Basutro :1945 A ge:78 Y S ex:Female Date:09/24/2023 Address:[address] [place] [address] [facility] Pcp:Ney Rios Subjective: * Chief Complaints: * 1 . Multum To [facility] Conversion Encounter. * Medical History: * Medications: T aking PreserVision AREDS ANTIOXIDANT MULTIPLE VITAMINS AND MINERALS CAPSULE 1 CAP(S) ORALLY ONCE A DAY , Notes to Pharmacist: *Please review and pick correct strength[facility]ulation [facility] options. If intended option is not shown, [...] * Procedure Codes: * Electronic signature of Prov chencho Herrera on 08/07/2024 at 11:59 AM CDT Sign off status: Pending * Provider: Jayy anglin Migration Date: 0 09/24/2023 Generated for Sofie bailey/Marj/Brookitting on: 0 08/07/2024 11:59 AM CDT
--- OUTSIDE RECORDS SUMMARY | 2024-08-07 12:01 | XMS_ITS | Encounter Summary ---
Author Organization [facility] Address [address] [facility] [place] [address] Care Team Providers Care Breakfast And Room Attendant Name Role Phone Ney Rios MD Primary Care Provider [phone] Encounter Details Date Type Department Care Team (Late st Contact Info) Description 06/28/2021 Ophth Exam [facility] [address] [place] [address] Anu Saxena MD No info available Social [...] on filedocumented in this encounter Care Teams Breakfast And Room Attendant Relationship Specialty Start Date End Date Ney Rios MD PCP - General 07/16/20 documented as of this encounter
--- OUTSIDE RECORDS SUMMARY | 2024-08-07 12:01 | XMS_ITS | Clinical Summary ---
Author Organization [facility] Address [address] [facility] [place] [address] Care Team Providers Care Nuclear Criticality Safety Engineer Name Role Phone Ney Rios MD Primary Care Provider [phone] Source Comments [facility],non-owned Affiliates and Associated Physician Practices is amultiple site organization consisting of ambulatory clinics and hospital sitesin [place], [place], [place] and [place]. This disclosure is being madepursuant to the Care Everywhere program and may not contain all information available regarding this patient. Last updated 17.[facility] Allergies No known active allergies Medications * Be aware that medications may not be up to date on this document. Alwaysverify current medications with the patient. amLODIPine (NORVASC) 5 MG tablet amlodipine 5 mg tablet Active aspirin (ASPIRIN) 81 MG chew tablet 162 mg every 24 hours 2 tabs Active fluticasone propionate (FLONASE) 50 MCG/ACT nasal spray fluticasone propionate 50 mcg/actuation nasal spray,suspension USE 2 SPRAY(S) IN EACH NOSTRIL TWICE DAILY Activ e hydroCHLOROth iazide (HYDRODIURIL) 25 MG tablet hydrochlorothiazide 25 mg tablet Active simvastatin (ZOCOR) 20 MG tablet simvastatin 20 mg tablet TAKE 1 TABLET BY MOUTH ONCE DAILY AT BEDTIME Act temi Multiple Vitamins-Mine rals (PRESERVISION AREDS 2+MULTI VIT PO) Active calcium citrate TABS tablet Take 400 mg by mouth 2 times daily Active sodium chloride, hypertonic, (MANINDER 128) 5 % Instill 1 (one) Each into right eye 3 times daily 3.5 g 09/12/19 Active oxybutynin CR 24hr (DITROPAN-XL) 10 MG tablet Take 10 mg by mouth once daily 09/18/19 Active cetirizine (ZYRTEC) 10 MG tabletIndicat ions:Seasonal Allergic Rhinitis Take by mouth at bedtime [...] ( - season) 2023 01/30/2021, 06/30/2020, 05/29/2020 DEPRESSION SCREENING 04/11/2024 INFLUENZA VACCINE (Season Ended) 2024 12/26/2020, 01/11/2020, 01/22/2019, Additional history exists HEPATITIS B VACCINE Aged Out No longe [...] on patient's age to complete [place] [address] [place] [address] MEDICARE SELF PAY NO INSURANCE Member Subscriber Plan / Payer (Ef fective for All Dates) Name:Lili Mosandra Driscoll Member ID:Not on file Relation to Subscriber:Not on file Name:LILI MOSANDRA Driscoll Subscriber ID:Not on file (Home) Address: [address] [place] [address] [place] [address] Payer ID:Not on file Group ID:Not on file Type:Self Pay Address: [facility] [place] [address] Advance Directives * Full Code (Latest Code Status on File) Date Activated Date Inactivated Comments 06/27/2021 11:08 AM 06/28/2021 12:17 PM Care Teams Nuclear Criticality Safety Engineer Relationship Specialty Start Date End Date Ney Rios MD PCP - General 07/16/20
--- OUTSIDE RECORDS SUMMARY | 2024-08-07 12:01 | XMS_ITS | CONTINUITY OF CARE DOCUMENT ---
Author Name gabriela doraadeel Address Unknown Organization [facility] Address [address] [place] [address] Phone [phone] Care Team Providers Care Emergency Management Specialist Name Role Phone Faith ALLISON, Larry Unavailable JADEN NARANJO MD Unavailable [phone] JADEN NARANJO MD Unavailable PROBLEMS Condition Status Date Provider Notes Hypercholesterolemia active Germaine Zendejas Hypertension active Germaine Zendejas Chest pain active Germaine Zendejas INSURANCE PROVIDERS Payer name Policy type / Coverage type [facility] [employer] party ID [id number] [place] MEDICARE Medicare [id number] HISTORY OF PROCEDURES Procedure Date Procedure Name Provider Procedure Notes S tatus Stress EKG Sudarshan Graves MD completed Cardiolite, 2 units Larry Cuevas MD completed SPECT Images Mariana German MD com pleted
== END 2024-08-07 10:41 | disposition home or self-care (01) ==
PROVIDERS: PCP Internal Medicine; Visit Provider Nurse Practitioner Adult Health
DX: S22.080A Wedge compression fracture of T11-T12 vertebra, initial encounter for closed fracture (principal); X58.XXXA Exposure to other specified factors, initial encounter
CPT/HCPCS: 72070